=== PATIENT | male | born 1940 | race Caucasian/White ===

== ENCOUNTER 2016-06-23 20:51 | Inpatient (IN) | payer OTHER ==
[~2016-06-23] VITALS: Ht 177.8 cm; Wt 77.3 kg
[~2016-06-23 20:51] MED LIST: ALBUTEROL; AMLODIPINE; BENAZEPRIL; CLONIDINE; HCTZ; LORATIDINE; METOPROLOL; OMEPRAZOLE; QVAR; SIMVASTATIN; SPIRIVA; WARFARIN
[2016-06-23 20:55] VITALS: Ht 177.8 cm; Wt 77.3 kg
[2016-06-23] MEDS ORDERED: SOD CHLORIDE 0.9% 1,000 ML IV STA (20:57)
[2016-06-23] MEDS ORDERED: CEFTRIAXONE 1 GM/50 ML (PMX) 50 ML IVPB ONE (21:00)
[2016-06-23] MEDS ORDERED: ALBUTEROL 0.5% (NEB) 2.5 MG/0.5 ML AMP INH STA (21:03)
[2016-06-23 21:28] LABS: ADD SCAN DIFF NO
[2016-06-23 21:34] LABS: BASOPHILS % 0.2 % (0.0-2.0); EOSINOPHILS % 0.1 % (0.0-7.0); HEMATOCRIT 42.2 % (42.0-52.0); HEMOGLOBIN 13.2 g/dl (14.0-18.0); LYMPHOCYTES # 2.6 10^3/ul (0.8-2.9); LYMPHOCYTES % 29.3 % (15.0-51.0); MEAN CORPUSCULAR HEMOGLOBIN 31.6 pg (29.0-33.0); MEAN CORPUSCULAR HGB CONC 31.3 g/dl (32.0-37.0); MEAN PLATELET VOLUME 11.1 fl (7.4-10.4); MONOCYTE # 0.9 10^3/ul (0.3-0.9); MONOCYTES % 10.1 % (0.0-11.0); NEUTROPHIL # 5.2 10^3/ul (1.6-7.5); NEUTROPHILS % 59.3 % (39.0-77.0); NUCLEATED RED BLOOD CELLS # 0.1 10^3/ul (0.0-0.0); NUCLEATED RED BLOOD CELLS% 0.7 /100WBC (0.0-0.0); PLATELET COUNT 130 10^3/UL (140-415); RED BLOOD COUNT 4.18 10^6/ul (4.70-6.10); RED CELL DISTRIBUTION WIDTH 15.3 % (11.5-14.5); WHITE BLOOD COUNT 8.7 10^3/ul (4.8-10.8)
[2016-06-23 21:40] LABS: ALBUMIN 3.5 g/dl (3.3-4.9); INR 3.15; PROTIME 32.8 Sec (12.2-14.2); PT RATIO 2.6
[2016-06-23 21:41] LABS: POTASSIUM 4.8 mmol/L (3.5-5.1)
[2016-06-23 21:43] LABS: ALBUMIN/GLOBULIN RATIO 1.16; BILIRUBIN,INDIRECT 0.3 mg/dl (0-1.1); BILIRUBIN,TOTAL 0.3 mg/dl (0.2-1.3); CREATININE 2.69 mg/dl (0.61-1.24); TOTAL PROTEIN 6.5 g/dl (6.1-8.1)
[2016-06-23 21:44] LABS: CALCIUM 8.7 mg/dl (8.4-10.2)
[2016-06-23 21:49] LABS: ADD UMIC YES; URINE BILIRUBIN (Dip) 1+ (NEGATIVE); URINE BLOOD (Dip) NEGATIVE (NEGATIVE); URINE COLOR YELLOW (YELLOW); URINE GLUCOSE (Dip) NEGATIVE (NEGATIVE); URINE KETONES (Dip) TRACE (NEGATIVE); URINE LEUKOCYTE ESTERASE (Dip) NEGATIVE (NEGATIVE); URINE NITRITE (Dip) NEGATIVE (NEGATIVE); URINE TOTAL PROTEIN (Dip) 1+ (NEGATIVE); URINE UROBILINOGEN (Dip) 1.0 E.U./dL (0.1-1.0)
[2016-06-23 21:54] LABS: TROPONIN-I 0.127 ng/ml (0.00-0.12)
--- NOTE | 2016-06-23 21:57 | RADRPT ---
PROCEDURE: XR Chest. CLINICAL INDICATION: Cough. Concern for infiltrates TECHNIQUE: Portable AP supine view of the chest was obtained. COMPARISON: None available. FINDINGS: The cardiomediastinal silhouette is enlarged. Distal tip of an endotracheal tube is in good positio n projecting 4.8 cm above the farida. Diffuse pulmonary vascular congestion and moderate to large r ight pleural effusion consistent with congestive heart failure pattern. The osseous structures are intact with no evidence for acute abnormality. Calcification of the thoracic aorta is noted. RPTAT:HJJR IMPRESSION: 1. Endotracheal tube in good position the distal tip projecting 4.8 cm above the farida. 2. Cardiac silhouette enlargement, pulmonary vascular congestion and right pleural effusion consist ent with congestive heart failure. 3. Compressive atelectasis of the right lower lobe. 4. Aortic atherosclerosis is present. Physician Timur Date Time Electronically viewed and signed by Physician Timur on 06/23/2016 21:57 /
--- NOTE | 2016-06-23 21:58 | RADRPT ---
PROCEDURE: XR Pelvis. CLINICAL INDICATION: Trauma TECHNIQUE: Single AP view of the pelvis. COMPARISON: No prior studies are available for comparison. FINDINGS: There are no fractures or dislocations. There are no arthritic, neoplastic or inflammatory changes. The osseous mineralization is decreased. The sacroiliac joints and pubic symphysis are normal. Extensive arteriosclerotic calcification of th e iliac and femoral systems is present. Note is made of a Cochran catheter RPTAT:HJJR IMPRESSION: 1. Demineralization without evidence of acute post traumatic abnormality involving the pelvis. 2. Extensive arteriosclerotic calcification. Physician Timur Date Time Electronically viewed and signed by Physician Timur on 06/23/2016 21:58 JR/
--- NOTE | 2016-06-23 21:59 | RADRPT ---
PROCEDURE: CR Right Elbow CLINICAL INDICATION: Trauma, rule out fracture TECHNIQUE: AP, lateral, and an oblique radiographs were submitted. COMPARISON: None FINDINGS: Osseous Structures: The osseous elements appear well mineralized and intact. Joint Spaces: The joint spaces are well maintained. No joint effusion is evident. Soft Tissues: Soft tissue swelling is seen posterior to the olecranon. IMPRESSION: 1. Soft tissue swelling posterior to the olecranon which could represent a hematoma or olecranon bu rsitis. 2. No fracture or dislocation is evident. Physician Parisa Date Time Electronically viewed and signed by Physician Parisa on 06/23/2016 21:59 /
--- NOTE | 2016-06-23 22:00 | RADRPT ---
PROCEDURE: CR Left Elbow CLINICAL INDICATION: Trauma TECHNIQUE: AP, lateral, and an oblique radiographs were submitted. COMPARISON: None FINDINGS: Osseous Structures: The osseous elements appear well mineralized and intact. Joint Spaces: The joint spaces are well maintained. No joint effusion is evident. Soft Tissues: Appear unremarkable. IMPRESSION: Unremarkable left elbow series. Physician Parisa Date Time Electronically viewed and signed by Will Blankenship Physician on 06/23/2016 22:00 /
[2016-06-23 22:01] LABS: AADO2 Arterial 603.2 mmHg (7.0-24.0); Allen Test ACCEPTAB; Arterial COHb 2.8 % (0.0-3.0); Arterial Fraction of Oxyhgb 83.5 % (93.0-99.0); Arterial HCO3 23.1 mmol/L (22.0-26.0); Arterial MetHb 0.2 % (0.0-1.5); Arterial Total Hemglobin 12.3 g/dl (12.0-18.0); MODE VENT - AC
[2016-06-23 22:07] LABS: BACTERIA,URINE FEW; URINE RBCS NONE SEEN /HPF (0)
--- NOTE | 2016-06-23 22:17 | ERA ---
ER Documentation Chief Complaint Date/Time DATE: 06/23/16 TIME: 22:07 Chief Complaint BIB r39, ROSC HPI 70-year-old man brought in by EMS after intubation at home. Patient called 911 because he rolled off his bed and was too weak to get up. Upon EMS arrival they found the house and a squalid condition, he appeared weak, dehydrated, and short of breath. 1 they placed him on the bed he had momentary altered mental status, stopped breathing, and lost pulses. Initial rhythm was asystole, immediate chest compressions were started and he was given 2 doses of intravenous epinephrine, he was intubated and he had return of spontaneous circulation and then was transported here. Patient did mention hospice to EMS although he had no paperwork and did not explain in detail so he was intubated and resuscitated at the scene. He is a heavy smoker. Further HPI provided by his primary care physician who called later. ROS All systems reviewed and are negative except as per history of present illness. Medications Home Meds Unable to Obtain Active Prescriptions or Reported Meds Allergies Allergies: Coded Allergies: Unknown: Unable to obtain (Unverified , 06/23/16) PMhx/Soc Possible COPD, congestive heart failure and ischemic cardiomyopathy, alcoholism , aortic aneurysm, lower extremity DVTs, chronic kidney disease, peripheral vascular disease, chronic compression fracture of L4 Medical and Surgical Hx: Unable to obtain Hx Alcohol Use: No (unknown) Hx Substance Use: No (unknown) Smoking Status: Current every day smoker FmHx Family History: No diabetes Physical Exam Vitals Vital Signs Date Time Temp Pulse Resp B/P Pulse Ox O2 Delivery O2 Flow Rate FiO2 06/23/16 22:03 69 30 106/73 100 Mechanical Ventilator 06/23/16 21:33 67 19 91/75 96 Mechanical Ventilator 06/23/16 21:21 Bag Valve Mask 06/23/16 20:55 99.3 72 18 135/70 100 Physical Exam GENERAL: Elderly, chronically debilitated man, intubated, unresponsive HEENT: Dry mucous membranes, pink conjunctiva, no cervical spine deformity NEURO: Alert and oriented 0, nonverbal, pupils fixed dilated, no facial asymmetry CARDIAC: Regular rate and rhythm, no murmurs rubs or gallops, palpable pulses LUNGS: Clear bilaterally no wheezing crackles or stridor ABDOMEN: Soft nontender, positive umbilical hernia, no rigidity or rebound SKIN: Cool and dry to touch, multiple superficial abrasions and skin excoriations over the upper extremities and elbows bilaterally, chronic skin thickening and stasis dermatitis of the lower extremities bilaterally EXTREMITIES: No clubbing cyanosis, 1+ pitting edema in the lower extremities bilaterally, calves are bilaterally symmetrical, no Homans sign, no popliteal cord sign. Distal pulses equal and bilateral PSYCH: Unable to assess Result Diagram: 06/23/16209906/23/16 2100 Results 24 hrs Laboratory Tests Test 06/23/16 20:57 06/23/16 21:00 Blood Gas Specimen Source Blood arterial Arterial Blood Date Drawn 06/23/2016 9:49:02 PM Arterial Blood pH (Temp corrected) 7.275 Arterial Blood pCO2 (Temp correct) 50.9mmhg Arterial Blood pO2 (Temp corrected) 58.9mmHG Arterial Blood HCO3 23.1mmol/L Arterial Blood Base Excess -4.0mmol/L Arterial Blood Oxygen Saturation 86.1mmHG Isac Test ACCEPTAB Arterial Blood Gas Puncture Site Left Radial Arterial Blood Carboxyhemoglobin 2.8% Arterial Blood Methemoglobin 0.2% Blood Gas A-a O2 Differential 603.2mmHg Oxyhemoglobin Percent 83.5% Total Hemoglobin 12.3g/dl Blood Gas Temperature 37.0C Blood Gas Respiration Rate 16.0 Blood Gas Actual Respiration Rate 24 Blood Gas Modality VENT - AC FiO2 100.0% Blood Gas Tidal Volume 500.0mL Blood Gas Low PEEP Setting 5.0cmH2O Blood Gas Inspiratory Pressure 28.0 Blood Gas Critical Value Read Back Jacqueline HAN MD Blood Gas Notified Whom UP Blood Gas Notified Time 06/23/2016 10:00:58 PM White Blood Count 8.710^3/ul Red Blood Count 4.1810^6/ul Hemoglobin 13.2g/dl Hematocrit 42.2% Mean Corpuscular Volume 101.0fl Mean Corpuscular Hemoglobin 31.6pg Mean Corpuscular Hemoglobin Concent 31.3g/dl Red Cell Distribution Width 15.3% Platelet Count 95491^3/UL Mean Platelet Volume 11.1fl Neutrophils % 59.3% Lymphocytes % 29.3% Monocytes % 10.1% Eosinophils % 0.1% Basophils % 0.2% Nucleated Red Blood Cells % 0.7/100WBC Neutrophils # 5.210^3/ul Lymphocytes # 2.610^3/ul Monocytes # 0.910^3/ul Eosinophils # 0.010^3/ul Basophils # 0.010^3/ul Nucleated Red Blood Cells # 0.110^3/ul Prothrombin Time 32.8Sec Prothrombin Time Ratio 2.6 INR International Normalized Ratio 3.15 Urine Color YELLOW Urine Clarity CLEAR Urine pH 5.5 Urine Specific [place] 1.025 Urine Ketones TRACE Urine Nitrite NEGATIVE Urine Bilirubin 1+ Urine Ictotest Pending Urine Urobilinogen 1.0 E.U./dL Urine Leukocyte Esterase NEGATIVE Urine Microscopic RBC NONE SEEN/HPF Urine Microscopic WBC NONE SEEN/HPF Urine Epithelial Cells FEW Urine Bacteria FEW Urine Hyaline Casts FEW Urine Hemoglobin NEGATIVE Urine Glucose NEGATIVE% Urine Total Protein 1+ Sodium Level 145mmol/L Potassium Level 4.8mmol/L Chloride Level 100mmol/L Carbon Dioxide Level 30mmol/L Anion Gap 20 Blood Urea Nitrogen 57mg/dl Creatinine 2.69mg/dl Glucose Level 124mg/dl Calcium Level 8.7mg/dl Total Bilirubin 0.3mg/dl Direct Bilirubin 0.00mg/dl Indirect Bilirubin 0.3mg/dl Aspartate Amino Transf (AST/SGOT) 166IU/L Alanine Aminotransferase (ALT/SGPT) 137IU/L Alkaline Phosphatase 165IU/L Troponin I 0.127ng/ml Total Protein 6.5g/dl Albumin 3.5g/dl Globulin 3.00g/dl Albumin/Globulin Ratio 1.16 Lipase 39U/L Current Medications Medications (Trade) Dose Ordered Sig/Lacie Route PRN Reason Start Time Stop Time Status Last Admin Dose Admin Sodium Chloride 1,000 ml @ 2,000 mls/hr Q30M STAT IV 06/23/16 20:57 06/23/16 21:26 DC 06/23/16 21:13 Ceftriaxone Sodium (Rocephin) 50 ml @ 100 mls/hr ONCE ONCE IVPB 06/23/16 21:00 06/23/16 21:29 DC 06/23/16 21:15 Albuterol (Proventil 0.5% (Neb)) 10 mg ONCE STAT INH 06/23/16 21:03 06/23/16 21:05 DC 06/23/16 21:10 Aspirin (Aspirin) 300 mg ONCE ONCE MS 06/23/16 22:30 06/23/16 22:31 06/23/16 22:11 Hydrocortisone (Solu-Cortef) 100 mg ONCE ONCE IV 06/23/16 22:30 06/23/16 22:31 06/23/16 22:10 Procedures/MDM IV line was established patient was placed on monitor tech rhythm strip revealed a bradycardia at about 60 bpm with upright P and T waves. Patient was afebrile. Cochran catheter was placed, blood and urine cultures have been ordered results are pending I will follow-up. EKG performed, read by me revealed normal sinus rhythm at 62 bpm, left axis deviation with a right ventricular conduction delay QRS duration 112 ms and a first-degree atrioventricular block at [address] elevations or depressions noted. One view chest x-ray performed, read by me there is atelectatic changes bilaterally and bilateral pulmonary vascular congestion, no acute infiltrates or pneumothorax, no end of the diaphragm. CT scan of the brain could not be performed as he had episodes of desaturation in the radiology suite. Patient is also at risk for acute pulmonary embolism and will require CT angiogram of the chest although there is definite risk of this as well because his creatinine is so high. I suspect his BUN and creatinine levels will improve with continued IV hydration, and therefore CT angiogram to diagnose acute PE will have to be deferred until he has an improved creatinine level. I ordered another dose of albuterol via nebulizer X-ray Pelvis 1V Interpreted by me: Bones: No fracture Joints: No dislocation Foreign body: None X-ray left elbow 3V Interpreted by me: Fat Pads: Normal Bones: No fracture Joints: No dislocation Foreign body: None X-ray right elbow 3V Interpreted by me: Fat Pads: Normal Bones: No fracture Joints: No dislocation Foreign body: None I administered 2 L normal saline intravenously for dehydration, albuterol 10 mg via nebulizer, hydrocortisone 100 mg IV, ceftriaxone 1 g IV. CBC was unremarkable, electrolytes revealed dehydration and kidney disease with a BUN/creatinine of 57/2.7, liver function tests revealed transaminitis, troponin was positive at 0.1. Coagulation profile revealed an INR of 3.2 and therapeutic. I administered aspirin 300 mg per rectum, given the chest x-ray findings I also administered furosemide 40 mg IV. Urine analysis was unremarkable. Critical Care: Time: 50 minutes, this was time separate from other procedures. Treatments/Evaluations: Close monitoring and treatment of unstable vital signs, cardiorespiratory, and neurologic status, while maintaining tight balance of fluid, respiratory, and cardiac interventions. EKG #2 performed, read by me revealed a sinus bradycardia 69 bpm, left axis deviation, narrow QRS complex with a first-degree atrioventricular block and a MS interval of 206, no concerning ST elevations or depressions noted. Departure Diagnosis: Primary Impression: Cardiac arrest Additional Impressions: CHF (congestive heart failure) Qualified Code: I50.21 - Acute systolic congestive heart failure COPD (chronic obstructive pulmonary disease) Qualified Code: J44.1 - Chronic obstructive pulmonary disease with acute exacerbation Alcoholism Condition: Critical ZAYDA HAN MD Jun 23, 2016 22:17
[2016-06-23] MEDS ORDERED: ALBUTEROL 0.083% (NEB) 2.5 MG/3 ML AMP HHN STA (22:25)
[2016-06-23] MEDS ORDERED: SOD CHLORIDE 0.9% 1,000 ML IV ONE (22:30)
[2016-06-23] MEDS ORDERED: ASPIRIN 300 MG SUPP PR ONE (22:30)
[2016-06-23] MEDS ORDERED: FUROSEMIDE 40 MG INJ IV ONE (22:30)
[2016-06-23] MEDS ORDERED: HYDROCORTISONE 100 MG INJ IV ONE (22:30)
[2016-06-23 23:03] LABS: ICTOTEST NEGATIVE (NEGATIVE)
[2016-06-24] VITALS (60 sets, daily range): BP systolic 72–152; BP diastolic 53–87; PULSE 61–77; RESP 16–30
[2016-06-24] MEDS ORDERED: NICOTINE (21 MG/24 HR) PATCH TRANSDERM ONE
[2016-06-24] MEDS ORDERED: NACL 0.9% 3 ML SYG IV SCH
[2016-06-24] MEDS ORDERED: ONDANSETRON 4 MG INJ IV PRN
[2016-06-24] MEDS: PROPOFOL 100 ML IV SCH ×3 (01:00→18:34)
[2016-06-24] MEDS ORDERED: PROPOFOL 100 ML ONE (01:02)
[2016-06-24 04:00] LABS: AADO2 Arterial 594.4 mmHg (7.0-24.0); Allen Test ACCEPTAB; Arterial Base Excess 0.7 mmol/L (-3.0-3); Arterial COHb 0.7 % (0.0-3.0); Arterial Fraction of Oxyhgb 92.6 % (93.0-99.0); Arterial HCO3 26.1 mmol/L (22.0-26.0); Arterial MetHb 0.2 % (0.0-1.5); Arterial Total Hemglobin 13.2 g/dl (12.0-18.0); MODE VENT - AC
[2016-06-24 05:08] LABS: ADD SCAN DIFF NO
[2016-06-24 05:19] LABS: ABNORMAL IP MESSAGE 1; HEMOGLOBIN 12.2 g/dl (14.0-18.0); LYMPHOCYTES # 0.4 10^3/ul (0.8-2.9); LYMPHOCYTES % 3.5 % (15.0-51.0); MEAN CORPUSCULAR HEMOGLOBIN 30.8 pg (29.0-33.0); MEAN CORPUSCULAR HGB CONC 31.3 g/dl (32.0-37.0); MEAN CORPUSCULAR VOLUME 98.5 fl (82.0-101.0); MEAN PLATELET VOLUME 10.9 fl (7.4-10.4); MONOCYTE # 0.9 10^3/ul (0.3-0.9); MONOCYTES % 8.6 % (0.0-11.0); NEUTROPHIL # 9.3 10^3/ul (1.6-7.5); NEUTROPHILS % 87.3 % (39.0-77.0); PLATELET COUNT 95 10^3/UL (140-415); RED BLOOD COUNT 3.96 10^6/ul (4.70-6.10); RED CELL DISTRIBUTION WIDTH 15.1 % (11.5-14.5); WHITE BLOOD COUNT 10.7 10^3/ul (4.8-10.8)
[2016-06-24 05:24] LABS: INR 2.68; PROTIME 28.9 Sec (12.2-14.2); PT RATIO 2.3
[2016-06-24 05:25] LABS: PARTIAL THROMBOPLASTIN TIME 35.5 Sec (25.0-35.0)
[2016-06-24 05:32] LABS: POTASSIUM 4.1 mmol/L (3.5-5.1)
[2016-06-24 05:35] LABS: CREATININE 2.44 mg/dl (0.61-1.24)
[2016-06-24 05:36] LABS: CALCIUM 8.4 mg/dl (8.4-10.2)
[2016-06-24] MEDS: PANTOPRAZOLE 40 MG INJ IV SCH (05:49)
[2016-06-24] MEDS ORDERED: NORepinephrine 8MG/250 ML (PMX 250 ML ONE (06:02)
[2016-06-24 06:03] LABS: ALBUMIN 3.5 g/dl (3.3-4.9)
[2016-06-24 06:06] LABS: BILIRUBIN,INDIRECT 0.3 mg/dl (0-1.1); BILIRUBIN,TOTAL 0.3 mg/dl (0.2-1.3); TOTAL PROTEIN 6.4 g/dl (6.1-8.1)
[2016-06-24] MEDS ORDERED: NORepinephrine 8MG/250 ML (PMX 250 ML IV SCH (06:30)
[2016-06-24] MEDS ORDERED: VANCOMYCIN IV PER PHARMACY XX SCH (06:30)
[2016-06-24] MEDS: VANCOMYCIN 1.25 GM in SOD CHLORIDE 0.9% 250 ML IVPB SCH (08:16)
--- NOTE | 2016-06-24 09:38 | RADRPT ---
PROCEDURE: XR Chest 1 view. CLINICAL INDICATION: Shortness of breath TECHNIQUE: AP views of the chest was obtained. COMPARISON: Yesterday FINDINGS: The heart is large. Calcified atherosclerosis is noted in the aorta. Endotracheal tube is stable. Central pulmonary vascular congestion and interstitial prominence in both lungs is unchanged. Right mid and lower lung infiltrates combined with moderate pleural effusion are stable. Retrocardiac op acity is stable. The osseous structures are unchanged. IMPRESSION: Cardiomegaly with calcified atherosclerosis in the aorta. Stable central pulmonary vascular congestion and interstitial prominence in both lungs. Stable right mid and lower lung infiltrates, combined with moderate pleural effusion. Stable retrocardiac opacity that may reflect left lower lobe atelectasis or infiltrate combined with small pleural effusion. RPTAT: AA .Javier Goodwin MD, MD Date Time Electronically viewed and signed by .Javier Goodwin MD, MD on 06/24/2016 09:38 .P/
--- NOTE | 2016-06-24 12:07 | RADRPT ---
PROCEDURE: CT Brain without contrast. CLINICAL INDICATION: Altered mental status. TECHNIQUE: A CT of the brain was performed on a multi-slice CT scanner utilizing axial sections fr om the skull base through the vertex without contrast. Coronal and sagittal reconstructed images wer e provided. One or more of the following does reduction techniques were used: Automated exposure c ontrol; adjustment of the mA and/or kV according to patient size; use of the aorta of reconstruction technique. Images were reviewed on a high-resolution PACS workstation. Exam DLP equals 720.23 mGy- cm. The CTDI equals 43.7 mGy COMPARISON: None available FINDINGS: Mild diffuse cerebral and cerebellar atrophy is present. There is no evidence of intracranial hemor rhage, mass effect or midline shift. No abnormal intra-axial or extra-axial fluid collections are s een. There are mild deep white matter patchy hypodensities which are nonspecific, but typically see n in small vessel chronic ischemic disease. The density of the brain is otherwise normal and the g ray/white matter differentiation is well preserved. The osseous structures and visualized paranasal sinuses are unremarkable. Vascular calcifications are identified. IMPRESSION: 1. No CT evidence of acute intracranial pathology. 2. Mild diffuse atrophy and deep white matter microangiopathic ischemic changes. 3. Atherosclerotic calcifications of the intracranial carotid and vertebral arteries. RPTAT: KK .Saran Vicente MD, MD Date Time Electronically viewed and signed by .Saran Vicente MD, MD on 06/24/2016 12:06 .B/
[2016-06-24] MEDS: METHYLPREDNISOLONE 40 MG INJ IV SCH ×2 (12:50→17:24)
--- NOTE | 2016-06-24 13:35 | CONS ---
DATE OF ADMISSION: 06/23/2016 DATE OF CONSULTATION: 06/24/2016 PULMONARY CONSULTATION Thank you, Dr. Hodges, for this consultation. HISTORY OF PRESENT ILLNESS: This is a 76-year-old gentleman with multiple medical problems includin g COPD, congestive cardiac failure, apparently previously on hospice. He came in yesterday having b eekeisha found down at home in what appears to be squalid conditions. Upon arrival of EMS, the patient w as somewhat responsive and then became unresponsive, requiring CPR for asystole with epinephrine int ubation and mechanical ventilation. Transferred to [facility], [facility] he required continued mechanical ventilation, vasopressor support; now on vent, largely somnolent . PAST MEDICAL HISTORY: COPD, congestive cardiac failure, ischemic cardiomyopathy, history of alcohol abuse, aortic aneurysm, lower extremity deep vein thrombosis, peripheral vascular disease and prior to that apparently on hospice. MEDICATIONS: Per chart. ALLERGIES: NONE. SOCIAL HISTORY: Positive for tobacco and alcohol per chart. TWELVE-POINT REVIEW OF SYSTEMS: Unable to perform. PHYSICAL EXAMINATION: GENERAL: Elderly, chronically ill-appearing gentleman, intubated on mechanical ventilation. HEENT: Pupils are equal and reactive to light. Moist mucous membranes. CARDIAC: S1, S2. II/ systolic ejection murmur. CHEST: Diminished air entry bilaterally with rales. ABDOMEN: Mildly distended, soft. EXTREMITIES: No cyanosis, clubbing; 1+ edema. NEUROLOGIC: Generalized weakness. LABORATORIES: White count 10.7, hemoglobin 12.2, platelets of 95. BUN 58, creatinine 2.44. Tropon in elevated at 0.35. AST 163, ALT 165, alk phos 167. Arterial blood gas: pH 7.38, pCO2 of 44, pO2 of 73. INR was 2.68. Urinalysis was unremarkable. Chest x-ray was reviewed; showed congestive cardiac failure with moderate pleural effusions. EKG showed no acute ischemic changes. IMPRESSION AND PLAN: 1. Cardiopulmonary arrest, likely secondary to acute respiratory failure. 2. Possible aspiration component. 3. Congestive cardiac failure. 4. History of advanced chronic obstructive pulmonary disease per chart. 5. History of hospice. PATIENT WILL NEED: 1. Continued mechanical ventilation. 2. Vasopressors as needed. 3. Additional steroids. 4. Broadening antibiotics. 5. Bronchodilators. 6. DVT and GI prophylaxis. 7. Address code status again with family and next of kin as palliative care may be more appropriate . Dictated By: NIC NARVAEZ/ERIN Conf#: [id number] DID#: [id number]
[2016-06-24] MEDS ORDERED: ALBUTEROL/IPRATROPIUM (NEB) 3 ML AMP HHN SCH (14:00)
[2016-06-24] MEDS: PIPER-TAZO 3.375 GM IV (PMX) 100 ML IVPB SCH ×2 (14:09→22:07)
--- NOTE | 2016-06-24 19:13 | HP ---
DATE OF ADMISSION: 06/23/2016 CONSULTANTS ON THIS ADMISSION: Dr. Lamb from pulmonary, Dr. Kahn from Cardiology. CHIEF COMPLAINT ON ADMISSION: Found down at home. HISTORY OF PRESENT ILLNESS: This is a 76-year-old male brought in by EMS after being found in cardi ac arrest at home. The patient himself is intubated, currently unable to give any history. Therefo re, the following history was compiled from EMS reports and emergency department notes, also a few r eports from the hospice service the patient was on before, and other information obtained through [facility] services. Apparently, the patient has signed up for hospice. We do not know exactly when. A POLST form was not done; therefore, he is a FULL CODE patient at that time he signed up. Yesterday, he called and decided to revoke hospice. A few minutes later, he called 911 complaining of shortne ss of breath. EMS did show up at the residence of the patient, found it in very poor condition. Th e patient was weak, look dehydrated, and short of breath. Apparently, they placed him on the bed an d the patient proceeded to have loss of consciousness, stopped breathing, and lost his pulses. CPR was initiated. The initial rhythm was asystole, PEA cardiac arrest. The patient had chest compress ions. He was given 2 doses of IV epinephrine, intubated by EMS. He had return of spontaneous circu lation and the patient was transported to the emergency department. The patient was maintained on v entilator. He is on a small amount of propofol. He is not requiring pressors. He was given a dose of Lasix and then started on IV antibiotics overnight, and he has been stable on the ventilator so far. He had a CT scan of the brain, which did not show any acute injury. The admitting diagnosis i s PEA cardiac arrest, likely secondary to respiratory failure actually, given also possible history of chronic obstructive pulmonary disease. Today, after case management and social work coordinator investig ated regarding the patient's social situation, it was confirmed that he was with [facility]. Whe n they were called, they did confirm that the patient revoked prior to calling 911. He also never f illed out a POLST form; therefore, FULL CODE. Apparently, the patient was noncompliant on hospice. He was still smoking. He is a heavy smoker. We will have social work coordinator try to obtain further in formation during this patient's hospital stay. He is also noted to be in acute kidney injury versus chronic kidney disease. He is coagulopathic, low platelet level, abnormal LFTs that seems to be po inting towards possible cirrhosis. It is unclear if the patient is a heavy drinker, but it is possi ble; therefore, I will place him on a banana bag. Today during his evaluation, his cardiac enzymes seem to be trending up, likely secondary to CPR, but Cardiology will be consulted. Once we get a be tter idea of this patient's past medical history, previous clinical status, and goals of care; hopef ully, we will be able to reach out to family. We will have possible palliative care evaluation if t he patient is still on the ventilator. If he recovers from this event once he is extubated, of cour se, appropriate intervention will be done. ALLERGIES: Unknown, unable to obtain. PAST MEDICAL HISTORY: Unknown. Based on the few records we have, it seems like the patient has tob acco use and likely COPD. PAST SURGICAL HISTORY: Unknown. REVIEW OF SYSTEMS: Unable to obtain. OUTPATIENT MEDICATIONS: Unknown. SOCIAL HISTORY: Really unknown, but the patient was found in a house in poor condition. He seemed disheveled when he arrived. He is a heavy tobacco user and smoker, confirmed. It is unclear if he also drinks alcohol. PHYSICAL EXAMINATION: VITAL SIGNS: Temperature 98.7, heart rate of 66, sinus rhythm, respiratory rate 20. He is on mecha nical ventilation. Blood pressure 113/63 and he is 100% on 60% FIO2. GENERAL: He is sedated with minimal dose of propofol, noncombative at all. He does not seem to be in any acute distress. HEENT: Pupils are equally round and reactive to light. Extraocular muscles are intact. Anicteric sclerae. NECK: No JVD, no thyromegaly. LUNGS: He has good air movement on mechanical ventilation currently. Decreased breath sounds at th e bases. ABDOMEN: Soft, nontender, nondistended. Bowel sounds are present. EXTREMITIES: No edema, but the patient is noted to have almost chronic venous stasis with skin conley ges in the lower extremities. He is also noted to have ecchymoses on his upper extremities. NEUROLOGIC: He is currently on light sedation, but minimally responsive. LABORATORY DATA: White blood cell count is 10.7, hemoglobin 12.2, hematocrit 39.0, platelet count o f 95. Chemistry with a sodium of 143, potassium 4.1, chloride 103, bicarbonate 29, BUN 58, creatini ne 2.44, glucose of 113, calcium 8.4, magnesium 2.0. Total bilirubin 0.3, AST 163, ALT 165, alkalin e phosphatase 167. Troponin is 0.401, for the latest one. Prior to that 0.35, and prior to that 0. 127, total protein 6.4, albumin 3.5. INR is 2.68, which is down from 3.15, PTT 35.5, of 28.9. Urinalysis is fairly negative. ABG this morning with a pH of 7.38, pO2 of 73.9, pCO2 of 44.7. RADIOLOGICAL DATA: Patient had a chest x-ray, the latest one this morning showing cardiomegaly, karolina cified aorta, stable central pulmonary vascular congestion and interstitial prominence in both lungs , stable right mid and lower lobe infiltrate combined with moderate pleural effusion, stable retroca rdiac opacity reflective of lower lobe atelectasis or infiltrate. CT scan of the brain shows no dave dence of intracranial pathology, mild diffuse atrophy and deep white matter microangiopathic ischemi c changes, atherosclerotic calcification, intracranial carotid intervertebral arteries. The patient had elbow x-rays done that did not show any acute dislocation, but some tissue swelling. Pelvic x- ray did not show any acute fractures. ELECTROCARDIOGRAM: Upon presentation in the ER shows sinus rhythm, first-degree AV block. No other acute changes. ASSESSMENT AND PLAN: This is a 76-year-old male with: 1. Pulseless electrical activity cardiac arrest at home with EMS on site, status post resuscitation . The patient is hemodynamically stable currently. He is on sedation with a low dose of propofol. His cardiac enzymes are trending up slightly, likely still secondary to CPR, but a 2-D echocardiogr am will be ordered along with a cardiology evaluation. This cardiac arrest may be very well respira tory failure driven. We will continue to monitor. 2. Acute respiratory failure with a history of heavy tobacco use, likely chronic obstructive pulmon henry disease and chronic obstructive pulmonary disease exacerbation. Also, patient is noted to have right lower lobe, right middle lobe infiltrate consistent with pneumonia, possibly aspiration pneum onia versus community-acquired pneumonia. We will continue vancomycin and Zosyn for now for antibio tic coverage. The patient is on mechanical ventilation for airway. Nebulizer treatments have been started by Dr. Lamb, along with steroid therapy. We will follow up pulmonary recommendations. 3. Aspiration pneumonia likely, given the pattern of infiltrates on chest x-ray. Continue Zosyn an d vancomycin. 4. Possibly cirrhosis versus shock liver. The patient's LFTs did go up along with coagulopathy. Ilana mandujano is also noted to have thrombocytopenia. We will continue to monitor his liver function testing, a long with coagulation factors and platelets. Also monitor for any signs of acute bleeding. I will place him on a banana bag in case and also check a hepatitis panel. 5. Acute kidney injury versus chronic kidney disease. The patient's urine output is slightly zahira nal. He did receive Lasix last night upon presentation. We will monitor his urine output and volum e status. He may need further diuresis versus IV fluids, depending on the chest x-ray in a.m. PROPHYLAXIS: SCDs to lower extremities for DVT prophylaxis and Pepcid for GI prophylaxis. DISPOSITION: The patient is currently FULL CODE until further information is obtained through [employer] services, and also hopefully we will find out if he does have family. Continue ICU level of care with mechanical ventilation, aggressive treatment. Follow up cardiology recommendations. Dictated By: DAVID VIEYRA/NTS Conf#: [id number] DID#: [id number]
[2016-06-24] MEDS: IPRATROPIUM (HFA) 12.9 GM INHALER INH SCH (19:38)
[2016-06-24] MEDS: ALBUTEROL HFA 8 GM INHALER INH SCH (19:39)
[2016-06-24] MEDS: MULTIVITAMINS 10 ML, THIAMINE 100 MG, FOLIC ACID 1 MG in SOD CHLORIDE 0.9% 1,000 ML IVPB SCH (20:02)
[2016-06-24 21:42] LABS: CREATINE KINASE < 20 IU/L (23-200)
[2016-06-24 21:54] LABS: CK-MB 0.88 ng/ml (0.0-2.4)
[2016-06-25] VITALS (43 sets, daily range): BP systolic 103–132; BP diastolic 57–70; PULSE 53–66; RESP 15–21
[2016-06-25] MEDS: METHYLPREDNISOLONE 40 MG INJ IV SCH ×4 (00:03→17:54)
[2016-06-25] MEDS ORDERED: FUROSEMIDE 40 MG INJ IV ONE (01:00)
[2016-06-25] MEDS: ALBUTEROL HFA 8 GM INHALER INH SCH ×4 (01:37→20:52)
[2016-06-25] MEDS: IPRATROPIUM (HFA) 12.9 GM INHALER INH SCH ×4 (01:37→20:52)
[2016-06-25 04:53] LABS: ADD SCAN DIFF NO; HAAIG REFLEX REFLEX FILED
[2016-06-25 04:59] LABS: ABNORMAL IP MESSAGE 1; HEMATOCRIT 36.4 % (42.0-52.0); HEMOGLOBIN 11.6 g/dl (14.0-18.0); LYMPHOCYTES # 0.3 10^3/ul (0.8-2.9); MEAN CORPUSCULAR HEMOGLOBIN 30.9 pg (29.0-33.0); MEAN CORPUSCULAR HGB CONC 31.9 g/dl (32.0-37.0); MEAN CORPUSCULAR VOLUME 96.8 fl (82.0-101.0); MEAN PLATELET VOLUME 11.2 fl (7.4-10.4); MONOCYTE # 0.2 10^3/ul (0.3-0.9); MONOCYTES % 3.1 % (0.0-11.0); NEUTROPHIL # 6.6 10^3/ul (1.6-7.5); NEUTROPHILS % 92.2 % (39.0-77.0); PLATELET COUNT 86 10^3/UL (140-415); RED BLOOD COUNT 3.76 10^6/ul (4.70-6.10); RED CELL DISTRIBUTION WIDTH 15.3 % (11.5-14.5); WHITE BLOOD COUNT 7.2 10^3/ul (4.8-10.8)
[2016-06-25 05:11] LABS: INR 2.49; PROTIME 27.2 Sec (12.2-14.2); PT RATIO 2.1
[2016-06-25 05:12] LABS: PARTIAL THROMBOPLASTIN TIME 47.3 Sec (25.0-35.0)
[2016-06-25 05:13] LABS: POTASSIUM 4.6 mmol/L (3.5-5.1)
[2016-06-25 05:15] LABS: CREATININE 2.85 mg/dl (0.61-1.24)
[2016-06-25 05:16] LABS: CALCIUM 8.7 mg/dl (8.4-10.2); MAGNESIUM 1.9 mg/dl (1.7-2.5); PHOSPHORUS 5.9 mg/dl (2.5-4.9)
[2016-06-25 05:42] LABS: CK-MB 1.02 ng/ml (0.0-2.4); TROPONIN-I 0.245 ng/ml (0.00-0.12)
[2016-06-25] MEDS: PANTOPRAZOLE 40 MG INJ IV SCH (06:00)
[2016-06-25] MEDS: PIPER-TAZO 3.375 GM IV (PMX) 100 ML IVPB SCH ×2 (06:00→13:48)
[2016-06-25 06:30] LABS: HEPATITIS B CORE ANTIBODY NEGATIVE (NEGATIVE)
[2016-06-25] MEDS: PROPOFOL 100 ML IV SCH ×2 (08:34→22:08)
--- NOTE | 2016-06-25 09:03 | RADRPT ---
PROCEDURE: Chest 1 views. CLINICAL INDICATION: Shortness of breath TECHNIQUE: AP views of the chest was obtained. COMPARISON: Yesterday FINDINGS: The heart is large. Endotracheal tube is stable and appears in grossly appropriate location. Diffus e interstitial prominence in both lungs is stable. Retrocardiac opacity is unchanged. Right middle and lower lobe infiltrates combined with small to moderate pleural effusion are stable. Osseous st ructures are unchanged. IMPRESSION: Cardiomegaly . Stable diffuse interstitial prominence in both lungs. Stable retrocardiac opacity that may reflect left lower lobe atelectasis or infiltrate combined with small pleural effusion. Stable right middle and lower lobe infiltrates, combined with small to moderate pleural effusion. RPTAT: AA .Javier Goodwin MD, Date Time Electronically viewed and signed by .Javier Goodwin MD, on 06/25/2016 09:03 .P/
[2016-06-25] MEDS: MULTIVITAMINS 10 ML, THIAMINE 100 MG, FOLIC ACID 1 MG in SOD CHLORIDE 0.9% 1,000 ML IVPB SCH (09:42)
--- NOTE | 2016-06-25 09:59 | PN ---
Date/Time of Note Date/Time of Note DATE: 06/25/16 TIME: 09:39 Assessment/Plan VTE Prophylaxis VTE Prophylaxis Intervention: SCD's Lines/Catheters IV C[facility]ter Type [facility] Peripheral IV Urinary Cath still in place: Yes Reason Cath still needed: other (indicate) (BERNIE and intubated ) Assessment/Plan Assessment/Plan 76-year-old male with: 1. Pulseless electrical activity cardiac arrest at home with EMS on site, status post resuscitation. Cardiac arrest may be very well 2ry to respiratory failure. Hemodynamically stable currently. Minimal sedation with Propofol and minimally responsive Cardiac enzymes are trending back down 2-D echocardiogram pending Cardiology consult with Dr Kahn 2. Acute respiratory failure with a history of heavy tobacco use, likely chronic obstructive pulmonary disease and chronic obstructive pulmonary disease exacerbation and also with right lower lobe, right middle lobe infiltrate consistent with pneumonia, possibly aspiration pneumonia versus community-acquired pneumonia. Continue vancomycin and Zosyn Vent support Nebulizer treatments and steroids per Pulmonary, follow up pulmonary recommendations. 3. Aspiration pneumonia likely, given the pattern of infiltrates on chest x- ray. Continue Zosyn and vancomycin. 4. Possibly cirrhosis versus shock liver. Hepatitis panel negative Monitor LFTs, Coagulopathy and thrombocytopenia. Continue daily banana bag. 5. Acute kidney injury versus chronic kidney disease. Better UOP but renal function slighlty worse Check renal US and start IVF along with banana bag Monitor volume status, check BNP and follow up Echo results . PROPHYLAXIS: SCDs to lower extremities for DVT prophylaxis and Pepcid for GI prophylaxis. DISPOSITION: FULL CODE until further information is obtained through health social work professor, and also hopefully we will find out if he does have family. Continue ICU level of care with mechanical ventilation, aggressive treatment for now. Follow up cardiology recommendations. Subjective 24 Hr Interval Summary Free Text/Dictation Patient intubated and sedated Minimally responsive UOP bordeline Afebrile and no pressors Exam/Review of Systems Vital Signs Vitals Vital Signs Date Time Temp Pulse Resp B/P Pulse Ox O2 Delivery O2 Flow Rate FiO2 06/25/16 08:06 60 20 100 60 06/25/16 08:00 97.6 128/70 Mechanical Ventilator Intake and Output 06/24/16 06/24/16 06/25/16 15:00 23:00 07:00 Intake Total 417.222 ml 462.586 ml 755.632 ml Output Total 150 ml 335 ml Balance 417.222 ml 312.586 ml 420.632 ml Exam Constitutional: other (sedated and intubated ) Respiratory: clear to auscultation, diminished breath sounds (RLL/RML) Cardiovascular: nl pulses, regular rate and rhythm Gastrointestinal: non-tender, soft Musculoskeletal: other (chronic dermatitis changes ) Extremities: normal pulses, other (NO edema ) 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: other (sedated and minimally responsive ) Results Result Diagram: 06/25/16 04306/25/16 0430 Results 24 hrs Laboratory Tests Test 06/24/16 15:25 06/24/16 21:08 06/25/16 04:30 Troponin I 0.401 *H 0.060 0.245 *H Creatine Kinase < 20 L 38 Creatine Kinase Index 2.7 Creatinine Kinase MB (Mass) 0.88 1.02 White Blood Count 7.2 # Red Blood Count 3.76 L Hemoglobin 11.6 L Hematocrit 36.4 L Mean Corpuscular Volume 96.8 Mean Corpuscular Hemoglobin 30.9 Mean Corpuscular Hemoglobin Concent 31.9 L Red Cell Distribution Width 15.3 H Platelet Count 86 L Mean Platelet Volume 11.2 H Neutrophils % 92.2 H Lymphocytes % 4.0 L Monocytes % 3.1 Eosinophils % 0.0 Basophils % 0.0 Nucleated Red Blood Cells % 0.0 Neutrophils # 6.6 Lymphocytes # 0.3 L Monocytes # 0.2 L Eosinophils # 0.0 Basophils # 0.0 Nucleated Red Blood Cells # 0.0 Prothrombin Time 27.2 H Prothrombin Time Ratio 2.1 INR International Normalized Ratio 2.49 Activated Partial Thromboplast Time 47.3 H Sodium Level 143 Potassium Level 4.6 Chloride Level 105 Carbon Dioxide Level 29 Anion Gap 14 Blood Urea Nitrogen 69 H Creatinine 2.85 H Glucose Level 115 Calcium Level 8.7 Phosphorus Level 5.9 H Magnesium Level 1.9 Hepatitis B Surface Antigen NEGATIVE Hepatitis B Core Total Antibody NEGATIVE Hepatitis C Antibody NEGATIVE Medications Medications Current Medications Ondansetron HCl (Zofran Inj) 4 mg Q6H PRN IV NAUSEA AND/OR VOMITING; Start at 00:00 Pantoprazole 40 mg 40 mg DAILY@06 IV Last administered on 06/25/16t 06:00; Admin Dose 40 MG; Start 06/24/16 at 06:00 Propofol 100 ml @ 2.318 mls/ hr Q12H IV Last administered on 06/25/16 08:34; Admin Dose 6.954 MLS/HR; Start 06/24/16 at 01:30 Norepinephrine 250 ml @ 1.875 mls/ hr TITRATE IV ; Start 06/24/16 at 06:30 Norepinephrine 16 mg/Dextrose 500 ml @ 1.87 mls/hr TITRATE IV ; Start 06/24/16 at 06:30 Vancomycin HCl 1.25 gm/Sodium Chloride 250 ml @ 83.333 mls/ hr Q48H IVPB Last administered on 06/24/16 08:16; Admin Dose 83.333 MLS/HR; Start 06/24/16 at 07: 00 Piperacillin Sod/ Tazobactam Sod (Zosyn 3.375gm/ 100 ml (Pmx)) 100 ml @ 200 mls /hr Q8 IVPB Last administered on 06/25/16 06:00; Admin Dose 200 MLS/HR; Start 06/24/16 at 14:00 Methylprednisolone Sodium Succinate 40 mg 40 mg Q6 IV Last administered on 06/25 06:03; Admin Dose 40 MG; Start 06/24/16 at 12:00 Multivitamins/ Thiamine HCl/ Folic Acid/Sodium Chloride (Mvi-12 Adult/ Vitamin B1/Folic Acid/NS) 1,011.2 ml @ 75 mls/hr DAILY@09 IVPB Last administered on 20:02; Admin Dose 75 MLS/HR; Start 06/24/16 at 18:30 DAVID GONZALEZ Jun 25, 2016 09:49
[2016-06-25] MEDS: SOD CHLORIDE 0.9% 1,000 ML IV SCH ×2 (10:00→23:06)
[2016-06-25 10:05] LABS: ALBUMIN 2.9 g/dl (3.3-4.9)
[2016-06-25 10:08] LABS: BILIRUBIN,INDIRECT 0.2 mg/dl (0-1.1); BILIRUBIN,TOTAL 0.2 mg/dl (0.2-1.3); TOTAL PROTEIN 5.4 g/dl (6.1-8.1)
--- NOTE | 2016-06-25 10:13 | CONS ---
Date/Time of Note Date/Time of Note DATE: 06/25/16 TIME: 10:09 Assessment/Plan Assessment/Plan Additional Assessment/Plan Chest x-ray was reviewed from today which is showing a right lower lobe infiltrate. There is a left lower lobe infiltrate present as well. Endotracheal tube is at an adequate level. Ventilator setting; are AC of 20, tidal volume 500, PEEP of 10, 50% FiO2. Assessment recommendations; next 1. Patient admitted for respiratory failure status post CPR and cardiac arrest. 2. Bilateral pneumonia. 3. Chronic renal insufficiency. Continue current treatment for now. Patient sedation vacation 24 hours. Obtain follow-up chest x-ray in 24 hours. Consultation Date/Type/Reason Admit Date/Time Jun 23, 2016 at 22:42 Initial Consult Date Type of Consultation: Pulmonary/critical care 24 HR Interval Summary Free Text/Dictation Patient condition remains critical. Still requiring full ventilator support. Currently on propofol drip for sedation. Patient however has remained hemodynamically stable. General exam; elderly male, orally intubated, sedated. Currently in no distress. Exam/Review of Systems Vital Signs Vitals Vital Signs Date Time Temp Pulse Resp B/P Pulse Ox O2 Delivery O2 Flow Rate FiO2 06/25/16 08:06 60 20 100 60 06/25/16 08:00 97.6 128/70 Mechanical Ventilator Intake and Output 06/24/16 06/24/16 06/25/16 15:00 23:00 07:00 Intake Total 417.222 ml 462.586 ml 755.632 ml Output Total 150 ml 335 ml Balance 417.222 ml 312.586 ml 420.632 ml Exam HEENT exam; supple neck, no JVD. No lymphadenopathy. Midline trachea. Patient is edentulous. Orally intubated. Pupils are midsize and reactive to light bilaterally. No neck masses. No thyromegaly. Chest examination; diminished but clear breath sounds bilaterally. S1-S2 audible, no murmurs. Regular rhythm. Abdomen examination; soft, no organomegaly. Bowel sounds audible. Extremity exam; no peripheral edema. Patient has severe scaling of skin in lower extremities bilaterally. SOLE MOLDER examination; patient is sedated. Results Result Diagram: 06/25/16 0430 06/25/16 0430 Results 24 hrs Laboratory Tests Test 06/24/16 15:25 06/24/16 21:08 06/25/16 04:30 Troponin I 0.401 *H 0.060 0.245 *H Creatine Kinase < 20 L 38 Creatine Kinase Index 2.7 Creatinine Kinase MB (Mass) 0.88 1.02 White Blood Count 7.2 # Red Blood Count 3.76 L Hemoglobin 11.6 L Hematocrit 36.4 L Mean Corpuscular Volume 96.8 Mean Corpuscular Hemoglobin 30.9 Mean Corpuscular Hemoglobin Concent 31.9 L Red Cell Distribution Width 15.3 H Platelet Count 86 L Mean Platelet Volume 11.2 H Neutrophils % 92.2 H Lymphocytes % 4.0 L Monocytes % 3.1 Eosinophils % 0.0 Basophils % 0.0 Nucleated Red Blood Cells % 0.0 Neutrophils # 6.6 Lymphocytes # 0.3 L Monocytes # 0.2 L Eosinophils # 0.0 Basophils # 0.0 Nucleated Red Blood Cells # 0.0 Prothrombin Time 27.2 H Prothrombin Time Ratio 2.1 INR International Normalized Ratio 2.49 Activated Partial Thromboplast Time 47.3 H Sodium Level 143 Potassium Level 4.6 Chloride Level 105 Carbon Dioxide Level 29 Anion Gap 14 Blood Urea Nitrogen 69 H Creatinine 2.85 H Glucose Level 115 Calcium Level 8.7 Phosphorus Level 5.9 H Magnesium Level 1.9 Hepatitis B Surface Antigen NEGATIVE Hepatitis B Core Total Antibody NEGATIVE Hepatitis C Antibody NEGATIVE Medications Medications Current Medications Ondansetron HCl (Zofran Inj) 4 mg Q6H PRN IV NAUSEA AND/OR VOMITING; Start at 00:00 Pantoprazole 40 mg 40 mg DAILY@06 IV Last administered on 06/25/16 06:00; Admin Dose 40 MG; Start 06/24/16 at 06:00 Propofol 100 ml @ 2.318 mls/ hr Q12H IV Last administered on 06/25/16 08:34; Admin Dose 6.954 MLS/HR; Start 06/24/16 at 01:30 Norepinephrine 250 ml @ 1.875 mls/ hr TITRATE IV ; Start 06/24/16 at 06:30 Norepinephrine 16 mg/Dextrose 500 ml @ 1.87 mls/hr TITRATE IV ; Start 06/24/16 at 06:30 Vancomycin HCl 1.25 gm/Sodium Chloride 250 ml @ 83.333 mls/ hr Q48H IVPB Last administered on 06/24/16 08:16; Admin Dose 83.333 MLS/HR; Start 06/24/16 at 07: 00 Piperacillin Sod/ Tazobactam Sod (Zosyn 3.375gm/ 100 ml (Pmx)) 100 ml @ 200 mls /hr Q8 IVPB Last administered on 06/25/16 06:00; Admin Dose 200 MLS/HR; Start 06/24/16 at 14:00 Methylprednisolone Sodium Succinate 40 mg 40 mg Q6 IV Last administered on 06/25 06:03; Admin Dose 40 MG; Start 06/24/16 at 12:00 Multivitamins 10 ml/Thiamine HCl 100 mg/Folic Acid 1 mg/Sodium Chloride 1,011.2 ml @ 75 mls/hr DAILY@09 IVPB Last administered on 06/25/16 09:42; Admin Dose 75 MLS/HR; Start 06/24/16 at 18:30 Sodium Chloride (NS) 1,000 ml @ 100 mls/hr Q10H IV ; Start 06/25/16 at 10:00 JEN JOHNSON Jun 25, 2016 10:13
[2016-06-25 13:01] LABS: CK-MB 0.68 ng/ml (0.0-2.4)
[2016-06-25 13:06] LABS: TROPONIN-I 0.149 ng/ml (0.00-0.12)
--- NOTE | 2016-06-25 13:06 | CONS ---
Date/Time of Note Date/Time of Note DATE: 06/25/16 TIME: 13:02 Assessment/Plan Assessment/Plan Additional Assessment/Plan Cardiopulmonary arrest Respiratory failure Encephalopathy Mildly elevated troponin Active tobacco use -As per history, patient with respiratory arrest likely leading to cardiac arrest. Troponins are minimally elevated and not uncommon in the setting of cardiac arrest as well as CPR. ECG without any significant ischemic abnormalities. Will check echocardiogram, aspirin and statin therapy if no contraindication. Consultation Date/Type/Reason Admit Date/Time Jun 23, 2016 at 22:42 Type of Consultation: cv Reason for Consultation Respiratory and cardiac arrest Hx of Present Illness This is a 76-year-old male who fell out of bed was found to be severely weak and short of breath. History was obtained from medical chart secondary to patient unable to give history. EMS was called and patient with worsening respiratory status which required intubation. During this period, patient lost pulse and went asystole. ACLS protocol was performed. Patient was brought to the ICU for further evaluation and care. Patient remains unresponsive, is on no IV pressors. There is some question of patient being on hospice. Patient also was an active smoker. Unable to be performed at the current time given patient's mental status Past Medical History Peripheral arterial disease Medical History: hypertension Family History Significant Family History: no pertinent family hx Social History Smoking Status: Current every day smoker Other Social History Previously living at home Exam/Review of Systems Vital Signs Vitals Vital Signs Date Time Temp Pulse Resp B/P Pulse Ox O2 Delivery O2 Flow Rate FiO2 06/25/16 12:00 97.7 59 15 119/57 97 Mechanical Ventilator 06/25/16 11:24 40 Intake and Output 06/24/16 06/24/16 06/25/16 15:00 23:00 07:00 Intake Total 417.222 ml 462.586 ml 755.632 ml Output Total 150 ml 335 ml Balance 417.222 ml 312.586 ml 420.632 ml Exam Sedated, no response to verbal or tactile stimuli, no apparent distress Head: normocephalic ENMT: intubated Respiratory: other (Coarse breath sounds bilaterally with no wheezing or rhonchi heard) Cardiovascular: other (S1-S2 heard), regular rate and rhythm Gastrointestinal: bowel sounds (Decreased), non-tender, other (No grimacing with palpation), soft Extremities: other (Trace lower examinee edema with significant dry and scaling skin) Results Result Diagram: 06/25/16 0430 06/25/16 0430 Results 24 hrs Laboratory Tests Test 06/24/16 15:25 06/24/16 21:08 06/25/16 04:30 06/25/16 12:15 Troponin I 0.401 *H 0.060 0.245 *H Pending Creatine Kinase < 20 L 38 33 Creatine Kinase Index 2.7 2.1 Creatinine Kinase MB (Mass) 0.88 1.02 0.68 White Blood Count 7.2 # Red Blood Count 3.76 L Hemoglobin 11.6 L Hematocrit 36.4 L Mean Corpuscular Volume 96.8 Mean Corpuscular Hemoglobin 30.9 Mean Corpuscular Hemoglobin Concent 31.9 L Red Cell Distribution Width 15.3 H Platelet Count 86 L Mean Platelet Volume 11.2 H Neutrophils % 92.2 H Lymphocytes % 4.0 L Monocytes % 3.1 Eosinophils % 0.0 Basophils % 0.0 Nucleated Red Blood Cells % 0.0 Neutrophils # 6.6 Lymphocytes # 0.3 L Monocytes # 0.2 L Eosinophils # 0.0 Basophils # 0.0 Nucleated Red Blood Cells # 0.0 Prothrombin Time 27.2 H Prothrombin Time Ratio 2.1 INR International Normalized Ratio 2.49 Activated Partial Thromboplast Time 47.3 H Sodium Level 143 Potassium Level 4.6 Chloride Level 105 Carbon Dioxide Level 29 Anion Gap 14 Blood Urea Nitrogen 69 H Creatinine 2.85 H Glucose Level 115 Calcium Level 8.7 Phosphorus Level 5.9 H Magnesium Level 1.9 Total Bilirubin 0.2 Direct Bilirubin 0.00 Indirect Bilirubin 0.2 Aspartate Amino Transf (AST/SGOT) 116 H Alanine Aminotransferase (ALT/SGPT) 182 H Alkaline Phosphatase 111 B-Type Natriuretic Peptide 49754 H Total Protein 5.4 #L Albumin 2.9 L Hepatitis B Surface Antigen NEGATIVE Hepatitis B Core Total Antibody NEGATIVE Hepatitis C Antibody NEGATIVE Medications Medications Current Medications Ondansetron HCl (Zofran Inj) 4 mg Q6H PRN IV NAUSEA AND/OR VOMITING; Start at 00:00 Pantoprazole 40 mg 40 mg DAILY@06 IV Last administered on 06/25/16t 06:00; Admin Dose 40 MG; Start 06/24/16 at 06:00 Propofol 100 ml @ 2.318 mls/ hr Q12H IV Last administered on 06/25/16 08:34; Admin Dose 6.954 MLS/HR; Start 06/24/16 at 01:30 Norepinephrine 250 ml @ 1.875 mls/ hr TITRATE IV ; Start 06/24/16 at 06:30 Norepinephrine 16 mg/Dextrose 500 ml @ 1.87 mls/hr TITRATE IV ; Start 06/24/16 at 06:30 Vancomycin HCl 1.25 gm/Sodium Chloride 250 ml @ 83.333 mls/ hr Q48H IVPB Last administered on 06/24/16 08:16; Admin Dose 83.333 MLS/HR; Start 06/24/16 at 07: 00 Piperacillin Sod/ Tazobactam Sod (Zosyn 3.375gm/ 100 ml (Pmx)) 100 ml @ 200 mls /hr Q8 IVPB Last administered on 06/25/16 06:00; Admin Dose 200 MLS/HR; Start 06/24/16 at 14:00 Methylprednisolone Sodium Succinate 40 mg 40 mg Q6 IV Last administered on 06/25 06:03; Admin Dose 40 MG; Start 06/24/16 at 12:00 Multivitamins 10 ml/Thiamine HCl 100 mg/Folic Acid 1 mg/Sodium Chloride 1,011.2 ml @ 75 mls/hr DAILY@09 IVPB Last administered on 06/25/16 09:42; Admin Dose 75 MLS/HR; Start 06/24/16 at 18:30 Sodium Chloride (NS) 1,000 ml @ 75 mls/hr [id number] IV ; Start 06/25/16 at 10:00 Procedures Procedures ECG done on the sinus rhythm at 62 bpm, first-degree AV block, nonspecific T-wave abnormalities Harvey Kahn DO Jun 25, 2016 13:06
--- NOTE | 2016-06-25 14:41 | RADRPT ---
Echocardiogram Report Patient Name: BRANDY BREWER Gender: Male Date: 1940 Study Date: 25-Jun-2016 Scaffold Setter: Sussy Thomas RDCS Location: 119 Ref. Physician: FAUSTO GONZALEZ Quality: Good Procedures: Transthoracic echocardiogram with complete 2D, M-Mode, and doppler examination. Indications: post Cardiac Arrest. 2D/M Mode Doppler Measurement Value Normal Ranges Measurement Value Normal Ranges LVIDd 2D 5.5 3.5 - 5.6 cm AV Mean Paul 1.3 m/sec LVIDs 2D 4.6 2.1 - 4.1 cm AV Mean PG 7.9 mmHg LVPWd 2D 1.1 0.6 - 1.1 cm AV Peak Paul 1.8 m/sec IVSd 2D 1.2 0.6 - 1.1 cm AV Peak PG 13.6 mmHg AoR Diam 2D 3.3 2.0 - 3.7 cm AV VTI 34.8 cm EDV 2D 148.9 cm3 LVOT Mean Paul 0.5 m/sec ESV 2D 100.0 cm3 LVOT Mean PG 1.3 mmHg LA Dimen 2D 4.6 2.3 - 4.0 cm LVOT Peak Paul 0.8 m/sec LVOT Peak PG 2.4 mmHg LVOT VTI 17.0 cm Findings Left Ventricle: Normal left ventricular cavity size. Mild concentric left ventricular hypertrophy. Moderate to severe left ventricular systolic dysfunction. Ejection fraction is visually estimated at 30 %. Tissue Doppler/Mitral Doppler indices are consistent with impaired relaxation (Stage I diastolic dysfunction). Right Ventricle: Normal right ventricular size. Normal right ventricular systolic function. Left Atrium: There is mild enlargement of left atrium. LA Dimension4.60 cm. Right Atrium: The right atrium is normal in size. Mitral Valve: Mitral valve leaflets appear mildly thickened. Mild mitral annular calcification. Trace mitral regurgitation. Aortic Valve: No hemodynamically significant aortic stenosis by doppler. Max PG 13.60 mmHg. Mean PG 7.90 mmHg. Aortic cusps appear mildly calcified. Bicuspid aortic valve. Mild to moderate aortic valve regurgitation. Tricuspid Valve: Normal appearance and function of the tricuspid valve with trace physiologic regurgitation. Pulmonic Valve: Normal pulmonic valve appearance. There is mild pulmonic regurgitation. Pericardium: Trivial pericardial effusion. Left pleural effusion seen. Aorta: Normal aortic root. IVC: Dilated inferior vena cava without respiratory collapse, however, patient on ventilator. Conclusions 1.Normal left ventricular cavity size. Mild concentric left ventricular hypertrophy. Moderate to severe left ventricular systolic dysfunction. Ejection fraction is visually estimated at 30 %. Tissue Doppler/Mitral Doppler indices are consistent with impaired relaxation (Stage I diastolic dysfunction). 2.Normal right ventricular size. Normal right ventricular systolic function. 3.There is mild enlargement of left atrium. 4.The right atrium is normal in size. 5.No hemodynamically significant aortic stenosis by doppler. Mild to moderate aortic valve regurgitation. 6.No significant valvular stenosis or regurgitation seen of remaining visualized valves. 7.Trivial pericardial effusion. Left pleural effusion seen. Electronically Signed By: Harvey Kahn 25-Jun-2016 14:40:05 -0700 Patient Name: BRANDY BREWER Study Date: 25-Jun-[id number]
--- NOTE | 2016-06-25 15:56 | RADRPT ---
PROCEDURE: Renal US. CLINICAL INDICATION: Renal dysfunction. TECHNIQUE: Multiple sonographic images of the kidneys and urinary bladder were obtained. The imag es were reviewed on a PACS workstation. COMPARISON: No prior studies are available for comparison. FINDINGS: The right kidney measures 9.3 cm. The left kidney measures 9.7 cm. There is no solid renal mass. There is a benign cyst in the lower right kidney measuring 2.7 x 2.7 cm. There is no hydronephrosis. There are small nonobstructing calculi in the mid left kidney. There is no other renal calculus. Renal parenchymal thickness is normal bilaterally. Both kidneys are hyperechoic consistent with med ical renal disease. There is a small amount of fluid adjacent to the left kidney. The perirenal regions are otherwise n ormal. There is a Cochran catheter in the bladder. IMPRESSION: 1. Benign cyst in the lower right kidney measuring 2.7 cm. 2. No hydronephrosis. 3. Small nonobstructing calculi in the mid left kidney. 4. Bilateral hyperechoic kidneys consistent with medical renal disease. 5. Small amount of fluid adjacent to the left kidney. 6. Cochran catheter in the bladder. RPTAT: QQ .Roverto Kim MD, Date Time Electronically viewed and signed by .Roverto Kim MD, on 06/25/2016 15:55 .R/
[2016-06-25] MEDS: PIPER-TAZO 2.25 GM (PMX) 50 ML IVPB SCH (21:46)
[2016-06-26] VITALS (34 sets, daily range): BP systolic 108–146; BP diastolic 53–80; PULSE 50–85; RESP 17–27
[2016-06-26] MEDS: METHYLPREDNISOLONE 40 MG INJ IV SCH ×5 (00:09→23:40)
[2016-06-26] MEDS: IPRATROPIUM (HFA) 12.9 GM INHALER INH SCH ×4 (01:13→19:38)
[2016-06-26] MEDS: ALBUTEROL HFA 8 GM INHALER INH SCH ×4 (01:14→19:38)
[2016-06-26] MEDS: PIPER-TAZO 2.25 GM (PMX) 50 ML IVPB SCH ×3 (05:21→22:27)
[2016-06-26] MEDS: PANTOPRAZOLE 40 MG INJ IV SCH (05:21)
[2016-06-26 05:45] LABS: ADD SCAN DIFF NO
[2016-06-26 05:57] LABS: ABNORMAL IP MESSAGE 1; HEMATOCRIT 37.7 % (42.0-52.0); HEMOGLOBIN 12.3 g/dl (14.0-18.0); LYMPHOCYTES # 0.2 10^3/ul (0.8-2.9); LYMPHOCYTES % 3.5 % (15.0-51.0); MEAN CORPUSCULAR HGB CONC 32.6 g/dl (32.0-37.0); MEAN PLATELET VOLUME 11.4 fl (7.4-10.4); MONOCYTE # 0.3 10^3/ul (0.3-0.9); MONOCYTES % 4.5 % (0.0-11.0); NEUTROPHIL # 5.7 10^3/ul (1.6-7.5); NEUTROPHILS % 91.5 % (39.0-77.0); PLATELET COUNT 98 10^3/UL (140-415); RED BLOOD COUNT 3.97 10^6/ul (4.70-6.10); RED CELL DISTRIBUTION WIDTH 15.1 % (11.5-14.5); WHITE BLOOD COUNT 6.2 10^3/ul (4.8-10.8)
[2016-06-26 06:00] LABS: ALBUMIN 2.8 g/dl (3.3-4.9); POTASSIUM 3.7 mmol/L (3.5-5.1)
[2016-06-26 06:02] LABS: CREATININE 2.54 mg/dl (0.61-1.24)
[2016-06-26 06:03] LABS: ALBUMIN/GLOBULIN RATIO 1.03; BILIRUBIN,INDIRECT 0.3 mg/dl (0-1.1); BILIRUBIN,TOTAL 0.3 mg/dl (0.2-1.3); TOTAL PROTEIN 5.5 g/dl (6.1-8.1)
[2016-06-26 06:04] LABS: CALCIUM 8.6 mg/dl (8.4-10.2)
[2016-06-26 06:14] LABS: PHOSPHORUS 5.9 mg/dl (2.5-4.9)
[2016-06-26] MEDS: VANCOMYCIN 1.25 GM in SOD CHLORIDE 0.9% 250 ML IVPB SCH (06:39)
[2016-06-26] MEDS: PROPOFOL 100 ML IV SCH (06:40)
--- NOTE | 2016-06-26 09:10 | RADRPT ---
PROCEDURE: XR Chest 1 view. CLINICAL INDICATION: Shortness of breath TECHNIQUE: AP views of the chest was obtained. COMPARISON: Yesterday FINDINGS: The heart is large. Calcified atherosclerosis is noted in the aorta. Endotracheal tube is stable an d appears in grossly appropriate location. Central pulmonary vascular congestion and interstitial p rominence in both lungs is unchanged. Patchy infiltrates throughout the right lung combined with mo derate pleural effusion are similar to prior exam, given differences in technique. Patchy left lowe r lobe infiltrates and small left pleural effusion are stable The osseous structures are unchanged. IMPRESSION: Cardiomegaly with calcified atherosclerosis in the aorta. Stable central pulmonary vascular congestion and interstitial prominence in both lungs. Stable patchy infiltrates throughout the right lung combined with moderate pleural effusion. Stable patchy left lower lobe infiltrates and small left pleural effusion. RPTAT: AA .Javier Goodwin MD, MD Date Time Electronically viewed and signed by .Javier Goodwin MD, MD on 06/26/2016 09:09 .P/
[2016-06-26] MEDS: MULTIVITAMINS 10 ML, THIAMINE 100 MG, FOLIC ACID 1 MG in SOD CHLORIDE 0.9% 1,000 ML IVPB SCH (09:23)
--- NOTE | 2016-06-26 09:36 | PN ---
Date/Time of Note Date/Time of Note DATE: 06/26/16 TIME: 09:02 Assessment/Plan VTE Prophylaxis VTE Prophylaxis Intervention: SCD's Lines/Catheters IV Catheter Type (from Nrs): Peripheral IV Urinary Cath still in place: Yes Reason Cath still needed: other (indicate) (on Vent and BERNIE ) Assessment/Plan Assessment/Plan 76-year-old male with: 1. Pulseless electrical activity cardiac arrest at home with EMS on site, status post resuscitation. Cardiac arrest may be very well 2ry to respiratory failure. Hemodynamically stable currently. Minimal sedation with Propofol and somewhat responsive but not purposeful Cardiac enzymes are trending back down 2-D echo with findings of severe cardiomyopathy and EF 30 % likely chronic. Appreciate recommendations form Dr Kahn. 2. Acute respiratory failure with a history of heavy tobacco use, likely chronic obstructive pulmonary disease and chronic obstructive pulmonary disease exacerbation and also with right lower lobe, right middle lobe infiltrate consistent with pneumonia, possibly aspiration pneumonia versus community-acquired pneumonia. Continue vancomycin and Zosyn Vent support, CXR fairly Nebulizer treatments and steroids per Pulmonary, follow up pulmonary recommendations. 3. Aspiration pneumonia likely, given the pattern of infiltrates on chest x- ray. Continue Zosyn and vancomycin. 4. Possibly cirrhosis versus shock liver. Hepatitis panel negative Monitor LFTs, Coagulopathy and thrombocytopenia seems to be all improving. Continue daily banana bag. 5. Acute kidney injury on chronic kidney disease with likely ATN Better UOP but renal function slighlty worse, Renal US with signs of chronic medical disease. Continue IVF along with banana bag at current rate Monitor volume status. 6. Severe Cardiomyopathy with systolic dysfunction and EF 30 %, elevated BNP. Monitor UOP and volume status HR seems to be borderline for Bblock, and with CKD, no KANDIS inhibitor or ARB for now PROPHYLAXIS: SCDs to lower extremities for DVT prophylaxis and Pepcid for GI prophylaxis. DISPOSITION: FULL CODE until further information is obtained through social worker health services, and also hopefully we will find out if he does have family. Continue ICU level of care with mechanical ventilation, aggressive treatment for now and CPAP Trial today. Follow up cardiology recommendations. Subjective 24 Hr Interval Summary Free Text/Dictation Patient on minimal sedation, responsive but not purposeful Labs stable except renal function still not improving even with good UOP On FiO2 40% and will attempt CPAP trial today Exam/Review of Systems Vital Signs Vitals Vital Signs Date Time Temp Pulse Resp B/P Pulse Ox O2 Delivery O2 Flow Rate FiO2 06/26/16 08:01 54 20 97 40 06/26/16 06:00 108/53 Mechanical Ventilator 06/26/16 04:00 97.6 Intake and Output 06/25/16 06/25/16 06/26/16 15:00 23:00 07:00 Intake Total 691.595 ml 710.252 ml 657.34 ml Output Total 940 ml 925 ml 600 ml Balance -248.405 ml -214.748 ml 57.34 ml Exam Constitutional: other (sedated and intubated ) Respiratory: diminished breath sounds (RLL/RML) Cardiovascular: nl pulses, regular rate and rhythm Gastrointestinal: non-tender, soft Musculoskeletal: other (chronic LE skin changes ) Extremities: normal pulses 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: BANKRUPTCY JUDGE II-XII intact, nl mental status, nl speech Results Result Diagram: 06/26/16 0530 06/26/16 0530 Results 24 hrs Laboratory Tests Test 06/25/16 12:15 06/26/16 05:30 Creatine Kinase 33 Creatine Kinase Index 2.1 Creatinine Kinase MB (Mass) 0.68 Troponin I 0.149 *H White Blood Count 6.2 Red Blood Count 3.97 L Hemoglobin 12.3 L Hematocrit 37.7 L Mean Corpuscular Volume 95.0 Mean Corpuscular Hemoglobin 31.0 Mean Corpuscular Hemoglobin Concent 32.6 Red Cell Distribution Width 15.1 H Platelet Count 98 L Mean Platelet Volume 11.4 H Neutrophils % 91.5 H Lymphocytes % 3.5 L Monocytes % 4.5 Eosinophils % 0.0 Basophils % 0.0 Nucleated Red Blood Cells % 0.0 Neutrophils # 5.7 Lymphocytes # 0.2 L Monocytes # 0.3 Eosinophils # 0.0 Basophils # 0.0 Nucleated Red Blood Cells # 0.0 Sodium Level 142 Potassium Level 3.7 Chloride Level 104 Carbon Dioxide Level 28 Anion Gap 14 Blood Urea Nitrogen 75 H Creatinine 2.54 H Glucose Level 104 Calcium Level 8.6 Phosphorus Level 5.9 H Magnesium Level 2.0 Total Bilirubin 0.3 Direct Bilirubin 0.00 Indirect Bilirubin 0.3 Aspartate Amino Transf (AST/SGOT) 75 H Alanine Aminotransferase (ALT/SGPT) 159 H Alkaline Phosphatase 91 Total Protein 5.5 L Albumin 2.8 L Globulin 2.70 Albumin/Globulin Ratio 1.03 Medications Medications Current Medications Ondansetron HCl (Zofran Inj) 4 mg Q6H PRN IV NAUSEA AND/OR VOMITING; Start at 00:00 Pantoprazole 40 mg 40 mg DAILY@06 IV Last administered on 06/26/16 05:21; Admin Dose 40 MG; Start 06/24/16 at 06:00 Propofol 100 ml @ 2.318 mls/ hr Q12H IV Last administered on 06/26/16 06:40; Admin Dose 9.272 MLS/HR; Start 06/24/16 at 01:30 Norepinephrine 250 ml @ 1.875 mls/ hr TITRATE IV ; Start 06/24/16 at 06:30 Norepinephrine 16 mg/Dextrose 500 ml @ 1.87 mls/hr TITRATE IV ; Start 06/24/16 at 06:30 Vancomycin HCl/ Sodium Chloride (Vancocin/NS) 250 ml @ 83.333 mls/ hr Q48H IVPB Last administered on 06/26/16 06:39; Admin Dose 83.333 MLS/HR; Start at 07:00 Methylprednisolone Sodium Succinate 40 mg 40 mg Q6 IV Last administered on 06/26 05:21; Admin Dose 40 MG; Start 06/24/16 at 12:00 Multivitamins 10 ml/Thiamine HCl 100 mg/Folic Acid 1 mg/Sodium Chloride 1,011.2 ml @ 75 mls/hr DAILY@09 IVPB Last administered on 06/25/16 09:42; Admin Dose 75 MLS/HR; Start 06/24/16 at 18:30 Sodium Chloride 1,000 ml @ 75 mls/hr [id number] IV Last administered on 23:06; Admin Dose 75 MLS/HR; Start 06/25/16 at 10:00 Piperacillin Sod/ Tazobactam Sod (Zosyn 2.25gm/ 50ml (Pmx)) 50 ml @ 100 mls/hr Q8 IVPB Last administered on 06/26/16 05:21; Admin Dose 100 MLS/HR; Start at 22:00 Procedures Procedures Echocardiogram Report Patient Name: BRANDY BREWER Gender: Male Date: 1940 Study Date: 25-Jun-2016 Telephone Cleaner: Sussy Thomas [facility] Location: 119 Ref. Physician: FAUSTO GONZALEZ Quality: Good Procedures: Transthoracic echocardiogram with complete 2D, M-Mode, and doppler examination. Indications: post Cardiac Arrest. 2D/M Mode Doppler Measurement Value Normal Ranges Measurement Value Normal Ranges LVIDd 2D 5.5 3.5 - 5.6 cm AV Mean Paul 1.3 m/sec LVIDs 2D 4.6 2.1 - 4.1 cm AV Mean PG 7.9 mmHg LVPWd 2D 1.1 0.6 - 1.1 cm AV Peak Paul 1.8 m/sec IVSd 2D 1.2 0.6 - 1.1 cm AV Peak PG 13.6 mmHg AoR Diam 2D 3.3 2.0 - 3.7 cm AV VTI 34.8 cm EDV 2D 148.9 cm3 LVOT Mean Paul 0.5 m/sec ESV 2D 100.0 cm3 LVOT Mean PG 1.3 mmHg LA Dimen 2D 4.6 2.3 - 4.0 cm LVOT Peak Paul 0.8 m/sec LVOT Peak PG 2.4 mmHg LVOT VTI 17.0 cm Findings Left Ventricle: Normal left ventricular cavity size. Mild concentric left ventricular hypertrophy. Moderate to severe left ventricular systolic dysfunction. Ejection fraction is visually estimated at 30 %. Tissue Doppler/Mitral Doppler indices are consistent with impaired relaxation (Stage I diastolic dysfunction). Right Ventricle: Normal right ventricular size. Normal right ventricular systolic function. Left Atrium: There is mild enlargement of left atrium. LA Dimension4.60 cm. Right Atrium: The right atrium is normal in size. Mitral Valve: Mitral valve leaflets appear mildly thickened. Mild mitral annular calcification. Trace mitral regurgitation. Aortic Valve: No hemodynamically significant aortic stenosis by doppler. Max PG 13.60 mmHg. Mean PG 7.90 mmHg. Aortic cusps appear mildly calcified. Bicuspid aortic valve. Mild to moderate aortic valve regurgitation. Tricuspid Valve: Normal appearance and function of the tricuspid valve with trace physiologic regurgitation. Pulmonic Valve: Normal pulmonic valve appearance. There is mild pulmonic regurgitation. Pericardium: Trivial pericardial effusion. Left pleural effusion seen. Aorta: Normal aortic root. IVC: Dilated inferior vena cava without respiratory collapse, however, patient on ventilator. Conclusions 1. Normal left ventricular cavity size. Mild concentric left ventricular hypertrophy. Moderate to severe left ventricular systolic dysfunction. Ejection fraction is visually estimated at 30 %. Tissue Doppler/Mitral Doppler indices are consistent with impaired relaxation (Stage I diastolic dysfunction). 2. Normal right ventricular size. Normal right ventricular systolic function. 3. There is mild enlargement of left atrium. 4. The right atrium is normal in size. 5. No hemodynamically significant aortic stenosis by doppler. Mild to moderate aortic valve regurgitation. 6. No significant valvular stenosis or regurgitation seen of remaining visualized valves. 7. Trivial pericardial effusion. Left pleural effusion seen. Electronically Signed By: Harvey Kahn 25-Jun-2016 14:40:05 -0700 DAVID GONZALEZ Jun 26, 2016 09:15
--- NOTE | 2016-06-26 09:37 | CONS ---
Date/Time of Note Date/Time of Note DATE: 06/26/16 TIME: 09:34 Consult Date/Type/Reason Admit Date/Time Jun 23, 2016 at 22:42 Initial Consult Date Type of Consultation: pulmonary Subjective Patient continues mechanical ventilation currently sedated Off vasopressors Objective Vital Signs Date Time Temp Pulse Resp B/P Pulse Ox O2 Delivery O2 Flow Rate FiO2 06/26/16 08:01 54 20 97 40 06/26/16 06:00 108/53 Mechanical Ventilator 06/26/16 04:00 97.6 Intake and Output 06/25/16 06/25/16 06/26/16 15:00 23:00 07:00 Intake Total 691.595 ml 710.252 ml 657.34 ml Output Total 940 ml 925 ml 600 ml Balance -248.405 ml -214.748 ml 57.34 ml Exam PHYSICAL EXAMINATION GENERAL: Elderly gentleman, intubated on mechanical ventilation, VITAL SIGNS: see below. HEENT: Pupils equal, round, and reactive to light. CARDIAC: S1, S2, 1/6 systolic murmur CHEST: Diminished air entry bilaterally. ABDOMEN: Mildly distended. No bowel sounds. EXTREMITIES: No cyanosis, clubbing edema +1 NEUROLOGIC: Generalized weakness Results/Medications Result Diagram: 06/26/16 0530 06/26/16 0530 Results 24 hrs Laboratory Tests Test 06/25/16 12:15 06/26/16 05:30 Creatine Kinase 33 Creatine Kinase Index 2.1 Creatinine Kinase MB (Mass) 0.68 Troponin I 0.149 *H White Blood Count 6.2 Red Blood Count 3.97 L Hemoglobin 12.3 L Hematocrit 37.7 L Mean Corpuscular Volume 95.0 Mean Corpuscular Hemoglobin 31.0 Mean Corpuscular Hemoglobin Concent 32.6 Red Cell Distribution Width 15.1 H Platelet Count 98 L Mean Platelet Volume 11.4 H Neutrophils % 91.5 H Lymphocytes % 3.5 L Monocytes % 4.5 Eosinophils % 0.0 Basophils % 0.0 Nucleated Red Blood Cells % 0.0 Neutrophils # 5.7 Lymphocytes # 0.2 L Monocytes # 0.3 Eosinophils # 0.0 Basophils # 0.0 Nucleated Red Blood Cells # 0.0 Sodium Level 142 Potassium Level 3.7 Chloride Level 104 Carbon Dioxide Level 28 Anion Gap 14 Blood Urea Nitrogen 75 H Creatinine 2.54 H Glucose Level 104 Calcium Level 8.6 Phosphorus Level 5.9 H Magnesium Level 2.0 Total Bilirubin 0.3 Direct Bilirubin 0.00 Indirect Bilirubin 0.3 Aspartate Amino Transf (AST/SGOT) 75 H Alanine Aminotransferase (ALT/SGPT) 159 H Alkaline Phosphatase 91 Total Protein 5.5 L Albumin 2.8 L Globulin 2.70 Albumin/Globulin Ratio 1.03 Medications Current Medications Ondansetron HCl (Zofran Inj) 4 mg Q6H PRN IV NAUSEA AND/OR VOMITING; Start at 00:00 Pantoprazole 40 mg 40 mg DAILY@06 IV Last administered on 06/26/16 05:21; Admin Dose 40 MG; Start 06/24/16 at 06:00 Propofol 100 ml @ 2.318 mls/ hr Q12H IV Last administered on 06/26/16 06:40; Admin Dose 9.272 MLS/HR; Start 06/24/16 at 01:30 Norepinephrine 250 ml @ 1.875 mls/ hr TITRATE IV ; Start 06/24/16 at 06:30 Norepinephrine 16 mg/Dextrose 500 ml @ 1.87 mls/hr TITRATE IV ; Start 06/24/16 at 06:30 Vancomycin HCl/ Sodium Chloride (Vancocin/NS) 250 ml @ 83.333 mls/ hr Q48H IVPB Last administered on 06/26/16 06:39; Admin Dose 83.333 MLS/HR; Start at 07:00 Methylprednisolone Sodium Succinate 40 mg 40 mg Q6 IV Last administered on 06/26 05:21; Admin Dose 40 MG; Start 06/24/16 at 12:00 Multivitamins 10 ml/Thiamine HCl 100 mg/Folic Acid 1 mg/Sodium Chloride 1,011.2 ml @ 75 mls/hr DAILY@09 IVPB Last administered on 06/26/16 09:23; Admin Dose 75 MLS/HR; Start 06/24/16 at 18:30 Sodium Chloride 1,000 ml @ 75 mls/hr [id number] IV Last administered on 23:06; Admin Dose 75 MLS/HR; Start 06/25/16 at 10:00 Piperacillin Sod/ Tazobactam Sod (Zosyn 2.25gm/ 50ml (Pmx)) 50 ml @ 100 mls/hr Q8 IVPB Last administered on 06/26/16t 05:21; Admin Dose 100 MLS/HR; Start at 22:00 Assessment/Plan Chief Complaint/Hosp Course IMPRESSION AND PLAN: 1. Cardiopulmonary arrest, likely secondary to acute respiratory failure. 2. Possible aspiration component. 3. Congestive cardiac failure. 4. History of advanced chronic obstructive pulmonary disease per chart. 5. History of hospice. 6. Renal insufficiency PATIENT WILL NEED: 1. Continued mechanical ventilation. CPAP trial this morning 2. Vasopressors as needed. 3. Intravenous steroids 4. Consider de-escalation of antibiotics 5. Bronchodilators. 6. DVT and GI prophylaxis. Disposition Continue intensive care monitoring Problems: [facility] PEREZ [facility] Jun 26, 2016 09:37
[2016-06-26] MEDS: SOD CHLORIDE 0.9% 1,000 ML IV SCH ×2 (12:09→22:57)
--- NOTE | 2016-06-26 13:47 | CONS ---
Date/Time of Note Date/Time of Note DATE: 06/26/16 TIME: 13:44 Assessment/Plan Assessment/Plan Additional Assessment/Plan Cardiopulmonary arrest Cardiomyopathy with ejection fraction 30% Respiratory failure Encephalopathy Mildly elevated troponin Active tobacco use -Patient still with encephalopathy. Echo with severe cardiomyopathy. Unable to start KANDIS inhibitor given acute kidney injury and beta-erika given bradycardia. Aspirin therapy if no contraindication, no statin given elevated LFTs. Consultation Date/Type/Reason Admit Date/Time Jun 23, 2016 at 22:42 Initial Consult Date Type of Consultation: cv 24 HR Interval Summary Free Text/Dictation Patient remains off sedation Exam/Review of Systems Vital Signs Vitals Vital Signs Date Time Temp Pulse Resp B/P Pulse Ox O2 Delivery O2 Flow Rate FiO2 06/26/16 12:00 60 06/26/16 11:32 19 97 40 06/26/16 06:00 108/53 Mechanical Ventilator 06/26/16 04:00 97.6 Intake and Output 06/25/16 06/25/16 06/26/16 14:59 22:59 06:59 Intake Total 691.595 ml 807.936 ml 741.61 ml Output Total 940 ml 825 ml 700 ml Balance -248.405 ml -17.064 ml 41.61 ml Exam Awake, no apparent distress, blinks when his name is called Head: normocephalic ENMT: intubated Respiratory: other (Coarse breath sounds bilaterally, no wheezing) Cardiovascular: other (S1-S2 heard), regular rate and rhythm Gastrointestinal: bowel sounds, non-tender, other (No grimacing with palpation) , soft Extremities: edema, other (No cyanosis) Results Result Diagram: 06/26/16 0530 06/26/16 0530 Results 24 hrs Laboratory Tests Test 06/26/16 05:30 White Blood Count 6.2 Red Blood Count 3.97 L Hemoglobin 12.3 L Hematocrit 37.7 L Mean Corpuscular Volume 95.0 Mean Corpuscular Hemoglobin 31.0 Mean Corpuscular Hemoglobin Concent 32.6 Red Cell Distribution Width 15.1 H Platelet Count 98 L Mean Platelet Volume 11.4 H Neutrophils % 91.5 H Lymphocytes % 3.5 L Monocytes % 4.5 Eosinophils % 0.0 Basophils % 0.0 Nucleated Red Blood Cells % 0.0 Neutrophils # 5.7 Lymphocytes # 0.2 L Monocytes # 0.3 Eosinophils # 0.0 Basophils # 0.0 Nucleated Red Blood Cells # 0.0 Sodium Level 142 Potassium Level 3.7 Chloride Level 104 Carbon Dioxide Level 28 Anion Gap 14 Blood Urea Nitrogen 75 H Creatinine 2.54 H Glucose Level 104 Calcium Level 8.6 Phosphorus Level 5.9 H Magnesium Level 2.0 Total Bilirubin 0.3 Direct Bilirubin 0.00 Indirect Bilirubin 0.3 Aspartate Amino Transf (AST/SGOT) 75 H Alanine Aminotransferase (ALT/SGPT) 159 H Alkaline Phosphatase 91 Total Protein 5.5 L Albumin 2.8 L Globulin 2.70 Albumin/Globulin Ratio 1.03 Medications Medications Current Medications Ondansetron HCl (Zofran Inj) 4 mg Q6H PRN IV NAUSEA AND/OR VOMITING; Start at 00:00 Pantoprazole 40 mg 40 mg DAILY@06 IV Last administered on 06/26/16 05:21; Admin Dose 40 MG; Start 06/24/16 at 06:00 Propofol 100 ml @ 2.318 mls/ hr Q12H IV Last administered on 06/26/16 06:40; Admin Dose 9.272 MLS/HR; Start 06/24/16 at 01:30 Norepinephrine 250 ml @ 1.875 mls/ hr TITRATE IV ; Start 06/24/16 at 06:30 Norepinephrine 16 mg/Dextrose 500 ml @ 1.87 mls/hr TITRATE IV ; Start 06/24/16 at 06:30 Vancomycin HCl/ Sodium Chloride (Vancocin/NS) 250 ml @ 83.333 mls/ hr Q48H IVPB Last administered on 06/26/16 06:39; Admin Dose 83.333 MLS/HR; Start at 07:00 Methylprednisolone Sodium Succinate 40 mg 40 mg Q6 IV Last administered on 06/26 13:15; Admin Dose 40 MG; Start 06/24/16 at 12:00 Multivitamins 10 ml/Thiamine HCl 100 mg/Folic Acid 1 mg/Sodium Chloride 1,011.2 ml @ 75 mls/hr DAILY@09 IVPB Last administered on 06/26/16 09:23; Admin Dose 75 MLS/HR; Start 06/24/16 at 18:30 Sodium Chloride 1,000 ml @ 75 mls/hr [id number] IV Last administered on 23:06; Admin Dose 75 MLS/HR; Start 06/25/16 at 10:00 Piperacillin Sod/ Tazobactam Sod (Zosyn 2.25gm/ 50ml (Pmx)) 50 ml @ 100 mls/hr Q8 IVPB Last administered on 06/26/16 13:15; Admin Dose 100 MLS/HR; Start at 22:00 Harvey Kahn DO Jun 26, 2016 13:47
[2016-06-27] VITALS (34 sets, daily range): BP systolic 119–153; BP diastolic 67–87; PULSE 66–93; RESP 16–26
[2016-06-27] MEDS: PROPOFOL 100 ML IV SCH ×2 (01:30→12:54)
[2016-06-27] MEDS: ALBUTEROL HFA 8 GM INHALER INH SCH ×4 (03:19→19:40)
[2016-06-27] MEDS: IPRATROPIUM (HFA) 12.9 GM INHALER INH SCH ×4 (03:20→19:40)
[2016-06-27] MEDS: METHYLPREDNISOLONE 40 MG INJ IV SCH ×4 (05:46→23:29)
[2016-06-27] MEDS: PANTOPRAZOLE 40 MG INJ IV SCH (05:46)
[2016-06-27] MEDS: PIPER-TAZO 2.25 GM (PMX) 50 ML IVPB SCH ×3 (05:46→21:46)
[2016-06-27 05:58] LABS: ADD SCAN DIFF NO
[2016-06-27 06:08] LABS: ABNORMAL IP MESSAGE 1; HEMATOCRIT 42.8 % (42.0-52.0); LYMPHOCYTES # 0.2 10^3/ul (0.8-2.9); LYMPHOCYTES % 1.7 % (15.0-51.0); MEAN CORPUSCULAR HGB CONC 32.7 g/dl (32.0-37.0); MEAN CORPUSCULAR VOLUME 94.9 fl (82.0-101.0); MONOCYTE # 0.3 10^3/ul (0.3-0.9); NEUTROPHIL # 8.1 10^3/ul (1.6-7.5); NEUTROPHILS % 94.6 % (39.0-77.0); PLATELET COUNT 124 10^3/UL (140-415); RED BLOOD COUNT 4.51 10^6/ul (4.70-6.10); RED CELL DISTRIBUTION WIDTH 15.2 % (11.5-14.5); WHITE BLOOD COUNT 8.6 10^3/ul (4.8-10.8)
[2016-06-27 06:17] LABS: INR 1.55; PROTIME 18.7 Sec (12.2-14.2); PT RATIO 1.5
[2016-06-27 06:23] LABS: POTASSIUM 3.6 mmol/L (3.5-5.1)
[2016-06-27 06:26] LABS: CREATININE 2.63 mg/dl (0.61-1.24)
[2016-06-27 06:27] LABS: MAGNESIUM 2.2 mg/dl (1.7-2.5); PHOSPHORUS 5.8 mg/dl (2.5-4.9)
--- NOTE | 2016-06-27 07:50 | RADRPT ---
PROCEDURE: XR Chest. CLINICAL INDICATION: pna chf TECHNIQUE: Single frontal view of the chest was obtained. COMPARISON: Chest x-ray from 06/26/2016 FINDINGS: The tip of an endotracheal tube is unchanged in position. There is stable cardiomegaly and prominence of interstitial markings, likely due to congestive chew es. The aortic arch is calcified. There are stable patchy opacities in the mid to lower lung zones bilaterally. There is a stable loculated right pleural effusion. There is a stable retrocardiac opacity due to atelectasis, infiltrate, and / or effusion. IMPRESSION: No significant interval change. RPTAT: EE Physician Madie Date Time Electronically viewed and signed by Physician Madie on 06/27/2016 07:50 /
[2016-06-27] MEDS: MULTIVITAMINS 10 ML, THIAMINE 100 MG, FOLIC ACID 1 MG in SOD CHLORIDE 0.9% 1,000 ML IVPB SCH (08:44)
[2016-06-27] MEDS ORDERED: ASPIRIN 81 MG TAB NGT SCH (09:00)
--- NOTE | 2016-06-27 09:13 | PN ---
Date/Time of Note Date/Time of Note DATE: 06/27/16 TIME: 08:49 Assessment/Plan VTE Prophylaxis VTE Prophylaxis Intervention: SCD's Lines/Catheters IV Catheter Type (from Nrs): Peripheral IV Urinary Cath still in place: Yes Reason Cath still needed: other (indicate) (intubated ) Assessment/Plan Assessment/Plan 76-year-old male with: 1. Pulseless electrical activity cardiac arrest at home with EMS on site, status post resuscitation. Cardiac arrest may be very well 2ry to respiratory failure. Hemodynamically stable currently. OFF Propofol and awake, alert but unclear if fully following commands 2-D echo with findings of severe cardiomyopathy and EF 30 % likely chronic. Appreciate recommendations form Dr Kahn. 2. Acute respiratory failure with a history of heavy tobacco use, likely chronic obstructive pulmonary disease and chronic obstructive pulmonary disease exacerbation and also with right lower lobe, right middle lobe infiltrate consistent with pneumonia, possibly aspiration pneumonia versus community-acquired pneumonia. Continue Zosyn and Vanco CXR now with ? stable loculated pleural effusion, INR down to 1.55, will order thoracentesis if OK with Pulmonary CPAP trial today Nebulizer treatments and steroids per Pulmonary, follow up pulmonary recommendations. 3. Aspiration pneumonia likely, given the pattern of infiltrates on chest x- ray. Continue Zosyn and vancomycin. 4. Possibly cirrhosis versus shock liver. Hepatitis panel negative Monitor LFTs, Coagulopathy and thrombocytopenia seems to be all improving. Continue daily banana bag. 5. Acute kidney injury on chronic kidney disease with likely ATN Better UOP but renal function slighlty worse, Renal US with signs of chronic medical disease. Continue IVF along with banana bag at current rate Monitor volume status and CXR 6. Severe Cardiomyopathy with systolic dysfunction and EF 30 %, elevated BNP. Monitor UOP and volume status HR seems to be borderline for Bblock, and with CKD, no KANDIS inhibitor or ARB for now PROPHYLAXIS: SCDs to lower extremities for DVT prophylaxis and Pepcid for GI prophylaxis. DISPOSITION: FULL CODE until further information is obtained through clinical social worker, and also hopefully we will find out if he does have family. Continue ICU level of care with mechanical ventilation, aggressive treatment for now and CPAP Trial again today. Follow up cardiology and Pulmonary recommendations. Subjective 24 Hr Interval Summary Free Text/Dictation Patient OFF propofol x 24 hrs at least. Awake and seems to be tracking people walking in but unclear if following commands. Afebrile and VSS CPAP trial today again Exam/Review of Systems Vital Signs Vitals Vital Signs Date Time Temp Pulse Resp B/P Pulse Ox O2 Delivery O2 Flow Rate FiO2 06/27/16 07:19 80 22 94 30 06/27/16 06:00 133/78 Mechanical Ventilator 06/27/16 04:00 98.2 Intake and Output 06/26/16 06/26/16 06/27/16 15:00 23:00 07:00 Intake Total 885.652 ml 649 ml 575 ml Output Total 318 ml 545 ml 355 ml Balance 567.652 ml 104 ml 220 ml Exam Constitutional: alert, other (intubated) Respiratory: diminished breath sounds (RLL/RML), other (on vent ) Cardiovascular: nl pulses, regular rate and rhythm Gastrointestinal: non-tender, soft Musculoskeletal: other (chronic skin changes, venous stasis ) Extremities: normal pulses, other (Upper ext edema but no LE edema, no clubbing or cyanosis ) 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: other (intubated, not following much commands ) Results Result Diagram: 06/27/16 0515 06/27/16 0515 Results 24 hrs Laboratory Tests Test 06/27/16 05:15 White Blood Count 8.6 # Red Blood Count 4.51 L Hemoglobin 14.0 Hematocrit 42.8 Mean Corpuscular Volume 94.9 Mean Corpuscular Hemoglobin 31.0 Mean Corpuscular Hemoglobin Concent 32.7 Red Cell Distribution Width 15.2 H Platelet Count 124 #L Mean Platelet Volume 11.0 H Neutrophils % 94.6 H Lymphocytes % 1.7 L Monocytes % 3.0 Eosinophils % 0.0 Basophils % 0.0 Nucleated Red Blood Cells % 0.0 Neutrophils # 8.1 H Lymphocytes # 0.2 L Monocytes # 0.3 Eosinophils # 0.0 Basophils # 0.0 Nucleated Red Blood Cells # 0.0 Prothrombin Time 18.7 #H Prothrombin Time Ratio 1.5 INR International Normalized Ratio 1.55 Sodium Level 144 Potassium Level 3.6 Chloride Level 106 Carbon Dioxide Level 26 Anion Gap 16 Blood Urea Nitrogen 74 H Creatinine 2.63 H Glucose Level 104 Calcium Level 9.0 Phosphorus Level 5.8 H Magnesium Level 2.2 Medications Medications Current Medications Ondansetron HCl (Zofran Inj) 4 mg Q6H PRN IV NAUSEA AND/OR VOMITING; Start at 00:00 Pantoprazole 40 mg 40 mg DAILY@06 IV Last administered on 06/27/16 05:46; Admin Dose 40 MG; Start 06/24/16 at 06:00 Propofol 100 ml @ 2.318 mls/ hr Q12H IV Last administered on 06/26/16 06:40; Admin Dose 9.272 MLS/HR; Start 06/24/16 at 01:30 Norepinephrine 16 mg/Dextrose 500 ml @ 1.87 mls/hr TITRATE IV ; Start 06/24/16 at 06:30 Vancomycin HCl/ Sodium Chloride (Vancocin/NS) 250 ml @ 83.333 mls/ hr Q48H IVPB Last administered on 06/26/16 06:39; Admin Dose 83.333 MLS/HR; Start at 07:00 Methylprednisolone Sodium Succinate 40 mg 40 mg Q6 IV Last administered on 06/27 05:46; Admin Dose 40 MG; Start 06/24/16 at 12:00 Multivitamins 10 ml/Thiamine HCl 100 mg/Folic Acid 1 mg/Sodium Chloride 1,011.2 ml @ 75 mls/hr DAILY@09 IVPB Last administered on 06/27/16 08:44; Admin Dose 75 MLS/HR; Start 06/24/16 at 18:30 Sodium Chloride 1,000 ml @ 75 mls/hr [id number] IV Last administered on 22:57; Admin Dose 75 MLS/HR; Start 06/25/16 at 10:00 Piperacillin Sod/ Tazobactam Sod (Zosyn 2.25gm/ 50ml (Pmx)) 50 ml @ 100 mls/hr Q8 IVPB Last administered on 06/27/16 05:46; Admin Dose 100 MLS/HR; Start at 22:00 DAVID GONZALEZ Jun 27, 2016 09:13
--- NOTE | 2016-06-27 10:57 | CONS ---
Date/Time of Note Date/Time of Note DATE: 06/27/16 TIME: 10:56 Consult Date/Type/Reason Admit Date/Time Jun 23, 2016 at 22:42 Type of Consultation: pulmonary/ICU Subjective Patient remains intubated on mechanical ventilation but more alert eyes open tracks but not following commands Currently hemodynamically stable Objective Vital Signs Date Time Temp Pulse Resp B/P Pulse Ox O2 Delivery O2 Flow Rate FiO2 06/27/16 09:43 83 23 95 30 06/27/16 09:00 130/76 Mechanical Ventilator 06/27/16 08:00 98.2 Intake and Output 06/26/16 06/26/16 06/27/16 15:00 23:00 07:00 Intake Total 885.652 ml 649 ml 650 ml Output Total 318 ml 545 ml 355 ml Balance 567.652 ml 104 ml 295 ml Exam PHYSICAL EXAMINATION GENERAL: Elderly gentleman, intubated on mechanical ventilation, VITAL SIGNS: see below. HEENT: Pupils equal, round, and reactive to light. CARDIAC: S1, S2, 1/6 systolic murmur CHEST: Diminished air entry bilaterally. ABDOMEN: Mildly distended. No bowel sounds. EXTREMITIES: No cyanosis, clubbing edema +1 NEUROLOGIC: Generalized weakness Results/Medications Result Diagram: 06/27/1615 06/27/16 0515 Results 24 hrs Laboratory Tests Test 06/27/16 05:15 White Blood Count 8.6 # Red Blood Count 4.51 L Hemoglobin 14.0 Hematocrit 42.8 Mean Corpuscular Volume 94.9 Mean Corpuscular Hemoglobin 31.0 Mean Corpuscular Hemoglobin Concent 32.7 Red Cell Distribution Width 15.2 H Platelet Count 124 #L Mean Platelet Volume 11.0 H Neutrophils % 94.6 H Lymphocytes % 1.7 L Monocytes % 3.0 Eosinophils % 0.0 Basophils % 0.0 Nucleated Red Blood Cells % 0.0 Neutrophils # 8.1 H Lymphocytes # 0.2 L Monocytes # 0.3 Eosinophils # 0.0 Basophils # 0.0 Nucleated Red Blood Cells # 0.0 Prothrombin Time 18.7 #H Prothrombin Time Ratio 1.5 INR International Normalized Ratio 1.55 Sodium Level 144 Potassium Level 3.6 Chloride Level 106 Carbon Dioxide Level 26 Anion Gap 16 Blood Urea Nitrogen 74 H Creatinine 2.63 H Glucose Level 104 Calcium Level 9.0 Phosphorus Level 5.8 H Magnesium Level 2.2 Medications Current Medications Ondansetron HCl (Zofran Inj) 4 mg Q6H PRN IV NAUSEA AND/OR VOMITING; Start at 00:00 Pantoprazole 40 mg 40 mg DAILY@06 IV Last administered on 06/27/16 05:46; Admin Dose 40 MG; Start 06/24/16 at 06:00 Propofol 100 ml @ 2.318 mls/ hr Q12H IV Last administered on 06/26/16 06:40; Admin Dose 9.272 MLS/HR; Start 06/24/16 at 01:30 Norepinephrine 16 mg/Dextrose 500 ml @ 1.87 mls/hr TITRATE IV ; Start 06/24/16 at 06:30 Vancomycin HCl/ Sodium Chloride (Vancocin/NS) 250 ml @ 83.333 mls/ hr Q48H IVPB Last administered on 06/26/16 06:39; Admin Dose 83.333 MLS/HR; Start at 07:00 Methylprednisolone Sodium Succinate 40 mg 40 mg Q6 IV Last administered on 06/27 05:46; Admin Dose 40 MG; Start 06/24/16 at 12:00 Multivitamins 10 ml/Thiamine HCl 100 mg/Folic Acid 1 mg/Sodium Chloride 1,011.2 ml @ 75 mls/hr DAILY@09 IVPB Last administered on 06/27/16 08:44; Admin Dose 75 MLS/HR; Start 06/24/16 at 18:30 Sodium Chloride 1,000 ml @ 75 mls/hr [id number] IV Last administered on 22:57; Admin Dose 75 MLS/HR; Start 06/25/16 at 10:00 Piperacillin Sod/ Tazobactam Sod (Zosyn 2.25gm/ 50ml (Pmx)) 50 ml @ 100 mls/hr Q8 IVPB Last administered on 06/27/16 05:46; Admin Dose 100 MLS/HR; Start at 22:00 Assessment/Plan Chief Complaint/Hosp Course IMPRESSION AND PLAN: 1. Cardiopulmonary arrest, likely secondary to acute respiratory failure. 2. Possible aspiration component. 3. Congestive cardiac failure. 4. History of advanced chronic obstructive pulmonary disease per chart. 5. History of hospice. 6. Renal insufficiency PATIENT WILL NEED: 1. Continued mechanical ventilation. CPAP trial this morning 2. Vasopressors as needed. 3. Intravenous steroids 4. Consider de-escalation of antibiotics 5. Bronchodilators. 6. DVT and GI prophylaxis. Disposition Continue intensive care monitoring Problems: NIC PEREZ MD, [facility] Jun 27, 2016 10:57
--- NOTE | 2016-06-27 12:18 | CONS ---
Date/Time of Note Date/Time of Note DATE: 06/27/16 TIME: 12:14 Assessment/Plan Assessment/Plan Additional Assessment/Plan Cardiopulmonary arrest Severe cardiomyopathy with ejection fraction 30% Respiratory failure Encephalopathy Mildly elevated troponin Active tobacco use Coagulopathy Acute kidney injury. -Patient remains off IV pressor, antibiotics as per infectious disease. No aspirin or statin therapy secondary to coagulopathy, thrombocytopenia and abnormal LFTs.No KANDIS inhibitor secondary to acute kidney injury. Start beta- erika as blood pressure and heart rate permits. Consultation Date/Type/Reason Admit Date/Time Jun 23, 2016 at 22:42 Type of Consultation: cv 24 HR Interval Summary Free Text/Dictation Patient seen and examined. As per nursing staff more awake Exam/Review of Systems Vital Signs Vitals Vital Signs Date Time Temp Pulse Resp B/P Pulse Ox O2 Delivery O2 Flow Rate FiO2 06/27/16 09:43 83 23 95 30 06/27/16 09:00 130/76 Mechanical Ventilator 06/27/16 08:00 98.2 Intake and Output 06/26/16 06/26/16 06/27/16 15:00 23:00 07:00 Intake Total 885.652 ml 649 ml 650 ml Output Total 318 ml 545 ml 355 ml Balance 567.652 ml 104 ml 295 ml Exam Awake, looks at me when name is called but not tracking Head: normocephalic ENMT: intubated Respiratory: other (Coarse breath sounds bilaterally, no wheezing) Cardiovascular: other (S1-S2 heard), regular rate and rhythm Gastrointestinal: bowel sounds, non-tender, other (No grimacing with palpation) , soft Extremities: edema, other (Chronic venous stasis changes) Results Result Diagram: 06/27/16 0515 06/27/16 0515 Results 24 hrs Laboratory Tests Test 06/27/16 05:15 White Blood Count 8.6 # Red Blood Count 4.51 L Hemoglobin 14.0 Hematocrit 42.8 Mean Corpuscular Volume 94.9 Mean Corpuscular Hemoglobin 31.0 Mean Corpuscular Hemoglobin Concent 32.7 Red Cell Distribution Width 15.2 H Platelet Count 124 #L Mean Platelet Volume 11.0 H Neutrophils % 94.6 H Lymphocytes % 1.7 L Monocytes % 3.0 Eosinophils % 0.0 Basophils % 0.0 Nucleated Red Blood Cells % 0.0 Neutrophils # 8.1 H Lymphocytes # 0.2 L Monocytes # 0.3 Eosinophils # 0.0 Basophils # 0.0 Nucleated Red Blood Cells # 0.0 Prothrombin Time 18.7 #H Prothrombin Time Ratio 1.5 INR International Normalized Ratio 1.55 Sodium Level 144 Potassium Level 3.6 Chloride Level 106 Carbon Dioxide Level 26 Anion Gap 16 Blood Urea Nitrogen 74 H Creatinine 2.63 H Glucose Level 104 Calcium Level 9.0 Phosphorus Level 5.8 H Magnesium Level 2.2 HIV (1&2) Antibody NEGATIVE Medications Medications Current Medications Ondansetron HCl (Zofran Inj) 4 mg Q6H PRN IV NAUSEA AND/OR VOMITING; Start at 00:00 Pantoprazole 40 mg 40 mg DAILY@06 IV Last administered on 06/27/16 05:46; Admin Dose 40 MG; Start 06/24/16 at 06:00 Propofol 100 ml @ 2.318 mls/ hr Q12H IV Last administered on 06/26/16 06:40; Admin Dose 9.272 MLS/HR; Start 06/24/16 at 01:30 Norepinephrine 16 mg/Dextrose 500 ml @ 1.87 mls/hr TITRATE IV ; Start 06/24/16 at 06:30 Vancomycin HCl/ Sodium Chloride (Vancocin/NS) 250 ml @ 83.333 mls/ hr Q48H IVPB Last administered on 06/26/16 06:39; Admin Dose 83.333 MLS/HR; Start at 07:00 Methylprednisolone Sodium Succinate 40 mg 40 mg Q6 IV Last administered on 06/27 05:46; Admin Dose 40 MG; Start 06/24/16 at 12:00 Multivitamins 10 ml/Thiamine HCl 100 mg/Folic Acid 1 mg/Sodium Chloride 1,011.2 ml @ 75 mls/hr DAILY@09 IVPB Last administered on 06/27/16 08:44; Admin Dose 75 MLS/HR; Start 06/24/16 at 18:30 Sodium Chloride 1,000 ml @ 75 mls/hr [id number] IV Last administered on 22:57; Admin Dose 75 MLS/HR; Start 06/25/16 at 10:00 Piperacillin Sod/ Tazobactam Sod (Zosyn 2.25gm/ 50ml (Pmx)) 50 ml @ 100 mls/hr Q8 IVPB Last administered on 06/27/16t 05:46; Admin Dose 100 MLS/HR; Start at 22:00 Miscellaneous Information (*Rx Drug Level Order Reminder*) 1 ONCE ONCE XX ; Start 06/28/16 at 06:00; Stop 06/28/16 at 06:01 Harvey Kahn DO Jun 27, 2016 12:18
[2016-06-27] MEDS: SOD CHLORIDE 0.9% 1,000 ML IV SCH ×2 (14:03→22:18)
--- NOTE | 2016-06-27 21:29 | RADRPT ---
PROCEDURE: XR Chest. CLINICAL INDICATION: Check orogastric tube position. TECHNIQUE: Single frontal view. COMPARISON: 06/27/2016. 0607 hours. FINDINGS: The orogastric tube tip is in the stomach. The endotracheal tube is in satisfactory position with t he tip 5 cm above the farida. Interstitial and alveolar disease in the mid and lower lung zones con sistent with pulmonary edema is unchanged. The lungs are otherwise clear. The heart is enlarged. There is calcification in the aorta consistent with atherosclerosis. There are moderate bilateral pleural effusions, right worse than left. There is no pneumothorax. IMPRESSION: 1. Orogastric tube tip in the stomach. 2. No other change from the prior study done earlier the same day. RPTAT: QQ .Roverto Kim MD, Date Time Electronically viewed and signed by .Roverto Kim MD, on 06/27/2016 21:29 .R/
[2016-06-28] VITALS (35 sets, daily range): BP systolic 113–157; BP diastolic 63–86; PULSE 57–84; RESP 16–35
[2016-06-28] MEDS: IPRATROPIUM (HFA) 12.9 GM INHALER INH SCH ×4 (01:56→20:06)
[2016-06-28] MEDS: ALBUTEROL HFA 8 GM INHALER INH SCH ×4 (01:56→20:06)
[2016-06-28] MEDS: PROPOFOL 100 ML IV SCH ×2 (03:07→13:30)
[2016-06-28] MEDS: PIPER-TAZO 2.25 GM (PMX) 50 ML IVPB SCH ×3 (05:20→21:31)
[2016-06-28] MEDS: PANTOPRAZOLE 40 MG INJ IV SCH (05:20)
[2016-06-28] MEDS: METHYLPREDNISOLONE 40 MG INJ IV SCH ×3 (05:20→21:31)
[2016-06-28 06:25] LABS: ADD SCAN DIFF NO
[2016-06-28 06:43] LABS: ABNORMAL IP MESSAGE 1; HEMATOCRIT 38.5 % (42.0-52.0); HEMOGLOBIN 12.2 g/dl (14.0-18.0); LYMPHOCYTES # 0.2 10^3/ul (0.8-2.9); LYMPHOCYTES % 2.7 % (15.0-51.0); MEAN CORPUSCULAR HEMOGLOBIN 30.3 pg (29.0-33.0); MEAN CORPUSCULAR HGB CONC 31.7 g/dl (32.0-37.0); MEAN CORPUSCULAR VOLUME 95.5 fl (82.0-101.0); MONOCYTE # 0.3 10^3/ul (0.3-0.9); NEUTROPHILS % 92.5 % (39.0-77.0); PLATELET COUNT 91 10^3/UL (140-415); RED BLOOD COUNT 4.03 10^6/ul (4.70-6.10); RED CELL DISTRIBUTION WIDTH 15.5 % (11.5-14.5); WHITE BLOOD COUNT 7.5 10^3/ul (4.8-10.8)
[2016-06-28 06:49] LABS: INR 1.42; PROTIME 17.4 Sec (12.2-14.2); PT RATIO 1.4
[2016-06-28 06:50] LABS: PARTIAL THROMBOPLASTIN TIME 26.4 Sec (25.0-35.0)
[2016-06-28 07:00] LABS: ALBUMIN 2.9 g/dl (3.3-4.9); POTASSIUM 3.5 mmol/L (3.5-5.1)
--- NOTE | 2016-06-28 07:00 | RADRPT ---
PROCEDURE: XR Chest. CLINICAL INDICATION: Shortness of breath. TECHNIQUE: Single frontal view. COMPARISON: 06/27/2016. FINDINGS: The endotracheal tube and orogastric tube remain in satisfactory position. Pulmonary edema is uncha nged. The heart is enlarged. There is calcification in the aorta consistent with atherosclerosis. Moderate bilateral pleural effusions with right larger than left are unchanged. There is no pneumothorax. IMPRESSION: 1. No change from 06/27/2016. RPTAT: QQ .Roverto Kim MD, MD Date Time Electronically viewed and signed by .Roverto Kim MD, MD on 06/28/2016 06:59 .R/
[2016-06-28 07:01] LABS: MAGNESIUM 2.2 mg/dl (1.7-2.5); PHOSPHORUS 5.8 mg/dl (2.5-4.9)
[2016-06-28 07:02] LABS: ALBUMIN/GLOBULIN RATIO 1.07; BILIRUBIN,INDIRECT 0.5 mg/dl (0-1.1); BILIRUBIN,TOTAL 0.5 mg/dl (0.2-1.3); CREATININE 2.58 mg/dl (0.61-1.24); TOTAL PROTEIN 5.6 g/dl (6.1-8.1)
[2016-06-28 07:03] LABS: CALCIUM 8.8 mg/dl (8.4-10.2)
[2016-06-28 08:35] LABS: AADO2 Arterial 114.5 mmHg (7.0-24.0); Allen Test ACCEPTAB; Arterial Base Excess -2.2 mmol/L (-3.0-3); Arterial COHb 0.6 % (0.0-3.0); Arterial HCO3 21.3 mmol/L (22.0-26.0); Arterial MetHb 0.1 % (0.0-1.5); Arterial Total Hemglobin 13.1 g/dl (12.0-18.0); MODE VENT - AC
[2016-06-28] MEDS: VANCOMYCIN 1.25 GM in SOD CHLORIDE 0.9% 250 ML IVPB SCH (08:35)
[2016-06-28] MEDS: MULTIVITAMINS 10 ML, THIAMINE 100 MG, FOLIC ACID 1 MG in SOD CHLORIDE 0.9% 1,000 ML IVPB SCH (08:36)
--- NOTE | 2016-06-28 08:53 | PN ---
Date/Time of Note Date/Time of Note DATE: 06/28/16 TIME: 08:44 Assessment/Plan VTE Prophylaxis VTE Prophylaxis Intervention: SCD's Lines/Catheters IV Catheter Type (from Nrs): Peripheral IV Urinary Cath still in place: Yes Reason Cath still needed: other (indicate) (BERNIE and intubated ) Assessment/Plan Assessment/Plan 76-year-old male with: 1. Pulseless electrical activity cardiac arrest at home with EMS on site, status post resuscitation. Cardiac arrest may be very well 2ry to respiratory failure. Hemodynamically stable currently. OFF Propofol and awake, alert but unclear if fully following commands. 2-D echo with findings of severe cardiomyopathy and EF 30 % likely chronic. Appreciate recommendations form Dr Kahn. 2. Acute respiratory failure with a history of heavy tobacco use, likely chronic obstructive pulmonary disease and chronic obstructive pulmonary disease exacerbation and also with right lower lobe, right middle lobe infiltrate consistent with pneumonia, possibly aspiration pneumonia versus community-acquired pneumonia. Failed CPAP x2 so far Continue Zosyn and Vanco CXR now with ? stable loculated pleural effusion, INR down to 1.55, will order thoracentesis if OK with Pulmonary Nebulizer treatments and steroids per Pulmonary, follow up pulmonary recommendations. 3. Aspiration pneumonia likely, given the pattern of infiltrates on chest x- ray. Continue Zosyn and vancomycin until extubated at least. Starting Tube feedings 4. Possibly cirrhosis versus shock liver. Hepatitis panel negative Monitor LFTs, Coagulopathy and thrombocytopenia seems to be all improving. Continue daily banana bag. 5. Acute kidney injury on chronic kidney disease with likely ATN. Renal US with signs of chronic medical disease. Better UOP but renal function seems to be improving today, Continue IVF along with banana bag at current rate and adding free water given Na slightly up Monitor volume status and CXR 6. Severe Cardiomyopathy with systolic dysfunction and EF 30 %, elevated BNP. Monitor UOP and volume status HR seems to be borderline for Bblock, and with CKD, no KANDIS inhibitor or ARB for now PROPHYLAXIS: SCDs to lower extremities for DVT prophylaxis and Pepcid for GI prophylaxis. DISPOSITION: FULL CODE until further information is obtained through social services director, and also hopefully we will find out if he does have family. Continue ICU level of care with mechanical ventilation, aggressive treatment for now and ? CPAP Trial again today. Follow up cardiology and Pulmonary recommendations. Subjective 24 Hr Interval Summary Free Text/Dictation Patient has his eyes open and moving his upper extremities at least but not purposefully and not following commands. Off propofol x 2 days Afebrile, VSS and labs a little better Failed CPAP trial x 2 days so far Start tube feedings today with free H20 Exam/Review of Systems Vital Signs Vitals Vital Signs Date Time Temp Pulse Resp B/P Pulse Ox O2 Delivery O2 Flow Rate FiO2 06/28/16 07:00 81 20 129/80 92 Mechanical Ventilator 06/28/16 05:31 30 06/28/16 04:00 98.5 Intake and Output 06/27/16 06/27/16 06/28/16 15:00 23:00 07:00 Intake Total 650.00 ml 638 ml 575 ml Output Total 260 ml 335 ml 355 ml Balance 390.00 ml 303 ml 220 ml Exam Constitutional: alert, frail, other (intubated and does not seems to follow commands ) Respiratory: diminished breath sounds (RLL/RML), other (on vent ) Cardiovascular: nl pulses, regular rate and rhythm Gastrointestinal: non-tender, soft Musculoskeletal: other (chronic skin changes ) Extremities: normal pulses, other (some anasarca UE>LE ) 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: other (awake and moving extremities but does not seem to follow commands ) Results Result Diagram: 06/28/16 0554 06/28/16 0554 Results 24 hrs Laboratory Tests Test 06/28/16 05:54 06/28/16 07:00 White Blood Count 7.5 Red Blood Count 4.03 L Hemoglobin 12.2 L Hematocrit 38.5 L Mean Corpuscular Volume 95.5 Mean Corpuscular Hemoglobin 30.3 Mean Corpuscular Hemoglobin Concent 31.7 L Red Cell Distribution Width 15.5 H Platelet Count 91 #L Mean Platelet Volume 11.0 H Neutrophils % 92.5 H Lymphocytes % 2.7 L Monocytes % 4.0 Eosinophils % 0.0 Basophils % 0.0 Nucleated Red Blood Cells % 0.0 Neutrophils # 7.0 Lymphocytes # 0.2 L Monocytes # 0.3 Eosinophils # 0.0 Basophils # 0.0 Nucleated Red Blood Cells # 0.0 Prothrombin Time 17.4 H Prothrombin Time Ratio 1.4 INR International Normalized Ratio 1.42 Activated Partial Thromboplast Time 26.4 Sodium Level 146 H Potassium Level 3.5 Chloride Level 110 Carbon Dioxide Level 24 Anion Gap 16 Blood Urea Nitrogen 79 H Creatinine 2.58 H Glucose Level 108 Calcium Level 8.8 Phosphorus Level 5.8 H Magnesium Level 2.2 Total Bilirubin 0.5 Direct Bilirubin 0.00 Indirect Bilirubin 0.5 Aspartate Amino Transf (AST/SGOT) 26 Alanine Aminotransferase (ALT/SGPT) 104 H Alkaline Phosphatase 79 Total Protein 5.6 L Albumin 2.9 L Globulin 2.70 Albumin/Globulin Ratio 1.07 Vancomycin Level Trough 9.5 L Blood Gas Specimen Source Blood arterial Arterial Blood Date Drawn 06/28/2016 8:15:51 AM Arterial Blood pH (Temp corrected) 7.432 Arterial Blood pCO2 (Temp correct) 32.7 L Arterial Blood pO2 (Temp corrected) 61.0 L Arterial Blood HCO3 21.3 L Arterial Blood Base Excess -2.2 Arterial Blood Oxygen Saturation 89.6 L Isac Test ACCEPTAB Arterial Blood Gas Puncture Site Right Radial Arterial Blood Carboxyhemoglobin 0.6 Arterial Blood Methemoglobin 0.1 Blood Gas A-a O2 Differential 114.5 H Oxyhemoglobin Percent 89.0 L Total Hemoglobin 13.1 Blood Gas Temperature 37.0 Blood Gas Respiration Rate 20.0 Blood Gas Actual Respiration Rate 24 Blood Gas Modality VENT - AC FiO2 30.0 Blood Gas Tidal Volume 500.0 Blood Gas Low PEEP Setting 5.0 Blood Gas Notified Whom Sherry MCCRAY Blood Gas Notified Time 06/28/2016 8:35:23 AM Medications Medications Current Medications Ondansetron HCl (Zofran Inj) 4 mg Q6H PRN IV NAUSEA AND/OR VOMITING; Start at 00:00 Pantoprazole 40 mg 40 mg DAILY@06 IV Last administered on 06/28/16 05:20; Admin Dose 40 MG; Start 06/24/16 at 06:00 Propofol 100 ml @ 2.318 mls/ hr Q12H IV Last administered on 06/26/16 06:40; Admin Dose 9.272 MLS/HR; Start 06/24/16 at 01:30 Norepinephrine 16 mg/Dextrose 500 ml @ 1.87 mls/hr TITRATE IV ; Start 06/24/16 at 06:30 Vancomycin HCl/ Sodium Chloride (Vancocin/NS) 250 ml @ 83.333 mls/ hr Q48H IVPB Last administered on 06/28/16 08:35; Admin Dose 83.333 MLS/HR; Start 06/24 at 07:00; Stop 06/28/16 at 23:00 Methylprednisolone Sodium Succinate 40 mg 40 mg Q6 IV Last administered on 05:20; Admin Dose 40 MG; Start 06/24/16 at 12:00 Multivitamins 10 ml/Thiamine HCl 100 mg/Folic Acid 1 mg/Sodium Chloride 1,011.2 ml @ 75 mls/hr DAILY@09 IVPB Last administered on 06/28/16 08:36; Admin Dose 75 MLS/HR; Start 06/24/16 at 18:30 Sodium Chloride 1,000 ml @ 75 mls/hr [id number] IV Last administered on 22:18; Admin Dose 75 MLS/HR; Start 06/25/16 at 10:00 Piperacillin Sod/ Tazobactam Sod (Zosyn 2.25gm/ 50ml (Pmx)) 50 ml @ 100 mls/hr Q8 IVPB Last administered on 06/28/16 05:20; Admin Dose 100 MLS/HR; Start 06/25 at 22:00 Carvedilol 3.125 mg 3.125 mg BID NGT Last administered on 06/28/16 08:36; Admin Dose 3.125 MG; Start 06/27/16 at 12:30 Vancomycin HCl/ Sodium Chloride (Vancocin/NS) 250 ml @ 83.333 mls/ hr Q48H IVPB ; Start 07/01/16 at 07:00 DAVID GONZALEZ Jun 28, 2016 08:53
--- NOTE | 2016-06-28 14:24 | RADRPT ---
PROCEDURE: XR Chest. CLINICAL INDICATION: Assess orogastric tube placement. TECHNIQUE: Single frontal view of the chest was obtained COMPARISON: Chest x-ray 06/28/2016 at 06:09 a.m. FINDINGS: The soft tissues are normal. There are degenerative osteophytes in the thoracic spine. The there i s pancardiomegaly. The cardiomediastinal silhouette and hilar structures are normal. The pulmonary vasculature is equilibrated. The film is overpenetrated. There are vascular calcifications of the a ortic arch. An NG tube was placed distal to the GE junction with its distal end of the field of vie w. The relationship to the diaphragm is indeterminate as the diaphragm is obscured. There are perih ilar and basilar infiltrates and compressive atelectasis. There are bilateral pleural effusions obs curing the diaphragm. IMPRESSION: 1. The NG tube follows the expected pathway along the esophagus with its distal end of the field of view. 2. Cardiomegaly with congestive heart failure and interstitial pulmonary edema with large pleural e ffusions obscuring the level of the diaphragm. 3. The endotracheal tube is well-positioned 5.1 cm superior to the farida. RPTAT:AAJJ Physician Og Date Time Electronically viewed and signed by Physician Og on 06/28/2016 14:24 JANUARY/
--- NOTE | 2016-06-28 15:34 | CONS ---
Date/Time of Note Date/Time of Note DATE: 06/28/16 TIME: 15:28 Consult Date/Type/Reason Admit Date/Time Jun 23, 2016 at 22:42 Initial Consult Date Type of Consultation: Pulm Subjective Awake but not following commands on mechanical ventilator. Objective Vital Signs Date Time Temp Pulse Resp B/P Pulse Ox O2 Delivery O2 Flow Rate FiO2 06/28/16 12:00 82 06/28/16 12:00 35 06/28/16 11:00 20 92 06/28/16 10:00 126/74 06/28/16 09:00 Mechanical Ventilator 06/28/16 08:00 97.6 Intake and Output 06/27/16 06/27/16 06/28/16 15:00 23:00 07:00 Intake Total 650.00 ml 638 ml 650 ml Output Total 260 ml 335 ml 355 ml Balance 390.00 ml 303 ml 295 ml Exam HEENT: Increased JVD; ET tube in place CARDIAC: S1, S2, 2/6 systolic murmur CHEST: Diminished air entry bilaterally with occ rhonchi ABDOMEN: Mildly distended. No bowel sounds. EXTREMITIES: No cyanosis, clubbing edema +1 Results/Medications Result Diagram: 06/28/16 0554 06/28/16 0554 Results 24 hrs Laboratory Tests Test 06/28/16 05:54 06/28/16 07:00 White Blood Count 7.5 Red Blood Count 4.03 L Hemoglobin 12.2 L Hematocrit 38.5 L Mean Corpuscular Volume 95.5 Mean Corpuscular Hemoglobin 30.3 Mean Corpuscular Hemoglobin Concent 31.7 L Red Cell Distribution Width 15.5 H Platelet Count 91 #L Mean Platelet Volume 11.0 H Neutrophils % 92.5 H Lymphocytes % 2.7 L Monocytes % 4.0 Eosinophils % 0.0 Basophils % 0.0 Nucleated Red Blood Cells % 0.0 Neutrophils # 7.0 Lymphocytes # 0.2 L Monocytes # 0.3 Eosinophils # 0.0 Basophils # 0.0 Nucleated Red Blood Cells # 0.0 Prothrombin Time 17.4 H Prothrombin Time Ratio 1.4 INR International Normalized Ratio 1.42 Activated Partial Thromboplast Time 26.4 Sodium Level 146 H Potassium Level 3.5 Chloride Level 110 Carbon Dioxide Level 24 Anion Gap 16 Blood Urea Nitrogen 79 H Creatinine 2.58 H Glucose Level 108 Calcium Level 8.8 Phosphorus Level 5.8 H Magnesium Level 2.2 Total Bilirubin 0.5 Direct Bilirubin 0.00 Indirect Bilirubin 0.5 Aspartate Amino Transf (AST/SGOT) 26 Alanine Aminotransferase (ALT/SGPT) 104 H Alkaline Phosphatase 79 Total Protein 5.6 L Albumin 2.9 L Globulin 2.70 Albumin/Globulin Ratio 1.07 Vancomycin Level Trough 9.5 L Blood Gas Specimen Source Blood arterial Arterial Blood Date Drawn 06/28/2016 8:15:51 AM Arterial Blood pH (Temp corrected) 7.432 Arterial Blood pCO2 (Temp correct) 32.7 L Arterial Blood pO2 (Temp corrected) 61.0 L Arterial Blood HCO3 21.3 L Arterial Blood Base Excess -2.2 Arterial Blood Oxygen Saturation 89.6 L Isac Test ACCEPTAB Arterial Blood Gas Puncture Site Right Radial Arterial Blood Carboxyhemoglobin 0.6 Arterial Blood Methemoglobin 0.1 Blood Gas A-a O2 Differential 114.5 H Oxyhemoglobin Percent 89.0 L Total Hemoglobin 13.1 Blood Gas Temperature 37.0 Blood Gas Respiration Rate 20.0 Blood Gas Actual Respiration Rate 24 Blood Gas Modality VENT - AC FiO2 30.0 Blood Gas Tidal Volume 500.0 Blood Gas Low PEEP Setting 5.0 Blood Gas Notified Whom Sherry MCCRAY Blood Gas Notified Time 06/28/2016 8:35:23 AM Medications Current Medications Ondansetron HCl (Zofran Inj) 4 mg Q6H PRN IV NAUSEA AND/OR VOMITING; Start at 00:00 Pantoprazole 40 mg 40 mg DAILY@06 IV Last administered on 06/28/16 05:20; Admin Dose 40 MG; Start 06/24/16 at 06:00 Propofol 100 ml @ 2.318 mls/ hr Q12H IV Last administered on 06/26/16 06:40; Admin Dose 9.272 MLS/HR; Start 06/24/16 at 01:30 Norepinephrine 16 mg/Dextrose 500 ml @ 1.87 mls/hr TITRATE IV ; Start 06/24/16 at 06:30 Vancomycin HCl/ Sodium Chloride (Vancocin/NS) 250 ml @ 83.333 mls/ hr Q48H IVPB Last administered on 06/28/16 08:35; Admin Dose 83.333 MLS/HR; Start 06/24 at 07:00; Stop 06/28/16 at 23:00 Methylprednisolone Sodium Succinate 40 mg 40 mg Q6 IV Last administered on 13:38; Admin Dose 40 MG; Start 06/24/16 at 12:00 Multivitamins 10 ml/Thiamine HCl 100 mg/Folic Acid 1 mg/Sodium Chloride 1,011.2 ml @ 75 mls/hr DAILY@09 IVPB Last administered on 06/28/16 08:36; Admin Dose 75 MLS/HR; Start 06/24/16 at 18:30 Sodium Chloride 1,000 ml @ 75 mls/hr [id number] IV Last administered on 22:18; Admin Dose 75 MLS/HR; Start 06/25/16 at 10:00 Piperacillin Sod/ Tazobactam Sod (Zosyn 2.25gm/ 50ml (Pmx)) 50 ml @ 100 mls/hr Q8 IVPB Last administered on 06/28/16 13:38; Admin Dose 100 MLS/HR; Start 06/25 at 22:00 Carvedilol 3.125 mg 3.125 mg BID NGT Last administered on 06/28/16 08:36; Admin Dose 3.125 MG; Start 06/27/16 at 12:30 Vancomycin HCl/ Sodium Chloride (Vancocin/NS) 250 ml @ 83.333 mls/ hr Q48H IVPB ; Start 07/01/16 at 07:00 Assessment/Plan Additional Assessment/Plan IMPRESSION: 1. Cardiopulmonary arrest, likely secondary to acute respiratory failure. 2. CHF--with severe ischemic cardiomyopathy 3. Advanced COPD. 4. Non-oliguric Renal Failure 5. Encephalopathy RECS: 1. Vent support; resume CPAP trial in am 2. Taper solumedrol 3. D/C vancomycin 4. Lasix 40 mg IV BID 5. Afterload reduction with hydralazine/isordil and metoprolol as tolerated 6. DVT and GI prophylaxis 35 min cc time ANDRY VALDOVINOS MD Jun 28, 2016 15:33
[2016-06-28] MEDS: FUROSEMIDE 40 MG INJ IV SCH (18:33)
[2016-06-29] VITALS (36 sets, daily range): BP systolic 110–157; BP diastolic 60–78; PULSE 53–83; RESP 18–43
[2016-06-29] MEDS: PROPOFOL 100 ML IV SCH ×2 (01:30→13:30)
[2016-06-29] MEDS: IPRATROPIUM (HFA) 12.9 GM INHALER INH SCH ×4 (01:50→19:34)
[2016-06-29] MEDS: ALBUTEROL HFA 8 GM INHALER INH SCH ×4 (01:50→19:34)
[2016-06-29 04:52] LABS: AADO2 Arterial 176.1 mmHg (7.0-24.0); Allen Test ACCEPTAB; Arterial COHb 0.9 % (0.0-3.0); Arterial Fraction of Oxyhgb 90.9 % (93.0-99.0); Arterial HCO3 26.2 mmol/L (22.0-26.0); Arterial MetHb 0.2 % (0.0-1.5); Arterial Total Hemglobin 13.9 g/dl (12.0-18.0); MODE VENT - AC
[2016-06-29 04:59] LABS: ADD SCAN DIFF NO
[2016-06-29 05:16] LABS: ABNORMAL IP MESSAGE 1; BASOPHILS % 0.1 % (0.0-2.0); HEMATOCRIT 38.2 % (42.0-52.0); LYMPHOCYTES # 0.2 10^3/ul (0.8-2.9); MEAN CORPUSCULAR HEMOGLOBIN 30.2 pg (29.0-33.0); MEAN CORPUSCULAR HGB CONC 31.4 g/dl (32.0-37.0); MEAN PLATELET VOLUME 10.9 fl (7.4-10.4); MONOCYTE # 0.4 10^3/ul (0.3-0.9); NEUTROPHIL # 8.9 10^3/ul (1.6-7.5); NEUTROPHILS % 93.5 % (39.0-77.0); PLATELET COUNT 86 10^3/UL (140-415); RED BLOOD COUNT 3.98 10^6/ul (4.70-6.10); RED CELL DISTRIBUTION WIDTH 15.2 % (11.5-14.5); WHITE BLOOD COUNT 9.5 10^3/ul (4.8-10.8)
[2016-06-29] MEDS: PANTOPRAZOLE 40 MG INJ IV SCH (05:19)
[2016-06-29] MEDS: PIPER-TAZO 2.25 GM (PMX) 50 ML IVPB SCH ×3 (05:19→20:46)
[2016-06-29] MEDS: FUROSEMIDE 40 MG INJ IV SCH ×2 (05:20→17:10)
[2016-06-29 05:32] LABS: INR 1.28; PARTIAL THROMBOPLASTIN TIME 24.8 Sec (25.0-35.0); PROTIME 16.1 Sec (12.2-14.2); PT RATIO 1.3
[2016-06-29 05:36] LABS: MAGNESIUM 2.3 mg/dl (1.7-2.5); PHOSPHORUS 5.7 mg/dl (2.5-4.9)
[2016-06-29 05:38] LABS: POTASSIUM 3.4 mmol/L (3.5-5.1)
[2016-06-29 05:40] LABS: CREATININE 2.53 mg/dl (0.61-1.24)
[2016-06-29 05:41] LABS: CALCIUM 8.9 mg/dl (8.4-10.2)
[2016-06-29] MEDS ORDERED: POTASSIUM CHLORIDE 20 MEQ POWDER FOR ORAL SOLN NGT ONE (09:00)
--- NOTE | 2016-06-29 09:13 | PN ---
Date/Time of Note Date/Time of Note DATE: 06/29/16 TIME: 08:54 Assessment/Plan VTE Prophylaxis VTE Prophylaxis Intervention: SCD's Lines/Catheters IV Catheter Type (from Nrs): Saline Lock Urinary Cath still in place: Yes Reason Cath still needed: other (indicate) (CKD, monitor UOP) Assessment/Plan Assessment/Plan 76-year-old male with: 1. Pulseless electrical activity cardiac arrest at home with EMS on site, status post resuscitation. Cardiac arrest may be very well 2ry to respiratory failure. Hemodynamically stable currently. OFF Propofol and awake, alert but unclear if fully following commands. 2-D echo with findings of severe cardiomyopathy and EF 30 % likely chronic. Appreciate recommendations form Dr Kahn. On Bblock and diuresis now 2. Acute respiratory failure with a history of heavy tobacco use, likely chronic obstructive pulmonary disease and chronic obstructive pulmonary disease exacerbation and also with right lower lobe, right middle lobe infiltrate consistent with pneumonia, possibly aspiration pneumonia versus community-acquired pneumonia. Failed CPAP x2 so far Continue Zosyn, agree with d/c Vanco CXR with b/l effusions, diuresing, f/u CXR in AM Nebulizer treatments and steroids per Pulmonary, tapering steroids. 3. Aspiration pneumonia likely, given the pattern of infiltrates on chest x- ray. Continue Zosyn. On Tube feeding. 4. Possibly cirrhosis versus shock liver. Hepatitis panel negative Monitor LFTs, Coagulopathy and thrombocytopenia seems to be all improving. Continue thiamine/folate/mvi 5. Acute kidney injury on chronic kidney disease with likely ATN. Renal US with signs of chronic medical disease. Better UOP but renal function seems stable, on Lasix for diuresis Replete K, Free H20 with tube feeding and follow up Na Monitor volume status and renal function. 6. Severe Cardiomyopathy with systolic dysfunction and EF 30 %, elevated BNP. Monitor UOP and volume status while on diuresis HR seems to be stable on Bblock, With CKD, no KANDIS inhibitor or ARB for now PROPHYLAXIS: SCDs to lower extremities for DVT prophylaxis and Pepcid for GI prophylaxis. DISPOSITION: FULL CODE until further information is obtained through social media job titles, and also hopefully we will find out if he does have family. Continue ICU level of care with mechanical ventilation, aggressive treatment for now and ? CPAP Trial again today. Follow up cardiology and Pulmonary recommendations. Subjective 24 Hr Interval Summary Free Text/Dictation Patient with volume overload on CXR, still with likely BERNIE on CKD but need diuresis and started on bid Lasix per pulmonary yesterday, all IVF d/c'd, CPAP trial today. Still off sedation, starring but unclear if following commands Afebrile and other labs OK Exam/Review of Systems Vital Signs Vitals Vital Signs Date Time Temp Pulse Resp B/P Pulse Ox O2 Delivery O2 Flow Rate FiO2 06/29/16 07:14 59 21 94 40 06/29/16 06:00 128/73 Mechanical Ventilator 06/29/16 04:00 98.4 Intake and Output 06/28/16 06/28/16 06/29/16 15:00 23:00 07:00 Intake Total 884.999 ml 510 ml 520 ml Output Total 465 ml 595 ml 600 ml Balance 419.999 ml -85 ml -80 ml Exam Constitutional: alert, non-verbal, other (intubated, not following commands but moving extremities ) Respiratory: diminished breath sounds (lower lobes but clear upper lobes bilaterally ), other (on Vent ) Cardiovascular: nl pulses, regular rate and rhythm Gastrointestinal: non-tender, soft Musculoskeletal: other (chronic skin changes lower ext, echymosis UE bilaterally ) Extremities: normal pulses, other (less anasarca ) 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: other (awake and tracking sounds and voices but unclear if understands commands, not following ) Results Result Diagram: 06/29/16 0425 06/29/16 0425 Results 24 hrs Laboratory Tests Test 06/29/16 04:25 06/29/16 05:00 White Blood Count 9.5 # Red Blood Count 3.98 L Hemoglobin 12.0 L Hematocrit 38.2 L Mean Corpuscular Volume 96.0 Mean Corpuscular Hemoglobin 30.2 Mean Corpuscular Hemoglobin Concent 31.4 L Red Cell Distribution Width 15.2 H Platelet Count 86 L Mean Platelet Volume 10.9 H Neutrophils % 93.5 H Lymphocytes % 2.0 L Monocytes % 4.0 Eosinophils % 0.0 Basophils % 0.1 Nucleated Red Blood Cells % 0.0 Neutrophils # 8.9 H Lymphocytes # 0.2 L Monocytes # 0.4 Eosinophils # 0.0 Basophils # 0.0 Nucleated Red Blood Cells # 0.0 Prothrombin Time 16.1 H Prothrombin Time Ratio 1.3 INR International Normalized Ratio 1.28 Activated Partial Thromboplast Time 24.8 L Sodium Level 147 H Potassium Level 3.4 L Chloride Level 113 H Carbon Dioxide Level 27 Anion Gap 10 # Blood Urea Nitrogen 86 H Creatinine 2.53 H Glucose Level 135 Lactic Acid Level 0.9 Calcium Level 8.9 Phosphorus Level 5.7 H Magnesium Level 2.3 Blood Gas Specimen Source Blood arterial Arterial Blood Date Drawn 06/29/2016 4:42:08 AM Arterial Blood pH (Temp corrected) 7.438 Arterial Blood pCO2 (Temp correct) 39.7 Arterial Blood pO2 (Temp corrected) 63.4 L Arterial Blood HCO3 26.2 H Arterial Blood Base Excess 2.0 Arterial Blood Oxygen Saturation 91.9 L Isac Test ACCEPTAB Arterial Blood Gas Puncture Site Right Radial Arterial Blood Carboxyhemoglobin 0.9 Arterial Blood Methemoglobin 0.2 Blood Gas A-a O2 Differential 176.1 H Oxyhemoglobin Percent 90.9 L Total Hemoglobin 13.9 Blood Gas Temperature 37.0 Blood Gas Respiration Rate 20.0 Blood Gas Actual Respiration Rate 20 Blood Gas Modality VENT - AC FiO2 40.0 Blood Gas Tidal Volume 500.0 Blood Gas Low PEEP Setting 5.0 Blood Gas Notified Whom LW Blood Gas Notified Time 06/29/2016 4:52:45 AM Medications Medications Current Medications Ondansetron HCl (Zofran Inj) 4 mg Q6H PRN IV NAUSEA AND/OR VOMITING; Start at 00:00 Pantoprazole 40 mg 40 mg DAILY@06 IV Last administered on 06/29/16 05:19; Admin Dose 40 MG; Start 06/24/16 at 06:00 Propofol 100 ml @ 2.318 mls/ hr Q12H IV Last administered on 06/26/16 06:40; Admin Dose 9.272 MLS/HR; Start 06/24/16 at 01:30 Norepinephrine 16 mg/Dextrose 500 ml @ 1.87 mls/hr TITRATE IV ; Start 06/24/16 at 06:30 Piperacillin Sod/ Tazobactam Sod (Zosyn 2.25gm/ 50ml (Pmx)) 50 ml @ 100 mls/hr Q8 IVPB Last administered on 06/29/16 05:19; Admin Dose 100 MLS/HR; Start 06/25 at 22:00 Carvedilol (Coreg) 3.125 mg BID NGT Last administered on 06/28/16 08:36; Admin Dose 3.125 MG; Start 06/27/16 at 12:30 Methylprednisolone Sodium Succinate (Solu-Medrol) 40 mg BID IV Last administered on 06/28/16 21:31; Admin Dose 40 MG; Start 06/28/16 at 21:00 DAVID GONZALEZ Jun 29, 2016 09:05
[2016-06-29] MEDS: MULTIVITAMINS 5 ML CUP NGT SCH (09:29)
[2016-06-29] MEDS: METHYLPREDNISOLONE 40 MG INJ IV SCH ×2 (09:29→20:45)
[2016-06-29] MEDS: THIAMINE 100 MG TAB NGT SCH (09:30)
[2016-06-29] MEDS: FOLIC ACID 1 MG TAB NGT SCH (09:31)
--- NOTE | 2016-06-29 13:44 | CONS ---
Date/Time of Note Date/Time of Note DATE: 06/29/16 TIME: 13:42 Assessment/Plan Assessment/Plan Additional Assessment/Plan Cardiopulmonary arrest Severe cardiomyopathy with ejection fraction 30% Respiratory failure Encephalopathy Mildly elevated troponin Active tobacco use Coagulopathy Acute kidney injury. -Blood pressure increasing, would start hydralazine for afterload reduction, diuretics have been initiated by our pulmonary colleagues, follow renal function. Consultation Date/Type/Reason Admit Date/Time Jun 23, 2016 at 22:42 Type of Consultation: cv 24 HR Interval Summary Free Text/Dictation Patient seen and examined. No new cardiac as per nursing staff Exam/Review of Systems Vital Signs Vitals Vital Signs Date Time Temp Pulse Resp B/P Pulse Ox O2 Delivery O2 Flow Rate FiO2 06/29/16 13:32 63 20 98 40 06/29/16 10:00 157/78 Mechanical Ventilator 06/29/16 08:00 98.1 Intake and Output 06/28/16 06/28/16 06/29/16 15:00 23:00 07:00 Intake Total 884.999 ml 510 ml 540 ml Output Total 465 ml 595 ml 900 ml Balance 419.999 ml -85 ml -360 ml Exam Awake, looks over at me when name is called, currently not following commands Head: normocephalic ENMT: intubated Respiratory: other (Coarse breath sounds and decreased at the bases, no wheezing) Cardiovascular: other (S1-S2 heard), regular rate and rhythm Gastrointestinal: bowel sounds, non-tender, other (No guarding or grimacing), soft Extremities: edema, other (Venous stasis lower extremity changes) Results Result Diagram: 06/29/16 0425 06/29/16 0425 Results 24 hrs Laboratory Tests Test 06/29/16 04:25 06/29/16 05:00 White Blood Count 9.5 # Red Blood Count 3.98 L Hemoglobin 12.0 L Hematocrit 38.2 L Mean Corpuscular Volume 96.0 Mean Corpuscular Hemoglobin 30.2 Mean Corpuscular Hemoglobin Concent 31.4 L Red Cell Distribution Width 15.2 H Platelet Count 86 L Mean Platelet Volume 10.9 H Neutrophils % 93.5 H Lymphocytes % 2.0 L Monocytes % 4.0 Eosinophils % 0.0 Basophils % 0.1 Nucleated Red Blood Cells % 0.0 Neutrophils # 8.9 H Lymphocytes # 0.2 L Monocytes # 0.4 Eosinophils # 0.0 Basophils # 0.0 Nucleated Red Blood Cells # 0.0 Prothrombin Time 16.1 H Prothrombin Time Ratio 1.3 INR International Normalized Ratio 1.28 Activated Partial Thromboplast Time 24.8 L Sodium Level 147 H Potassium Level 3.4 L Chloride Level 113 H Carbon Dioxide Level 27 Anion Gap 10 # Blood Urea Nitrogen 86 H Creatinine 2.53 H Glucose Level 135 Lactic Acid Level 0.9 Calcium Level 8.9 Phosphorus Level 5.7 H Magnesium Level 2.3 Blood Gas Specimen Source Blood arterial Arterial Blood Date Drawn 06/29/2016 4:42:08 AM Arterial Blood pH (Temp corrected) 7.438 Arterial Blood pCO2 (Temp correct) 39.7 Arterial Blood pO2 (Temp corrected) 63.4 L Arterial Blood HCO3 26.2 H Arterial Blood Base Excess 2.0 Arterial Blood Oxygen Saturation 91.9 L Isac Test ACCEPTAB Arterial Blood Gas Puncture Site Right Radial Arterial Blood Carboxyhemoglobin 0.9 Arterial Blood Methemoglobin 0.2 Blood Gas A-a O2 Differential 176.1 H Oxyhemoglobin Percent 90.9 L Total Hemoglobin 13.9 Blood Gas Temperature 37.0 Blood Gas Respiration Rate 20.0 Blood Gas Actual Respiration Rate 20 Blood Gas Modality VENT - AC FiO2 40.0 Blood Gas Tidal Volume 500.0 Blood Gas Low PEEP Setting 5.0 Blood Gas Notified Whom LW Blood Gas Notified Time 06/29/2016 4:52:45 AM Medications Medications Current Medications Ondansetron HCl (Zofran Inj) 4 mg Q6H PRN IV NAUSEA AND/OR VOMITING; Start at 00:00 Pantoprazole 40 mg 40 mg DAILY@06 IV Last administered on 06/29/16 05:19; Admin Dose 40 MG; Start 06/24/16 at 06:00 Propofol 100 ml @ 2.318 mls/ hr Q12H IV Last administered on 06/26/16 06:40; Admin Dose 9.272 MLS/HR; Start 06/24/16 at 01:30 Norepinephrine 16 mg/Dextrose 500 ml @ 1.87 mls/hr TITRATE IV ; Start 06/24/16 at 06:30 Piperacillin Sod/ Tazobactam Sod (Zosyn 2.25gm/ 50ml (Pmx)) 50 ml @ 100 mls/hr Q8 IVPB Last administered on 06/29/16 05:19; Admin Dose 100 MLS/HR; Start 06/25 at 22:00 Carvedilol (Coreg) 3.125 mg BID NGT Last administered on 06/29/16 09:31; Admin Dose 3.125 MG; Start 06/27/16 at 12:30 Methylprednisolone Sodium Succinate (Solu-Medrol) 40 mg BID IV Last administered on 06/29/16 09:29; Admin Dose 40 MG; Start 06/28/16 at 21:00 Thiamine HCl (Vitamin B1) 100 mg DAILY NGT Last administered on 06/29/16 09:30 ; Admin Dose 100 MG; Start 06/29/16 at 09:00 Multivitamins (Thera-Plus) 5 ml DAILY NGT Last administered on 06/29/16 09:29; Admin Dose 5 ML; Start 06/29/16 at 09:00 Folic Acid (Folic Acid) 1 mg DAILY NGT Last administered on 06/29/16 09:31; Admin Dose 1 MG; Start 06/29/16 at 09:00 Harvey Kahn DO Jun 29, 2016 13:44
--- NOTE | 2016-06-29 14:18 | CONS ---
Date/Time of Note Date/Time of Note DATE: 06/29/16 TIME: 14:15 Consult Date/Type/Reason Admit Date/Time Jun 23, 2016 at 22:42 Type of Consultation: Pulm/CCM Subjective Failed weaning trail this am with increased resp distress. Objective Vital Signs Date Time Temp Pulse Resp B/P Pulse Ox O2 Delivery O2 Flow Rate FiO2 06/29/16 13:32 63 20 98 40 06/29/16 10:00 157/78 Mechanical Ventilator 06/29/16 08:00 98.1 Intake and Output 06/28/16 06/28/16 06/29/16 15:00 23:00 07:00 Intake Total 884.999 ml 510 ml 540 ml Output Total 465 ml 595 ml 900 ml Balance 419.999 ml -85 ml -360 ml Exam HEENT: Increased JVD; ET tube in place CARDIAC: S1, S2, 2/6 systolic murmur CHEST: Diminished air entry bilaterally with occ rhonchi and rales ABDOMEN: Mildly distended. No bowel sounds. EXTREMITIES: No cyanosis, clubbing edema +1 Results/Medications Result Diagram: 06/29/16 0425 06/29/16 0425 Results 24 hrs Laboratory Tests Test 06/29/16 04:25 06/29/16 05:00 White Blood Count 9.5 # Red Blood Count 3.98 L Hemoglobin 12.0 L Hematocrit 38.2 L Mean Corpuscular Volume 96.0 Mean Corpuscular Hemoglobin 30.2 Mean Corpuscular Hemoglobin Concent 31.4 L Red Cell Distribution Width 15.2 H Platelet Count 86 L Mean Platelet Volume 10.9 H Neutrophils % 93.5 H Lymphocytes % 2.0 L Monocytes % 4.0 Eosinophils % 0.0 Basophils % 0.1 Nucleated Red Blood Cells % 0.0 Neutrophils # 8.9 H Lymphocytes # 0.2 L Monocytes # 0.4 Eosinophils # 0.0 Basophils # 0.0 Nucleated Red Blood Cells # 0.0 Prothrombin Time 16.1 H Prothrombin Time Ratio 1.3 INR International Normalized Ratio 1.28 Activated Partial Thromboplast Time 24.8 L Sodium Level 147 H Potassium Level 3.4 L Chloride Level 113 H Carbon Dioxide Level 27 Anion Gap 10 # Blood Urea Nitrogen 86 H Creatinine 2.53 H Glucose Level 135 Lactic Acid Level 0.9 Calcium Level 8.9 Phosphorus Level 5.7 H Magnesium Level 2.3 Blood Gas Specimen Source Blood arterial Arterial Blood Date Drawn 06/29/2016 4:42:08 AM Arterial Blood pH (Temp corrected) 7.438 Arterial Blood pCO2 (Temp correct) 39.7 Arterial Blood pO2 (Temp corrected) 63.4 L Arterial Blood HCO3 26.2 H Arterial Blood Base Excess 2.0 Arterial Blood Oxygen Saturation 91.9 L Isac Test ACCEPTAB Arterial Blood Gas Puncture Site Right Radial Arterial Blood Carboxyhemoglobin 0.9 Arterial Blood Methemoglobin 0.2 Blood Gas A-a O2 Differential 176.1 H Oxyhemoglobin Percent 90.9 L Total Hemoglobin 13.9 Blood Gas Temperature 37.0 Blood Gas Respiration Rate 20.0 Blood Gas Actual Respiration Rate 20 Blood Gas Modality VENT - AC FiO2 40.0 Blood Gas Tidal Volume 500.0 Blood Gas Low PEEP Setting 5.0 Blood Gas Notified Whom LW Blood Gas Notified Time 06/29/2016 4:52:45 AM Medications Current Medications Ondansetron HCl (Zofran Inj) 4 mg Q6H PRN IV NAUSEA AND/OR VOMITING; Start at 00:00 Pantoprazole 40 mg 40 mg DAILY@06 IV Last administered on 06/29/16 05:19; Admin Dose 40 MG; Start 06/24/16 at 06:00 Propofol 100 ml @ 2.318 mls/ hr Q12H IV Last administered on 06/26/16 06:40; Admin Dose 9.272 MLS/HR; Start 06/24/16 at 01:30 Norepinephrine 16 mg/Dextrose 500 ml @ 1.87 mls/hr TITRATE IV ; Start 06/24/16 at 06:30 Piperacillin Sod/ Tazobactam Sod (Zosyn 2.25gm/ 50ml (Pmx)) 50 ml @ 100 mls/hr Q8 IVPB Last administered on 06/29/16 05:19; Admin Dose 100 MLS/HR; Start 06/25 at 22:00 Carvedilol (Coreg) 3.125 mg BID NGT Last administered on 06/29/16 09:31; Admin Dose 3.125 MG; Start 06/27/16 at 12:30 Methylprednisolone Sodium Succinate (Solu-Medrol) 40 mg BID IV Last administered on 06/29/16 09:29; Admin Dose 40 MG; Start 06/28/16 at 21:00 Thiamine HCl (Vitamin B1) 100 mg DAILY NGT Last administered on 06/29/16 09:30 ; Admin Dose 100 MG; Start 06/29/16 at 09:00 Multivitamins (Thera-Plus) 5 ml DAILY NGT Last administered on 06/29/16 09:29; Admin Dose 5 ML; Start 06/29/16 at 09:00 Folic Acid (Folic Acid) 1 mg DAILY NGT Last administered on 06/29/16 09:31; Admin Dose 1 MG; Start 06/29/16 at 09:00 Hydralazine HCl (Apresoline) 10 mg Q8 NGT Last administered on 06/29/16 14:10; Admin Dose 10 MG; Start 06/29/16 at 14:00 Assessment/Plan Additional Assessment/Plan IMPRESSION: 1. Cardiopulmonary arrest, likely secondary to acute respiratory failure. 2. CHF--with severe ischemic cardiomyopathy 3. Advanced COPD. 4. Non-oliguric Renal Failure 5. Encephalopathy RECS: 1. Vent support 2. Taper solumedrol 3. BD's/CPT 4. Increase lasix dose to 60 mg BID 5. Afterload reduction with hydralazine/isordil and metoprolol as per Cards 6. DVT and GI prophylaxis 35 min cc time ANDRY VALDOVINOS MD Jun 29, 2016 14:18
--- NOTE | 2016-06-29 14:20 | RADRPT ---
PROCEDURE: XR Chest. CLINICAL INDICATION: Chest pain TECHNIQUE: Single view of the chest COMPARISON: Chest radiograph June 28, 2016 FINDINGS: The tip of the endotracheal tube is 4.5 cm above the farida. Enteric tube courses below the diaphra gm. There are small to moderate bilateral pleural effusions, right greater than left, similar to prior w ith background vascular congestion. Cardiac silhouette is mildly enlarged and there are atherosclerotic calcifications of the aorta. There is no pneumothorax. There is no acute osseous abnormality. IMPRESSION: 1. No significant change from prior again noting background pulmonary vascular congestion with smal l to moderate bilateral pleural effusions, right greater than left, and enlargement of the cardiac s ilhouette. 2. Lines and tubes as above. RPTAT: UU .Owen Vaca MD, Date Time Electronically viewed and signed by .Owen Vaca MD, on 06/29/2016 14:19 .K/
[2016-06-30] VITALS (36 sets, daily range): BP systolic 111–155; BP diastolic 62–93; PULSE 49–76; RESP 12–23
[2016-06-30] MEDS: IPRATROPIUM (HFA) 12.9 GM INHALER INH SCH ×4 (01:05→19:39)
[2016-06-30] MEDS: ALBUTEROL HFA 8 GM INHALER INH SCH ×4 (01:05→19:39)
[2016-06-30] MEDS: PROPOFOL 100 ML IV SCH ×2 (01:30→09:33)
[2016-06-30] MEDS: PANTOPRAZOLE 40 MG INJ IV SCH (06:01)
[2016-06-30] MEDS: PIPER-TAZO 2.25 GM (PMX) 50 ML IVPB SCH ×3 (06:01→21:11)
[2016-06-30] MEDS: FUROSEMIDE 40 MG INJ IV SCH ×2 (06:06→17:33)
[2016-06-30 06:34] LABS: ADD SCAN DIFF NO
[2016-06-30 06:40] LABS: ABNORMAL IP MESSAGE 1; BASOPHILS % 0.1 % (0.0-2.0); HEMATOCRIT 35.5 % (42.0-52.0); HEMOGLOBIN 11.3 g/dl (14.0-18.0); LYMPHOCYTES # 0.3 10^3/ul (0.8-2.9); LYMPHOCYTES % 2.1 % (15.0-51.0); MEAN CORPUSCULAR HEMOGLOBIN 30.9 pg (29.0-33.0); MEAN CORPUSCULAR HGB CONC 31.8 g/dl (32.0-37.0); MEAN PLATELET VOLUME 11.4 fl (7.4-10.4); MONOCYTE # 0.6 10^3/ul (0.3-0.9); MONOCYTES % 5.2 % (0.0-11.0); NEUTROPHIL # 11.1 10^3/ul (1.6-7.5); NEUTROPHILS % 92.3 % (39.0-77.0); PLATELET COUNT 77 10^3/UL (140-415); RED BLOOD COUNT 3.66 10^6/ul (4.70-6.10); RED CELL DISTRIBUTION WIDTH 14.9 % (11.5-14.5); WHITE BLOOD COUNT 12.1 10^3/ul (4.8-10.8)
[2016-06-30 06:51] LABS: ALBUMIN 2.7 g/dl (3.3-4.9)
[2016-06-30 06:52] LABS: POTASSIUM 3.4 mmol/L (3.5-5.1)
[2016-06-30 06:54] LABS: BILIRUBIN,INDIRECT 0.5 mg/dl (0-1.1); BILIRUBIN,TOTAL 0.5 mg/dl (0.2-1.3); CREATININE 2.47 mg/dl (0.61-1.24); TOTAL PROTEIN 5.4 g/dl (6.1-8.1)
[2016-06-30 06:55] LABS: CALCIUM 8.7 mg/dl (8.4-10.2)
[2016-06-30 07:00] LABS: MAGNESIUM 2.2 mg/dl (1.7-2.5)
[2016-06-30] MEDS ORDERED: POTASSIUM CHLORIDE (SR) 20 MEQ TAB PO STA (09:10)
--- NOTE | 2016-06-30 09:20 | PN ---
Date/Time of Note Date/Time of Note DATE: 06/30/16 TIME: 09:09 Assessment/Plan VTE Prophylaxis VTE Prophylaxis Intervention: SCD's Lines/Catheters IV Catheter Type (from Nrs): Peripheral IV Urinary Cath still in place: Yes Reason Cath still needed: other (indicate) (strict i/o) Assessment/Plan Assessment/Plan 76-year-old male with: 1. Pulseless electrical activity cardiac arrest at home with EMS on site, status post resuscitation. Cardiac arrest may be very well 2ry to respiratory failure. Hemodynamically stable currently. OFF Propofol and awake, alert but unclear if fully following commands. Repeat CT head today and MRI brain if needed 2-D echo with findings of severe cardiomyopathy and EF 30 % likely chronic. Appreciate recommendations from Dr Kahn. On Bblock and diuresis now 2. Acute respiratory failure with a history of heavy tobacco use, likely chronic obstructive pulmonary disease and chronic obstructive pulmonary disease exacerbation and also with right lower lobe, right middle lobe infiltrate consistent with pneumonia, possibly aspiration pneumonia versus community-acquired pneumonia. Failed CPAP x3 so far Continue Zosyn. CXR with b/l effusions, diuresing, f/u CXR in AM Nebulizer treatments and steroids per Pulmonary, tapering steroids. 3. Aspiration pneumonia likely, given the pattern of infiltrates on chest x- ray. Continue Zosyn. On Tube feeding. 4. Possibly cirrhosis versus shock liver. Hepatitis panel negative Monitor LFTs, Coagulopathy and thrombocytopenia seems to be all improving. Continue thiamine/folate/mvi per NGT 5. Acute kidney injury on chronic kidney disease with likely ATN. Renal US with signs of chronic medical disease. Better UOP but renal function seems stable, on Lasix for diuresis, - 2.4L Replete K, Free H20 with tube feeding and follow up Na Monitor volume status and renal function. 6. Severe Cardiomyopathy with systolic dysfunction and EF 30 %, elevated BNP. Monitor UOP and volume status while on diuresis HR seems to be stable on Bblock, With CKD, no KANDIS inhibitor or ARB for now PROPHYLAXIS: SCDs to lower extremities for DVT prophylaxis and Pepcid for GI prophylaxis. DISPOSITION: FULL CODE until further information is obtained through social work lecturer, and also hopefully we will find out if he does have family. Continue ICU level of care with mechanical ventilation, aggressive treatment for now. CT head today. ?MRI Follow up cardiology and Pulmonary recommendations. Subjective 24 Hr Interval Summary Free Text/Dictation Patient awake with eyes open and moving non purposefully but not following commands still On diuresis and -2.4L today Afebrile, with slightly elevated WBC today Repeat CT head pending and may need MRI head too Exam/Review of Systems Vital Signs Vitals Vital Signs Date Time Temp Pulse Resp B/P Pulse Ox O2 Delivery O2 Flow Rate FiO2 06/30/16 08:00 97.9 74 20 140/88 Mechanical Ventilator 06/30/16 07:20 99 50 Intake and Output 06/29/16 06/29/16 06/30/16 15:00 23:00 07:00 Intake Total 570 ml 410 ml 410 ml Output Total 900 ml 1525 ml 1065 ml Balance -330 ml -1115 ml -655 ml Exam Constitutional: alert, non-verbal, other (intubated ) Respiratory: diminished breath sounds (RLL/RML mainly ), other (on Vent ) Cardiovascular: nl pulses, regular rate and rhythm Gastrointestinal: non-tender, soft Musculoskeletal: other (chronic venous stasis changes ) Extremities: normal pulses, other (much improved anasarca ) 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: other (not following commands, awake and alert on Vent ) Results Result Diagram: 06/30/16 0520 06/30/16 0520 Results 24 hrs Laboratory Tests Test 06/30/16 05:20 White Blood Count 12.1 #H Red Blood Count 3.66 L Hemoglobin 11.3 L Hematocrit 35.5 L Mean Corpuscular Volume 97.0 Mean Corpuscular Hemoglobin 30.9 Mean Corpuscular Hemoglobin Concent 31.8 L Red Cell Distribution Width 14.9 H Platelet Count 77 L Mean Platelet Volume 11.4 H Neutrophils % 92.3 H Lymphocytes % 2.1 L Monocytes % 5.2 Eosinophils % 0.0 Basophils % 0.1 Nucleated Red Blood Cells % 0.0 Neutrophils # 11.1 H Lymphocytes # 0.3 L Monocytes # 0.6 Eosinophils # 0.0 Basophils # 0.0 Nucleated Red Blood Cells # 0.0 Sodium Level 147 H Potassium Level 3.4 L Chloride Level 111 H Carbon Dioxide Level 29 Anion Gap 10 Blood Urea Nitrogen 92 H Creatinine 2.47 H Glucose Level 143 Calcium Level 8.7 Phosphorus Level 5.0 H Magnesium Level 2.2 Total Bilirubin 0.5 Direct Bilirubin 0.00 Indirect Bilirubin 0.5 Aspartate Amino Transf (AST/SGOT) 23 Alanine Aminotransferase (ALT/SGPT) 64 Alkaline Phosphatase 69 Total Protein 5.4 L Albumin 2.7 L Globulin 2.70 Albumin/Globulin Ratio 1.00 Medications Medications Current Medications Ondansetron HCl (Zofran Inj) 4 mg Q6H PRN IV NAUSEA AND/OR VOMITING; Start at 00:00 Pantoprazole 40 mg 40 mg DAILY@06 IV Last administered on 06/30/16 06:01; Admin Dose 40 MG; Start 06/24/16 at 06:00 Propofol 100 ml @ 2.318 mls/ hr Q12H IV Last administered on 06/26/16 06:40; Admin Dose 9.272 MLS/HR; Start 06/24/16 at 01:30 Norepinephrine 16 mg/Dextrose 500 ml @ 1.87 mls/hr TITRATE IV ; Start 06/24/16 at 06:30 Piperacillin Sod/ Tazobactam Sod (Zosyn 2.25gm/ 50ml (Pmx)) 50 ml @ 100 mls/hr Q8 IVPB Last administered on 06/30/16 06:01; Admin Dose 100 MLS/HR; Start 06/25 at 22:00 Carvedilol (Coreg) 3.125 mg BID NGT Last administered on 06/29/16 09:31; Admin Dose 3.125 MG; Start 06/27/16 at 12:30 Thiamine HCl (Vitamin B1) 100 mg DAILY NGT Last administered on 06/29/16 09:30 ; Admin Dose 100 MG; Start 06/29/16 at 09:00 Multivitamins (Thera-Plus) 5 ml DAILY NGT Last administered on 06/29/16 09:29; Admin Dose 5 ML; Start 06/29/16 at 09:00 Folic Acid (Folic Acid) 1 mg DAILY NGT Last administered on 06/29/16 09:31; Admin Dose 1 MG; Start 06/29/16 at 09:00 Hydralazine HCl (Apresoline) 10 mg Q8 NGT Last administered on 06/30/16 08:02; Admin Dose 10 MG; Start 06/29/16 at 14:00 Methylprednisolone Sodium Succinate (Solu-Medrol) 30 mg BID IV Last administered on 06/29/16 20:45; Admin Dose 30 MG; Start 06/29/16 at 21:00 DAVID GONZALEZ Jun 30, 2016 09:20
[2016-06-30] MEDS: FOLIC ACID 1 MG TAB NGT SCH (09:30)
[2016-06-30] MEDS ORDERED: POTASSIUM CHLORIDE 20 MEQ POWDER FOR ORAL SOLN NGT ONE (09:30)
[2016-06-30] MEDS: MULTIVITAMINS 5 ML CUP NGT SCH (09:30)
[2016-06-30] MEDS: THIAMINE 100 MG TAB NGT SCH (09:30)
[2016-06-30] MEDS: METHYLPREDNISOLONE 40 MG INJ IV SCH ×2 (09:30→21:11)
--- NOTE | 2016-06-30 10:14 | CONS ---
Date/Time of Note Date/Time of Note DATE: 06/30/16 TIME: 10:12 Consult Date/Type/Reason Admit Date/Time Jun 23, 2016 at 22:42 Type of Consultation: Pulm/CCM Subjective Remains intubated sedated on mechanical ventilation failed prior CPAP trial Minimally responsive off sedation Objective Vital Signs Date Time Temp Pulse Resp B/P Pulse Ox O2 Delivery O2 Flow Rate FiO2 06/30/16 10:00 56 23 129/74 97 Mechanical Ventilator 06/30/16 09:39 50 06/30/16 08:00 97.9 Intake and Output 06/29/16 06/29/16 06/30/16 15:00 23:00 07:00 Intake Total 570 ml 410 ml 410 ml Output Total 900 ml 1525 ml 1065 ml Balance -330 ml -1115 ml -655 ml Exam PHYSICAL EXAMINATION GENERAL: Elderly gentleman, intubated on mechanical ventilation, VITAL SIGNS: see below. HEENT: Pupils equal, round, and reactive to light. CARDIAC: S1, S2, 1/6 systolic murmur CHEST: Diminished air entry bilaterally. ABDOMEN: Mildly distended. No bowel sounds. EXTREMITIES: No cyanosis, clubbing edema +1 NEUROLOGIC: Generalized weakness Results/Medications Result Diagram: 06/30/16 0520 06/30/16 0520 Results 24 hrs Laboratory Tests Test 06/30/16 05:20 White Blood Count 12.1 #H Red Blood Count 3.66 L Hemoglobin 11.3 L Hematocrit 35.5 L Mean Corpuscular Volume 97.0 Mean Corpuscular Hemoglobin 30.9 Mean Corpuscular Hemoglobin Concent 31.8 L Red Cell Distribution Width 14.9 H Platelet Count 77 L Mean Platelet Volume 11.4 H Neutrophils % 92.3 H Lymphocytes % 2.1 L Monocytes % 5.2 Eosinophils % 0.0 Basophils % 0.1 Nucleated Red Blood Cells % 0.0 Neutrophils # 11.1 H Lymphocytes # 0.3 L Monocytes # 0.6 Eosinophils # 0.0 Basophils # 0.0 Nucleated Red Blood Cells # 0.0 Sodium Level 147 H Potassium Level 3.4 L Chloride Level 111 H Carbon Dioxide Level 29 Anion Gap 10 Blood Urea Nitrogen 92 H Creatinine 2.47 H Glucose Level 143 Calcium Level 8.7 Phosphorus Level 5.0 H Magnesium Level 2.2 Total Bilirubin 0.5 Direct Bilirubin 0.00 Indirect Bilirubin 0.5 Aspartate Amino Transf (AST/SGOT) 23 Alanine Aminotransferase (ALT/SGPT) 64 Alkaline Phosphatase 69 Total Protein 5.4 L Albumin 2.7 L Globulin 2.70 Albumin/Globulin Ratio 1.00 Medications Current Medications Ondansetron HCl (Zofran Inj) 4 mg Q6H PRN IV NAUSEA AND/OR VOMITING; Start at 00:00 Pantoprazole 40 mg 40 mg DAILY@06 IV Last administered on 06/30/16 06:01; Admin Dose 40 MG; Start 06/24/16 at 06:00 Propofol 100 ml @ 2.318 mls/ hr Q12H IV Last administered on 06/26/16 06:40; Admin Dose 9.272 MLS/HR; Start 06/24/16 at 01:30 Norepinephrine 16 mg/Dextrose 500 ml @ 1.87 mls/hr TITRATE IV ; Start 06/24/16 at 06:30 Piperacillin Sod/ Tazobactam Sod (Zosyn 2.25gm/ 50ml (Pmx)) 50 ml @ 100 mls/hr Q8 IVPB Last administered on 06/30/16 06:01; Admin Dose 100 MLS/HR; Start 06/25 at 22:00 Carvedilol (Coreg) 3.125 mg BID NGT Last administered on 06/30/16 09:30; Admin Dose 3.125 MG; Start 06/27/16 at 12:30 Thiamine HCl (Vitamin B1) 100 mg DAILY NGT Last administered on 06/30/16 09:30 ; Admin Dose 100 MG; Start 06/29/16 at 09:00 Multivitamins (Thera-Plus) 5 ml DAILY NGT Last administered on 06/30/16 09:30; Admin Dose 5 ML; Start 06/29/16 at 09:00 Folic Acid (Folic Acid) 1 mg DAILY NGT Last administered on 06/30/16 09:30; Admin Dose 1 MG; Start 06/29/16 at 09:00 Hydralazine HCl (Apresoline) 10 mg Q8 NGT Last administered on 06/30/16 08:02; Admin Dose 10 MG; Start 06/29/16 at 14:00 Methylprednisolone Sodium Succinate (Solu-Medrol) 30 mg BID IV Last administered on 06/30/16 09:30; Admin Dose 30 MG; Start 06/29/16 at 21:00 Assessment/Plan Chief Complaint/Hosp Course IMPRESSION 1. Cardiopulmonary arrest, likely secondary to acute respiratory failure. 2. Possible aspiration component. 3. Congestive cardiac failure. Systolic dysfunction with decreased ejection fraction 4. History of advanced chronic obstructive pulmonary disease per chart. Chest x -ray shows worsening bibasilar infiltrates and effusions 5. History of hospice. 6. Renal insufficiency Plan 1. Continued mechanical ventilation. Currently not weanable. 2. Vasopressors as needed. 3. Intravenous steroids 4. Consider de-escalation of antibiotics 5. Bronchodilators. 6. DVT and GI prophylaxis. Disposition Continue intensive care monitoring Overall prognosis very poor consider bioethics consult Critical care time 35 minutes Problems: NIC PEREZ MD, [facility] Jun 30, 2016 10:13
--- NOTE | 2016-06-30 14:01 | RADRPT ---
PROCEDURE: CT brain without contrast CLINICAL INDICATION: Mental status change TECHNIQUE: CT of the brain without contrast performed on a multidetector CT scanner, with multiplan ar reformats. One or more of the following dose reduction techniques were used: Automated exposure control, adjustment in mA and / or kV according to patient size, use of iterative reconstructive pina hnique. CTDIvol = 45 mGy; DLP = 810 mGy-cm. COMPARISON: None available FINDINGS: A chronic lacunar infarct is identified at the left caudate nucleus. No acute intracranial hemorrha ge is identified. No extra-axial fluid collection is seen. There is no mass effect. No midline shift is identified. Ventricles and sulci are mildly enlarged compatible with generalized volume loss. There are mild areas of hypodensity in the periventricular - deep white matter which are nonspecific but suggestive of chronic small vessel ischemic changes. Quiroz-white differentiation is preserved. Atherosclerotic calcifications of the proximal intracranial arteries are noted. Osseous structures are unremarkable. There is mild right mastoid air cell opacification. IMPRESSION: 1. No evidence of acute intracranial pathology. 2. Chronic left basal ganglia lacunar infarct. 3. Mild generalized volume loss, with mild chronic small vessel ischemic changes. RPTAT: VV .Christopher Pradhan MD, MD Date Time Electronically viewed and signed by .Christopher Pradhan MD, on 06/30/2016 14:00 .O/
--- NOTE | 2016-06-30 16:36 | CONS ---
Date/Time of Note Date/Time of Note DATE: 06/30/16 TIME: 16:34 Assessment/Plan Assessment/Plan Additional Assessment/Plan Cardiopulmonary arrest Severe cardiomyopathy with ejection fraction 30% Respiratory failure Encephalopathy Mildly elevated troponin Active tobacco use Coagulopathy Acute kidney injury -Patient with bradycardia with Coreg, would DC, continue hydralazine for afterload reduction. No aspirin secondary to thrombocytopenia. Consultation Date/Type/Reason Admit Date/Time Jun 23, 2016 at 22:42 Type of Consultation: cv 24 HR Interval Summary Free Text/Dictation Patient seen and examined, bradycardia noted with beta-erika Exam/Review of Systems Vital Signs Vitals Vital Signs Date Time Temp Pulse Resp B/P Pulse Ox O2 Delivery O2 Flow Rate FiO2 06/30/16 15:04 52 20 99 40 06/30/16 15:00 112/66 Mechanical Ventilator 06/30/16 12:00 97.7 Intake and Output 06/29/16 06/29/16 06/30/16 15:00 23:00 07:00 Intake Total 570 ml 410 ml 410 ml Output Total 900 ml 1525 ml 1065 ml Balance -330 ml -1115 ml -655 ml Exam Awake, no apparent distress Head: normocephalic ENMT: intubated Respiratory: other (Coarse breath sounds bilaterally, no wheezing) Cardiovascular: other (S1-S2 heard), regular rate and rhythm Gastrointestinal: bowel sounds, non-tender, other (No grimacing with palpation) , soft Extremities: edema, other (Venous stasis changes) Results Result Diagram: 06/30/16 0520 06/30/16 0520 Results 24 hrs Laboratory Tests Test 06/30/16 05:20 White Blood Count 12.1 #H Red Blood Count 3.66 L Hemoglobin 11.3 L Hematocrit 35.5 L Mean Corpuscular Volume 97.0 Mean Corpuscular Hemoglobin 30.9 Mean Corpuscular Hemoglobin Concent 31.8 L Red Cell Distribution Width 14.9 H Platelet Count 77 L Mean Platelet Volume 11.4 H Neutrophils % 92.3 H Lymphocytes % 2.1 L Monocytes % 5.2 Eosinophils % 0.0 Basophils % 0.1 Nucleated Red Blood Cells % 0.0 Neutrophils # 11.1 H Lymphocytes # 0.3 L Monocytes # 0.6 Eosinophils # 0.0 Basophils # 0.0 Nucleated Red Blood Cells # 0.0 Sodium Level 147 H Potassium Level 3.4 L Chloride Level 111 H Carbon Dioxide Level 29 Anion Gap 10 Blood Urea Nitrogen 92 H Creatinine 2.47 H Glucose Level 143 Calcium Level 8.7 Phosphorus Level 5.0 H Magnesium Level 2.2 Total Bilirubin 0.5 Direct Bilirubin 0.00 Indirect Bilirubin 0.5 Aspartate Amino Transf (AST/SGOT) 23 Alanine Aminotransferase (ALT/SGPT) 64 Alkaline Phosphatase 69 Total Protein 5.4 L Albumin 2.7 L Globulin 2.70 Albumin/Globulin Ratio 1.00 Medications Medications Current Medications Ondansetron HCl (Zofran Inj) 4 mg Q6H PRN IV NAUSEA AND/OR VOMITING; Start at 00:00 Pantoprazole 40 mg 40 mg DAILY@06 IV Last administered on 06/30/16 06:01; Admin Dose 40 MG; Start 06/24/16 at 06:00 Propofol 100 ml @ 2.318 mls/ hr Q12H IV Last administered on 06/26/16 06:40; Admin Dose 9.272 MLS/HR; Start 06/24/16 at 01:30 Norepinephrine 16 mg/Dextrose 500 ml @ 1.87 mls/hr TITRATE IV ; Start 06/24/16 at 06:30 Piperacillin Sod/ Tazobactam Sod (Zosyn 2.25gm/ 50ml (Pmx)) 50 ml @ 100 mls/hr Q8 IVPB Last administered on 06/30/16 15:02; Admin Dose 100 MLS/HR; Start 06/25 at 22:00 Carvedilol (Coreg) 3.125 mg BID NGT Last administered on 06/30/16 09:30; Admin Dose 3.125 MG; Start 06/27/16 at 12:30 Thiamine HCl (Vitamin B1) 100 mg DAILY NGT Last administered on 06/30/16 09:30 ; Admin Dose 100 MG; Start 06/29/16 at 09:00 Multivitamins (Thera-Plus) 5 ml DAILY NGT Last administered on 06/30/16 09:30; Admin Dose 5 ML; Start 06/29/16 at 09:00 Folic Acid (Folic Acid) 1 mg DAILY NGT Last administered on 06/30/16 09:30; Admin Dose 1 MG; Start 06/29/16 at 09:00 Hydralazine HCl (Apresoline) 10 mg Q8 NGT Last administered on 06/30/16 15:02; Admin Dose 10 MG; Start 06/29/16 at 14:00 Methylprednisolone Sodium Succinate (Solu-Medrol) 30 mg BID IV Last administered on 06/30/16 09:30; Admin Dose 30 MG; Start 06/29/16 at 21:00 Harvey Kahn DO Jun 30, 2016 16:36
[2016-07-01] VITALS (35 sets, daily range): BP systolic 102–144; BP diastolic 58–74; PULSE 52–84; RESP 16–37
[2016-07-01] MEDS: IPRATROPIUM (HFA) 12.9 GM INHALER INH SCH ×4 (01:21→19:50)
[2016-07-01] MEDS: ALBUTEROL HFA 8 GM INHALER INH SCH ×4 (01:22→19:51)
[2016-07-01] MEDS: PROPOFOL 100 ML IV SCH (01:30)
[2016-07-01 06:10] LABS: ADD SCAN DIFF NO
[2016-07-01 06:18] LABS: ABNORMAL IP MESSAGE 1; BASOPHILS % 0.1 % (0.0-2.0); HEMATOCRIT 38.2 % (42.0-52.0); HEMOGLOBIN 12.2 g/dl (14.0-18.0); LYMPHOCYTES # 0.3 10^3/ul (0.8-2.9); LYMPHOCYTES % 2.6 % (15.0-51.0); MEAN CORPUSCULAR HEMOGLOBIN 30.4 pg (29.0-33.0); MEAN CORPUSCULAR HGB CONC 31.9 g/dl (32.0-37.0); MEAN CORPUSCULAR VOLUME 95.3 fl (82.0-101.0); MEAN PLATELET VOLUME 12.1 fl (7.4-10.4); MONOCYTE # 0.5 10^3/ul (0.3-0.9); MONOCYTES % 4.7 % (0.0-11.0); NEUTROPHIL # 9.7 10^3/ul (1.6-7.5); NEUTROPHILS % 91.9 % (39.0-77.0); PLATELET COUNT 76 10^3/UL (140-415); RED BLOOD COUNT 4.01 10^6/ul (4.70-6.10); RED CELL DISTRIBUTION WIDTH 14.7 % (11.5-14.5); WHITE BLOOD COUNT 10.5 10^3/ul (4.8-10.8)
[2016-07-01] MEDS: PANTOPRAZOLE 40 MG INJ IV SCH (06:29)
[2016-07-01] MEDS: PIPER-TAZO 2.25 GM (PMX) 50 ML IVPB SCH ×3 (06:29→21:46)
[2016-07-01] MEDS: FUROSEMIDE 40 MG INJ IV SCH ×2 (06:29→17:55)
[2016-07-01 06:33] LABS: INR 1.44; PROTIME 17.6 Sec (12.2-14.2); PT RATIO 1.4
[2016-07-01 06:34] LABS: PARTIAL THROMBOPLASTIN TIME 26.2 Sec (25.0-35.0)
[2016-07-01 06:49] LABS: ALBUMIN 2.8 g/dl (3.3-4.9); POTASSIUM 3.2 mmol/L (3.5-5.1)
[2016-07-01 06:51] LABS: BILIRUBIN,INDIRECT 0.6 mg/dl (0-1.1); BILIRUBIN,TOTAL 0.6 mg/dl (0.2-1.3); CREATININE 2.53 mg/dl (0.61-1.24)
[2016-07-01 06:52] LABS: CALCIUM 9.1 mg/dl (8.4-10.2); TOTAL PROTEIN 5.6 g/dl (6.1-8.1)
[2016-07-01 06:53] LABS: MAGNESIUM 2.3 mg/dl (1.7-2.5); PHOSPHORUS 4.1 mg/dl (2.5-4.9)
[2016-07-01] MEDS ORDERED: VANCOMYCIN 1.5 GM in SOD CHLORIDE 0.9% 250 ML IVPB SCH (07:00)
[2016-07-01] MEDS: THIAMINE 100 MG TAB NGT SCH (08:57)
[2016-07-01] MEDS: FOLIC ACID 1 MG TAB NGT SCH (08:57)
[2016-07-01] MEDS: MULTIVITAMINS 5 ML CUP NGT SCH (08:57)
[2016-07-01] MEDS: METHYLPREDNISOLONE 40 MG INJ IV SCH ×2 (08:57→21:46)
--- NOTE | 2016-07-01 09:21 | PN ---
Date/Time of Note Date/Time of Note DATE: 07/01/16 TIME: 09:14 Assessment/Plan VTE Prophylaxis VTE Prophylaxis Intervention: SCD's Lines/Catheters IV Catheter Type (from Nrs): Peripheral IV Urinary Cath still in place: Yes Reason Cath still needed: other (indicate) (monitor UOP ) Assessment/Plan Assessment/Plan 76-year-old male with: 1. Pulseless electrical activity cardiac arrest at home with EMS on site, status post resuscitation. Cardiac arrest may be very well 2ry to respiratory failure. Hemodynamically stable currently. OFF Propofol and awake, alert but unclear if fully following commands. Repeat CT head with no acute findings. 2-D echo with findings of severe cardiomyopathy and EF 30 % likely chronic. Appreciate recommendations from Dr Kahn. Off Bblock due to bradycardia and continuing diuresis and afterload reduction. 2. Acute respiratory failure with a history of heavy tobacco use, likely chronic obstructive pulmonary disease and chronic obstructive pulmonary disease exacerbation and also with right lower lobe, right middle lobe infiltrate consistent with pneumonia, possibly aspiration pneumonia versus community-acquired pneumonia. Failed CPAP x3 so far Continue Zosyn. CXR with b/l effusions, diuresing. Nebulizer treatments and steroids per Pulmonary, tapering steroids. 3. Aspiration pneumonia likely, given the pattern of infiltrates on chest x- ray. Continue Zosyn. On Tube feeding. 4. Possibly cirrhosis versus shock liver. Hepatitis panel negative Monitor LFTs, Coagulopathy and thrombocytopenia seems to be all improving. Continue thiamine/folate/mvi per NGT 5. Acute kidney injury on chronic kidney disease with likely ATN. Renal US with signs of chronic medical disease. Better UOP but renal function seems stable, on Lasix for diuresis, Replete K, Free H20 with tube feeding and follow up Na, if still going up bu AM will increase free H2O Monitor volume status and renal function. 6. Severe Cardiomyopathy with systolic dysfunction and EF 30 %. Monitor UOP and volume status while on diuresis Off Bblocker due to bradycardia, improving thrombocytopenia, may add baby ASA With CKD, no KANDIS inhibitor or ARB for now PROPHYLAXIS: SCDs to lower extremities for DVT prophylaxis and Pepcid for GI prophylaxis. DISPOSITION: FULL CODE until further information is obtained through social media developer, and also hopefully we will find out if he does have family. Continue ICU level of care with mechanical ventilation, aggressive treatment for now. Repeat CT head negative. Hopefully to be extubated today. Subjective 24 Hr Interval Summary Free Text/Dictation Patient unchanged On Diuresis, hopefully to be extubated today Exam/Review of Systems Vital Signs Vitals Vital Signs Date Time Temp Pulse Resp B/P Pulse Ox O2 Delivery O2 Flow Rate FiO2 07/01/16 06:00 78 24 111/73 99 Mechanical Ventilator 07/01/16 05:40 40 07/01/16 04:00 97.5 Intake and Output 06/30/16 06/30/16 07/01/16 15:00 23:00 07:00 Intake Total 360 ml 410 ml 410 ml Output Total 2000 ml 1395 ml 1080 ml Balance -1640 ml -985 ml -670 ml Exam Constitutional: alert, other (awake and alert but unclear if following commands ) Respiratory: diminished breath sounds (bases R>L) Cardiovascular: nl pulses, regular rate and rhythm Gastrointestinal: non-tender, soft Extremities: normal pulses, other (no edema, clubbing or cyanosis ) 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: VP PRODUCT MANAGEMENT II-XII intact, other (not following commands ) Results Result Diagram: 07/01/16 0520 07/01/16 0520 Results 24 hrs Laboratory Tests Test 07/01/16 05:20 White Blood Count 10.5 Red Blood Count 4.01 L Hemoglobin 12.2 L Hematocrit 38.2 L Mean Corpuscular Volume 95.3 Mean Corpuscular Hemoglobin 30.4 Mean Corpuscular Hemoglobin Concent 31.9 L Red Cell Distribution Width 14.7 H Platelet Count 76 L Mean Platelet Volume 12.1 H Neutrophils % 91.9 H Lymphocytes % 2.6 L Monocytes % 4.7 Eosinophils % 0.0 Basophils % 0.1 Nucleated Red Blood Cells % 0.0 Neutrophils # 9.7 H Lymphocytes # 0.3 L Monocytes # 0.5 Eosinophils # 0.0 Basophils # 0.0 Nucleated Red Blood Cells # 0.0 Prothrombin Time 17.6 H Prothrombin Time Ratio 1.4 INR International Normalized Ratio 1.44 Activated Partial Thromboplast Time 26.2 Sodium Level 151 H Potassium Level 3.2 L Chloride Level 107 Carbon Dioxide Level 30 Anion Gap 17 #H Blood Urea Nitrogen 94 H Creatinine 2.53 H Glucose Level 145 Calcium Level 9.1 Phosphorus Level 4.1 Magnesium Level 2.3 Total Bilirubin 0.6 Direct Bilirubin 0.00 Indirect Bilirubin 0.6 Aspartate Amino Transf (AST/SGOT) 22 Alanine Aminotransferase (ALT/SGPT) 57 Alkaline Phosphatase 77 Total Protein 5.6 L Albumin 2.8 L Globulin 2.80 Albumin/Globulin Ratio 1.00 Medications Medications Current Medications Ondansetron HCl (Zofran Inj) 4 mg Q6H PRN IV NAUSEA AND/OR VOMITING; Start at 00:00 Pantoprazole 40 mg 40 mg DAILY@06 IV Last administered on 07/01/16 06:29; Admin Dose 40 MG; Start 06/24/16 at 06:00 Propofol 100 ml @ 2.318 mls/ hr Q12H IV Last administered on 06/26/16 06:40; Admin Dose 9.272 MLS/HR; Start 06/24/16 at 01:30 Norepinephrine 16 mg/Dextrose 500 ml @ 1.87 mls/hr TITRATE IV ; Start 06/24/16 at 06:30 Piperacillin Sod/ Tazobactam Sod (Zosyn 2.25gm/ 50ml (Pmx)) 50 ml @ 100 mls/hr Q8 IVPB Last administered on 07/01/16 06:29; Admin Dose 100 MLS/HR; Start 06/25 at 22:00 Thiamine HCl (Vitamin B1) 100 mg DAILY NGT Last administered on 07/01/16 08:57 ; Admin Dose 100 MG; Start 06/29/16 at 09:00 Multivitamins (Thera-Plus) 5 ml DAILY NGT Last administered on 07/01/16 08:57; Admin Dose 5 ML; Start 06/29/16 at 09:00 Folic Acid (Folic Acid) 1 mg DAILY NGT Last administered on 07/01/16 08:57; Admin Dose 1 MG; Start 06/29/16 at 09:00 Hydralazine HCl (Apresoline) 10 mg Q8 NGT Last administered on 06/30/16 21:14; Admin Dose 10 MG; Start 06/29/16 at 14:00 Methylprednisolone Sodium Succinate (Solu-Medrol) 30 mg BID IV Last administered on 07/01/16 08:57; Admin Dose 30 MG; Start 06/29/16 at 21:00 DAVID GONZALEZ Jul 01, 2016 09:21 DAVID GONZALEZ Jul 01, 2016 09:21
[2016-07-01] MEDS ORDERED: POTASSIUM CHLORIDE 20 MEQ POWDER FOR ORAL SOLN NGT ONE (09:30)
--- NOTE | 2016-07-01 09:44 | CONS ---
Date/Time of Note Date/Time of Note DATE: 07/01/16 TIME: 09:39 Assessment/Plan Assessment/Plan Additional Assessment/Plan Ventilator settings; AC of 20, tidal volume 500, PEEP of 5, 40% FiO2. Assessment recommendations; 1. Patient admitted after cardiac arrest requiring mechanical ventilation. 2. Poor mental status. 3. CHF with cardiac myopathy. 4. Possibly bilateral pneumonia. 5. Renal insufficiency. 6. COPD. 7. Bilateral pleural effusions. 8. Hypernatremia. Continue current supportive care. Will obtain follow-up chest x-ray. Change ventilator settings to SIMV with a rate of 12, pressure support of 10, tidal volume 500 and FiO2 of 35%. Weaning from ventilator with depend upon adequate mental status recovery and patient's inability to maintain spontaneous breathing. Patient has been assessed at bedside and currently does not have adequate weaning parameters. Prognosis remains poor. Consultation Date/Type/Reason Admit Date/Time Jun 23, 2016 at 22:42 Type of Consultation: Pulmonary/critical care 24 HR Interval Summary Free Text/Dictation Patient condition remains critical. Is awake but does not follow any commands. Has remained hemodynamically stable. General exam; elderly male, on ventilator via endotracheal tube. Awake but does not follow any commands. Does not appear to be in any distress. Exam/Review of Systems Vital Signs Vitals Vital Signs Date Time Temp Pulse Resp B/P Pulse Ox O2 Delivery O2 Flow Rate FiO2 07/01/16 06:00 78 24 111/73 99 Mechanical Ventilator 07/01/16 05:40 40 07/01/16 04:00 97.5 Intake and Output 06/30/16 06/30/16 07/01/16 15:00 23:00 07:00 Intake Total 360 ml 410 ml 410 ml Output Total 2000 ml 1395 ml 1080 ml Balance -1640 ml -985 ml -670 ml Exam HEENT exam; supple neck, positive JVD. No lymphadenopathy. Midline trachea. Orally intubated. Patient is edentulous. Pupils are midsize and reactive to light bilaterally. No neck masses. No thyromegaly. Chest exam is; diminished breath on lung bases bilaterally. S1-S2 audible, no murmurs. Regular rhythm. Abdomen examination; soft, nondistended. No organomegaly. Bowel sounds audible. Extremity exam; multiple ecchymoses are present in all 4 extremities with chronic appearing lower extremity skin changes. Pulses 1+ bilaterally. There is no clubbing. ORAL SURGEON examination a micro patient is awake but does not follow any commands. Results Result Diagram: 07/01/1620 07/01/16 0520 Results 24 hrs Laboratory Tests Test 07/01/16 05:20 White Blood Count 10.5 Red Blood Count 4.01 L Hemoglobin 12.2 L Hematocrit 38.2 L Mean Corpuscular Volume 95.3 Mean Corpuscular Hemoglobin 30.4 Mean Corpuscular Hemoglobin Concent 31.9 L Red Cell Distribution Width 14.7 H Platelet Count 76 L Mean Platelet Volume 12.1 H Neutrophils % 91.9 H Lymphocytes % 2.6 L Monocytes % 4.7 Eosinophils % 0.0 Basophils % 0.1 Nucleated Red Blood Cells % 0.0 Neutrophils # 9.7 H Lymphocytes # 0.3 L Monocytes # 0.5 Eosinophils # 0.0 Basophils # 0.0 Nucleated Red Blood Cells # 0.0 Prothrombin Time 17.6 H Prothrombin Time Ratio 1.4 INR International Normalized Ratio 1.44 Activated Partial Thromboplast Time 26.2 Sodium Level 151 H Potassium Level 3.2 L Chloride Level 107 Carbon Dioxide Level 30 Anion Gap 17 #H Blood Urea Nitrogen 94 H Creatinine 2.53 H Glucose Level 145 Calcium Level 9.1 Phosphorus Level 4.1 Magnesium Level 2.3 Total Bilirubin 0.6 Direct Bilirubin 0.00 Indirect Bilirubin 0.6 Aspartate Amino Transf (AST/SGOT) 22 Alanine Aminotransferase (ALT/SGPT) 57 Alkaline Phosphatase 77 Total Protein 5.6 L Albumin 2.8 L Globulin 2.80 Albumin/Globulin Ratio 1.00 Medications Medications Current Medications Ondansetron HCl (Zofran Inj) 4 mg Q6H PRN IV NAUSEA AND/OR VOMITING; Start at 00:00 Pantoprazole 40 mg 40 mg DAILY@06 IV Last administered on 07/01/16 06:29; Admin Dose 40 MG; Start 06/24/16 at 06:00 Piperacillin Sod/ Tazobactam Sod (Zosyn 2.25gm/ 50ml (Pmx)) 50 ml @ 100 mls/hr Q8 IVPB Last administered on 07/01/16 06:29; Admin Dose 100 MLS/HR; Start 06/25 at 22:00 Thiamine HCl (Vitamin B1) 100 mg DAILY NGT Last administered on 07/01/16 08:57 ; Admin Dose 100 MG; Start 06/29/16 at 09:00 Multivitamins (Thera-Plus) 5 ml DAILY NGT Last administered on 07/01/16 08:57; Admin Dose 5 ML; Start 06/29/16 at 09:00 Folic Acid (Folic Acid) 1 mg DAILY NGT Last administered on 07/01/16 08:57; Admin Dose 1 MG; Start 06/29/16 at 09:00 Hydralazine HCl (Apresoline) 10 mg Q8 NGT Last administered on 06/30/16 21:14; Admin Dose 10 MG; Start 06/29/16 at 14:00 Methylprednisolone Sodium Succinate (Solu-Medrol) 30 mg BID IV Last administered on 07/01/16 08:57; Admin Dose 30 MG; Start 06/29/16 at 21:00 Aspirin (Halfprin) 81 mg DAILY PO ; Start 07/01/16 at 09:30 JEN JOHNSON Jul 01, 2016 09:44
[2016-07-01] MEDS: ASPIRIN (EC) 81 MG TAB PO SCH (13:45)
--- NOTE | 2016-07-01 13:52 | CONS ---
Date/Time of Note Date/Time of Note DATE: 07/01/16 TIME: 13:50 Assessment/Plan Assessment/Plan Additional Assessment/Plan Cardiopulmonary arrest Severe cardiomyopathy with ejection fraction 30% Respiratory failure Encephalopathy Mildly elevated troponin Active tobacco use Coagulopathy Acute kidney injury -Continue hydralazine for afterload reduction. No aspirin secondary to thrombocytopenia. Cont diuretics as bp and renal fxn permits. Consultation Date/Type/Reason Admit Date/Time Jun 23, 2016 at 22:42 Type of Consultation: cv 24 HR Interval Summary Free Text/Dictation pt seen and examined, no new cardiac issues as per nurse Exam/Review of Systems Vital Signs Vitals Vital Signs Date Time Temp Pulse Resp B/P Pulse Ox O2 Delivery O2 Flow Rate FiO2 07/01/16 12:00 56 07/01/16 10:50 20 100 40 07/01/16 06:00 111/73 Mechanical Ventilator 07/01/16 04:00 97.5 Intake and Output 06/30/16 06/30/16 07/01/16 15:00 23:00 07:00 Intake Total 360 ml 410 ml 410 ml Output Total 2000 ml 1395 ml 1080 ml Balance -1640 ml -985 ml -670 ml Exam awake, follows some commands Head: normocephalic ENMT: intubated Respiratory: other (course bs, no wheeze) Cardiovascular: other (s1s2), regular rate and rhythm Gastrointestinal: bowel sounds, non-tender, soft Extremities: edema Results Result Diagram: 07/01/16 0520 07/01/16 0520 Results 24 hrs Laboratory Tests Test 07/01/16 05:20 White Blood Count 10.5 Red Blood Count 4.01 L Hemoglobin 12.2 L Hematocrit 38.2 L Mean Corpuscular Volume 95.3 Mean Corpuscular Hemoglobin 30.4 Mean Corpuscular Hemoglobin Concent 31.9 L Red Cell Distribution Width 14.7 H Platelet Count 76 L Mean Platelet Volume 12.1 H Neutrophils % 91.9 H Lymphocytes % 2.6 L Monocytes % 4.7 Eosinophils % 0.0 Basophils % 0.1 Nucleated Red Blood Cells % 0.0 Neutrophils # 9.7 H Lymphocytes # 0.3 L Monocytes # 0.5 Eosinophils # 0.0 Basophils # 0.0 Nucleated Red Blood Cells # 0.0 Prothrombin Time 17.6 H Prothrombin Time Ratio 1.4 INR International Normalized Ratio 1.44 Activated Partial Thromboplast Time 26.2 Sodium Level 151 H Potassium Level 3.2 L Chloride Level 107 Carbon Dioxide Level 30 Anion Gap 17 #H Blood Urea Nitrogen 94 H Creatinine 2.53 H Glucose Level 145 Calcium Level 9.1 Phosphorus Level 4.1 Magnesium Level 2.3 Total Bilirubin 0.6 Direct Bilirubin 0.00 Indirect Bilirubin 0.6 Aspartate Amino Transf (AST/SGOT) 22 Alanine Aminotransferase (ALT/SGPT) 57 Alkaline Phosphatase 77 Total Protein 5.6 L Albumin 2.8 L Globulin 2.80 Albumin/Globulin Ratio 1.00 Medications Medications Current Medications Ondansetron HCl (Zofran Inj) 4 mg Q6H PRN IV NAUSEA AND/OR VOMITING; Start at 00:00 Pantoprazole 40 mg 40 mg DAILY@06 IV Last administered on 07/01/16 06:29; Admin Dose 40 MG; Start 06/24/16 at 06:00 Piperacillin Sod/ Tazobactam Sod (Zosyn 2.25gm/ 50ml (Pmx)) 50 ml @ 100 mls/hr Q8 IVPB Last administered on 07/01/16 06:29; Admin Dose 100 MLS/HR; Start 06/25 at 22:00 Thiamine HCl (Vitamin B1) 100 mg DAILY NGT Last administered on 07/01/16 08:57 ; Admin Dose 100 MG; Start 06/29/16 at 09:00 Multivitamins (Thera-Plus) 5 ml DAILY NGT Last administered on 07/01/16 08:57; Admin Dose 5 ML; Start 06/29/16 at 09:00 Folic Acid (Folic Acid) 1 mg DAILY NGT Last administered on 07/01/16 08:57; Admin Dose 1 MG; Start 06/29/16 at 09:00 Hydralazine HCl (Apresoline) 10 mg Q8 NGT Last administered on 06/30/16 21:14; Admin Dose 10 MG; Start 06/29/16 at 14:00 Methylprednisolone Sodium Succinate (Solu-Medrol) 30 mg BID IV Last administered on 07/01/16 08:57; Admin Dose 30 MG; Start 06/29/16 at 21:00 Aspirin (Halfprin) 81 mg DAILY PO Last administered on 07/01/16 13:45; Admin Dose 81 MG; Start 07/01/16 at 09:30 Harvey Kahn DO Jul 01, 2016 13:52
[2016-07-01] MEDS: COLLAGENASE 30 GM TUBE TOP SCH (18:01)
[2016-07-02] VITALS (42 sets, daily range): BP systolic 107–154; BP diastolic 50–77; PULSE 57–77; RESP 16–46
[2016-07-02] MEDS: IPRATROPIUM (HFA) 12.9 GM INHALER INH SCH ×2 (01:21→09:10)
[2016-07-02] MEDS: ALBUTEROL HFA 8 GM INHALER INH SCH ×2 (01:21→09:11)
[2016-07-02] MEDS: PANTOPRAZOLE 40 MG INJ IV SCH (05:34)
[2016-07-02] MEDS: PIPER-TAZO 2.25 GM (PMX) 50 ML IVPB SCH ×3 (05:34→21:43)
[2016-07-02] MEDS: FUROSEMIDE 40 MG INJ IV SCH ×2 (05:37→18:40)
[2016-07-02 06:08] LABS: ADD SCAN DIFF NO
[2016-07-02 06:19] LABS: ABNORMAL IP MESSAGE 1; BASOPHILS % 0.1 % (0.0-2.0); HEMOGLOBIN 12.1 g/dl (14.0-18.0); LYMPHOCYTES # 0.2 10^3/ul (0.8-2.9); LYMPHOCYTES % 1.9 % (15.0-51.0); MEAN CORPUSCULAR HEMOGLOBIN 30.9 pg (29.0-33.0); MEAN CORPUSCULAR HGB CONC 31.8 g/dl (32.0-37.0); MEAN CORPUSCULAR VOLUME 96.9 fl (82.0-101.0); MEAN PLATELET VOLUME 11.3 fl (7.4-10.4); MONOCYTE # 0.4 10^3/ul (0.3-0.9); MONOCYTES % 3.6 % (0.0-11.0); NEUTROPHIL # 9.8 10^3/ul (1.6-7.5); NEUTROPHILS % 93.6 % (39.0-77.0); PLATELET COUNT 76 10^3/UL (140-415); RED BLOOD COUNT 3.92 10^6/ul (4.70-6.10); RED CELL DISTRIBUTION WIDTH 14.9 % (11.5-14.5); WHITE BLOOD COUNT 10.4 10^3/ul (4.8-10.8)
[2016-07-02 06:24] LABS: ALBUMIN 2.9 g/dl (3.3-4.9)
--- NOTE | 2016-07-02 06:24 | RADRPT ---
PROCEDURE: XR Chest. CLINICAL INDICATION: Congestive heart failure TECHNIQUE: Portable single view of the chest COMPARISON: None. FINDINGS: Cardiomegaly is seen. The patient is rotated to the left. The aorta is likely slightly tortuous an d ectatic. There is mild pulmonary vascular congestion with probable interstitial edema. Moderatel y large right effusion is seen. The left inferior costophrenic angle is clipped from view. Probabl e small left effusion. Bibasilar atelectasis or infiltrates. IMPRESSION: Patient rotation. Cardiomegaly and probable at least moderate congestive heart failure with right g reater than left pleural effusions. RPTAT: [facility] Physician Zhanna Date Time Electronically viewed and signed by Pretty Campo Physician on 07/02/2016 06:23 LE/
[2016-07-02 06:25] LABS: POTASSIUM 4.1 mmol/L (3.5-5.1)
[2016-07-02 06:27] LABS: ALBUMIN/GLOBULIN RATIO 1.03; BILIRUBIN,INDIRECT 0.7 mg/dl (0-1.1); BILIRUBIN,TOTAL 0.7 mg/dl (0.2-1.3); CREATININE 2.55 mg/dl (0.61-1.24); INR 1.37; PROTIME 16.9 Sec (12.2-14.2); PT RATIO 1.3; TOTAL PROTEIN 5.7 g/dl (6.1-8.1)
[2016-07-02 06:28] LABS: CALCIUM 9.1 mg/dl (8.4-10.2); PARTIAL THROMBOPLASTIN TIME 25.8 Sec (25.0-35.0)
[2016-07-02 06:30] LABS: MAGNESIUM 2.4 mg/dl (1.7-2.5); PHOSPHORUS 4.4 mg/dl (2.5-4.9)
--- NOTE | 2016-07-02 09:33 | PN ---
Date/Time of Note Date/Time of Note DATE: 07/02/16 TIME: 09:19 Assessment/Plan VTE Prophylaxis VTE Prophylaxis Intervention: SCD's Lines/Catheters IV Catheter Type (from Nrs): Peripheral IV Urinary Cath still in place: Yes Reason Cath still needed: other (indicate) (monitor UOP and likely CKD ) Assessment/Plan Assessment/Plan 76-year-old male with: 1. Pulseless electrical activity cardiac arrest at home with EMS on site, status post resuscitation. Cardiac arrest may be very well 2ry to respiratory failure. Hemodynamically stable currently. OFF Propofol and awake, alert but unclear if fully following commands. Repeat CT head with no acute findings. 2-D echo with findings of severe cardiomyopathy and EF 30 % likely chronic. Appreciate recommendations from Dr Kahn. Off Bblock due to bradycardia and continuing diuresis and afterload reduction. 2. Acute respiratory failure with a history of heavy tobacco use, likely chronic obstructive pulmonary disease and chronic obstructive pulmonary disease exacerbation and also with right lower lobe, right middle lobe infiltrate consistent with pneumonia, possibly aspiration pneumonia versus community-acquired pneumonia. Failed CPAP x3 so far, another one today Continue Zosyn. CXR with still b/l effusions right>left, diuresing. Nebulizer treatments and steroids per Pulmonary, tapering steroids. 3. Aspiration pneumonia likely, given the pattern of infiltrates on chest x- ray. Continue Zosyn. On Tube feeding. 4. Likely cirrhosis with hx of ETOH use per reports. Hepatitis panel negative LFTs, Coagulopathy and thrombocytopenia seems to be all improving. Continue thiamine/folate/mvi per NGT 5. Acute kidney injury on chronic kidney disease with likely ATN. Renal US with signs of chronic medical disease. Better UOP but renal function seems stable, on Lasix for diuresis, Replete K prn, Free H20 with tube feeding and Na trending down today. Monitor volume status and renal function. 6. Severe Cardiomyopathy with systolic dysfunction and EF 30 %. Monitor UOP and volume status while on diuresis Off Bblocker due to bradycardia, improving thrombocytopenia, added ASA With CKD, no KANDIS inhibitor or ARB for now PROPHYLAXIS: SCDs to lower extremities for DVT prophylaxis and Pepcid for GI prophylaxis. DISPOSITION: FULL CODE until further information is obtained through psychiatric social worker supervisor, and also hopefully we will find out if he does have family. Continue ICU level of care with mechanical ventilation, aggressive treatment for now. Repeat CT head negative. Hopefully to be extubated soon, on CPAP trial this AM. Subjective 24 Hr Interval Summary Free Text/Dictation Patient remains awake and alert but no purposeful movement but withdraws to pain Labs OK and diuresing well still and renal function stable Still with Right> left pleural effusion on CXR Exam/Review of Systems Vital Signs Vitals Vital Signs Date Time Temp Pulse Resp B/P Pulse Ox O2 Delivery O2 Flow Rate FiO2 07/02/16 09:11 59 19 98 40 07/02/16 07:00 124/64 Mechanical Ventilator 07/02/16 04:00 97.8 Intake and Output 07/01/16 07/01/16 07/02/16 15:00 23:00 07:00 Intake Total 410 ml 410 ml 640 ml Output Total 925 ml 1150 ml 900 ml Balance -515 ml -740 ml -260 ml Exam Constitutional: alert, non-verbal, other (intubated ) Respiratory: diminished breath sounds (RLL> left base ), other (on CPAP trial ) Cardiovascular: nl pulses, regular rate and rhythm Gastrointestinal: non-tender, soft Musculoskeletal: other (chronic venous stasis dermatitis ) Extremities: normal pulses, other (much improved anasarca ) 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: SEAPORT PLANNING MANAGER II-XII intact, other (awake and seems alert but not following commands ) Results Result Diagram: 07/02/16 0607/02/16 0605 Results 24 hrs Laboratory Tests Test 07/02/16 06:05 White Blood Count 10.4 Red Blood Count 3.92 L Hemoglobin 12.1 L Hematocrit 38.0 L Mean Corpuscular Volume 96.9 Mean Corpuscular Hemoglobin 30.9 Mean Corpuscular Hemoglobin Concent 31.8 L Red Cell Distribution Width 14.9 H Platelet Count 76 L Mean Platelet Volume 11.3 H Neutrophils % 93.6 H Lymphocytes % 1.9 L Monocytes % 3.6 Eosinophils % 0.0 Basophils % 0.1 Nucleated Red Blood Cells % 0.0 Neutrophils # 9.8 H Lymphocytes # 0.2 L Monocytes # 0.4 Eosinophils # 0.0 Basophils # 0.0 Nucleated Red Blood Cells # 0.0 Prothrombin Time 16.9 H Prothrombin Time Ratio 1.3 INR International Normalized Ratio 1.37 Activated Partial Thromboplast Time 25.8 Sodium Level 149 H Potassium Level 4.1 Chloride Level 108 Carbon Dioxide Level 35 H Anion Gap 10 # Blood Urea Nitrogen 97 H Creatinine 2.55 H Glucose Level 159 Calcium Level 9.1 Phosphorus Level 4.4 Magnesium Level 2.4 Total Bilirubin 0.7 Direct Bilirubin 0.00 Indirect Bilirubin 0.7 Aspartate Amino Transf (AST/SGOT) 28 Alanine Aminotransferase (ALT/SGPT) 63 Alkaline Phosphatase 81 Total Protein 5.7 L Albumin 2.9 L Globulin 2.80 Albumin/Globulin Ratio 1.03 Medications Medications Current Medications Ondansetron HCl (Zofran Inj) 4 mg Q6H PRN IV NAUSEA AND/OR VOMITING; Start at 00:00 Pantoprazole 40 mg 40 mg DAILY@06 IV Last administered on 07/02/16 05:34; Admin Dose 40 MG; Start 06/24/16 at 06:00 Piperacillin Sod/ Tazobactam Sod (Zosyn 2.25gm/ 50ml (Pmx)) 50 ml @ 100 mls/hr Q8 IVPB Last administered on 07/02/16 05:34; Admin Dose 100 MLS/HR; Start 06/25 at 22:00 Thiamine HCl (Vitamin B1) 100 mg DAILY NGT Last administered on 07/01/16 08:57 ; Admin Dose 100 MG; Start 06/29/16 at 09:00 Multivitamins (Thera-Plus) 5 ml DAILY NGT Last administered on 07/01/16 08:57; Admin Dose 5 ML; Start 06/29/16 at 09:00 Folic Acid (Folic Acid) 1 mg DAILY NGT Last administered on 07/01/16 08:57; Admin Dose 1 MG; Start 06/29/16 at 09:00 Hydralazine HCl (Apresoline) 10 mg Q8 NGT Last administered on 07/02/16 05:36; Admin Dose 10 MG; Start 06/29/16 at 14:00 Methylprednisolone Sodium Succinate (Solu-Medrol) 30 mg BID IV Last administered on 07/01/16 21:46; Admin Dose 30 MG; Start 06/29/16 at 21:00 Aspirin (Halfprin) 81 mg DAILY PO Last administered on 07/01/16 13:45; Admin Dose 81 MG; Start 07/01/16 at 09:30 Collagenase (Santyl) 1 applic DAILY TOP Last administered on 07/01/16 18:01; Admin Dose 1 APPLIC; Start 07/01/16 at 16:00 DAVID GONZALEZ Jul 02, 2016 09:29
[2016-07-02] MEDS: THIAMINE 100 MG TAB NGT SCH (09:54)
[2016-07-02] MEDS: FOLIC ACID 1 MG TAB NGT SCH (09:55)
[2016-07-02] MEDS: ASPIRIN (EC) 81 MG TAB PO SCH (09:55)
[2016-07-02] MEDS: MULTIVITAMINS 5 ML CUP NGT SCH (09:55)
[2016-07-02] MEDS: METHYLPREDNISOLONE 40 MG INJ IV SCH ×2 (09:55→21:41)
[2016-07-02] MEDS: COLLAGENASE 30 GM TUBE TOP SCH (09:56)
--- NOTE | 2016-07-02 09:59 | CONS ---
Date/Time of Note Date/Time of Note DATE: 07/02/16 TIME: 09:56 Assessment/Plan Assessment/Plan Additional Assessment/Plan Ventilator settings; SIMV of 12, tidal volume of 500, PEEP of 5, pressure support of 10, 40% FiO2. Chest x-ray was reviewed from today which is showing a right pleural effusion. Assessment recommendations; 1. Patient admitted for respiratory failure due to CHF and COPD exacerbation with clinical improvement. 2. Underlying cardiomyopathy. 3. Possibly right lower lobe pneumonia. 4. Hypernatremia with interval improvement. 5. History of renal insufficiency. Switch the patient to CPAP mode and if he does well to extubate him. Meanwhile continue current supportive care. Consultation Date/Type/Reason Admit Date/Time Jun 23, 2016 at 22:42 Type of Consultation: Pulmonary/critical care 24 HR Interval Summary Free Text/Dictation Patient condition remains critical but he has remained hemodynamically stable. Patient remains completely awake and alert but is unable to move any extremities. General exam; elderly male, orally intubated, currently in no distress. Awake and alert. Exam/Review of Systems Vital Signs Vitals Vital Signs Date Time Temp Pulse Resp B/P Pulse Ox O2 Delivery O2 Flow Rate FiO2 07/02/16 09:11 59 19 98 40 07/02/16 07:00 124/64 Mechanical Ventilator 07/02/16 04:00 97.8 Intake and Output 07/01/16 07/01/16 07/02/16 15:00 23:00 07:00 Intake Total 410 ml 410 ml 640 ml Output Total 925 ml 1150 ml 900 ml Balance -515 ml -740 ml -260 ml Exam HEENT exam is; supple neck, no JVD. No lymphadenopathy. Midline trachea. No thyromegaly. Orally intubated. Pupils are midsize reactive to light bilaterally. Extraocular movements are intact. Patient is edentulous. No neck masses no thyromegaly. Chest examination HI: Minimally decreased breath sounds right lower lobe otherwise clear. S1-S2 audible, no murmurs. Regular rhythm. Abdomen examination; soft, no organomegaly. Bowel sounds audible. Nontender. Nondistended. Extremity exam; no peripheral edema. Patient has a multiple ecchymosis involving all 4 extremities with chronic appearing skin changes in lower extremities bilaterally. DENTAL PRACTICE MANAGER exam is; patient is awake alert but has severe generalized weakness. Results Result Diagram: 07/02/1660407/02/16604 Results 24 hrs Laboratory Tests Test 07/02/16 06:05 White Blood Count 10.4 Red Blood Count 3.92 L Hemoglobin 12.1 L Hematocrit 38.0 L Mean Corpuscular Volume 96.9 Mean Corpuscular Hemoglobin 30.9 Mean Corpuscular Hemoglobin Concent 31.8 L Red Cell Distribution Width 14.9 H Platelet Count 76 L Mean Platelet Volume 11.3 H Neutrophils % 93.6 H Lymphocytes % 1.9 L Monocytes % 3.6 Eosinophils % 0.0 Basophils % 0.1 Nucleated Red Blood Cells % 0.0 Neutrophils # 9.8 H Lymphocytes # 0.2 L Monocytes # 0.4 Eosinophils # 0.0 Basophils # 0.0 Nucleated Red Blood Cells # 0.0 Prothrombin Time 16.9 H Prothrombin Time Ratio 1.3 INR International Normalized Ratio 1.37 Activated Partial Thromboplast Time 25.8 Sodium Level 149 H Potassium Level 4.1 Chloride Level 108 Carbon Dioxide Level 35 H Anion Gap 10 # Blood Urea Nitrogen 97 H Creatinine 2.55 H Glucose Level 159 Calcium Level 9.1 Phosphorus Level 4.4 Magnesium Level 2.4 Total Bilirubin 0.7 Direct Bilirubin 0.00 Indirect Bilirubin 0.7 Aspartate Amino Transf (AST/SGOT) 28 Alanine Aminotransferase (ALT/SGPT) 63 Alkaline Phosphatase 81 Total Protein 5.7 L Albumin 2.9 L Globulin 2.80 Albumin/Globulin Ratio 1.03 Medications Medications Current Medications Ondansetron HCl (Zofran Inj) 4 mg Q6H PRN IV NAUSEA AND/OR VOMITING; Start at 00:00 Pantoprazole 40 mg 40 mg DAILY@06 IV Last administered on 07/02/16 05:34; Admin Dose 40 MG; Start 06/24/16 at 06:00 Piperacillin Sod/ Tazobactam Sod (Zosyn 2.25gm/ 50ml (Pmx)) 50 ml @ 100 mls/hr Q8 IVPB Last administered on 07/02/16 05:34; Admin Dose 100 MLS/HR; Start 06/25 at 22:00 Thiamine HCl (Vitamin B1) 100 mg DAILY NGT Last administered on 07/01/16 08:57 ; Admin Dose 100 MG; Start 06/29/16 at 09:00 Multivitamins (Thera-Plus) 5 ml DAILY NGT Last administered on 07/01/16 08:57; Admin Dose 5 ML; Start 06/29/16 at 09:00 Folic Acid (Folic Acid) 1 mg DAILY NGT Last administered on 07/01/16 08:57; Admin Dose 1 MG; Start 06/29/16 at 09:00 Hydralazine HCl (Apresoline) 10 mg Q8 NGT Last administered on 07/02/16 05:36; Admin Dose 10 MG; Start 06/29/16 at 14:00 Methylprednisolone Sodium Succinate (Solu-Medrol) 30 mg BID IV Last administered on 07/01/16 21:46; Admin Dose 30 MG; Start 06/29/16 at 21:00 Aspirin (Halfprin) 81 mg DAILY PO Last administered on 07/01/16 13:45; Admin Dose 81 MG; Start 07/01/16 at 09:30 Collagenase (Santyl) 1 applic DAILY TOP Last administered on 07/01/16 18:01; Admin Dose 1 APPLIC; Start 07/01/16 at 16:00 JEN JOHNSON Jul 02, 2016 09:59
[2016-07-02 11:18] LABS: AADO2 Arterial 161.9 mmHg (7.0-24.0); Allen Test ACCEPTAB; Arterial Base Excess 10.6 mmol/L (-3.0-3); Arterial COHb 0.4 % (0.0-3.0); Arterial Fraction of Oxyhgb 93.7 % (93.0-99.0); Arterial HCO3 34.6 mmol/L (22.0-26.0); Arterial MetHb 0.5 % (0.0-1.5); Arterial Total Hemglobin 12.9 g/dl (12.0-18.0); Blood Gas PS 10; MODE VENT - CPAP
--- NOTE | 2016-07-02 12:25 | CONS ---
Date/Time of Note Date/Time of Note DATE: 07/02/16 TIME: 12:24 Assessment/Plan Assessment/Plan Additional Assessment/Plan Cardiopulmonary arrest Severe cardiomyopathy with ejection fraction 30% Respiratory failure Encephalopathy Mildly elevated troponin Active tobacco use Coagulopathy Acute kidney injury -Patient undergoing weaning trial for possible extubation today, continue diuretics as blood pressure and renal function permits. Continue hydralazine as blood pressure permits. No beta-erika secondary to bradycardia Consultation Date/Type/Reason Admit Date/Time Jun 23, 2016 at 22:42 Type of Consultation: cv 24 HR Interval Summary Free Text/Dictation Patient seen and examined, undergoing weaning trials as per nursing staff Exam/Review of Systems Vital Signs Vitals Vital Signs Date Time Temp Pulse Resp B/P Pulse Ox O2 Delivery O2 Flow Rate FiO2 07/02/16 10:50 62 21 98 40 07/02/16 07:00 124/64 Mechanical Ventilator 07/02/16 04:00 97.8 Intake and Output 07/01/16 07/01/16 07/02/16 15:00 23:00 07:00 Intake Total 410 ml 410 ml 660 ml Output Total 925 ml 1150 ml 1150 ml Balance -515 ml -740 ml -490 ml Exam Follow some commands, no apparent distress Constitutional: alert Head: normocephalic ENMT: intubated Respiratory: other (Coarse breath sounds bilaterally, no wheezing) Cardiovascular: other (S1-S2 heard), regular rate and rhythm Gastrointestinal: bowel sounds, non-tender, other (No guarding), soft Extremities: edema, other (No cyanosis) Results Result Diagram: 07/02/16 0605 07/02/16 0605 Results 24 hrs Laboratory Tests Test 07/02/16 06:05 07/02/16 11:00 White Blood Count 10.4 Red Blood Count 3.92 L Hemoglobin 12.1 L Hematocrit 38.0 L Mean Corpuscular Volume 96.9 Mean Corpuscular Hemoglobin 30.9 Mean Corpuscular Hemoglobin Concent 31.8 L Red Cell Distribution Width 14.9 H Platelet Count 76 L Mean Platelet Volume 11.3 H Neutrophils % 93.6 H Lymphocytes % 1.9 L Monocytes % 3.6 Eosinophils % 0.0 Basophils % 0.1 Nucleated Red Blood Cells % 0.0 Neutrophils # 9.8 H Lymphocytes # 0.2 L Monocytes # 0.4 Eosinophils # 0.0 Basophils # 0.0 Nucleated Red Blood Cells # 0.0 Prothrombin Time 16.9 H Prothrombin Time Ratio 1.3 INR International Normalized Ratio 1.37 Activated Partial Thromboplast Time 25.8 Sodium Level 149 H Potassium Level 4.1 Chloride Level 108 Carbon Dioxide Level 35 H Anion Gap 10 # Blood Urea Nitrogen 97 H Creatinine 2.55 H Glucose Level 159 Calcium Level 9.1 Phosphorus Level 4.4 Magnesium Level 2.4 Total Bilirubin 0.7 Direct Bilirubin 0.00 Indirect Bilirubin 0.7 Aspartate Amino Transf (AST/SGOT) 28 Alanine Aminotransferase (ALT/SGPT) 63 Alkaline Phosphatase 81 Total Protein 5.7 L Albumin 2.9 L Globulin 2.80 Albumin/Globulin Ratio 1.03 Blood Gas Specimen Source Blood arterial Arterial Blood Date Drawn 07/02/2016 11:05:19 AM Arterial Blood pH (Temp corrected) 7.520 H Arterial Blood pCO2 (Temp correct) 43.4 Arterial Blood pO2 (Temp corrected) 73.4 L Arterial Blood HCO3 34.6 H Arterial Blood Base Excess 10.6 H Arterial Blood Oxygen Saturation 94.6 L Isac Test ACCEPTAB Arterial Blood Gas Puncture Site Left Radial Arterial Blood Carboxyhemoglobin 0.4 Arterial Blood Methemoglobin 0.5 Blood Gas A-a O2 Differential 161.9 H Oxyhemoglobin Percent 93.7 Total Hemoglobin 12.9 Blood Gas Temperature 37.0 Blood Gas Modality VENT - CPAP FiO2 40.0 Blood Gas Low PEEP Setting 5.0 Blood Gas Pressure Support 10 Blood Gas Notified Whom JLD Blood Gas Notified Time 07/02/2016 11:18:02 AM Medications Medications Current Medications Ondansetron HCl (Zofran Inj) 4 mg Q6H PRN IV NAUSEA AND/OR VOMITING; Start at 00:00 Pantoprazole 40 mg 40 mg DAILY@06 IV Last administered on 07/02/16 05:34; Admin Dose 40 MG; Start 06/24/16 at 06:00 Piperacillin Sod/ Tazobactam Sod (Zosyn 2.25gm/ 50ml (Pmx)) 50 ml @ 100 mls/hr Q8 IVPB Last administered on 07/02/16 05:34; Admin Dose 100 MLS/HR; Start 06/25 at 22:00 Thiamine HCl (Vitamin B1) 100 mg DAILY NGT Last administered on 07/02/16 09:54 ; Admin Dose 100 MG; Start 06/29/16 at 09:00 Multivitamins (Thera-Plus) 5 ml DAILY NGT Last administered on 07/02/16 09:55; Admin Dose 5 ML; Start 06/29/16 at 09:00 Folic Acid (Folic Acid) 1 mg DAILY NGT Last administered on 07/02/16 09:55; Admin Dose 1 MG; Start 06/29/16 at 09:00 Hydralazine HCl (Apresoline) 10 mg Q8 NGT Last administered on 07/02/16 05:36; Admin Dose 10 MG; Start 06/29/16 at 14:00 Methylprednisolone Sodium Succinate (Solu-Medrol) 30 mg BID IV Last administered on 07/02/16 09:55; Admin Dose 30 MG; Start 06/29/16 at 21:00 Aspirin (Halfprin) 81 mg DAILY PO Last administered on 07/02/16 09:55; Admin Dose 81 MG; Start 07/01/16 at 09:30 Collagenase (Santyl) 1 applic DAILY TOP Last administered on 07/02/16 09:56; Admin Dose 1 APPLIC; Start 07/01/16 at 16:00 Harvey Kahn DO Jul 02, 2016 12:25
[2016-07-02 12:27] LABS: INR 1.3; PARTIAL THROMBOPLASTIN TIME 25.6 Sec (25.0-35.0); PROTIME 16.3 Sec (12.2-14.2); PT RATIO 1.3
[2016-07-02] MEDS ORDERED: ALBUTEROL/IPRATROPIUM (NEB) 3 ML AMP ONE (16:37)
[2016-07-02] MEDS: ALBUTEROL/IPRATROPIUM (NEB) 3 ML AMP HHN SCH ×4 (16:44→23:56)
[2016-07-02] MEDS ORDERED: hydrALAzine 20 MG INJ IV PRN (17:00)
[2016-07-02 23:47] LABS: AADO2 Arterial 231.5 mmHg (7.0-24.0); Allen Test ACCEPTAB; Arterial Base Excess 11.3 mmol/L (-3.0-3); Arterial COHb 0.7 % (0.0-3.0); Arterial Fraction of Oxyhgb 91.1 % (93.0-99.0); Arterial HCO3 36.8 mmol/L (22.0-26.0); Arterial MetHb 0.3 % (0.0-1.5); Arterial Total Hemglobin 12.9 g/dl (12.0-18.0); MODE MASK - VENTI
[2016-07-03] VITALS (33 sets, daily range): BP systolic 118–168; BP diastolic 59–102; PULSE 60–95; RESP 12–41
[2016-07-03 05:00] LABS: ADD SCAN DIFF NO
[2016-07-03 05:28] LABS: ABNORMAL IP MESSAGE 1; BASOPHILS % 0.1 % (0.0-2.0); HEMATOCRIT 38.9 % (42.0-52.0); HEMOGLOBIN 12.1 g/dl (14.0-18.0); LYMPHOCYTES # 0.2 10^3/ul (0.8-2.9); LYMPHOCYTES % 1.1 % (15.0-51.0); MEAN CORPUSCULAR HEMOGLOBIN 30.9 pg (29.0-33.0); MEAN CORPUSCULAR HGB CONC 31.1 g/dl (32.0-37.0); MEAN CORPUSCULAR VOLUME 99.2 fl (82.0-101.0); MEAN PLATELET VOLUME 12.1 fl (7.4-10.4); MONOCYTE # 0.4 10^3/ul (0.3-0.9); NEUTROPHIL # 13.6 10^3/ul (1.6-7.5); NEUTROPHILS % 95.3 % (39.0-77.0); PLATELET COUNT 93 10^3/UL (140-415); RED BLOOD COUNT 3.92 10^6/ul (4.70-6.10); RED CELL DISTRIBUTION WIDTH 14.8 % (11.5-14.5); WHITE BLOOD COUNT 14.2 10^3/ul (4.8-10.8)
[2016-07-03 05:29] LABS: MAGNESIUM 2.6 mg/dl (1.7-2.5); PHOSPHORUS 4.5 mg/dl (2.5-4.9)
[2016-07-03] MEDS: ALBUTEROL/IPRATROPIUM (NEB) 3 ML AMP HHN SCH ×5 (05:45→20:53)
[2016-07-03] MEDS: PANTOPRAZOLE 40 MG INJ IV SCH (06:23)
[2016-07-03] MEDS: FUROSEMIDE 40 MG INJ IV SCH ×2 (06:24→17:50)
[2016-07-03] MEDS: PIPER-TAZO 2.25 GM (PMX) 50 ML IVPB SCH ×3 (06:24→22:50)
[2016-07-03 07:03] LABS: ALBUMIN 3.2 g/dl (3.3-4.9); ALBUMIN/GLOBULIN RATIO 1.1; BILIRUBIN,INDIRECT 0.7 mg/dl (0-1.1); BILIRUBIN,TOTAL 0.7 mg/dl (0.2-1.3); CALCIUM 9.4 mg/dl (8.4-10.2); CREATININE 2.56 mg/dl (0.61-1.24); POTASSIUM 3.2 mmol/L (3.5-5.1); TOTAL PROTEIN 6.1 g/dl (6.1-8.1)
[2016-07-03] MEDS: FOLIC ACID 1 MG TAB NGT SCH (09:00)
[2016-07-03] MEDS: MULTIVITAMINS 5 ML CUP NGT SCH (09:00)
[2016-07-03] MEDS: ASPIRIN (EC) 81 MG TAB PO SCH (09:00)
[2016-07-03] MEDS: THIAMINE 100 MG TAB NGT SCH (09:00)
[2016-07-03] MEDS ORDERED: POTASSIUM CHLORIDE 250 ML IVPB ONE (09:30)
--- NOTE | 2016-07-03 09:36 | PN ---
Date/Time of Note Date/Time of Note DATE: 07/03/16 TIME: 09:22 Assessment/Plan VTE Prophylaxis VTE Prophylaxis Intervention: SCD's Lines/Catheters IV Catheter Type (from Nrs): Peripheral IV Urinary Cath still in place: Yes Reason Cath still needed: other (indicate) (UOP, BERNIE ) Assessment/Plan Assessment/Plan 76-year-old male with: 1. Acute respiratory failure with a history of heavy tobacco use, likely chronic obstructive pulmonary disease and chronic obstructive pulmonary disease exacerbation and also with right lower lobe, right middle lobe infiltrate consistent with pneumonia, possibly aspiration pneumonia versus community-acquired pneumonia. Extubated yesterday and requiring Bipap overnight CXR pending Diuresing, continue Zosyn. CXR pending this AM Nebulizer treatments and steroids per Pulmonary, tapering steroids. 2. Aspiration pneumonia likely, given the pattern of infiltrates on chest x- ray. Continue Zosyn, and to place NGT for Tube feeding and free H20. 3. Pulseless electrical activity cardiac arrest at home with EMS on site, status post resuscitation. Cardiac arrest may be very well 2ry to respiratory failure. Hemodynamically stable currently. OFF Propofol and awake, alert but unclear if fully following commands. Repeat CT head with no acute findings. 2-D echo with findings of severe cardiomyopathy and EF 30 % likely chronic. Appreciate recommendations from Dr Kahn. Off Bblock due to bradycardia and continuing diuresis and afterload reduction. 4. Severe Cardiomyopathy with systolic dysfunction and EF 30 %. Monitor UOP and volume status while on diuresis Off Bblocker due to bradycardia, improving thrombocytopenia, added ASA With CKD, no KANDIS inhibitor or ARB for now 5. Likely cirrhosis with hx of ETOH use per reports. Hepatitis panel negative LFTs, Coagulopathy and thrombocytopenia seems to be all improving. Continue thiamine/folate/mvi per NGT Check Ammonia level 6. Encephalopathy: still with odd behavior and on/off following commands, CT head negative x2 so far, ? Anoxic injury Check Ammonia level Neuro consult as needed, ? telepsych when more verbal 7. Acute kidney injury on chronic kidney disease with likely ATN. Renal US with signs of chronic medical disease. Better UOP but renal function seems stable, on Lasix for diuresis, Replete K prn, Free H20 with tube feeding since Na back up. Monitor volume status and renal function. PROPHYLAXIS: SCDs to lower extremities for DVT prophylaxis and Pepcid for GI prophylaxis. DISPOSITION: FULL CODE until further information is obtained through social worker psychiatric, and also hopefully we will find out if he does have family. Continue ICU level of care with BiPAP today, aggressive treatment for now. NGT and f/u Ammonia level Subjective 24 Hr Interval Summary Free Text/Dictation Patient extubated yesterday afternoon and did require BiPAP overnight with 100% FiO2 now down to 50% this AM Need to place NGT as patient still encephalopathic Afebrile CXR pending VSS otherwise stable except for respiratory insufficiency Exam/Review of Systems Vital Signs Vitals Vital Signs Date Time Temp Pulse Resp B/P Pulse Ox O2 Delivery O2 Flow Rate FiO2 07/03/16 08:13 63 97 50 07/03/16 07:00 17 134/64 BIPAP 07/03/16 04:00 98.0 07/03/16 00:55 15.0 Intake and Output 07/02/16 07/02/16 07/03/16 15:00 23:00 07:00 Intake Total 175 ml 50 ml Output Total 1275 ml 1275 ml 550 ml Balance -1100 ml -1225 ml -550 ml Exam Constitutional: alert, non-verbal, oriented (x1 to 2) Respiratory: diminished breath sounds (RLL>LLL), other (on BiPAP 50 %) Cardiovascular: nl pulses, regular rate and rhythm Gastrointestinal: non-tender, other (NGT placement ), soft Musculoskeletal: other (chronic venous stasis changes) Extremities: normal pulses, other (less anasarca ) 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: confused, lethargic, other (? receptive aphasia or psych dx ) Results Result Diagram: 07/03/16 0400 07/03/16 0400 Results 24 hrs Laboratory Tests Test 07/02/16 11:00 07/02/16 11:40 07/02/16 23:27 07/03/16 04:00 Blood Gas Specimen Source Blood arterial Blood arterial Arterial Blood Date Drawn 07/02/2016 11:05:19 AM 07/02/2016 11:38:08 PM Arterial Blood pH (Temp corrected) 7.520 H 7.471 H Arterial Blood pCO2 (Temp correct) 43.4 51.6 H Arterial Blood pO2 (Temp corrected) 73.4 L 67.0 L Arterial Blood HCO3 34.6 H 36.8 H Arterial Blood Base Excess 10.6 H 11.3 H Arterial Blood Oxygen Saturation 94.6 L 92.0 L Isac Test ACCEPTAB ACCEPTAB Arterial Blood Gas Puncture Site Left Radial Left Radial Arterial Blood Carboxyhemoglobin 0.4 0.7 Arterial Blood Methemoglobin 0.5 0.3 Blood Gas A-a O2 Differential 161.9 H 231.5 H Oxyhemoglobin Percent 93.7 91.1 L Total Hemoglobin 12.9 12.9 Blood Gas Temperature 37.0 37.0 Blood Gas Modality VENT - CPAP MASK - VENTI FiO2 40.0 50.0 Blood Gas Low PEEP Setting 5.0 Blood Gas Pressure Support 10 Blood Gas Notified Whom YANDY SABA Blood Gas Notified Time 07/02/2016 11:18:02 AM 07/02/2016 11:46:59 PM Prothrombin Time 16.3 H Prothrombin Time Ratio 1.3 INR International Normalized Ratio 1.30 Activated Partial Thromboplast Time 25.6 White Blood Count 14.2 #H Red Blood Count 3.92 L Hemoglobin 12.1 L Hematocrit 38.9 L Mean Corpuscular Volume 99.2 Mean Corpuscular Hemoglobin 30.9 Mean Corpuscular Hemoglobin Concent 31.1 L Red Cell Distribution Width 14.8 H Platelet Count 93 #L Mean Platelet Volume 12.1 H Neutrophils % 95.3 H Lymphocytes % 1.1 L Monocytes % 3.0 Eosinophils % 0.0 Basophils % 0.1 Nucleated Red Blood Cells % 0.0 Neutrophils # 13.6 H Lymphocytes # 0.2 L Monocytes # 0.4 Eosinophils # 0.0 Basophils # 0.0 Nucleated Red Blood Cells # 0.0 Sodium Level 152 H Potassium Level 3.2 L Chloride Level 106 Carbon Dioxide Level 35 H Anion Gap 14 Blood Urea Nitrogen 94 H Creatinine 2.56 H Glucose Level 139 Calcium Level 9.4 Phosphorus Level 4.5 Magnesium Level 2.6 H Total Bilirubin 0.7 Direct Bilirubin 0.00 Indirect Bilirubin 0.7 Aspartate Amino Transf (AST/SGOT) 36 Alanine Aminotransferase (ALT/SGPT) 73 H Alkaline Phosphatase 91 Total Protein 6.1 Albumin 3.2 L Globulin 2.90 Albumin/Globulin Ratio 1.10 Medications Medications Current Medications Ondansetron HCl (Zofran Inj) 4 mg Q6H PRN IV NAUSEA AND/OR VOMITING; Start at 00:00 Pantoprazole 40 mg 40 mg DAILY@06 IV Last administered on 07/03/16 06:23; Admin Dose 40 MG; Start 06/24/16 at 06:00 Piperacillin Sod/ Tazobactam Sod (Zosyn 2.25gm/ 50ml (Pmx)) 50 ml @ 100 mls/hr Q8 IVPB Last administered on 07/03/16 06:24; Admin Dose 100 MLS/HR; Start 06/25 at 22:00 Thiamine HCl (Vitamin B1) 100 mg DAILY NGT Last administered on 07/02/16 09:54 ; Admin Dose 100 MG; Start 06/29/16 at 09:00 Multivitamins (Thera-Plus) 5 ml DAILY NGT Last administered on 07/02/16 09:55; Admin Dose 5 ML; Start 06/29/16 at 09:00 Folic Acid (Folic Acid) 1 mg DAILY NGT Last administered on 07/02/16 09:55; Admin Dose 1 MG; Start 06/29/16 at 09:00 Hydralazine HCl (Apresoline) 10 mg Q8 NGT Last administered on 07/02/16 05:36; Admin Dose 10 MG; Start 06/29/16 at 14:00 Methylprednisolone Sodium Succinate (Solu-Medrol) 30 mg BID IV Last administered on 07/02/16 21:41; Admin Dose 30 MG; Start 06/29/16 at 21:00 Aspirin (Halfprin) 81 mg DAILY PO Last administered on 07/02/16 09:55; Admin Dose 81 MG; Start 07/01/16 at 09:30 Collagenase (Santyl) 1 applic DAILY TOP Last administered on 07/02/16 09:56; Admin Dose 1 APPLIC; Start 07/01/16 at 16:00 Hydralazine HCl 10 mg 10 mg Q6H PRN IV ELEVATED BLOOD PRESSURE; Start 07/02/16 at 17:00 Potassium Chloride (KCl 40 MEQ/250 ML NS) 250 ml @ 62.5 mls/hr ONCE ONCE IVPB ; Start 07/03/16 at 09:30; Stop 07/03/16 at 13:29 DAVID GONZALEZ Jul 03, 2016 09:32
--- NOTE | 2016-07-03 09:55 | CONS ---
Date/Time of Note Date/Time of Note DATE: 07/03/16 TIME: 09:50 Assessment/Plan Assessment/Plan Additional Assessment/Plan BiPAP settings; IPAP of 15 and EPAP of 5, 50% FiO2. Assessment recommendations; 1. Patient admitted for respiratory failure no extubated but requiring BiPAP now. 2. Right pleural effusion. 3. Severe muscular weakness. 4. Possibly right lower lobe pneumonia. 5. Renal insufficiency. 6. Hyponatremia. 7. Underlying COPD. 8. CHF. Continue current treatment. Will obtain ultrasound-guided thoracentesis on the right side. The BiPAP for now. Consultation Date/Type/Reason Admit Date/Time Jun 23, 2016 at 22:42 Type of Consultation: Pulmonary/critical care 24 HR Interval Summary Free Text/Dictation Patient condition is tenuous at best. He was extubated yesterday afternoon. However requiring BiPAP now. Remains awake but has severe generalized muscular weakness. General exam; elderly male, awake and alert. On BiPAP currently in no distress. Exam/Review of Systems Vital Signs Vitals Vital Signs Date Time Temp Pulse Resp B/P Pulse Ox O2 Delivery O2 Flow Rate FiO2 07/03/16 08:13 63 97 50 07/03/16 07:00 17 134/64 BIPAP 07/03/16 04:00 98.0 07/03/16 00:55 15.0 Intake and Output 07/02/16 07/02/16 07/03/16 15:00 23:00 07:00 Intake Total 175 ml 50 ml Output Total 1275 ml 1275 ml 550 ml Balance -1100 ml -1225 ml -550 ml Exam H EENT exam is; supple neck, positive JVD. No lymphadenopathy. Midline trachea. No thyromegaly. With a small bilaterally. No neck masses. Chest exam is; diminished breath sounds bilaterally with diminished breath sounds in right lower lobe specifically. S1-S2 audible, no murmurs. Regular rhythm. Abdomen exam is; soft, nondistended. No organomegaly. Bowel sounds audible. Extremity examination; no peripheral edema patient has a multiple ecchymosis in all 4 extremities. PRESSER HAND examination; patient is awake, alert but has severe muscular weakness. Results Result Diagram: 07/03/16 0400 07/03/16 0400 Results 24 hrs Laboratory Tests Test 07/02/16 11:00 07/02/16 11:40 07/02/16 23:27 07/03/16 04:00 Blood Gas Specimen Source Blood arterial Blood arterial Arterial Blood Date Drawn 07/02/2016 11:05:19 AM 07/02/2016 11:38:08 PM Arterial Blood pH (Temp corrected) 7.520 H 7.471 H Arterial Blood pCO2 (Temp correct) 43.4 51.6 H Arterial Blood pO2 (Temp corrected) 73.4 L 67.0 L Arterial Blood HCO3 34.6 H 36.8 H Arterial Blood Base Excess 10.6 H 11.3 H Arterial Blood Oxygen Saturation 94.6 L 92.0 L Isac Test ACCEPTAB ACCEPTAB Arterial Blood Gas Puncture Site Left Radial Left Radial Arterial Blood Carboxyhemoglobin 0.4 0.7 Arterial Blood Methemoglobin 0.5 0.3 Blood Gas A-a O2 Differential 161.9 H 231.5 H Oxyhemoglobin Percent 93.7 91.1 L Total Hemoglobin 12.9 12.9 Blood Gas Temperature 37.0 37.0 Blood Gas Modality VENT - CPAP MASK - VENTI FiO2 40.0 50.0 Blood Gas Low PEEP Setting 5.0 Blood Gas Pressure Support 10 Blood Gas Notified Whom YANDY SABA Blood Gas Notified Time 07/02/2016 11:18:02 AM 07/02/2016 11:46:59 PM Prothrombin Time 16.3 H Prothrombin Time Ratio 1.3 INR International Normalized Ratio 1.30 Activated Partial Thromboplast Time 25.6 White Blood Count 14.2 #H Red Blood Count 3.92 L Hemoglobin 12.1 L Hematocrit 38.9 L Mean Corpuscular Volume 99.2 Mean Corpuscular Hemoglobin 30.9 Mean Corpuscular Hemoglobin Concent 31.1 L Red Cell Distribution Width 14.8 H Platelet Count 93 #L Mean Platelet Volume 12.1 H Neutrophils % 95.3 H Lymphocytes % 1.1 L Monocytes % 3.0 Eosinophils % 0.0 Basophils % 0.1 Nucleated Red Blood Cells % 0.0 Neutrophils # 13.6 H Lymphocytes # 0.2 L Monocytes # 0.4 Eosinophils # 0.0 Basophils # 0.0 Nucleated Red Blood Cells # 0.0 Sodium Level 152 H Potassium Level 3.2 L Chloride Level 106 Carbon Dioxide Level 35 H Anion Gap 14 Blood Urea Nitrogen 94 H Creatinine 2.56 H Glucose Level 139 Calcium Level 9.4 Phosphorus Level 4.5 Magnesium Level 2.6 H Total Bilirubin 0.7 Direct Bilirubin 0.00 Indirect Bilirubin 0.7 Aspartate Amino Transf (AST/SGOT) 36 Alanine Aminotransferase (ALT/SGPT) 73 H Alkaline Phosphatase 91 Total Protein 6.1 Albumin 3.2 L Globulin 2.90 Albumin/Globulin Ratio 1.10 Medications Medications Current Medications Ondansetron HCl (Zofran Inj) 4 mg Q6H PRN IV NAUSEA AND/OR VOMITING; Start at 00:00 Pantoprazole 40 mg 40 mg DAILY@06 IV Last administered on 07/03/16 06:23; Admin Dose 40 MG; Start 06/24/16 at 06:00 Piperacillin Sod/ Tazobactam Sod (Zosyn 2.25gm/ 50ml (Pmx)) 50 ml @ 100 mls/hr Q8 IVPB Last administered on 07/03/16 06:24; Admin Dose 100 MLS/HR; Start 06/25 at 22:00 Thiamine HCl (Vitamin B1) 100 mg DAILY NGT Last administered on 07/02/16 09:54 ; Admin Dose 100 MG; Start 06/29/16 at 09:00 Multivitamins (Thera-Plus) 5 ml DAILY NGT Last administered on 07/02/16 09:55; Admin Dose 5 ML; Start 06/29/16 at 09:00 Folic Acid (Folic Acid) 1 mg DAILY NGT Last administered on 07/02/16 09:55; Admin Dose 1 MG; Start 06/29/16 at 09:00 Hydralazine HCl (Apresoline) 10 mg Q8 NGT Last administered on 07/02/16 05:36; Admin Dose 10 MG; Start 06/29/16 at 14:00 Methylprednisolone Sodium Succinate (Solu-Medrol) 30 mg BID IV Last administered on 07/02/16 21:41; Admin Dose 30 MG; Start 06/29/16 at 21:00 Aspirin (Halfprin) 81 mg DAILY PO Last administered on 07/02/16 09:55; Admin Dose 81 MG; Start 07/01/16 at 09:30 Collagenase (Santyl) 1 applic DAILY TOP Last administered on 07/02/16 09:56; Admin Dose 1 APPLIC; Start 07/01/16 at 16:00 Hydralazine HCl 10 mg 10 mg Q6H PRN IV ELEVATED BLOOD PRESSURE; Start 07/02/16 at 17:00 Potassium Chloride (KCl 40 MEQ/250 ML NS) 250 ml @ 62.5 mls/hr ONCE ONCE IVPB ; Start 07/03/16 at 09:30; Stop 07/03/16 at 13:29 JEN JOHNSON Jul 03, 2016 09:55
[2016-07-03] MEDS ORDERED: LORAZEPAM 2 MG INJ IV ONE (10:30)
[2016-07-03] MEDS: COLLAGENASE 30 GM TUBE TOP SCH (11:31)
[2016-07-03] MEDS: METHYLPREDNISOLONE 40 MG INJ IV SCH ×2 (11:32→22:50)
--- NOTE | 2016-07-03 13:09 | RADRPT ---
PROCEDURE: XR Chest. CLINICAL INDICATION: Respiratory distress and 76 real male. TECHNIQUE: Single frontal view of the chest was obtained COMPARISON: Chest x-ray 07/02/2016. FINDINGS: The soft tissues are normal. Moderate electrode tip. Across the chest. There are degenerative ost eophytes in the thoracic spine. The left ventricle is enlarged. The cardiomediastinal silhouette a nd hilar structures are normal. The pulmonary vasculature is equilibrated. There is ectasia of the l eft-sided aorta. There are bibasilar and perihilar infiltrates more confluent in the areas adjacent to the diaphragm. There are bilateral pleural effusions. IMPRESSION: 1. Cardiomegaly with improving perihilar and basilar interstitial pulmonary edema with large bilater al pleural effusions. 2. Plate-like atelectasis along the left upper heart border. RPTAT:AAJJ Physician Og Date Time Electronically viewed and signed by Murray Alvarado Physician on 07/03/2016 13:08 JANUARY/
--- NOTE | 2016-07-03 17:48 | CONS ---
Date/Time of Note Date/Time of Note DATE: 07/03/16 TIME: 17:47 Assessment/Plan Assessment/Plan Additional Assessment/Plan Cardiopulmonary arrest Severe cardiomyopathy with ejection fraction 30% Respiratory failure status post extubation Acute decompensated systolic congestive heart failure Encephalopathy Mildly elevated troponin Active tobacco use Coagulopathy Acute kidney injury -Patient extubated but put on BiPAP secondary to hypoxia. Continue diuretics as blood pressure and renal function permits. Patient not taking p.o. medications, IV hydralazine as needed ordered. Consultation Date/Type/Reason Admit Date/Time Jun 23, 2016 at 22:42 Type of Consultation: cv 24 HR Interval Summary Free Text/Dictation Patient extubated yesterday but on BiPAP because of worsening respiratory status. Denies chest pain Exam/Review of Systems Vital Signs Vitals Vital Signs Date Time Temp Pulse Resp B/P Pulse Ox O2 Delivery O2 Flow Rate FiO2 07/03/16 17:05 66 95 45 07/03/16 16:00 98.7 16 154/73 BIPAP 07/03/16 00:55 15.0 Intake and Output 07/02/16 07/02/16 07/03/16 15:00 23:00 07:00 Intake Total 175 ml 50 ml Output Total 1275 ml 1275 ml 550 ml Balance -1100 ml -1225 ml -550 ml Exam On BiPAP, intermittently following commands Constitutional: alert Head: normocephalic Respiratory: other (Coarse breath sounds bilaterally, minimal scattered crackles, no wheezing) Cardiovascular: other (S1-S2 heard), regular rate and rhythm Gastrointestinal: bowel sounds, non-tender, other (No guarding), soft Extremities: edema Results Result Diagram: 07/03/16 0400 07/03/16 0400 Results 24 hrs Laboratory Tests Test 07/02/16 23:27 07/03/16 04:00 07/03/16 09:59 Blood Gas Specimen Source Blood arterial Arterial Blood Date Drawn 07/02/2016 11:38:08 PM Arterial Blood pH (Temp corrected) 7.471 H Arterial Blood pCO2 (Temp correct) 51.6 H Arterial Blood pO2 (Temp corrected) 67.0 L Arterial Blood HCO3 36.8 H Arterial Blood Base Excess 11.3 H Arterial Blood Oxygen Saturation 92.0 L Isac Test ACCEPTAB Arterial Blood Gas Puncture Site Left Radial Arterial Blood Carboxyhemoglobin 0.7 Arterial Blood Methemoglobin 0.3 Blood Gas A-a O2 Differential 231.5 H Oxyhemoglobin Percent 91.1 L Total Hemoglobin 12.9 Blood Gas Temperature 37.0 Blood Gas Modality MASK - VENTI FiO2 50.0 Blood Gas Notified Whom KM Blood Gas Notified Time 07/02/2016 11:46:59 PM White Blood Count 14.2 #H Red Blood Count 3.92 L Hemoglobin 12.1 L Hematocrit 38.9 L Mean Corpuscular Volume 99.2 Mean Corpuscular Hemoglobin 30.9 Mean Corpuscular Hemoglobin Concent 31.1 L Red Cell Distribution Width 14.8 H Platelet Count 93 #L Mean Platelet Volume 12.1 H Neutrophils % 95.3 H Lymphocytes % 1.1 L Monocytes % 3.0 Eosinophils % 0.0 Basophils % 0.1 Nucleated Red Blood Cells % 0.0 Neutrophils # 13.6 H Lymphocytes # 0.2 L Monocytes # 0.4 Eosinophils # 0.0 Basophils # 0.0 Nucleated Red Blood Cells # 0.0 Sodium Level 152 H Potassium Level 3.2 L Chloride Level 106 Carbon Dioxide Level 35 H Anion Gap 14 Blood Urea Nitrogen 94 H Creatinine 2.56 H Glucose Level 139 Calcium Level 9.4 Phosphorus Level 4.5 Magnesium Level 2.6 H Total Bilirubin 0.7 Direct Bilirubin 0.00 Indirect Bilirubin 0.7 Aspartate Amino Transf (AST/SGOT) 36 Alanine Aminotransferase (ALT/SGPT) 73 H Alkaline Phosphatase 91 Total Protein 6.1 Albumin 3.2 L Globulin 2.90 Albumin/Globulin Ratio 1.10 Ammonia < 9 L Medications Medications Current Medications Ondansetron HCl (Zofran Inj) 4 mg Q6H PRN IV NAUSEA AND/OR VOMITING; Start at 00:00 Pantoprazole 40 mg 40 mg DAILY@06 IV Last administered on 07/03/16 06:23; Admin Dose 40 MG; Start 06/24/16 at 06:00 Piperacillin Sod/ Tazobactam Sod (Zosyn 2.25gm/ 50ml (Pmx)) 50 ml @ 100 mls/hr Q8 IVPB Last administered on 07/03/16 13:41; Admin Dose 100 MLS/HR; Start 06/25 at 22:00 Thiamine HCl (Vitamin B1) 100 mg DAILY NGT Last administered on 07/02/16 09:54 ; Admin Dose 100 MG; Start 06/29/16 at 09:00 Multivitamins (Thera-Plus) 5 ml DAILY NGT Last administered on 07/02/16 09:55; Admin Dose 5 ML; Start 06/29/16 at 09:00 Folic Acid (Folic Acid) 1 mg DAILY NGT Last administered on 07/02/16 09:55; Admin Dose 1 MG; Start 06/29/16 at 09:00 Hydralazine HCl (Apresoline) 10 mg Q8 NGT Last administered on 07/02/16 05:36; Admin Dose 10 MG; Start 06/29/16 at 14:00 Methylprednisolone Sodium Succinate (Solu-Medrol) 30 mg BID IV Last administered on 07/03/16 11:32; Admin Dose 30 MG; Start 06/29/16 at 21:00 Aspirin (Halfprin) 81 mg DAILY PO Last administered on 07/02/16 09:55; Admin Dose 81 MG; Start 07/01/16 at 09:30 Collagenase (Santyl) 1 applic DAILY TOP Last administered on 07/03/16 11:31; Admin Dose 1 APPLIC; Start 07/01/16 at 16:00 Hydralazine HCl (Apresoline) 10 mg Q6H PRN IV ELEVATED BLOOD PRESSURE; Start at 17:00 Harvey Kahn DO Jul 03, 2016 17:48
[2016-07-03 21:59] LABS: AADO2 Arterial 216.7 mmHg (7.0-24.0); Allen Test ACCEPTAB; Arterial Base Excess 11.2 mmol/L (-3.0-3); Arterial COHb 0.1 % (0.0-3.0); Arterial Fraction of Oxyhgb 95.3 % (93.0-99.0); Arterial HCO3 36.2 mmol/L (22.0-26.0); Arterial MetHb 0.2 % (0.0-1.5); Arterial Total Hemglobin 12.4 g/dl (12.0-18.0); Blood Gas IEPAP 15/5; Blood Gas PS 10; MODE MASK - BIPAP
[2016-07-04] VITALS (35 sets, daily range): BP systolic 118–154; BP diastolic 62–88; PULSE 67–92; RESP 10–21
[2016-07-04] MEDS: ALBUTEROL/IPRATROPIUM (NEB) 3 ML AMP HHN SCH ×6 (00:56→21:11)
[2016-07-04] MEDS: PIPER-TAZO 2.25 GM (PMX) 50 ML IVPB SCH ×3 (05:18→22:27)
[2016-07-04] MEDS: PANTOPRAZOLE 40 MG INJ IV SCH (05:18)
[2016-07-04] MEDS: FUROSEMIDE 40 MG INJ IV SCH (05:25)
[2016-07-04 05:28] LABS: ADD SCAN DIFF NO
[2016-07-04 05:38] LABS: INR 1.28; PROTIME 16.1 Sec (12.2-14.2); PT RATIO 1.3
[2016-07-04 05:39] LABS: PARTIAL THROMBOPLASTIN TIME 27.1 Sec (25.0-35.0)
[2016-07-04 05:42] LABS: ABNORMAL IP MESSAGE 1; BASOPHILS % 0.1 % (0.0-2.0); EOSINOPHILS % 0.1 % (0.0-7.0); HEMATOCRIT 39.2 % (42.0-52.0); HEMOGLOBIN 12.1 g/dl (14.0-18.0); LYMPHOCYTES # 0.3 10^3/ul (0.8-2.9); MEAN CORPUSCULAR HGB CONC 30.9 g/dl (32.0-37.0); MEAN CORPUSCULAR VOLUME 100.5 fl (82.0-101.0); MEAN PLATELET VOLUME 11.6 fl (7.4-10.4); MONOCYTE # 0.3 10^3/ul (0.3-0.9); MONOCYTES % 2.4 % (0.0-11.0); NEUTROPHIL # 13.1 10^3/ul (1.6-7.5); NEUTROPHILS % 94.7 % (39.0-77.0); PLATELET COUNT 87 10^3/UL (140-415); RED CELL DISTRIBUTION WIDTH 14.7 % (11.5-14.5); WHITE BLOOD COUNT 13.8 10^3/ul (4.8-10.8)
[2016-07-04 05:55] LABS: MAGNESIUM 2.7 mg/dl (1.7-2.5); PHOSPHORUS 4.4 mg/dl (2.5-4.9)
[2016-07-04 05:56] LABS: POTASSIUM 3.9 mmol/L (3.5-5.1)
[2016-07-04 05:58] LABS: ALBUMIN/GLOBULIN RATIO 1.11; CREATININE 2.39 mg/dl (0.61-1.24); TOTAL PROTEIN 5.7 g/dl (6.1-8.1)
[2016-07-04 05:59] LABS: CALCIUM 9.3 mg/dl (8.4-10.2)
[2016-07-04] MEDS: ASPIRIN (EC) 81 MG TAB PO SCH (08:33)
[2016-07-04] MEDS: FOLIC ACID 1 MG TAB NGT SCH (08:33)
[2016-07-04] MEDS: MULTIVITAMINS 5 ML CUP NGT SCH (08:33)
[2016-07-04] MEDS: THIAMINE 100 MG TAB NGT SCH (08:33)
[2016-07-04] MEDS: METHYLPREDNISOLONE 40 MG INJ IV SCH ×2 (09:36→20:58)
[2016-07-04] MEDS: COLLAGENASE 30 GM TUBE TOP SCH (09:37)
[2016-07-04] MEDS: DEXTROSE 5% 1,000 ML IV SCH (10:00)
--- NOTE | 2016-07-04 10:09 | PN ---
Date/Time of Note Date/Time of Note DATE: 07/04/16 TIME: 09:37 Assessment/Plan VTE Prophylaxis VTE Prophylaxis Intervention: SCD's Lines/Catheters IV Catheter Type (from Nrs): Peripheral IV Urinary Cath still in place: Yes Reason Cath still needed: other (indicate) (for UOP monitoring) Assessment/Plan Assessment/Plan 76-year-old male with: 1. Acute respiratory failure with a history of heavy tobacco use, likely chronic obstructive pulmonary disease and chronic obstructive pulmonary disease exacerbation and also with right lower lobe, right middle lobe infiltrate consistent with pneumonia, possibly aspiration pneumonia versus community-acquired pneumonia. Extubated x 2 days and requiring Bipap currently. CXR with much improved pulmonary edema but persistent bilateral pleural effusion, right thoracentesis pending today. We will be holding diuresis today, resume Lasix 40 mg IV daily tomorrow if needed, continue Zosyn for now. Nebulizer treatments and steroids per Pulmonary, tapering steroids. 2. Aspiration pneumonia likely, given the pattern of infiltrates on chest x- ray. Continue Zosyn, and to place NGT under fluoroscopy for Tube feeding and free H20. 3. Pulseless electrical activity cardiac arrest at home with EMS on site, status post resuscitation. Cardiac arrest may be very well 2ry to respiratory failure. Hemodynamically stable currently. OFF Propofol and awake, alert but unclear if fully following commands. Repeat CT head with no acute findings. 2-D echo with findings of severe cardiomyopathy and EF 30 % likely chronic. Currently euvolemic to hypovolemic, hold Lasix today, resume Lasix tomorrow at 40 mg IV daily if needed. Thoracentesis pending today Appreciate recommendations from Dr Kahn. Off Bblock due to bradycardia and continuing afterload reduction. Holding off diuresis. 4. Severe Cardiomyopathy with systolic dysfunction and EF 30 %. Monitor UOP and hypovolemic, holding of diuresis today. Off Bblocker due to bradycardia, improving thrombocytopenia, on ASA but held over the past 2 days due to lack of p.o. access With CKD, no KANDIS inhibitor or ARB for now 5. Likely cirrhosis with hx of ETOH use per reports. Hepatitis panel negative LFTs, Coagulopathy and thrombocytopenia seems to be all improving. Continue thiamine/folate/mvi IV until NG tube placed Ammonia level within normal limit. 6. Encephalopathy: still with odd behavior and on/off following commands, CT head negative x2 so far, ? Anoxic injury Ammonia level wnl Neuro consult as needed, ? telepsych when more verbal. 7. Acute kidney injury on chronic kidney disease with likely ATN. Renal US with signs of chronic medical disease. Ok UOP and stable renal function but the patient is now with prerenal azotemia BUN up to 101, hold Lasix, start D5W. D5W at 75 cc an hour until NG tube placed under fluoroscopy then resume free H20 with tube feeding since Na back up to 157 this AM. Monitor volume status and renal function. PROPHYLAXIS: SCDs to lower extremities for DVT prophylaxis and Pepcid for GI prophylaxis. DISPOSITION: FULL CODE until further information is obtained through social science instructor, niranjan Kimble, will be updated his phone number is [phone] seems to be the only living next of kin. Continue ICU level of care with BiPAP today, aggressive treatment for now. US guided thoracentesis and NGT placement under fluoroscopy pending today. Subjective 24 Hr Interval Summary Free Text/Dictation Patient is still encephalopathic, not following commands, BiPAP in place He has diuresed very well and now actually dry. Discontinue Lasix for today, D5W to be started due to hypernatremia. Due to unavailability of family members, ongoing respiratory distress requiring BiPAP and presence of a large right pleural effusion at this point it is medically necessary to have a thoracentesis done and it is pending , the patient also needs NG tube placement under fluoroscopy to be able to feed him safely and also given free water as he has an ongoing worsening hypernatremia it is therefore medically necessary to have safe p.o. access. Patient remains in ICU, so far hemodynamically stable but requiring BiPAP and significantly encephalopathic with high risk of aspiration Exam/Review of Systems Vital Signs Vitals Vital Signs Date Time Temp Pulse Resp B/P Pulse Ox O2 Delivery O2 Flow Rate FiO2 07/04/16 08:00 98.2 90 10 121/71 97 BIPAP 07/04/16 07:30 50 07/03/16 00:55 15.0 Intake and Output 07/03/16 07/03/16 07/04/16 15:00 23:00 07:00 Intake Total 50 ml 50 ml Output Total 1120 ml 1120 ml 925 ml Balance -1070 ml -1120 ml -875 ml Exam Constitutional: frail, non-verbal, other (Lethargic) Respiratory: diminished breath sounds (Bases, right greater than left) Cardiovascular: nl pulses, regular rate and rhythm Gastrointestinal: non-tender, other (Pending NG tube placement), soft Extremities: other (no edema, clubbing or cyanosis ) 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: confused, lethargic, other (non verbal) Skin: ecchymosis Results Result Diagram: 07/04/16 0440 07/04/16 0430 Results 24 hrs Laboratory Tests Test 07/03/16 09:59 07/03/16 21:30 07/04/16 04:30 07/04/16 04:40 Ammonia < 9 L 10 Blood Gas Specimen Source Blood arterial Arterial Blood Date Drawn 07/03/2016 9:45:12 PM Arterial Blood pH (Temp corrected) 7.483 H Arterial Blood pCO2 (Temp correct) 49.4 H Arterial Blood pO2 (Temp corrected) 84.2 Arterial Blood HCO3 36.2 H Arterial Blood Base Excess 11.2 H Arterial Blood Oxygen Saturation 95.6 Isac Test ACCEPTAB Arterial Blood Gas Puncture Site Right Radial Arterial Blood Carboxyhemoglobin 0.1 Arterial Blood Methemoglobin 0.2 Blood Gas A-a O2 Differential 216.7 H Oxyhemoglobin Percent 95.3 Total Hemoglobin 12.4 Blood Gas Temperature 37.0 Blood Gas Respiration Rate 18.0 Blood Gas Actual Respiration Rate 26 Blood Gas Modality MASK - BIPAP FiO2 50.0 Blood Gas Pressure Support 10 Blood Gas IPAP/EPAP Ratio 15/5 Blood Gas Notified Whom MA Blood Gas Notified Time 07/03/2016 9:59:13 PM Prothrombin Time 16.1 H Prothrombin Time Ratio 1.3 INR International Normalized Ratio 1.28 Activated Partial Thromboplast Time 27.1 Sodium Level 157 H Potassium Level 3.9 Chloride Level 108 Carbon Dioxide Level 37 H Anion Gap 16 Blood Urea Nitrogen 101 H Creatinine 2.39 H Glucose Level 115 Calcium Level 9.3 Phosphorus Level 4.4 Magnesium Level 2.7 H Total Bilirubin 1.0 Direct Bilirubin 0.00 Indirect Bilirubin 1.0 Aspartate Amino Transf (AST/SGOT) 64 #H Alanine Aminotransferase (ALT/SGPT) 100 H Alkaline Phosphatase 80 Total Protein 5.7 L Albumin 3.0 L Globulin 2.70 Albumin/Globulin Ratio 1.11 White Blood Count 13.8 H Red Blood Count 3.90 L Hemoglobin 12.1 L Hematocrit 39.2 L Mean Corpuscular Volume 100.5 Mean Corpuscular Hemoglobin 31.0 Mean Corpuscular Hemoglobin Concent 30.9 L Red Cell Distribution Width 14.7 H Platelet Count 87 L Mean Platelet Volume 11.6 H Neutrophils % 94.7 H Lymphocytes % 2.0 L Monocytes % 2.4 Eosinophils % 0.1 Basophils % 0.1 Nucleated Red Blood Cells % 0.0 Neutrophils # 13.1 H Lymphocytes # 0.3 L Monocytes # 0.3 Eosinophils # 0.0 Basophils # 0.0 Nucleated Red Blood Cells # 0.0 Medications Medications Current Medications Ondansetron HCl (Zofran Inj) 4 mg Q6H PRN IV NAUSEA AND/OR VOMITING; Start at 00:00 Pantoprazole 40 mg 40 mg DAILY@06 IV Last administered on 07/04/16 05:18; Admin Dose 40 MG; Start 06/24/16 at 06:00 Piperacillin Sod/ Tazobactam Sod (Zosyn 2.25gm/ 50ml (Pmx)) 50 ml @ 100 mls/hr Q8 IVPB Last administered on 07/04/16 05:18; Admin Dose 100 MLS/HR; Start 06/25 at 22:00 Thiamine HCl (Vitamin B1) 100 mg DAILY NGT Last administered on 07/02/16 09:54 ; Admin Dose 100 MG; Start 06/29/16 at 09:00 Multivitamins (Thera-Plus) 5 ml DAILY NGT Last administered on 07/02/16 09:55; Admin Dose 5 ML; Start 06/29/16 at 09:00 Folic Acid (Folic Acid) 1 mg DAILY NGT Last administered on 07/02/16 09:55; Admin Dose 1 MG; Start 06/29/16 at 09:00 Hydralazine HCl (Apresoline) 10 mg Q8 NGT Last administered on 07/02/16 05:36; Admin Dose 10 MG; Start 06/29/16 at 14:00 Methylprednisolone Sodium Succinate (Solu-Medrol) 30 mg BID IV Last administered on 07/03/16 22:50; Admin Dose 30 MG; Start 06/29/16 at 21:00 Aspirin (Halfprin) 81 mg DAILY PO Last administered on 07/02/16 09:55; Admin Dose 81 MG; Start 07/01/16 at 09:30 Collagenase (Santyl) 1 applic DAILY TOP Last administered on 07/03/16t 11:31; Admin Dose 1 APPLIC; Start 07/01/16 at 16:00 Hydralazine HCl (Apresoline) 10 mg Q6H PRN IV ELEVATED BLOOD PRESSURE; Start at 17:00 Procedures Procedures PROCEDURE: XR Chest. CLINICAL INDICATION: Respiratory distress and 76 real male. TECHNIQUE: Single frontal view of the chest was obtained COMPARISON: Chest x-ray 07/02/2016. FINDINGS: The soft tissues are normal. Moderate electrode tip. Across the chest. There are degenerative osteophytes in the thoracic spine. The left ventricle is enlarged. The cardiomediastinal silhouette and hilar structures are normal. The pulmonary vasculature is equilibrated. There is ectasia of the left-sided aorta. There are bibasilar and perihilar infiltrates more confluent in the areas adjacent to the diaphragm. There are bilateral pleural effusions. IMPRESSION: 1. Cardiomegaly with improving perihilar and basilar interstitial pulmonary edema with large bilateral pleural effusions. 2. Plate-like atelectasis along the left upper heart border. DAVID GONZALEZ Jul 04, 2016 09:50
--- NOTE | 2016-07-04 11:06 | CONS ---
Date/Time of Note Date/Time of Note DATE: 07/04/16 TIME: 10:59 Consult Date/Type/Reason Admit Date/Time Jun 23, 2016 at 22:42 Type of Consultation: pulmonary ICU Subjective Patient continues BiPAP following extubation, currently BiPAP dependent Significant hypoxemia Remains confused and agitated Currently not requiring vasopressors Objective Vital Signs Date Time Temp Pulse Resp B/P Pulse Ox O2 Delivery O2 Flow Rate FiO2 07/04/16 09:56 74 100 50 07/04/16 08:00 98.2 10 121/71 BIPAP 07/03/16 00:55 15.0 Intake and Output 07/03/16 07/03/16 07/04/16 15:00 23:00 07:00 Intake Total 50 ml 50 ml Output Total 1120 ml 1120 ml 925 ml Balance -1070 ml -1120 ml -875 ml Exam GENERAL: Chronically ill-appearing gentleman on BiPAP eyes open but not following commands VITAL SIGNS: per chart NECK: Supple. No JVD or lymphadenopathy. CARDIAC EXAM: S1, S2. No added sounds or murmurs. CHEST: diminished air entry both lung interiano ABDOMEN: Soft, nontender. No guarding or rebound. EXTREMITIES: No cyanosis, clubbing or edema. NEUROLOGIC: Generalized weakness. Results/Medications Result Diagram: 07/04/16 0440 07/04/16 0430 Results 24 hrs Laboratory Tests Test 07/03/16 21:30 07/04/16 04:30 07/04/16 04:40 Blood Gas Specimen Source Blood arterial Arterial Blood Date Drawn 07/03/2016 9:45:12 PM Arterial Blood pH (Temp corrected) 7.483 H Arterial Blood pCO2 (Temp correct) 49.4 H Arterial Blood pO2 (Temp corrected) 84.2 Arterial Blood HCO3 36.2 H Arterial Blood Base Excess 11.2 H Arterial Blood Oxygen Saturation 95.6 Isac Test ACCEPTAB Arterial Blood Gas Puncture Site Right Radial Arterial Blood Carboxyhemoglobin 0.1 Arterial Blood Methemoglobin 0.2 Blood Gas A-a O2 Differential 216.7 H Oxyhemoglobin Percent 95.3 Total Hemoglobin 12.4 Blood Gas Temperature 37.0 Blood Gas Respiration Rate 18.0 Blood Gas Actual Respiration Rate 26 Blood Gas Modality MASK - BIPAP FiO2 50.0 Blood Gas Pressure Support 10 Blood Gas IPAP/EPAP Ratio 15/ Blood Gas Notified Whom MA Blood Gas Notified Time 07/03/2016 9:59:13 PM Prothrombin Time 16.1 H Prothrombin Time Ratio 1.3 INR International Normalized Ratio 1.28 Activated Partial Thromboplast Time 27.1 Sodium Level 157 H Potassium Level 3.9 Chloride Level 108 Carbon Dioxide Level 37 H Anion Gap 16 Blood Urea Nitrogen 101 H Creatinine 2.39 H Glucose Level 115 Calcium Level 9.3 Phosphorus Level 4.4 Magnesium Level 2.7 H Total Bilirubin 1.0 Direct Bilirubin 0.00 Indirect Bilirubin 1.0 Aspartate Amino Transf (AST/SGOT) 64 #H Alanine Aminotransferase (ALT/SGPT) 100 H Alkaline Phosphatase 80 Ammonia 10 Total Protein 5.7 L Albumin 3.0 L Globulin 2.70 Albumin/Globulin Ratio 1.11 White Blood Count 13.8 H Red Blood Count 3.90 L Hemoglobin 12.1 L Hematocrit 39.2 L Mean Corpuscular Volume 100.5 Mean Corpuscular Hemoglobin 31.0 Mean Corpuscular Hemoglobin Concent 30.9 L Red Cell Distribution Width 14.7 H Platelet Count 87 L Mean Platelet Volume 11.6 H Neutrophils % 94.7 H Lymphocytes % 2.0 L Monocytes % 2.4 Eosinophils % 0.1 Basophils % 0.1 Nucleated Red Blood Cells % 0.0 Neutrophils # 13.1 H Lymphocytes # 0.3 L Monocytes # 0.3 Eosinophils # 0.0 Basophils # 0.0 Nucleated Red Blood Cells # 0.0 Medications Current Medications Ondansetron HCl (Zofran Inj) 4 mg Q6H PRN IV NAUSEA AND/OR VOMITING; Start at 00:00 Pantoprazole 40 mg 40 mg DAILY@06 IV Last administered on 07/04/16 05:18; Admin Dose 40 MG; Start 06/24/16 at 06:00 Piperacillin Sod/ Tazobactam Sod (Zosyn 2.25gm/ 50ml (Pmx)) 50 ml @ 100 mls/hr Q8 IVPB Last administered on 07/04/16 05:18; Admin Dose 100 MLS/HR; Start 06/25 at 22:00 Thiamine HCl (Vitamin B1) 100 mg DAILY NGT Last administered on 07/02/16 09:54 ; Admin Dose 100 MG; Start 06/29/16 at 09:00; Status Future Hold Multivitamins (Thera-Plus) 5 ml DAILY NGT Last administered on 07/02/16 09:55; Admin Dose 5 ML; Start 06/29/16 at 09:00; Status Future Hold Folic Acid (Folic Acid) 1 mg DAILY NGT Last administered on 07/02/16 09:55; Admin Dose 1 MG; Start 06/29/16 at 09:00; Status Future Hold Hydralazine HCl (Apresoline) 10 mg Q8 NGT Last administered on 07/02/16 05:36; Admin Dose 10 MG; Start 06/29/16 at 14:00 Methylprednisolone Sodium Succinate (Solu-Medrol) 30 mg BID IV Last administered on 07/04/16 09:36; Admin Dose 30 MG; Start 06/29/16 at 21:00 Aspirin (Halfprin) 81 mg DAILY PO Last administered on 07/02/16 09:55; Admin Dose 81 MG; Start 07/01/16 at 09:30 Collagenase (Santyl) 1 applic DAILY TOP Last administered on 07/04/16 09:37; Admin Dose 1 APPLIC; Start 07/01/16 at 16:00 Hydralazine HCl 10 mg 10 mg Q6H PRN IV ELEVATED BLOOD PRESSURE; Start 07/02/16 at 17:00 Multivitamins 10 ml/Folic Acid 1 mg/Thiamine HCl 100 mg/Dextrose 1,011.2 ml @ 75 mls/hr DAILY@09 IV ; Start 07/04/16 at 11:00 Dextrose (D5W) 1,000 ml @ 75 mls/hr [id number] IV ; Start 07/04/16 at 10:00 Assessment/Plan Chief Complaint/Hosp Course IMPRESSION 1. Cardiopulmonary arrest, likely secondary to acute respiratory failure. 2. Possible aspiration pneumonia with hypoxemic respiratory failure 3. Congestive cardiac failure. Systolic dysfunction with decreased ejection fraction 4. History of advanced chronic obstructive pulmonary disease per chart. Left pleural effusion 5. History of hospice. 6. Renal insufficiency 7. Hypernatremia Plan 1. Continue noninvasive positive pressure ventilation, may require reintubation 2. Vasopressors as needed. 3. IV fluids 4. Continue antibiotics 5. Bronchodilators. 6. DVT and GI prophylaxis. Disposition Continue intensive care monitoring Overall prognosis very poor consider bioethics consult Critical care time 35 minutes Problems: N[facility] PEREZ MD, [facility] Jul 04, 2016 11:06
[2016-07-04] MEDS: THIAMINE IV SCH (11:16)
[2016-07-04] MEDS: DEXTROSE 5% IV SCH (11:16)
[2016-07-04] MEDS: FOLIC ACID IV SCH (11:16)
[2016-07-04] MEDS: MULTIVITAMINS IV SCH (11:16)
--- NOTE | 2016-07-04 13:11 | CONS ---
Date/Time of Note Date/Time of Note DATE: 07/04/16 TIME: 13:09 Assessment/Plan Assessment/Plan Additional Assessment/Plan Cardiopulmonary arrest Severe cardiomyopathy with ejection fraction 30% Respiratory failure status post extubation Acute decompensated systolic congestive heart failure Encephalopathy Mildly elevated troponin Active tobacco use Coagulopathy Acute kidney injury -Continue on BiPAP secondary to hypoxia as per pulmonary recommendations. Continue diuretics as blood pressure and renal function permits. Patient not taking p.o. medications, as needed hydralazine IV ordered. Consultation Date/Type/Reason Admit Date/Time Jun 23, 2016 at 22:42 Type of Consultation: cv 24 HR Interval Summary Free Text/Dictation Patient remains on BiPAP, no new cardiac issues as per nursing staff Exam/Review of Systems Vital Signs Vitals Vital Signs Date Time Temp Pulse Resp B/P Pulse Ox O2 Delivery O2 Flow Rate FiO2 07/04/16 11:00 76 15 140/68 99 BIPAP 07/04/16 09:56 50 07/04/16 08:00 98.2 07/03/16 00:55 15.0 Intake and Output 07/03/16 07/03/16 07/04/16 15:00 23:00 07:00 Intake Total 50 ml 50 ml Output Total 1120 ml 1120 ml 925 ml Balance -1070 ml -1120 ml -875 ml Exam Awake, intermittently following commands, on BiPAP Head: normocephalic Respiratory: other (Coarse breath sounds bilaterally, no wheezing) Cardiovascular: other (S1-S2 heard), regular rate and rhythm Gastrointestinal: bowel sounds, non-tender, soft Extremities: edema, other (Venous stasis changes) Results Result Diagram: 07/04/16 0440 07/04/16 0430 Results 24 hrs Laboratory Tests Test 07/03/16 21:30 07/04/16 04:30 07/04/16 04:40 Blood Gas Specimen Source Blood arterial Arterial Blood Date Drawn 07/03/2016 9:45:12 PM Arterial Blood pH (Temp corrected) 7.483 H Arterial Blood pCO2 (Temp correct) 49.4 H Arterial Blood pO2 (Temp corrected) 84.2 Arterial Blood HCO3 36.2 H Arterial Blood Base Excess 11.2 H Arterial Blood Oxygen Saturation 95.6 Isac Test ACCEPTAB Arterial Blood Gas Puncture Site Right Radial Arterial Blood Carboxyhemoglobin 0.1 Arterial Blood Methemoglobin 0.2 Blood Gas A-a O2 Differential 216.7 H Oxyhemoglobin Percent 95.3 Total Hemoglobin 12.4 Blood Gas Temperature 37.0 Blood Gas Respiration Rate 18.0 Blood Gas Actual Respiration Rate 26 Blood Gas Modality MASK - BIPAP FiO2 50.0 Blood Gas Pressure Support 10 Blood Gas IPAP/EPAP Ratio 15/5 Blood Gas Notified Whom LEONAROD Blood Gas Notified Time 07/03/2016 9:59:13 PM Prothrombin Time 16.1 H Prothrombin Time Ratio 1.3 INR International Normalized Ratio 1.28 Activated Partial Thromboplast Time 27.1 Sodium Level 157 H Potassium Level 3.9 Chloride Level 108 Carbon Dioxide Level 37 H Anion Gap 16 Blood Urea Nitrogen 101 H Creatinine 2.39 H Glucose Level 115 Calcium Level 9.3 Phosphorus Level 4.4 Magnesium Level 2.7 H Total Bilirubin 1.0 Direct Bilirubin 0.00 Indirect Bilirubin 1.0 Aspartate Amino Transf (AST/SGOT) 64 #H Alanine Aminotransferase (ALT/SGPT) 100 H Alkaline Phosphatase 80 Ammonia 10 Total Protein 5.7 L Albumin 3.0 L Globulin 2.70 Albumin/Globulin Ratio 1.11 White Blood Count 13.8 H Red Blood Count 3.90 L Hemoglobin 12.1 L Hematocrit 39.2 L Mean Corpuscular Volume 100.5 Mean Corpuscular Hemoglobin 31.0 Mean Corpuscular Hemoglobin Concent 30.9 L Red Cell Distribution Width 14.7 H Platelet Count 87 L Mean Platelet Volume 11.6 H Neutrophils % 94.7 H Lymphocytes % 2.0 L Monocytes % 2.4 Eosinophils % 0.1 Basophils % 0.1 Nucleated Red Blood Cells % 0.0 Neutrophils # 13.1 H Lymphocytes # 0.3 L Monocytes # 0.3 Eosinophils # 0.0 Basophils # 0.0 Nucleated Red Blood Cells # 0.0 Medications Medications Current Medications Ondansetron HCl (Zofran Inj) 4 mg Q6H PRN IV NAUSEA AND/OR VOMITING; Start at 00:00 Pantoprazole 40 mg 40 mg DAILY@06 IV Last administered on 07/04/16 05:18; Admin Dose 40 MG; Start 06/24/16 at 06:00 Piperacillin Sod/ Tazobactam Sod (Zosyn 2.25gm/ 50ml (Pmx)) 50 ml @ 100 mls/hr Q8 IVPB Last administered on 07/04/16 05:18; Admin Dose 100 MLS/HR; Start 06/25 at 22:00 Thiamine HCl (Vitamin B1) 100 mg DAILY NGT Last administered on 07/02/16 09:54 ; Admin Dose 100 MG; Start 06/29/16 at 09:00; Status Future Hold Multivitamins (Thera-Plus) 5 ml DAILY NGT Last administered on 07/02/16 09:55; Admin Dose 5 ML; Start 06/29/16 at 09:00; Status Future Hold Folic Acid (Folic Acid) 1 mg DAILY NGT Last administered on 07/02/16 09:55; Admin Dose 1 MG; Start 06/29/16 at 09:00; Status Future Hold Hydralazine HCl (Apresoline) 10 mg Q8 NGT Last administered on 07/02/16 05:36; Admin Dose 10 MG; Start 06/29/16 at 14:00 Methylprednisolone Sodium Succinate (Solu-Medrol) 30 mg BID IV Last administered on 07/04/16 09:36; Admin Dose 30 MG; Start 06/29/16 at 21:00 Aspirin (Halfprin) 81 mg DAILY PO Last administered on 07/02/16 09:55; Admin Dose 81 MG; Start 07/01/16 at 09:30 Collagenase (Santyl) 1 applic DAILY TOP Last administered on 07/04/16 09:37; Admin Dose 1 APPLIC; Start 07/01/16 at 16:00 Hydralazine HCl 10 mg 10 mg Q6H PRN IV ELEVATED BLOOD PRESSURE; Start 07/02/16 at 17:00 Multivitamins 10 ml/Folic Acid 1 mg/Thiamine HCl 100 mg/Dextrose 1,011.2 ml @ 75 mls/hr DAILY@09 IV Last administered on 07/04/16 11:16; Admin Dose 75 MLS/HR ; Start 07/04/16 at 11:00 Dextrose (D5W) 1,000 ml @ 75 mls/hr [id number] IV ; Start 07/04/16 at 10:00 Harvey Kahn DO Jul 04, 2016 13:11
--- NOTE | 2016-07-04 17:29 | RADRPT ---
PROCEDURE: US Chest. CLINICAL INDICATION: Shortness of breath. TECHNIQUE: Ultrasound of the right side of the chest was performed in the axial and sagittal plane s. COMPARISON: Chest x-ray dated 07/03/2016. FINDINGS: There is a very small right pleural effusion. There is not enough fluid to safely aspirate. Thorac entesis was not performed. IMPRESSION: 1. Very small right pleural effusion. Thoracentesis not performed. RPTAT: QQ .Roverto Kim MD, MD Date Time Electronically viewed and signed by .Roverto Kim MD, MD on 07/04/2016 17:28 .R/
[2016-07-05] VITALS (34 sets, daily range): BP systolic 108–147; BP diastolic 63–92; PULSE 64–98; RESP 14–25
[2016-07-05] MEDS: DEXTROSE 5% 1,000 ML IV SCH ×2 (00:48→12:33)
[2016-07-05] MEDS: ALBUTEROL/IPRATROPIUM (NEB) 3 ML AMP HHN SCH ×6 (01:46→20:32)
[2016-07-05 04:41] LABS: ADD SCAN DIFF NO
[2016-07-05 05:15] LABS: ABNORMAL IP MESSAGE 1; BASOPHILS % 0.1 % (0.0-2.0); EOSINOPHILS % 0.1 % (0.0-7.0); HEMATOCRIT 39.7 % (42.0-52.0); HEMOGLOBIN 11.9 g/dl (14.0-18.0); LYMPHOCYTES # 0.3 10^3/ul (0.8-2.9); LYMPHOCYTES % 1.7 % (15.0-51.0); MEAN CORPUSCULAR HEMOGLOBIN 30.4 pg (29.0-33.0); MEAN CORPUSCULAR VOLUME 101.5 fl (82.0-101.0); MEAN PLATELET VOLUME 12.3 fl (7.4-10.4); MONOCYTE # 0.4 10^3/ul (0.3-0.9); MONOCYTES % 2.5 % (0.0-11.0); NEUTROPHIL # 14.7 10^3/ul (1.6-7.5); NEUTROPHILS % 94.8 % (39.0-77.0); PLATELET COUNT 89 10^3/UL (140-415); RED BLOOD COUNT 3.91 10^6/ul (4.70-6.10); RED CELL DISTRIBUTION WIDTH 14.9 % (11.5-14.5); WHITE BLOOD COUNT 15.5 10^3/ul (4.8-10.8)
[2016-07-05 05:29] LABS: CREATININE 2.63 mg/dl (0.61-1.24)
[2016-07-05 05:30] LABS: CALCIUM 9.5 mg/dl (8.4-10.2)
[2016-07-05 05:33] LABS: MAGNESIUM 2.6 mg/dl (1.7-2.5); PHOSPHORUS 3.8 mg/dl (2.5-4.9)
[2016-07-05] MEDS: PANTOPRAZOLE 40 MG INJ IV SCH (05:36)
[2016-07-05] MEDS: PIPER-TAZO 2.25 GM (PMX) 50 ML IVPB SCH ×3 (05:36→21:34)
[2016-07-05 05:52] LABS: POTASSIUM 2.9 mmol/L (3.5-5.1)
[2016-07-05] MEDS ORDERED: FUROSEMIDE 40 MG INJ IV SCH ×2 (06:00→09:00)
[2016-07-05] MEDS: POTASSIUM CHLORIDE 50 ML IVPB PRN ×3 (06:43→09:06)
[2016-07-05] MEDS: ASPIRIN (EC) 81 MG TAB PO SCH (08:25)
[2016-07-05] MEDS: METHYLPREDNISOLONE 40 MG INJ IV SCH (09:06)
--- NOTE | 2016-07-05 09:06 | PN ---
Date/Time of Note Date/Time of Note DATE: 07/05/16 TIME: 08:57 Assessment/Plan VTE Prophylaxis VTE Prophylaxis Intervention: SCD's Lines/Catheters IV Catheter Type (from Nrs): Peripheral IV Urinary Cath still in place: Yes Reason Cath still needed: other (indicate) (Confused, critically ill patient) Assessment/Plan Assessment/Plan [facility] 1. Hospital day 12 for this 76-year-old man admitted following PEA cardiac arrest at home with acute respiratory failure. Complicated by smoking-related [id number] obstructive pulmonary disease, and right lower & middle lobe infiltrate consistent with pneumonia. Possible aspiration pneumonia versus community-acquired pneumonia. Extubated three days ago but requiring BiPAP. Portable CXR this morning shows no pulmonary edema, very mild right pleural effusion tracking up chest wall. Indistinct charisse-diphragms bilaterally. * Hold diuresis, with continued strong net-negative fluid balance and good urinary output. * Continue Zosyn q8h (day 11). Anticipate discontinuation at 14-days * Nebulizer treatments * Change Solu-medrol to 40mg IV qAM tomorrow, with continued taper. 2. Nutrition. NG tube placement very difficult. * Attempt Dobhoff. * Consider G-tube placement today * Tube feedings essential to begin in next 24-hours. 3. Pulseless electrical activity cardiac arrest at home with EMS on site, status post resuscitation. Hemodynamically stable currently. Off all sedation. Repeat CT head with no acute findings. 2-D echo with findings of severe cardiomyopathy and EF 30 %. Severe Cardiomyopathy with systolic dysfunction and EF 30 %. * Hold further diuresis. Strong net negative balance the last five days. * Off beta-erika due to bradycardia and continuing afterload reduction. 4. CKD IV. Likely ATN. Renal US with signs of chronic disease. Urine output very good, with stable BUN at 101 but increased creatinine this morning to 2.63. * Continue Free Water at 75 cc an hour until NG tube placed. * Monitor volume status and renal function. * No KANDIS inhibitor or ARB for now 5. Likely cirrhosis with history of ethanol use per reports. Viral hepatitis panel negative. LFTs, coagulopathy and thrombocytopenia all improving. * Continue thiamine/folate/mvi IV until NG tube placed 6. Encephalopathy. Shakes his head to all questions. CT head negative. Probable anoxic injury. * Monitor ammonia levels (currently within normal limit) 7. Hypernatremia (157) is stable. * Requires free water administration 8. Thrombocytopenia -- stable, no bleeding. 9. Hypokalemia this morning (2.9) * Replace per ICU IV protocol. 10. PROPHYLAXIS: Pepcid for GI prophylaxis. * Ordered SCDs to lower extremities for DVT prophylaxis 11. DISPOSITION: FULL CODE until further information is obtained through social welfare research worker, niranjan Kimble, will be updated his phone number is [phone] seems to be the only living next of kin. Continue ICU level of care with BiPAP today, aggressive treatment for now. Mainor Mcnally MD PhD [phone] Subjective 24 Hr Interval Summary Free Text/Dictation No visitors this morning. Lying in bed on BiPAP. Shaking his head to all questions. Moves right arm freely. Exam/Review of Systems Vital Signs Vitals Vital Signs Date Time Temp Pulse Resp B/P Pulse Ox O2 Delivery O2 Flow Rate FiO2 07/05/16 08:49 86 100 45 07/05/16 08:00 97.6 20 125/67 BIPAP 07/03/16 00:55 15.0 Intake and Output 07/04/16 07/04/16 07/05/16 15:00 23:00 07:00 Intake Total 400 ml 650 ml 725 ml Output Total 975 ml 700 ml 285 ml Balance -575 ml -50 ml 440 ml Exam Constitutional: Frail, appears malnourished, non-verbal. Respiratory: diminished breath sounds at the bases bilaterally. Cardiovascular: Symmetric peripheral pulses, regular rhythm, normal rate. Gastrointestinal: Non-tender, soft, bowel sounds positive, mildly tympanic. Extremities: No arthritis, edema, clubbing or cyanosis 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: Confused-appearing, lethargic, nonverbal. Moving all extremities. No spasticity. Good eye tracking and eye contact. Skin: Severe diffuse ecchymosis, healing 4cm skin tear, left anterolateral mid- calf. Results Result Diagram: 07/05/16 0400 07/05/16 0400 Results 24 hrs Laboratory Tests Test 07/05/16 04:00 White Blood Count 15.5 H Red Blood Count 3.91 L Hemoglobin 11.9 L Hematocrit 39.7 L Mean Corpuscular Volume 101.5 H Mean Corpuscular Hemoglobin 30.4 Mean Corpuscular Hemoglobin Concent 30.0 L Red Cell Distribution Width 14.9 H Platelet Count 89 L Mean Platelet Volume 12.3 H Neutrophils % 94.8 H Lymphocytes % 1.7 L Monocytes % 2.5 Eosinophils % 0.1 Basophils % 0.1 Nucleated Red Blood Cells % 0.0 Neutrophils # 14.7 H Lymphocytes # 0.3 L Monocytes # 0.4 Eosinophils # 0.0 Basophils # 0.0 Nucleated Red Blood Cells # 0.0 Sodium Level 157 H Potassium Level 2.9 *L Chloride Level 103 Carbon Dioxide Level 39 H Anion Gap 18 H Blood Urea Nitrogen 101 H Creatinine 2.63 H Glucose Level 173 Calcium Level 9.5 Phosphorus Level 3.8 Magnesium Level 2.6 H Medications Medications Current Medications Ondansetron HCl (Zofran Inj) 4 mg Q6H PRN IV NAUSEA AND/OR VOMITING; Start at 00:00 Pantoprazole 40 mg 40 mg DAILY@06 IV Last administered on 07/05/16 05:36; Admin Dose 40 MG; Start 06/24/16 at 06:00 Piperacillin Sod/ Tazobactam Sod (Zosyn 2.25gm/ 50ml (Pmx)) 50 ml @ 100 mls/hr Q8 IVPB Last administered on 07/05/16 05:36; Admin Dose 100 MLS/HR; Start 06/25 at 22:00 Thiamine HCl (Vitamin B1) 100 mg DAILY NGT Last administered on 07/02/16 09:54 ; Admin Dose 100 MG; Start 06/29/16 at 09:00; Status Future Hold Multivitamins (Thera-Plus) 5 ml DAILY NGT Last administered on 07/02/16 09:55; Admin Dose 5 ML; Start 06/29/16 at 09:00; Status Future Hold Folic Acid (Folic Acid) 1 mg DAILY NGT Last administered on 07/02/16 09:55; Admin Dose 1 MG; Start 06/29/16 at 09:00; Status Future Hold Hydralazine HCl (Apresoline) 10 mg Q8 NGT Last administered on 07/02/16 05:36; Admin Dose 10 MG; Start 06/29/16 at 14:00 Methylprednisolone Sodium Succinate (Solu-Medrol) 30 mg BID IV Last administered on 07/04/16 20:58; Admin Dose 30 MG; Start 06/29/16 at 21:00 Aspirin (Halfprin) 81 mg DAILY PO Last administered on 07/02/16 09:55; Admin Dose 81 MG; Start 07/01/16 at 09:30 Collagenase (Santyl) 1 applic DAILY TOP Last administered on 07/04/16 09:37; Admin Dose 1 APPLIC; Start 07/01/16 at 16:00 Hydralazine HCl 10 mg 10 mg Q6H PRN IV ELEVATED BLOOD PRESSURE; Start 07/02/16 at 17:00 Multivitamins 10 ml/Folic Acid 1 mg/Thiamine HCl 100 mg/Dextrose 1,011.2 ml @ 75 mls/hr DAILY@09 IV Last administered on 07/04/16 11:16; Admin Dose 75 MLS/HR ; Start 07/04/16 at 11:00 Dextrose (D5W) 1,000 ml @ 75 mls/hr [id number] IV Last administered on 07/05/16 00:48; Admin Dose 75 MLS/HR; Start 07/04/16 at 10:00 BRITTANY MCNALLY M.D. Jul 05, 2016 09:06
[2016-07-05] MEDS: FOLIC ACID IV SCH (09:07)
[2016-07-05] MEDS: DEXTROSE 5% IV SCH (09:07)
[2016-07-05] MEDS: MULTIVITAMINS IV SCH (09:07)
[2016-07-05] MEDS: THIAMINE IV SCH (09:07)
[2016-07-05] MEDS: COLLAGENASE 30 GM TUBE TOP SCH (09:07)
[2016-07-05 09:15] LABS: AADO2 Arterial 177.3 mmHg (7.0-24.0); Allen Test ACCEPTAB; Arterial Base Excess 13.7 mmol/L (-3.0-3); Arterial COHb 0.4 % (0.0-3.0); Arterial HCO3 39.1 mmol/L (22.0-26.0); Arterial MetHb 0.4 % (0.0-1.5); Arterial Total Hemglobin 12.3 g/dl (12.0-18.0); Blood Gas IEPAP 15/5; Blood Gas PS 10; MODE MASK - BIPAP
--- NOTE | 2016-07-05 11:06 | RADRPT ---
AMENDMENT: 07/05/2016 11:07:13 AM Roverto Kim Md Correction: IMPRESSION: 1. No change from 07/03/2016. PROCEDURE: XR Chest. CLINICAL INDICATION: Shortness of breath. TECHNIQUE: Single frontal view. COMPARISON: 07/03/2016. FINDINGS: There is bilateral pulmonary air space disease in the mid and lower lung zones consistent with atele ctasis or pneumonia. The heart is enlarged. There is calcification in the aorta consistent with atherosclerosis. There is a moderate right pleural effusion and small left pleural effusion. There is no pneumothorax. IMPRESSION: 1. No change from 07/03/1969. RPTAT: QQ .Roverto Kim MD, MD Date Time Electronically viewed and signed by .Roverto Kim MD, MD on 07/05/2016 11:07 .R/
[2016-07-05] MEDS: ASPIRIN 300 MG SUPP PR SCH (13:44)
--- NOTE | 2016-07-05 17:19 | CONS ---
Date/Time of Note Date/Time of Note DATE: 07/05/16 TIME: 17:17 Consult Date/Type/Reason Admit Date/Time Jun 23, 2016 at 22:42 Type of Consultation: Pulm/CCM Subjective No events; remains on NiPPV via BiPAP. Objective Vital Signs Date Time Temp Pulse Resp B/P Pulse Ox O2 Delivery O2 Flow Rate FiO2 07/05/16 17:00 87 18 109/69 99 BIPAP 07/05/16 16:00 97.8 07/05/16 14:28 45 07/03/16 00:55 15.0 Intake and Output 07/04/16 07/04/16 07/05/16 15:00 23:00 07:00 Intake Total 400 ml 650 ml 725 ml Output Total 975 ml 700 ml 285 ml Balance -575 ml -50 ml 440 ml Exam HEENT: Increased JVD; ET tube in place CARDIAC: S1, S2, 2/6 systolic murmur CHEST: Diminished air entry bilaterally with occ rhonchi and rales ABDOMEN: Mildly distended. No bowel sounds. EXTREMITIES: No cyanosis, clubbing edema +1 Results/Medications Result Diagram: 07/05/16 0400 07/05/16 0400 Results 24 hrs Laboratory Tests Test 07/05/16 04:00 07/05/16 07:00 White Blood Count 15.5 H Red Blood Count 3.91 L Hemoglobin 11.9 L Hematocrit 39.7 L Mean Corpuscular Volume 101.5 H Mean Corpuscular Hemoglobin 30.4 Mean Corpuscular Hemoglobin Concent 30.0 L Red Cell Distribution Width 14.9 H Platelet Count 89 L Mean Platelet Volume 12.3 H Neutrophils % 94.8 H Lymphocytes % 1.7 L Monocytes % 2.5 Eosinophils % 0.1 Basophils % 0.1 Nucleated Red Blood Cells % 0.0 Neutrophils # 14.7 H Lymphocytes # 0.3 L Monocytes # 0.4 Eosinophils # 0.0 Basophils # 0.0 Nucleated Red Blood Cells # 0.0 Sodium Level 157 H Potassium Level 2.9 *L Chloride Level 103 Carbon Dioxide Level 39 H Anion Gap 18 H Blood Urea Nitrogen 101 H Creatinine 2.63 H Glucose Level 173 Calcium Level 9.5 Phosphorus Level 3.8 Magnesium Level 2.6 H Blood Gas Specimen Source Blood arterial Arterial Blood Date Drawn 07/05/2016 8:55:24 AM Arterial Blood pH (Temp corrected) 7.487 H Arterial Blood pCO2 (Temp correct) 52.9 H Arterial Blood pO2 (Temp corrected) 83.4 Arterial Blood HCO3 39.1 H Arterial Blood Base Excess 13.7 H Arterial Blood Oxygen Saturation 95.8 Isac Test ACCEPTAB Arterial Blood Gas Puncture Site Right Radial Arterial Blood Carboxyhemoglobin 0.4 Arterial Blood Methemoglobin 0.4 Blood Gas A-a O2 Differential 177.3 H Oxyhemoglobin Percent 95.0 Total Hemoglobin 12.3 Blood Gas Temperature 37.0 Blood Gas Respiration Rate 18.0 Blood Gas Actual Respiration Rate 18 Blood Gas Modality MASK - BIPAP FiO2 45.0 Blood Gas Pressure Support 10 Blood Gas IPAP/EPAP Ratio 15 Blood Gas Notified Whom DT Blood Gas Notified Time 07/05/2016 9:15:03 AM Medications Current Medications Ondansetron HCl (Zofran Inj) 4 mg Q6H PRN IV NAUSEA AND/OR VOMITING; Start at 00:00 Pantoprazole 40 mg 40 mg DAILY@06 IV Last administered on 07/05/16 05:36; Admin Dose 40 MG; Start 06/24/16 at 06:00 Piperacillin Sod/ Tazobactam Sod (Zosyn 2.25gm/ 50ml (Pmx)) 50 ml @ 100 mls/hr Q8 IVPB Last administered on 07/05/16 13:44; Admin Dose 100 MLS/HR; Start 06/25 at 22:00 Thiamine HCl (Vitamin B1) 100 mg DAILY NGT Last administered on 07/02/16 09:54 ; Admin Dose 100 MG; Start 06/29/16 at 09:00; Status Future Hold Multivitamins (Thera-Plus) 5 ml DAILY NGT Last administered on 07/02/16 09:55; Admin Dose 5 ML; Start 06/29/16 at 09:00; Status Future Hold Folic Acid (Folic Acid) 1 mg DAILY NGT Last administered on 07/02/16 09:55; Admin Dose 1 MG; Start 06/29/16 at 09:00; Status Future Hold Hydralazine HCl (Apresoline) 10 mg Q8 NGT Last administered on 07/02/16 05:36; Admin Dose 10 MG; Start 06/29/16 at 14:00 Aspirin (Halfprin) 81 mg DAILY PO Last administered on 07/02/16 09:55; Admin Dose 81 MG; Start 07/01/16 at 09:30; Status Future Hold Collagenase (Santyl) 1 applic DAILY TOP Last administered on 07/05/16 09:07; Admin Dose 1 APPLIC; Start 07/01/16 at 16:00 Hydralazine HCl 10 mg 10 mg Q6H PRN IV ELEVATED BLOOD PRESSURE; Start 07/02/16 at 17:00 Multivitamins 10 ml/Folic Acid 1 mg/Thiamine HCl 100 mg/Dextrose 1,011.2 ml @ 75 mls/hr DAILY@09 IV Last administered on 07/05/16 09:07; Admin Dose 75 MLS/HR ; Start 07/04/16 at 11:00 Dextrose (D5W) 1,000 ml @ 75 mls/hr [id number] IV Last administered on 07/05/16 00:48; Admin Dose 75 MLS/HR; Start 07/04/16 at 10:00 Methylprednisolone Sodium Succinate (Solu-Medrol) 40 mg QAM IV ; Start 07/06/16 at 09:00 Aspirin (Aspirin) 300 mg DAILY WA Last administered on 07/05/16 13:44; Admin Dose 300 MG; Start 07/05/16 at 12:30 Assessment/Plan Additional Assessment/Plan IMPRESSION: 1. Cardiopulmonary arrest, likely secondary to acute respiratory failure. 2. CHF--with severe ischemic cardiomyopathy 3. Advanced COPD 4. Non-oliguric Renal Failure 5. Encephalopathy RECS: 1. Continue NiPPV via BiPAP 2. Taper CS 3. BD's/CPT 4. Continue diuresis 5. Goals of care discussion with grandson--> next of kin 6. DVT and GI prophylaxis 35 min cc time ANDRY VALDOVINOS MD Jul 05, 2016 17:19
[2016-07-06] VITALS (29 sets, daily range): BP systolic 105–139; BP diastolic 56–79; PULSE 57–90; RESP 14–27
[2016-07-06] MEDS: ALBUTEROL/IPRATROPIUM (NEB) 3 ML AMP HHN SCH ×6 (00:46→20:06)
[2016-07-06] MEDS: DEXTROSE 5% 1,000 ML IV SCH ×2 (01:47→15:20)
[2016-07-06 05:04] LABS: AADO2 Arterial 199.1 mmHg (7.0-24.0); Arterial Base Excess 15.4 mmol/L (-3.0-3); Arterial COHb 0.4 % (0.0-3.0); Arterial Fraction of Oxyhgb 91.5 % (93.0-99.0); Arterial HCO3 40.6 mmol/L (22.0-26.0); Arterial MetHb 0.2 % (0.0-1.5); Arterial Total Hemglobin 11.4 g/dl (12.0-18.0); Blood Gas IEPAP 15/5; MODE MASK - BIPAP
[2016-07-06 05:48] LABS: ADD SCAN DIFF NO
[2016-07-06 05:51] LABS: ABNORMAL IP MESSAGE 1; BASOPHILS % 0.1 % (0.0-2.0); EOSINOPHILS % 0.3 % (0.0-7.0); HEMATOCRIT 34.8 % (42.0-52.0); HEMOGLOBIN 10.6 g/dl (14.0-18.0); LYMPHOCYTES # 0.5 10^3/ul (0.8-2.9); LYMPHOCYTES % 4.1 % (15.0-51.0); MEAN CORPUSCULAR HEMOGLOBIN 30.8 pg (29.0-33.0); MEAN CORPUSCULAR HGB CONC 30.5 g/dl (32.0-37.0); MEAN CORPUSCULAR VOLUME 101.2 fl (82.0-101.0); MEAN PLATELET VOLUME 12.4 fl (7.4-10.4); MONOCYTE # 0.5 10^3/ul (0.3-0.9); NEUTROPHIL # 10.6 10^3/ul (1.6-7.5); NEUTROPHILS % 90.4 % (39.0-77.0); PLATELET COUNT 83 10^3/UL (140-415); RED BLOOD COUNT 3.44 10^6/ul (4.70-6.10); RED CELL DISTRIBUTION WIDTH 14.7 % (11.5-14.5); WHITE BLOOD COUNT 11.7 10^3/ul (4.8-10.8)
[2016-07-06] MEDS: PANTOPRAZOLE 40 MG INJ IV SCH (06:00)
[2016-07-06] MEDS: PIPER-TAZO 2.25 GM (PMX) 50 ML IVPB SCH ×3 (06:00→21:59)
[2016-07-06 06:34] LABS: CREATININE 2.37 mg/dl (0.61-1.24)
[2016-07-06] MEDS: POTASSIUM CHLORIDE 50 ML IVPB PRN ×3 (06:34→09:23)
[2016-07-06 06:35] LABS: CALCIUM 9.4 mg/dl (8.4-10.2)
[2016-07-06] MEDS: DEXTROSE 5% IV SCH ×2 (09:00→19:20)
[2016-07-06] MEDS: MULTIVITAMINS IV SCH ×2 (09:00→19:20)
[2016-07-06] MEDS: FOLIC ACID IV SCH ×2 (09:00→19:20)
[2016-07-06] MEDS: THIAMINE IV SCH ×2 (09:00→19:20)
[2016-07-06] MEDS: METHYLPREDNISOLONE 40 MG INJ IV SCH (09:23)
[2016-07-06] MEDS: COLLAGENASE 30 GM TUBE TOP SCH (09:24)
--- NOTE | 2016-07-06 09:48 | PN ---
Date/Time of Note Date/Time of Note DATE: 07/06/16 TIME: 09:23 Assessment/Plan VTE Prophylaxis VTE Prophylaxis Intervention: SCD's Lines/Catheters IV Catheter Type (from Nrsg): Peripheral IV Urinary Cath still in place: Yes Reason Cath still needed: other (indicate) (Critical illness) Assessment/Plan Assessment/Plan [facility] 1. Hospital day 13 for this 76-year-old man admitted 06/24/16 following PEA cardiac arrest at home with acute respiratory failure. Complicated by smoking- related [id number] obstructive pulmonary disease, and right lower & middle lobe infiltrate consistent with pneumonia. Portable CXR yesterday was unchanged. Extubated four days ago but requiring BiPAP. ABG worse this morning , with low pO2 despite continued BiPAP with FiO2 of 40%: pH 7.507, pO2 62, pCO2 52. Could this have been a venous gas? * Repeat ABG now. * Hold diuresis, with continued strong net-negative fluid balance and good urinary output (50cc/hr). * Continue Zosyn q8h (day ). * Nebulizer treatments * Continue Solu-medrol at 40mg IV qAM, started this morning, given the lack of progress in work of breathing--though no wheezing heard now on exam. 2. Nutrition. Attempt at Dobhoff catheter placement again this morning x 2 was unsuccessful. * Consider G-tube placement today by IR. If Radiology can do it without intubating or endoscopy, I think we won't be stuck with an inability to extubate the patient. * Tube feedings essential to begin in next 24-hours. 3. Pulseless electrical activity cardiac arrest at home with EMS on site, status post resuscitation. Hemodynamically stable currently. Off all sedation. Repeat CT head with no acute findings. 2-D echo with findings of severe cardiomyopathy and EF 30 %. Severe Cardiomyopathy with systolic dysfunction and EF 30 %. * Hold further diuresis. Strong net negative balance the last five days. * Off beta-erika due to bradycardia and continuing afterload reduction. 4. CKD IV. Likely ATN. Renal US with signs of chronic disease. Urine output very good, with stable BUN improving creatinine this morning (from 2.63 down to 2.37). * Continue Free Water at 75 cc an hour until NG tube placed. * Monitor volume status and renal function. * No KANDIS inhibitor or ARB for now 5. Likely cirrhosis with history of ethanol use per reports. Viral hepatitis panel negative. LFTs, coagulopathy and thrombocytopenia all improving. * Continue thiamine/folate/mvi IV until NG tube placed 6. Encephalopathy. Shakes his head to all questions. CT head negative. Probable anoxic injury. * Monitor ammonia levels (currently within normal limit) 7. Hypernatremia improved this morning, from 157 to 152. * Continued free water administration 8. Thrombocytopenia -- stable, no bleeding, apart from his severe ecchymosis. 9. Persistent hypokalemia this morning (3.0), despite no additional diuresis. * Replaced per ICU IV protocol. 10. PROPHYLAXIS: Pepcid for GI prophylaxis. * Ordered SCDs to lower extremities for DVT prophylaxis 11. DISPOSITION: FULL CODE until further information is obtained through social director, niranjan Kimble, will be updated his phone number is [phone]. Continue ICU level of care with BiPAP today, aggressive treatment for now. Mainor Mcnally MD PhD [phone] Subjective 24 Hr Interval Summary Free Text/Dictation No visitors at bedside this morning. Lying in bed on BiPAP. Able to make eye contact. Shaking his head to all questions, and not able to nod when asked. Seems less alert toady, with less movement of his arms. Exam/Review of Systems Vital Signs Vitals Vital Signs Date Time Temp Pulse Resp B/P Pulse Ox O2 Delivery O2 Flow Rate FiO2 07/06/16 08:33 59 99 40 07/06/16 07:00 14 118/67 BIPAP 07/06/16 04:00 97.6 07/03/16 00:55 15.0 Intake and Output 07/05/16 07/05/16 07/06/16 14:59 22:59 06:59 Intake Total 700 ml 350 ml Output Total 280 ml 260 ml 320 ml Balance 420 ml 90 ml -320 ml Exam Constitutional: Frail, cachetic-appearing, non-verbal on BiPAP. Respiratory: Poor breath sounds at the bases bilaterally, but no wheezing or crackles heard. Cardiovascular: Symmetric peripheral pulses, regular rhythm, normal rate. Gastrointestinal: Non-tender, soft, bowel sounds positive, mildly tympanic. Extremities: No arthritis. Severe muscle atrophy. 2+ pitting pedal edema, but no clubbing or cyanosis 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: Lethargic, nonverbal. Moving all extremities. No spasticity. Good eye tracking and eye contact. Skin: Severe diffuse ecchymosis, healing 4cm skin tear on the left anterolateral mid-calf. Results Result Diagram: 07/06/16 0510 07/06/16 0510 Results 24 hrs Laboratory Tests Test 07/06/16 05:00 07/06/16 05:10 Blood Gas Specimen Source Blood arterial Arterial Blood Date Drawn 07/06/2016 4:58:45 AM Arterial Blood pH (Temp corrected) 7.507 H Arterial Blood pCO2 (Temp correct) 52.4 H Arterial Blood pO2 (Temp corrected) 62.1 L Arterial Blood HCO3 40.6 *H Arterial Blood Base Excess 15.4 H Arterial Blood Oxygen Saturation 92.1 L Isac Test N/A Arterial Blood Gas Puncture Site Right Brachial Arterial Blood Carboxyhemoglobin 0.4 Arterial Blood Methemoglobin 0.2 Blood Gas A-a O2 Differential 199.1 H Oxyhemoglobin Percent 91.5 L Total Hemoglobin 11.4 L Blood Gas Temperature 37.0 Blood Gas Respiration Rate 18.0 Blood Gas Actual Respiration Rate 18 Blood Gas Modality MASK - BIPAP FiO2 45.0 Blood Gas Tidal Volume 641.0 Blood Gas IPAP/EPAP Ratio 15/5 Blood Gas Critical Value Read Back ELEAZAR LANDAVERDE Blood Gas Notified Whom BR Blood Gas Notified Time 07/06/2016 5:04:10 AM White Blood Count 11.7 #H Red Blood Count 3.44 L Hemoglobin 10.6 L Hematocrit 34.8 L Mean Corpuscular Volume 101.2 H Mean Corpuscular Hemoglobin 30.8 Mean Corpuscular Hemoglobin Concent 30.5 L Red Cell Distribution Width 14.7 H Platelet Count 83 L Mean Platelet Volume 12.4 H Neutrophils % 90.4 H Lymphocytes % 4.1 L Monocytes % 4.0 Eosinophils % 0.3 Basophils % 0.1 Nucleated Red Blood Cells % 0.0 Neutrophils # 10.6 H Lymphocytes # 0.5 L Monocytes # 0.5 Eosinophils # 0.0 Basophils # 0.0 Nucleated Red Blood Cells # 0.0 Sodium Level 152 H Potassium Level 3.0 L Chloride Level 103 Carbon Dioxide Level 39 H Anion Gap 13 Blood Urea Nitrogen 98 H Creatinine 2.37 H Glucose Level 137 Calcium Level 9.4 Medications Medications Current Medications Ondansetron HCl (Zofran Inj) 4 mg Q6H PRN IV NAUSEA AND/OR VOMITING; Start at 00:00 Pantoprazole 40 mg 40 mg DAILY@06 IV Last administered on 07/06/16 06:00; Admin Dose 40 MG; Start 06/24/16 at 06:00 Piperacillin Sod/ Tazobactam Sod (Zosyn 2.25gm/ 50ml (Pmx)) 50 ml @ 100 mls/hr Q8 IVPB Last administered on 07/06/16 06:00; Admin Dose 100 MLS/HR; Start 06/25 at 22:00 Thiamine HCl (Vitamin B1) 100 mg DAILY NGT Last administered on 07/02/16 09:54 ; Admin Dose 100 MG; Start 06/29/16 at 09:00; Status Future Hold Multivitamins (Thera-Plus) 5 ml DAILY NGT Last administered on 07/02/16 09:55; Admin Dose 5 ML; Start 06/29/16 at 09:00; Status Future Hold Folic Acid (Folic Acid) 1 mg DAILY NGT Last administered on 07/02/16 09:55; Admin Dose 1 MG; Start 06/29/16 at 09:00; Status Future Hold Hydralazine HCl (Apresoline) 10 mg Q8 NGT Last administered on 07/02/16 05:36; Admin Dose 10 MG; Start 06/29/16 at 14:00 Aspirin (Halfprin) 81 mg DAILY PO Last administered on 07/02/16 09:55; Admin Dose 81 MG; Start 07/01/16 at 09:30; Status Future Hold Collagenase (Santyl) 1 applic DAILY TOP Last administered on 07/05/16 09:07; Admin Dose 1 APPLIC; Start 07/01/16 at 16:00 Hydralazine HCl 10 mg 10 mg Q6H PRN IV ELEVATED BLOOD PRESSURE; Start 07/02/16 at 17:00 Multivitamins 10 ml/Folic Acid 1 mg/Thiamine HCl 100 mg/Dextrose 1,011.2 ml @ 75 mls/hr DAILY@09 IV Last administered on 07/05/16 09:07; Admin Dose 75 MLS/HR ; Start 07/04/16 at 11:00 Dextrose (D5W) 1,000 ml @ 75 mls/hr [id number] IV Last administered on 07/06/16 01:47; Admin Dose 75 MLS/HR; Start 07/04/16 at 10:00 Methylprednisolone Sodium Succinate (Solu-Medrol) 40 mg QAM IV ; Start 07/06/16 at 09:00 Aspirin (Aspirin) 300 mg DAILY NM Last administered on 07/05/16 13:44; Admin Dose 300 MG; Start 07/05/16 at 12:30 BRITTANY MCNALLY M.D. Jul 06, 2016 09:41
[2016-07-06] MEDS: ASPIRIN 300 MG SUPP PR SCH (09:53)
[2016-07-06 10:34] LABS: AADO2 Arterial 164.9 mmHg (7.0-24.0); Arterial Base Excess 14.8 mmol/L (-3.0-3); Arterial COHb 0.4 % (0.0-3.0); Arterial Fraction of Oxyhgb 90.1 % (93.0-99.0); Arterial HCO3 40.1 mmol/L (22.0-26.0); Arterial MetHb 0.2 % (0.0-1.5); Arterial Total Hemglobin 11.7 g/dl (12.0-18.0); Blood Gas IEPAP 15/5; MODE BIPAP
--- NOTE | 2016-07-06 14:17 | CONS ---
Date/Time of Note Date/Time of Note DATE: 07/06/16 TIME: 14:11 Consult Date/Type/Reason Admit Date/Time Jun 23, 2016 at 22:42 Type of Consultation: Pulm/CCM Subjective Remains on BiPAP with 505 FiO2. Objective Vital Signs Date Time Temp Pulse Resp B/P Pulse Ox O2 Delivery O2 Flow Rate FiO2 07/06/16 13:14 82 100 50 07/06/16 13:00 18 133/74 BIPAP 07/06/16 12:00 98.0 07/03/16 00:55 15.0 Intake and Output 07/05/16 07/05/16 07/06/16 15:00 23:00 07:00 Intake Total 750 ml 225 ml 75 ml Output Total 315 ml 265 ml 330 ml Balance 435 ml -40 ml -255 ml Exam HEENT: Full FM BiPAP mask in place. CARDIAC: S1, S2, 2/6 systolic murmur CHEST: Diminished air entry bilaterally with occ rhonchi and rales ABDOMEN: Mildly distended. No bowel sounds. EXTREMITIES: No cyanosis, clubbing edema +1 Results/Medications Result Diagram: 07/06/16 0510 07/06/16 0510 Results 24 hrs Laboratory Tests Test 07/06/16 05:00 07/06/16 05:10 07/06/16 09:39 Blood Gas Specimen Source Blood arterial Blood arterial Arterial Blood Date Drawn 07/06/2016 4:58:45 AM 07/06/2016 10:16:00 AM Arterial Blood pH (Temp corrected) 7.507 H 7.499 H Arterial Blood pCO2 (Temp correct) 52.4 H 52.7 H Arterial Blood pO2 (Temp corrected) 62.1 L 59.7 L Arterial Blood HCO3 40.6 *H 40.1 *H Arterial Blood Base Excess 15.4 H 14.8 H Arterial Blood Oxygen Saturation 92.1 L 90.6 L Isac Test N/A N/A Arterial Blood Gas Puncture Site Right Brachial Right Brachial Arterial Blood Carboxyhemoglobin 0.4 0.4 Arterial Blood Methemoglobin 0.2 0.2 Blood Gas A-a O2 Differential 199.1 H 164.9 H Oxyhemoglobin Percent 91.5 L 90.1 L Total Hemoglobin 11.4 L 11.7 L Blood Gas Temperature 37.0 37.0 Blood Gas Respiration Rate 18.0 Blood Gas Actual Respiration Rate 18 18 Blood Gas Modality MASK - BIPAP BIPAP FiO2 45.0 40.0 Blood Gas Tidal Volume 641.0 Blood Gas IPAP/EPAP Ratio 11/08 11/08 Blood Gas Critical Value Read Back ELEAZAR LANDAVERDE RN Blood Gas Notified Whom BR DHOLT Blood Gas Notified Time 07/06/2016 5:04:10 AM 07/06/2016 10:27:45 AM White Blood Count 11.7 #H Red Blood Count 3.44 L Hemoglobin 10.6 L Hematocrit 34.8 L Mean Corpuscular Volume 101.2 H Mean Corpuscular Hemoglobin 30.8 Mean Corpuscular Hemoglobin Concent 30.5 L Red Cell Distribution Width 14.7 H Platelet Count 83 L Mean Platelet Volume 12.4 H Neutrophils % 90.4 H Lymphocytes % 4.1 L Monocytes % 4.0 Eosinophils % 0.3 Basophils % 0.1 Nucleated Red Blood Cells % 0.0 Neutrophils # 10.6 H Lymphocytes # 0.5 L Monocytes # 0.5 Eosinophils # 0.0 Basophils # 0.0 Nucleated Red Blood Cells # 0.0 Sodium Level 152 H Potassium Level 3.0 L Chloride Level 103 Carbon Dioxide Level 39 H Anion Gap 13 Blood Urea Nitrogen 98 H Creatinine 2.37 H Glucose Level 137 Calcium Level 9.4 Medications Current Medications Ondansetron HCl (Zofran Inj) 4 mg Q6H PRN IV NAUSEA AND/OR VOMITING; Start at 00:00 Pantoprazole 40 mg 40 mg DAILY@06 IV Last administered on 07/06/16 06:00; Admin Dose 40 MG; Start 06/24/16 at 06:00 Piperacillin Sod/ Tazobactam Sod (Zosyn 2.25gm/ 50ml (Pmx)) 50 ml @ 100 mls/hr Q8 IVPB Last administered on 07/06/16 06:00; Admin Dose 100 MLS/HR; Start 06/25 at 22:00 Thiamine HCl (Vitamin B1) 100 mg DAILY NGT Last administered on 07/02/16 09:54 ; Admin Dose 100 MG; Start 06/29/16 at 09:00; Status Future Hold Multivitamins (Thera-Plus) 5 ml DAILY NGT Last administered on 07/02/16 09:55; Admin Dose 5 ML; Start 06/29/16 at 09:00; Status Future Hold Folic Acid (Folic Acid) 1 mg DAILY NGT Last administered on 07/02/16 09:55; Admin Dose 1 MG; Start 06/29/16 at 09:00; Status Future Hold Hydralazine HCl (Apresoline) 10 mg Q8 NGT Last administered on 07/02/16 05:36; Admin Dose 10 MG; Start 06/29/16 at 14:00 Aspirin (Halfprin) 81 mg DAILY PO Last administered on 07/02/16 09:55; Admin Dose 81 MG; Start 07/01/16 at 09:30; Status Future Hold Collagenase (Santyl) 1 applic DAILY TOP Last administered on 07/06/16 09:24; Admin Dose 1 APPLIC; Start 07/01/16 at 16:00 Hydralazine HCl 10 mg 10 mg Q6H PRN IV ELEVATED BLOOD PRESSURE; Start 07/02/16 at 17:00 Multivitamins 10 ml/Folic Acid 1 mg/Thiamine HCl 100 mg/Dextrose 1,011.2 ml @ 75 mls/hr DAILY@09 IV Last administered on 07/05/16 09:07; Admin Dose 75 MLS/HR ; Start 07/04/16 at 11:00 Dextrose (D5W) 1,000 ml @ 75 mls/hr [id number] IV Last administered on 07/06/16 01:47; Admin Dose 75 MLS/HR; Start 07/04/16 at 10:00 Methylprednisolone Sodium Succinate (Solu-Medrol) 40 mg QAM IV Last administered on 07/06/16 09:23; Admin Dose 40 MG; Start 07/06/16 at 09:00 Aspirin (Aspirin) 300 mg DAILY CA Last administered on 07/06/16 09:53; Admin Dose 300 MG; Start 07/05/16 at 12:30 Assessment/Plan Additional Assessment/Plan IMPRESSION: 1. Chronic Hypercapnic and Hypoxemic Resp Failure--now on post extubation BiPAP for 4 + days 2. CHF--with severe ischemic cardiomyopathy 3. Advanced COPD 4. Non-oliguric Renal Failure 5. Encephalopathy RECS: 1. Transition to venti-mask--> tolerate SpO2 86-90% 2. Taper CS 3. BD's/CPT 4. Continue diuresis 5. Await family meeting 6. DVT and GI prophylaxis 35 min cc time ANDRY VALDOVINOS MD Jul 06, 2016 14:17
[2016-07-07] VITALS (24 sets, daily range): BP systolic 105–150; BP diastolic 55–93; PULSE 55–87; RESP 17–26
[2016-07-07] MEDS: ALBUTEROL/IPRATROPIUM (NEB) 3 ML AMP HHN SCH ×6 (00:29→19:53)
[2016-07-07 06:29] LABS: ABNORMAL IP MESSAGE 1; ADD SCAN DIFF NO; EOSINOPHILS # 0.1 10^3/ul (0.0-0.5); HEMATOCRIT 37.4 % (42.0-52.0); HEMOGLOBIN 11.2 g/dl (14.0-18.0); LYMPHOCYTES # 0.5 10^3/ul (0.8-2.9); LYMPHOCYTES % 5.1 % (15.0-51.0); MEAN CORPUSCULAR HGB CONC 29.9 g/dl (32.0-37.0); MEAN CORPUSCULAR VOLUME 100.3 fl (82.0-101.0); MEAN PLATELET VOLUME 12.2 fl (7.4-10.4); MONOCYTE # 0.3 10^3/ul (0.3-0.9); MONOCYTES % 3.3 % (0.0-11.0); NEUTROPHIL # 8.1 10^3/ul (1.6-7.5); NEUTROPHILS % 90.2 % (39.0-77.0); PLATELET COUNT 80 10^3/UL (140-415); RED BLOOD COUNT 3.73 10^6/ul (4.70-6.10); RED CELL DISTRIBUTION WIDTH 14.6 % (11.5-14.5)
[2016-07-07] MEDS: PIPER-TAZO 2.25 GM (PMX) 50 ML IVPB SCH ×3 (06:32→21:08)
[2016-07-07] MEDS: PANTOPRAZOLE 40 MG INJ IV SCH (06:32)
[2016-07-07 06:46] LABS: ALBUMIN 2.9 g/dl (3.3-4.9); POTASSIUM 3.1 mmol/L (3.5-5.1)
[2016-07-07 06:48] LABS: BILIRUBIN,INDIRECT 1.3 mg/dl (0-1.1); BILIRUBIN,TOTAL 1.3 mg/dl (0.2-1.3); CREATININE 1.91 mg/dl (0.61-1.24)
[2016-07-07 06:49] LABS: ALBUMIN/GLOBULIN RATIO 0.96; CALCIUM 9.4 mg/dl (8.4-10.2); TOTAL PROTEIN 5.9 g/dl (6.1-8.1)
[2016-07-07 06:50] LABS: MAGNESIUM 2.6 mg/dl (1.7-2.5)
--- NOTE | 2016-07-07 08:17 | PN ---
DATE: 07/06/2016 CARDIOLOGY FOLLOWUP SUBJECTIVE: Discussed with the staff. Rhythm strip was reviewed. The patient remains in respirato ry distress and hypoxemic. He was more lethargic today. Rhythm strip was reviewed and discussed wit h the staff. The patient remains in sinus. MEDICATIONS: Reviewed. PHYSICAL EXAMINATION: VITAL SIGNS: Temperature 98, heart rate of 82, blood pressure 133/74, respiration rate of 18, satur ating 99% on BiPAP. HEENT: Normocephalic, atraumatic, in respiratory distress on BiPAP. CARDIOVASCULAR: Regular rate and rhythm. PULMONARY: With diffuse rhonchi. GASTROINTESTINAL: Soft, nontender. EXTREMITIES: Positive diffuse edema. NEUROLOGIC: Lethargic. LABORATORY: WBC 11.7, hemoglobin 11.6, platelets of 83. Sodium 152, potassium 3, BUN of 98, creati nine 2.37, glucose of 137. ABG shows pH of 7.49, PaCO2 of 52, pO2 of 59, bicarbonate of 40. ASSESSMENT AND PLAN: 1. Severe hypoxemic respiratory failure ____ status post cardiopulmonary arrest ____ secondary to respiratory failure. 2. Congestive heart failure associated with severe cardiomyopathy. 3. History of severe chronic obstructive pulmonary disease. 4. Renal failure. 5. Encephalopathy. 6. Lethargy. RECOMMENDATIONS: Diuresis as per ID. Electrolytes including potassium level. BiPAP will be continu ed and will defer to pulmonary for management. Blood pressure currently remains stable. Aspirin wi ll be given rectally for the time being until he can tolerate p.o. medication. Continue with the [facility] care. More than 36 minutes was spent in management of this patient excluding procedures. Dictated By: MARVIN MARSH MD AV/NTS Conf#: [id number] DID#: [id number] CC: BRITTANY SUBRAMANIAN MD;*EndCC*
[2016-07-07] MEDS: ASPIRIN 300 MG SUPP PR SCH (08:45)
[2016-07-07] MEDS: METHYLPREDNISOLONE 40 MG INJ IV SCH (08:45)
--- NOTE | 2016-07-07 08:53 | PN ---
DATE: 07/05/2016 CARDIOLOGY FOLLOWUP PROGRESS NOTE one behalf of Dr. Kahn. SUBJECTIVE: The patient remains on BiPAP in ICU. Still in respiratory distress; however, the BiPAP. He is still confused and unable to provide history. Discussed with the staff. Old chart reviewed. MEDICATIONS: Reviewed. PHYSICAL EXAMINATION: VITAL SIGNS: Temperature 97.6, heart rate of 87, blood pressure 137/80, respiratory rate of 21, sat urating 100%. HEENT: Normocephalic, atraumatic. On BiPAP in respiratory distress. CARDIOVASCULAR: Regular rate and rhythm. Systolic murmur. PULMONARY: With diffuse rhonchi. GASTROINTESTINAL: Soft, nontender. EXTREMITIES: Positive edema. DERMATOLOGIC: Diffuse ecchymoses. NEUROLOGIC: Awake, however, appears to be confused. LABORATORY DATA: Sodium 157, potassium 2.9, BUN 101, creatinine 2.63, glucose 173. WBC of 15.5, he moglobin 11.9, platelets of 89. Chest x-ray shows no significant change. Bilateral pulmonary airspace disease, mid and lower lung z ones consistent with atelectasis or pneumonia, cardiomegaly. Echocardiogram done has shown ejection fraction of 30%. ASSESSMENT AND PLAN: 1. Hypoxemia respiratory failure, currently on BiPAP. 2. Status post cardiopulmonary arrest. 3. Chronic obstructive pulmonary disease. 4. Possible pneumonia 5. Renal failure. 6. Severe cardiomyopathy. 7. Possible cirrhosis. 8. Thrombocytopenia. RECOMMENDATION: I will start the patient on rectal aspirin now that he cannot tolerate p.o. aspirin . We will replace electrolytes including potassium. Follow up renal function. Diuresis as needed, cu rrently we will hold the Lasix given his hypokalemia and clinically he does not appear to be fluid o verloaded. Continue with the ICU care. Continue with CPAP and oxygen supplement. More than 38 minutes of critical care time was spent managing this patient excluding any procedures. Dictated By: MARVIN MARSH MD AV/ERIN Conf#: [id number] DID#: [id number] CC: DAVID OGNZALEZ MD;*EndCC*
[2016-07-07 08:58] LABS: AADO2 Arterial 173.7 mmHg (7.0-24.0); Arterial Base Excess 11.2 mmol/L (-3.0-3); Arterial COHb 1.4 % (0.0-3.0); Arterial Fraction of Oxyhgb 88.4 % (93.0-99.0); Arterial HCO3 35.9 mmol/L (22.0-26.0); Arterial MetHb 0.2 % (0.0-1.5); Arterial Total Hemglobin 12.2 g/dl (12.0-18.0); MODE MASK - VENTI
[2016-07-07] MEDS: COLLAGENASE 30 GM TUBE TOP SCH (09:02)
--- NOTE | 2016-07-07 09:38 | RADRPT ---
PROCEDURE: Chest 1 views. CLINICAL INDICATION: Shortness of breath TECHNIQUE: AP views of the chest was obtained. COMPARISON: July 03, 2016 FINDINGS: The heart is large. Central pulmonary vascular congestion and interstitial prominence is both in bot h lungs is unchanged. Bilateral perihilar and lower lung infiltrates combined with moderate pleural effusions are stable. Osseous structures are unchanged. IMPRESSION: Cardiomegaly . Stable central pulmonary vascular congestion and interstitial prominence in both lungs. Stable bilateral perihilar and lower lung infiltrates combined with moderate pleural effusions. RPTAT: AA .Javier Goodwin MD, MD Date Time Electronically viewed and signed by .Javier Goodwin MD, on 07/07/2016 09:38 .P/
--- NOTE | 2016-07-07 10:27 | PN ---
Date/Time of Note Date/Time of Note DATE: 07/07/16 TIME: 10:08 Assessment/Plan VTE Prophylaxis VTE Prophylaxis Intervention: SCD's Lines/Catheters IV Catheter Type (from Nrsg): Peripheral IV Urinary Cath still in place: Yes Reason Cath still needed: other (indicate) (for UOP monitoring ) Assessment/Plan Assessment/Plan 76-year-old male with: 1. Acute respiratory failure with a history of heavy tobacco use, likely chronic obstructive pulmonary disease and chronic obstructive pulmonary disease exacerbation and also with right lower lobe, right middle lobe infiltrate consistent with pneumonia, possibly aspiration pneumonia versus community-acquired pneumonia. On face mask/ NC with goal O2 Sats 88% Continue current nebs and tapering steroids per Pulmonary 2 Nutrition. Even attempts at Dobhoff catheter placement over weekend was unsuccessful. CT neck soft tissue pending to r/o obstruction, speech eval if no obstruction and further recommendations for G tube vs NGT by IR pending CT results. Continue IVF for now 3. Aspiration pneumonia likely, given the pattern of infiltrates on chest x- ray. Continue Zosyn, and to place NGT under fluoroscopy for Tube feeding and free H20. 4. Pulseless electrical activity cardiac arrest at home with EMS on site, status post resuscitation. Cardiac arrest may be very well 2ry to respiratory failure. Hemodynamically stable currently. Repeat CT head with no acute findings. 2-D echo with findings of severe cardiomyopathy and EF 30 % likely chronic. Currently euvolemic to hypovolemic, hold Lasix today, resume Lasix if needed. Appreciate recommendations from Dr Kahn. Off Bblock due to bradycardia and continuing afterload reduction. Holding off diuresis. 5. Severe Cardiomyopathy with systolic dysfunction and EF 30 %. Monitor UOP and hypovolemic, holding of diuresis today. Off Bblocker due to bradycardia, improving thrombocytopenia, on ASA but held over the past 2 days due to lack of p.o. access With CKD, no KANDIS inhibitor or ARB for now 6. Likely cirrhosis with hx of ETOH use per reports. Hepatitis panel negative LFTs, Coagulopathy and thrombocytopenia seems to be all improving. Continue thiamine/folate/mvi IV until NG tube placed Ammonia level within normal limit. 7. Encephalopathy: still with odd behavior and on/off following commands, CT head negative x2 so far, ? Anoxic injury Ammonia level wnl Neuro consult as needed, ? telepsych when more verbal. 8. Acute kidney injury on chronic kidney disease with likely ATN. Renal US with signs of chronic medical disease. Ok UOP and improving renal function holding Lasix, on D5W. with improving Na 152 this AM. Replete K Monitor volume status and renal function. PROPHYLAXIS: SCDs to lower extremities for DVT prophylaxis and Pepcid for GI prophylaxis. DISPOSITION: FULL CODE until further information is obtained through social sciences department chair, niranjan Kimble, will be updated his phone number is [phone] seems to be the only living next of kin. Continue ICU level of care for now. Subjective 24 Hr Interval Summary Free Text/Dictation Patient seems to be more awake and responsive and following some commands, mouthing of yes or no, shaking head yes or no Afebrile CT soft tissue neck pending to evaluate for obstruction as still unable to place NGT or Dobpoff tube ... Exam/Review of Systems Vital Signs Vitals Vital Signs Date Time Temp Pulse Resp B/P Pulse Ox O2 Delivery O2 Flow Rate FiO2 07/07/16 09:50 90 Nasal Cannula 5.0 07/07/16 09:22 71 19 40 07/07/16 08:00 97.9 133/59 Intake and Output 07/06/16 07/06/16 07/07/16 15:00 23:00 07:00 Intake Total 700 ml 705 ml 600 ml Output Total 250 ml 215 ml 310 ml Balance 450 ml 490 ml 290 ml Exam Constitutional: alert, frail, non-verbal, other (answering some questions ) Psych: confusion Respiratory: diminished breath sounds (bases bilaterally ), normal air movement , other (no wheezes ) Cardiovascular: nl pulses, regular rate and rhythm Gastrointestinal: non-tender, soft Musculoskeletal: other (+2 pedal edema noted ) Extremities: normal pulses, other (chronic skin changes ) 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: APPLICATION HELPER II-XII intact, confused, other (more responsive ) Results Result Diagram: 07/07/16 0510 07/07/16 0518 Results 24 hrs Laboratory Tests Test 07/07/16 05:00 07/07/16 05:10 07/07/16 05:18 Blood Gas Specimen Source Blood arterial Arterial Blood Date Drawn 07/07/2016 5:00:05 AM Arterial Blood pH (Temp corrected) 7.495 H Arterial Blood pCO2 (Temp correct) 47.6 H Arterial Blood pO2 (Temp corrected) 56.8 L Arterial Blood HCO3 35.9 H Arterial Blood Base Excess 11.2 H Arterial Blood Oxygen Saturation 89.8 L Isac Test N/A Arterial Blood Gas Puncture Site Right Brachial Arterial Blood Carboxyhemoglobin 1.4 Arterial Blood Methemoglobin 0.2 Blood Gas A-a O2 Differential 173.7 H Oxyhemoglobin Percent 88.4 L Total Hemoglobin 12.2 Blood Gas Temperature 37.0 Blood Gas Modality MASK - VENTI FiO2 40.0 Blood Gas Notified Whom BR Blood Gas Notified Time 07/07/2016 5:07:56 AM White Blood Count 9.0 # Red Blood Count 3.73 L Hemoglobin 11.2 L Hematocrit 37.4 L Mean Corpuscular Volume 100.3 Mean Corpuscular Hemoglobin 30.0 Mean Corpuscular Hemoglobin Concent 29.9 L Red Cell Distribution Width 14.6 H Platelet Count 80 L Mean Platelet Volume 12.2 H Neutrophils % 90.2 H Lymphocytes % 5.1 L Monocytes % 3.3 Eosinophils % 1.0 Basophils % 0.0 Nucleated Red Blood Cells % 0.0 Neutrophils # 8.1 H Lymphocytes # 0.5 L Monocytes # 0.3 Eosinophils # 0.1 Basophils # 0.0 Nucleated Red Blood Cells # 0.0 Sodium Level 152 H Potassium Level 3.1 L Chloride Level 102 Carbon Dioxide Level 39 H Anion Gap 14 Blood Urea Nitrogen 81 H Creatinine 1.91 H Glucose Level 126 Lactic Acid Level 1.2 Calcium Level 9.4 Magnesium Level 2.6 H Total Bilirubin 1.3 Direct Bilirubin 0.00 Indirect Bilirubin 1.3 H Aspartate Amino Transf (AST/SGOT) 57 H Alanine Aminotransferase (ALT/SGPT) 152 H Alkaline Phosphatase 88 Total Protein 5.9 L Albumin 2.9 L Globulin 3.00 Albumin/Globulin Ratio 0.96 Medications Medications Current Medications Ondansetron HCl (Zofran Inj) 4 mg Q6H PRN IV NAUSEA AND/OR VOMITING; Start at 00:00 Pantoprazole 40 mg 40 mg DAILY@06 IV Last administered on 07/07/16 06:32; Admin Dose 40 MG; Start 06/24/16 at 06:00 Piperacillin Sod/ Tazobactam Sod (Zosyn 2.25gm/ 50ml (Pmx)) 50 ml @ 100 mls/hr Q8 IVPB Last administered on 07/07/16 06:32; Admin Dose 100 MLS/HR; Start at 22:00 Thiamine HCl (Vitamin B1) 100 mg DAILY NGT Last administered on 07/02/16 09:54 ; Admin Dose 100 MG; Start 06/29/16 at 09:00; Status Future Hold Multivitamins (Thera-Plus) 5 ml DAILY NGT Last administered on 07/02/16 09:55; Admin Dose 5 ML; Start 06/29/16 at 09:00; Status Future Hold Folic Acid (Folic Acid) 1 mg DAILY NGT Last administered on 07/02/16 09:55; Admin Dose 1 MG; Start 06/29/16 at 09:00; Status Future Hold Hydralazine HCl (Apresoline) 10 mg Q8 NGT Last administered on 07/02/16 05:36; Admin Dose 10 MG; Start 06/29/16 at 14:00 Aspirin (Halfprin) 81 mg DAILY PO Last administered on 07/02/16 09:55; Admin Dose 81 MG; Start 07/01/16 at 09:30; Status Future Hold Collagenase (Santyl) 1 applic DAILY TOP Last administered on 07/06/16 09:24; Admin Dose 1 APPLIC; Start 07/01/16 at 16:00 Hydralazine HCl 10 mg 10 mg Q6H PRN IV ELEVATED BLOOD PRESSURE; Start 07/02/16 at 17:00 Multivitamins 10 ml/Folic Acid 1 mg/Thiamine HCl 100 mg/Dextrose 1,011.2 ml @ 75 mls/hr DAILY@09 IV Last administered on 07/06/16 19:20; Admin Dose 75 MLS/HR ; Start 07/04/16 at 11:00 Dextrose (D5W) 1,000 ml @ 75 mls/hr [id number] IV Last administered on 07/06/16 01:47; Admin Dose 75 MLS/HR; Start 07/04/16 at 10:00 Methylprednisolone Sodium Succinate (Solu-Medrol) 40 mg QAM IV Last administered on 07/06/16 09:23; Admin Dose 40 MG; Start 07/06/16 at 09:00 Aspirin (Aspirin) 300 mg DAILY ME Last administered on 07/06/16 09:53; Admin Dose 300 MG; Start 07/05/16 at 12:30 Procedures Procedures PROCEDURE: Chest 1 views. CLINICAL INDICATION: Shortness of breath TECHNIQUE: AP views of the chest was obtained. COMPARISON: July 03, 2016 FINDINGS: The heart is large. Central pulmonary vascular congestion and interstitial prominence is both in both lungs is unchanged. Bilateral perihilar and lower lung infiltrates combined with moderate pleural effusions are stable. Osseous structures are unchanged. IMPRESSION: Cardiomegaly . Stable central pulmonary vascular congestion and interstitial prominence in both lungs. Stable bilateral perihilar and lower lung infiltrates combined with moderate pleural effusions. DAVID GONZALEZ Jul 07, 2016 10:18
[2016-07-07] MEDS ORDERED: POTASSIUM CHLORIDE 250 ML IVPB ONE (10:30)
--- NOTE | 2016-07-07 10:39 | CONS ---
Date/Time of Note Date/Time of Note DATE: 07/07/16 TIME: 10:37 Assessment/Plan Assessment/Plan Additional Assessment/Plan Cardiopulmonary arrest Severe cardiomyopathy with ejection fraction 30% Respiratory failure status post extubation Acute decompensated systolic congestive heart failure Encephalopathy Mildly elevated troponin Active tobacco use Coagulopathy Acute kidney injury -Potassium supplementation as already been ordered. Intermittent IV diuretics as renal function and blood pressure permits. Once able to tolerate p.o. meds, would start beta-erika and restart hydralazine secondary to congestive heart failure. Consultation Date/Type/Reason Admit Date/Time Jun 23, 2016 at 22:42 Type of Consultation: cv 24 HR Interval Summary Free Text/Dictation Patient seen and examined, has been switched to nasal cannula. No new cardiac issues as per nursing staff Exam/Review of Systems Vital Signs Vitals Vital Signs Date Time Temp Pulse Resp B/P Pulse Ox O2 Delivery O2 Flow Rate FiO2 07/07/16 09:50 90 Nasal Cannula 5.0 07/07/16 09:22 71 19 40 07/07/16 08:00 97.9 133/59 Intake and Output 07/06/16 07/06/16 07/07/16 15:00 23:00 07:00 Intake Total 700 ml 705 ml 600 ml Output Total 250 ml 215 ml 310 ml Balance 450 ml 490 ml 290 ml Exam Awake, following intermittent commands, no apparent distress Head: normocephalic Respiratory: other (Coarse breath sounds bilaterally, no wheezing) Cardiovascular: other (S1-S2 heard), regular rate and rhythm Gastrointestinal: bowel sounds, non-tender, soft Extremities: edema Results Result Diagram: 07/07/16 0510 07/07/16 0518 Results 24 hrs Laboratory Tests Test 07/07/16 05:00 07/07/16 05:10 07/07/16 05:18 Blood Gas Specimen Source Blood arterial Arterial Blood Date Drawn 07/07/2016 5:00:05 AM Arterial Blood pH (Temp corrected) 7.495 H Arterial Blood pCO2 (Temp correct) 47.6 H Arterial Blood pO2 (Temp corrected) 56.8 L Arterial Blood HCO3 35.9 H Arterial Blood Base Excess 11.2 H Arterial Blood Oxygen Saturation 89.8 L Isac Test N/A Arterial Blood Gas Puncture Site Right Brachial Arterial Blood Carboxyhemoglobin 1.4 Arterial Blood Methemoglobin 0.2 Blood Gas A-a O2 Differential 173.7 H Oxyhemoglobin Percent 88.4 L Total Hemoglobin 12.2 Blood Gas Temperature 37.0 Blood Gas Modality MASK - VENTI FiO2 40.0 Blood Gas Notified Whom BR Blood Gas Notified Time 07/07/2016 5:07:56 AM White Blood Count 9.0 # Red Blood Count 3.73 L Hemoglobin 11.2 L Hematocrit 37.4 L Mean Corpuscular Volume 100.3 Mean Corpuscular Hemoglobin 30.0 Mean Corpuscular Hemoglobin Concent 29.9 L Red Cell Distribution Width 14.6 H Platelet Count 80 L Mean Platelet Volume 12.2 H Neutrophils % 90.2 H Lymphocytes % 5.1 L Monocytes % 3.3 Eosinophils % 1.0 Basophils % 0.0 Nucleated Red Blood Cells % 0.0 Neutrophils # 8.1 H Lymphocytes # 0.5 L Monocytes # 0.3 Eosinophils # 0.1 Basophils # 0.0 Nucleated Red Blood Cells # 0.0 Sodium Level 152 H Potassium Level 3.1 L Chloride Level 102 Carbon Dioxide Level 39 H Anion Gap 14 Blood Urea Nitrogen 81 H Creatinine 1.91 H Glucose Level 126 Lactic Acid Level 1.2 Calcium Level 9.4 Magnesium Level 2.6 H Total Bilirubin 1.3 Direct Bilirubin 0.00 Indirect Bilirubin 1.3 H Aspartate Amino Transf (AST/SGOT) 57 H Alanine Aminotransferase (ALT/SGPT) 152 H Alkaline Phosphatase 88 Total Protein 5.9 L Albumin 2.9 L Globulin 3.00 Albumin/Globulin Ratio 0.96 Medications Medications Current Medications Ondansetron HCl (Zofran Inj) 4 mg Q6H PRN IV NAUSEA AND/OR VOMITING; Start at 00:00 Pantoprazole 40 mg 40 mg DAILY@06 IV Last administered on 07/07/16 06:32; Admin Dose 40 MG; Start 06/24/16 at 06:00 Piperacillin Sod/ Tazobactam Sod (Zosyn 2.25gm/ 50ml (Pmx)) 50 ml @ 100 mls/hr Q8 IVPB Last administered on 07/07/16 06:32; Admin Dose 100 MLS/HR; Start at 22:00 Thiamine HCl (Vitamin B1) 100 mg DAILY NGT Last administered on 07/02/16 09:54 ; Admin Dose 100 MG; Start 06/29/16 at 09:00; Status Future Hold Multivitamins (Thera-Plus) 5 ml DAILY NGT Last administered on 07/02/16 09:55; Admin Dose 5 ML; Start 06/29/16 at 09:00; Status Future Hold Folic Acid (Folic Acid) 1 mg DAILY NGT Last administered on 07/02/16 09:55; Admin Dose 1 MG; Start 06/29/16 at 09:00; Status Future Hold Hydralazine HCl (Apresoline) 10 mg Q8 NGT Last administered on 07/02/16 05:36; Admin Dose 10 MG; Start 06/29/16 at 14:00 Aspirin (Halfprin) 81 mg DAILY PO Last administered on 07/02/16 09:55; Admin Dose 81 MG; Start 07/01/16 at 09:30; Status Future Hold Collagenase (Santyl) 1 applic DAILY TOP Last administered on 07/06/16 09:24; Admin Dose 1 APPLIC; Start 07/01/16 at 16:00 Hydralazine HCl 10 mg 10 mg Q6H PRN IV ELEVATED BLOOD PRESSURE; Start 07/02/16 at 17:00 Multivitamins 10 ml/Folic Acid 1 mg/Thiamine HCl 100 mg/Dextrose 1,011.2 ml @ 75 mls/hr DAILY@09 IV Last administered on 07/06/16 19:20; Admin Dose 75 MLS/HR ; Start 07/04/16 at 11:00 Dextrose (D5W) 1,000 ml @ 75 mls/hr [id number] IV Last administered on 07/06/16 01:47; Admin Dose 75 MLS/HR; Start 07/04/16 at 10:00 Methylprednisolone Sodium Succinate (Solu-Medrol) 40 mg QAM IV Last administered on 07/06/16 09:23; Admin Dose 40 MG; Start 07/06/16 at 09:00 Aspirin 300 mg 300 mg DAILY VT Last administered on 07/06/16 09:53; Admin Dose 300 MG; Start 07/05/16 at 12:30 Potassium Chloride (KCl 40 MEQ/250 ML NS) 250 ml @ 62.5 mls/hr ONCE ONCE IVPB ; Start 07/07/16 at 10:30; Stop 07/07/16 at 14:29 Harvey Kahn DO Jul 07, 2016 10:39
[2016-07-07] MEDS: DEXTROSE 5% 1,000 ML IV SCH ×2 (11:38→18:00)
--- NOTE | 2016-07-07 12:11 | CONS ---
Date/Time of Note Date/Time of Note DATE: 07/07/16 TIME: 12:08 Assessment/Plan Assessment/Plan Additional Assessment/Plan Chest x-ray was reviewed from today which is again showing bilateral lower lobe changes. Some element of atelectasis. Ultrasound of the chest was done 2 days ago which did not reveal any significant pleural effusions. Assessment recommendations; 1. Patient admitted for hypoxemic and hypercapnic respiratory failure. Status post extubation with stable overall clinical status. 2. Generalized weakness. 3. Dysphagia. 4. Cardia myopathy. With CHF. 5. Renal insufficiency. With improving serum creatinine. 7. Mild thrombocytopenia. Continue current treatment. Patient can be transferred to the medical floor. Overall prognosis remains poor. Consultation Date/Type/Reason Admit Date/Time Jun 23, 2016 at 22:42 Type of Consultation: Pulmonary/critical care 24 HR Interval Summary Free Text/Dictation Patient condition is stable. Remains awake and alert. She has significant generalized weakness. Patient just returned from CT of the neck for evaluation of possible neck mass. General exam; elderly male, awake currently in no distress. Exam/Review of Systems Vital Signs Vitals Vital Signs Date Time Temp Pulse Resp B/P Pulse Ox O2 Delivery O2 Flow Rate FiO2 07/07/16 09:50 90 Nasal Cannula 5.0 07/07/16 09:22 71 19 40 07/07/16 08:00 97.9 133/59 Intake and Output 07/06/16 07/06/16 07/07/16 15:00 23:00 07:00 Intake Total 700 ml 705 ml 600 ml Output Total 250 ml 215 ml 310 ml Balance 450 ml 490 ml 290 ml Exam HEENT exam is; supple neck, positive JVD. No lymphadenopathy. Midline trachea. No thyromegaly. Patient is edentulous. Pupils are small bilaterally. No neck masses. Chest examination; diminished breath on lung bases. Upper lobes are clear. S1- S2 audible, no murmurs. Regular rhythm. Abdomen examination; soft, nondistended. Nontender. Bowel sounds audible. Extremity exam is; patient has extensive ecchymosis involving all 4 extremities. 1+ anasarca. CLAY THROWER examination; patient is awake and follows simple commands. Moves all 4 extremities but he still has severe generalized weakness. Results Result Diagram: 07/07/1650907/07/16517 Results 24 hrs Laboratory Tests Test 07/07/16:00 07/07/16 05:10 07/07/16 05:18 Blood Gas Specimen Source Blood arterial Arterial Blood Date Drawn 07/07/2016 5:00:05 AM Arterial Blood pH (Temp corrected) 7.495 H Arterial Blood pCO2 (Temp correct) 47.6 H Arterial Blood pO2 (Temp corrected) 56.8 L Arterial Blood HCO3 35.9 H Arterial Blood Base Excess 11.2 H Arterial Blood Oxygen Saturation 89.8 L Isac Test N/A Arterial Blood Gas Puncture Site Right Brachial Arterial Blood Carboxyhemoglobin 1.4 Arterial Blood Methemoglobin 0.2 Blood Gas A-a O2 Differential 173.7 H Oxyhemoglobin Percent 88.4 L Total Hemoglobin 12.2 Blood Gas Temperature 37.0 Blood Gas Modality MASK - VENTI FiO2 40.0 Blood Gas Notified Whom BR Blood Gas Notified Time 07/07/2016 5:07:56 AM White Blood Count 9.0 # Red Blood Count 3.73 L Hemoglobin 11.2 L Hematocrit 37.4 L Mean Corpuscular Volume 100.3 Mean Corpuscular Hemoglobin 30.0 Mean Corpuscular Hemoglobin Concent 29.9 L Red Cell Distribution Width 14.6 H Platelet Count 80 L Mean Platelet Volume 12.2 H Neutrophils % 90.2 H Lymphocytes % 5.1 L Monocytes % 3.3 Eosinophils % 1.0 Basophils % 0.0 Nucleated Red Blood Cells % 0.0 Neutrophils # 8.1 H Lymphocytes # 0.5 L Monocytes # 0.3 Eosinophils # 0.1 Basophils # 0.0 Nucleated Red Blood Cells # 0.0 Sodium Level 152 H Potassium Level 3.1 L Chloride Level 102 Carbon Dioxide Level 39 H Anion Gap 14 Blood Urea Nitrogen 81 H Creatinine 1.91 H Glucose Level 126 Lactic Acid Level 1.2 Calcium Level 9.4 Magnesium Level 2.6 H Total Bilirubin 1.3 Direct Bilirubin 0.00 Indirect Bilirubin 1.3 H Aspartate Amino Transf (AST/SGOT) 57 H Alanine Aminotransferase (ALT/SGPT) 152 H Alkaline Phosphatase 88 Total Protein 5.9 L Albumin 2.9 L Globulin 3.00 Albumin/Globulin Ratio 0.96 Medications Medications Current Medications Ondansetron HCl (Zofran Inj) 4 mg Q6H PRN IV NAUSEA AND/OR VOMITING; Start at 00:00 Pantoprazole 40 mg 40 mg DAILY@06 IV Last administered on 07/07/16 06:32; Admin Dose 40 MG; Start 06/24/16 at 06:00 Piperacillin Sod/ Tazobactam Sod (Zosyn 2.25gm/ 50ml (Pmx)) 50 ml @ 100 mls/hr Q8 IVPB Last administered on 07/07/16 06:32; Admin Dose 100 MLS/HR; Start at 22:00 Thiamine HCl (Vitamin B1) 100 mg DAILY NGT Last administered on 07/02/16 09:54 ; Admin Dose 100 MG; Start 06/29/16 at 09:00; Status Future Hold Multivitamins (Thera-Plus) 5 ml DAILY NGT Last administered on 07/02/16 09:55; Admin Dose 5 ML; Start 06/29/16 at 09:00; Status Future Hold Folic Acid (Folic Acid) 1 mg DAILY NGT Last administered on 07/02/16 09:55; Admin Dose 1 MG; Start 06/29/16 at 09:00; Status Future Hold Hydralazine HCl (Apresoline) 10 mg Q8 NGT Last administered on 07/02/16 05:36; Admin Dose 10 MG; Start 06/29/16 at 14:00 Aspirin (Halfprin) 81 mg DAILY PO Last administered on 07/02/16 09:55; Admin Dose 81 MG; Start 07/01/16 at 09:30; Status Future Hold Collagenase (Santyl) 1 applic DAILY TOP Last administered on 07/07/16 09:02; Admin Dose 1 APPLIC; Start 07/01/16 at 16:00 Hydralazine HCl 10 mg 10 mg Q6H PRN IV ELEVATED BLOOD PRESSURE; Start 07/02/16 at 17:00 Multivitamins 10 ml/Folic Acid 1 mg/Thiamine HCl 100 mg/Dextrose 1,011.2 ml @ 75 mls/hr DAILY@09 IV Last administered on 07/06/16 19:20; Admin Dose 75 MLS/HR ; Start 07/04/16 at 11:00 Dextrose (D5W) 1,000 ml @ 75 mls/hr [id number] IV Last administered on 07/07/16 11:38; Admin Dose 75 MLS/HR; Start 07/04/16 at 10:00 Methylprednisolone Sodium Succinate (Solu-Medrol) 40 mg QAM IV Last administered on 07/07/16 08:45; Admin Dose 40 MG; Start 07/06/16 at 09:00 Aspirin 300 mg 300 mg DAILY VT Last administered on 07/07/16 08:45; Admin Dose 300 MG; Start 07/05/16 at 12:30 Potassium Chloride (KCl 40 MEQ/250 ML NS) 250 ml @ 62.5 mls/hr ONCE ONCE IVPB Last administered on 07/07/16 11:28; Admin Dose 62.5 MLS/HR; Start 07/07/16 at 10:30; Stop 07/07/16 at 14:29 JEN JOHNSON Jul 07, 2016 12:11
--- NOTE | 2016-07-07 12:15 | RADRPT ---
AMENDMENT: 07/07/2016 12:16:38 PM Ilia Lees M.d Typographic error: IMPRESSION: The constellation of findings are worrisome for injury to the upper aerodigestive tract. PROCEDURE: CT scan of the neck without contrast. CLINICAL INDICATION: unable to pass a nasogastric tube, dysphagia TECHNIQUE: CT scan of the neck was performed. The patient was examined without the use of intrave nous iodinated contrast. No reported complications occurred. One or more of the following dose re duction techniques were used: Automated exposure control, Adjustment of the mA and/or kV according t o patient size, and/or use of iterative reconstruction technique. DOSE: CTDI = 10 mGy and the DLP = 326 mGy-cm. COMPARISON: None available FINDINGS: Evaluation of the soft tissues and vasculature is limited without contrast. No cervical lymphadenopathy. Carotid vascular calcifications. Subcutaneous emphysema is seen within the deep spaces of the neck including the segmental space, rig ht submandibular space, right parapharyngeal space. There is irregularity of the nasopharyngeal muc billie with an 5mm focal erosion to the left of midline. There is also mucosal irregularity of the zulma pharynx and hypopharynx with central intraluminal linear densities identified. Paranasal sinus mucosal thickening most notably in the left ethmoid and left maxillary sinus. The m astoids appear clear. Degenerative changes of the spine. Severe upper lung emphysematous changes. Partially imaged bilateral pleural effusions. Aortic athe rosclerosis. Tiny sub-centimeter right thyroid lobe nodules. IMPRESSION: Subcutaneous emphysema is seen within the deep spaces of the neck. There is irregularity of the chalino opharyngeal mucosa with a focal erosion seen to the left of midline. There is also mucosal irregula rity of the oropharynx and hypopharynx with central intraluminal linear densities identified. The c onstellation of findings are worrisome for esophageal injury/perforation. Severe upper lung emphysematous changes. Partially imaged bilateral pleural effusions. Aortic and carotid atherosclerosis. Tiny sub-centimeter right thyroid lobe nodules. A call report was made to ELEAZAR CALLEJAS at 07/07/2016 12:11:24 PM. RPTAT: AA .Ilia Lees MD, MD Date Time Electronically viewed and signed by .Ilia Lees MD, MD on 07/07/2016 12:16 .T/
[2016-07-08] VITALS (24 sets, daily range): BP systolic 113–167; BP diastolic 62–85; PULSE 67–92; RESP 16–31
[2016-07-08] MEDS: ALBUTEROL/IPRATROPIUM (NEB) 3 ML AMP HHN SCH ×6 (01:25→21:15)
[2016-07-08 05:49] LABS: ADD SCAN DIFF NO
[2016-07-08 05:54] LABS: ABNORMAL IP MESSAGE 1; HEMATOCRIT 37.4 % (42.0-52.0); HEMOGLOBIN 11.6 g/dl (14.0-18.0); LYMPHOCYTES # 0.4 10^3/ul (0.8-2.9); LYMPHOCYTES % 4.7 % (15.0-51.0); MEAN CORPUSCULAR HEMOGLOBIN 30.8 pg (29.0-33.0); MEAN CORPUSCULAR VOLUME 99.2 fl (82.0-101.0); MONOCYTE # 0.2 10^3/ul (0.3-0.9); MONOCYTES % 2.6 % (0.0-11.0); NEUTROPHIL # 7.1 10^3/ul (1.6-7.5); NEUTROPHILS % 91.8 % (39.0-77.0); PLATELET COUNT 76 10^3/UL (140-415); RED BLOOD COUNT 3.77 10^6/ul (4.70-6.10); RED CELL DISTRIBUTION WIDTH 14.6 % (11.5-14.5); WHITE BLOOD COUNT 7.7 10^3/ul (4.8-10.8)
[2016-07-08 06:11] LABS: MAGNESIUM 2.6 mg/dl (1.7-2.5); PHOSPHORUS 2.8 mg/dl (2.5-4.9)
[2016-07-08 06:14] LABS: CALCIUM 9.5 mg/dl (8.4-10.2); CREATININE 1.77 mg/dl (0.61-1.24)
[2016-07-08] MEDS: PANTOPRAZOLE 40 MG INJ IV SCH (06:33)
[2016-07-08] MEDS: PIPER-TAZO 2.25 GM (PMX) 50 ML IVPB SCH (06:34)
[2016-07-08] MEDS: DEXTROSE 5% 1,000 ML IV SCH ×2 (07:20→21:07)
--- NOTE | 2016-07-08 07:30 | PN ---
Date/Time of Note Date/Time of Note DATE: 07/08/16 TIME: 07:28 Assessment/Plan VTE Prophylaxis VTE Prophylaxis Intervention: SCD's Lines/Catheters IV Catheter Type (from Nrs): Peripheral IV Urinary Cath still in place: Yes Reason Cath still needed: urinary retention Assessment/Plan Assessment/Plan Cardiopulmonary arrest Severe cardiomyopathy with ejection fraction 30% Respiratory failure status post extubation Acute decompensated systolic congestive heart failure Encephalopathy Mildly elevated troponin Active tobacco use Coagulopathy Acute kidney injury - Intermittent IV diuretics as renal function and blood pressure permits. -Once able to tolerate p.o. meds, would start beta-erika and restart hydralazine secondary to congestive heart failure. - +i/o overnighrt -bun/creat improved Subjective 24 Hr Interval Summary Free Text/Dictation The patient with no change overnight Exam/Review of Systems Vital Signs Vitals Vital Signs Date Time Temp Pulse Resp B/P Pulse Ox O2 Delivery O2 Flow Rate FiO2 07/08/16 06:00 81 18 128/73 95 Venturi Mask 07/08/16 05:36 12.0 40 07/08/16 04:00 97.4 Intake and Output 07/07/16 07/07/16 07/08/16 15:00 23:00 07:00 Intake Total 600 ml 700 ml 575 ml Output Total 380 ml 360 ml 290 ml Balance 220 ml 340 ml 285 ml Results Result Diagram: 07/08/16 0520 07/08/16 0520 Results 24 hrs Laboratory Tests Test 07/08/16 05:20 White Blood Count 7.7 Red Blood Count 3.77 L Hemoglobin 11.6 L Hematocrit 37.4 L Mean Corpuscular Volume 99.2 Mean Corpuscular Hemoglobin 30.8 Mean Corpuscular Hemoglobin Concent 31.0 L Red Cell Distribution Width 14.6 H Platelet Count 76 L Mean Platelet Volume 12.0 H Neutrophils % 91.8 H Lymphocytes % 4.7 L Monocytes % 2.6 Eosinophils % 0.0 Basophils % 0.0 Nucleated Red Blood Cells % 0.0 Neutrophils # 7.1 Lymphocytes # 0.4 L Monocytes # 0.2 L Eosinophils # 0.0 Basophils # 0.0 Nucleated Red Blood Cells # 0.0 Sodium Level 148 H Potassium Level 5.0 Chloride Level 107 Carbon Dioxide Level 37 H Anion Gap 9 # Blood Urea Nitrogen 70 H Creatinine 1.77 H Glucose Level 138 Calcium Level 9.5 Phosphorus Level 2.8 Magnesium Level 2.6 H Medications Medications Current Medications Ondansetron HCl (Zofran Inj) 4 mg Q6H PRN IV NAUSEA AND/OR VOMITING; Start at 00:00 Pantoprazole 40 mg 40 mg DAILY@06 IV Last administered on 07/08/16 06:33; Admin Dose 40 MG; Start 06/24/16 at 06:00 Piperacillin Sod/ Tazobactam Sod (Zosyn 2.25gm/ 50ml (Pmx)) 50 ml @ 100 mls/hr Q8 IVPB Last administered on 07/08/16 06:34; Admin Dose 100 MLS/HR; Start at 22:00 Thiamine HCl (Vitamin B1) 100 mg DAILY NGT Last administered on 07/02/16 09:54 ; Admin Dose 100 MG; Start 06/29/16 at 09:00; Status Future Hold Multivitamins (Thera-Plus) 5 ml DAILY NGT Last administered on 07/02/16 09:55; Admin Dose 5 ML; Start 06/29/16 at 09:00; Status Future Hold Folic Acid (Folic Acid) 1 mg DAILY NGT Last administered on 07/02/16 09:55; Admin Dose 1 MG; Start 06/29/16 at 09:00; Status Future Hold Hydralazine HCl (Apresoline) 10 mg Q8 NGT Last administered on 07/02/16 05:36; Admin Dose 10 MG; Start 06/29/16 at 14:00 Aspirin (Halfprin) 81 mg DAILY PO Last administered on 07/02/16 09:55; Admin Dose 81 MG; Start 07/01/16 at 09:30; Status Future Hold Collagenase (Santyl) 1 applic DAILY TOP Last administered on 07/07/16 09:02; Admin Dose 1 APPLIC; Start 07/01/16 at 16:00 Hydralazine HCl 10 mg 10 mg Q6H PRN IV ELEVATED BLOOD PRESSURE; Start 07/02/16 at 17:00 Multivitamins 10 ml/Folic Acid 1 mg/Thiamine HCl 100 mg/Dextrose 1,011.2 ml @ 75 mls/hr DAILY@09 IV Last administered on 07/06/16 19:20; Admin Dose 75 MLS/HR ; Start 07/04/16 at 11:00 Dextrose (D5W) 1,000 ml @ 75 mls/hr [id number] IV Last administered on 07/07/16 11:38; Admin Dose 75 MLS/HR; Start 07/04/16 at 10:00 Methylprednisolone Sodium Succinate (Solu-Medrol) 40 mg QAM IV Last administered on 07/07/16 08:45; Admin Dose 40 MG; Start 07/06/16 at 09:00 Aspirin (Aspirin) 300 mg DAILY ID Last administered on 07/07/16 08:45; Admin Dose 300 MG; Start 07/05/16 at 12:30 DEO ELLIOTT MD Jul 08, 2016 07:30
[2016-07-08] MEDS: THIAMINE IV SCH (08:14)
[2016-07-08] MEDS: MULTIVITAMINS IV SCH (08:14)
[2016-07-08] MEDS: METHYLPREDNISOLONE 40 MG INJ IV SCH (08:14)
[2016-07-08] MEDS: FOLIC ACID IV SCH (08:14)
[2016-07-08] MEDS: DEXTROSE 5% IV SCH (08:14)
[2016-07-08] MEDS: ASPIRIN 300 MG SUPP PR SCH (08:14)
[2016-07-08] MEDS: COLLAGENASE 30 GM TUBE TOP SCH (08:14)
--- NOTE | 2016-07-08 09:41 | PN ---
Date/Time of Note Date/Time of Note DATE: 07/08/16 TIME: 09:25 Assessment/Plan VTE Prophylaxis VTE Prophylaxis Intervention: SCD's Lines/Catheters IV Catheter Type (from Nrsg): Peripheral IV Urinary Cath still in place: Yes Reason Cath still needed: other (indicate) (BERNIE on CKD and monitoring UOP ) Assessment/Plan Assessment/Plan 76-year-old male with: 1. Acute respiratory failure with a history of heavy tobacco use, likely chronic obstructive pulmonary disease and chronic obstructive pulmonary disease exacerbation and also with right lower lobe, right middle lobe infiltrate consistent with pneumonia, possibly aspiration pneumonia versus community-acquired pneumonia. On 3L NC now with goal O2 Sats 88% Continue current nebs and tapering steroids per Pulmonary ok to go down to 20 mg IV daily 2 Nutrition. Even attempts at Dobhoff catheter placement over weekend was unsuccessful. CT neck soft tissue with minimal injury left nasopharyngeal mucosa and minimal subcut emphysema Speech eval today and patient may jus need Gtube place for nutrition until more alert and compliant Will discuss with Grand son but already recommended by Pulmonary. Continue IVF for now 3. Aspiration pneumonia likely, given the pattern of infiltrates on chest x- ray. Much better and d/c Zosyn today per Pulmonary Will likely end up needing G tube placement for Tube feeding and free H20. 4. Pulseless electrical activity cardiac arrest at home with EMS on site, status post resuscitation. Cardiac arrest may be very well 2ry to respiratory failure. Hemodynamically stable currently. Repeat CT head with no acute findings. 2-D echo with findings of severe cardiomyopathy and EF 30 % likely chronic. Currently euvolemic to hypovolemic, hold Lasix for now, resume Lasix if needed. Appreciate recommendations from Dr Kahn. Off Bblock due to bradycardia and continuing afterload reduction. Holding off diuresis. 5. Severe Cardiomyopathy with systolic dysfunction and EF 30 %. Monitor UOP and hypovolemic, holding of diuresis today. Off Bblocker due to bradycardia, improving thrombocytopenia, on ASA but held over the past few days due to lack of p.o. access With CKD, no KANDIS inhibitor or ARB for now 6. Likely cirrhosis with hx of ETOH use per reports. Hepatitis panel negative LFTs, Coagulopathy and thrombocytopenia seems to be all improving. Continue thiamine/folate/mvi IV until G tube placed Ammonia level within normal limit. 7. Encephalopathy: still with odd behavior and on/off following commands, CT head negative x2 so far, ? Anoxic injury Ammonia level wnl Neuro consult as needed, ? telepsych when more verbal. 8. Acute kidney injury on chronic kidney disease with likely ATN. Renal US with signs of chronic medical disease. Ok UOP and improving renal function holding off Lasix, on D5W with improving Na 148 this AM. Monitor volume status and renal function. PROPHYLAXIS: SCDs to lower extremities for DVT prophylaxis and Pepcid for GI prophylaxis. DISPOSITION: FULL CODE until further information is obtained through social services aide, niranjan Kimble, will be updated his phone number is [phone] seems to be the only living next of kin. Will need g tube placement. Continue ICU level of care until G tube placed if needed then transfer to Tele if stable. Subjective 24 Hr Interval Summary Free Text/Dictation Patient doing OK, more awake and on 3L NC CT neck findings reviewed with pulmonary, minimal subcut air and patient clinically stable and keeps improving Afebrile and abx to be d/c'd today WBC Ok Exam/Review of Systems Vital Signs Vitals Vital Signs Date Time Temp Pulse Resp B/P Pulse Ox O2 Delivery O2 Flow Rate FiO2 07/08/16 09:00 79 17 138/80 93 Nasal Cannula 07/08/16 08:00 97.9 07/08/16 08:00 3.0 07/08/16 05:36 40 Intake and Output 07/07/16 07/07/16 07/08/16 15:00 23:00 07:00 Intake Total 600 ml 700 ml 650 ml Output Total 380 ml 360 ml 320 ml Balance 220 ml 340 ml 330 ml Exam Constitutional: alert, oriented (x2) Respiratory: clear to auscultation, normal air movement, other (no wheezes ) Cardiovascular: nl pulses, regular rate and rhythm Gastrointestinal: non-tender, soft Musculoskeletal: other (chronic skin changes LE ) Extremities: normal pulses, other (no edema, clubbing or cyanosis) 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, lethargic, other (unclear MS but following commands more and mouting of words like yes or no ) Results Result Diagram: 07/08/16 0520 07/08/16 0520 Results 24 hrs Laboratory Tests Test 07/08/16 05:20 White Blood Count 7.7 Red Blood Count 3.77 L Hemoglobin 11.6 L Hematocrit 37.4 L Mean Corpuscular Volume 99.2 Mean Corpuscular Hemoglobin 30.8 Mean Corpuscular Hemoglobin Concent 31.0 L Red Cell Distribution Width 14.6 H Platelet Count 76 L Mean Platelet Volume 12.0 H Neutrophils % 91.8 H Lymphocytes % 4.7 L Monocytes % 2.6 Eosinophils % 0.0 Basophils % 0.0 Nucleated Red Blood Cells % 0.0 Neutrophils # 7.1 Lymphocytes # 0.4 L Monocytes # 0.2 L Eosinophils # 0.0 Basophils # 0.0 Nucleated Red Blood Cells # 0.0 Sodium Level 148 H Potassium Level 5.0 Chloride Level 107 Carbon Dioxide Level 37 H Anion Gap 9 # Blood Urea Nitrogen 70 H Creatinine 1.77 H Glucose Level 138 Calcium Level 9.5 Phosphorus Level 2.8 Magnesium Level 2.6 H Medications Medications Current Medications Ondansetron HCl (Zofran Inj) 4 mg Q6H PRN IV NAUSEA AND/OR VOMITING; Start at 00:00 Pantoprazole 40 mg 40 mg DAILY@06 IV Last administered on 07/08/16 06:33; Admin Dose 40 MG; Start 06/24/16 at 06:00 Piperacillin Sod/ Tazobactam Sod (Zosyn 2.25gm/ 50ml (Pmx)) 50 ml @ 100 mls/hr Q8 IVPB Last administered on 07/08/16 06:34; Admin Dose 100 MLS/HR; Start at 22:00 Thiamine HCl (Vitamin B1) 100 mg DAILY NGT Last administered on 07/02/16 09:54 ; Admin Dose 100 MG; Start 06/29/16 at 09:00; Status Future Hold Multivitamins (Thera-Plus) 5 ml DAILY NGT Last administered on 07/02/16 09:55; Admin Dose 5 ML; Start 06/29/16 at 09:00; Status Future Hold Folic Acid (Folic Acid) 1 mg DAILY NGT Last administered on 07/02/16 09:55; Admin Dose 1 MG; Start 06/29/16 at 09:00; Status Future Hold Hydralazine HCl (Apresoline) 10 mg Q8 NGT Last administered on 07/02/16 05:36; Admin Dose 10 MG; Start 06/29/16 at 14:00 Aspirin (Halfprin) 81 mg DAILY PO Last administered on 07/02/16 09:55; Admin Dose 81 MG; Start 07/01/16 at 09:30; Status Future Hold Collagenase (Santyl) 1 applic DAILY TOP Last administered on 07/08/16 08:14; Admin Dose 1 APPLIC; Start 07/01/16 at 16:00 Hydralazine HCl 10 mg 10 mg Q6H PRN IV ELEVATED BLOOD PRESSURE; Start 07/02/16 at 17:00 Multivitamins 10 ml/Folic Acid 1 mg/Thiamine HCl 100 mg/Dextrose 1,011.2 ml @ 75 mls/hr DAILY@09 IV Last administered on 07/08/16 08:14; Admin Dose 75 MLS/ HR; Start 07/04/16 at 11:00 Dextrose (D5W) 1,000 ml @ 75 mls/hr [id number] IV Last administered on 07/07/16 11:38; Admin Dose 75 MLS/HR; Start 07/04/16 at 10:00 Methylprednisolone Sodium Succinate (Solu-Medrol) 40 mg QAM IV Last administered on 07/08/16 08:14; Admin Dose 40 MG; Start 07/06/16 at 09:00 Aspirin (Aspirin) 300 mg DAILY SD Last administered on 07/08/16 08:14; Admin Dose 300 MG; Start 07/05/16 at 12:30 Procedures Procedures AMENDMENT: 07/07/2016 12:16:38 PM Ilia Lees M.d Typographic error: IMPRESSION: The constellation of findings are worrisome for injury to the upper aerodigestive tract. PROCEDURE: CT scan of the neck without contrast. CLINICAL INDICATION: unable to pass a nasogastric tube, dysphagia TECHNIQUE: CT scan of the neck was performed. The patient was examined without the use of intravenous iodinated contrast. No reported complications occurred. One or more of the following dose reduction techniques were used: Automated exposure control, Adjustment of the mA and/or kV according to patient size, and/or use of iterative reconstruction technique. DOSE: CTDI = 10 mGy and the DLP = 326 mGy-cm. COMPARISON: None available FINDINGS: Evaluation of the soft tissues and vasculature is limited without contrast. No cervical lymphadenopathy. Carotid vascular calcifications. Subcutaneous emphysema is seen within the deep spaces of the neck including the segmental space, right submandibular space, right parapharyngeal space. There is irregularity of the nasopharyngeal mucosa with an 5mm focal erosion to the left of midline. There is also mucosal irregularity of the oropharynx and hypopharynx with central intraluminal linear densities identified. Paranasal sinus mucosal thickening most notably in the left ethmoid and left maxillary sinus. The mastoids appear clear. Degenerative changes of the spine. Severe upper lung emphysematous changes. Partially imaged bilateral pleural effusions. Aortic atherosclerosis. Tiny sub-centimeter right thyroid lobe nodules. IMPRESSION: Subcutaneous emphysema is seen within the deep spaces of the neck. There is irregularity of the nasopharyngeal mucosa with a focal erosion seen to the left of midline. There is also mucosal irregularity of the oropharynx and hypopharynx with central intraluminal linear densities identified. The constellation of findings are worrisome for esophageal injury/perforation. Severe upper lung emphysematous changes. Partially imaged bilateral pleural effusions. Aortic and carotid atherosclerosis. Tiny sub-centimeter right thyroid lobe nodules. A call report was made to ELEAZAR CALLEJAS at 07/07/2016 12:11:24 PM. DAVID GONZALEZ Jul 08, 2016 09:35
--- NOTE | 2016-07-08 09:45 | CONS ---
Date/Time of Note Date/Time of Note DATE: 07/08/16 TIME: 09:41 Assessment/Plan Assessment/Plan Additional Assessment/Plan Assessment recommendations; 1. Patient admitted for respiratory failure ; successfully extubated several days ago. 2. Small area of subcutaneous emphysema involving the anterior neck without any clinical significance. 3. CHF. 4. Cardiomyopathy. 5. Generalized weakness. Continue current treatment. Patient will need to have G-tube or PEG tube placed f by the machine brush maker for feeding purposes. Patient also can be transferred to the medical floor. Discontinue Zosyn. Consultation Date/Type/Reason Admit Date/Time Jun 23, 2016 at 22:42 Type of Consultation: Pulmonary/critical care 24 HR Interval Summary Free Text/Dictation Patient condition remains stable. Remains completely awake alert. Able to talk somewhat. Still having significant dysphagia. Has remained hemodynamically stable. General exam; elderly male, awake currently in no distress. Awake and alert. Exam/Review of Systems Vital Signs Vitals Vital Signs Date Time Temp Pulse Resp B/P Pulse Ox O2 Delivery O2 Flow Rate FiO2 07/08/16 09:19 80 18 94 Nasal Cannula 3.0 07/08/16 09:00 138/80 07/08/16 08:00 97.9 07/08/16 05:36 40 Intake and Output 07/07/16 07/07/16 07/08/16 15:00 23:00 07:00 Intake Total 600 ml 700 ml 650 ml Output Total 380 ml 360 ml 320 ml Balance 220 ml 340 ml 330 ml Exam HEENT exam is; supple neck, no JVD. No lymphadenopathy. Midline trachea. No thyromegaly. She is edentulous. Pupils are small bilaterally. No sub cutaneous emphysema felt in the neck area. Chest examined; diminished breath on lung bases otherwise clear. S1-S2 audible , no murmurs. Regular rhythm. Abdomen examination; soft, nontender, nondistended. No organomegaly. Extremity exam ; peripheral trace peripheral edema. Patient has a multiple ecchymosis involving all 4 extremities. MASTER STEAM YACHT examination; patient is awake alert has severe generalized muscular weakness. Results Result Diagram: 07/08/16 0507/08/16 05 Results 24 hrs Laboratory Tests Test 07/08/16 05:20 White Blood Count 7.7 Red Blood Count 3.77 L Hemoglobin 11.6 L Hematocrit 37.4 L Mean Corpuscular Volume 99.2 Mean Corpuscular Hemoglobin 30.8 Mean Corpuscular Hemoglobin Concent 31.0 L Red Cell Distribution Width 14.6 H Platelet Count 76 L Mean Platelet Volume 12.0 H Neutrophils % 91.8 H Lymphocytes % 4.7 L Monocytes % 2.6 Eosinophils % 0.0 Basophils % 0.0 Nucleated Red Blood Cells % 0.0 Neutrophils # 7.1 Lymphocytes # 0.4 L Monocytes # 0.2 L Eosinophils # 0.0 Basophils # 0.0 Nucleated Red Blood Cells # 0.0 Sodium Level 148 H Potassium Level 5.0 Chloride Level 107 Carbon Dioxide Level 37 H Anion Gap 9 # Blood Urea Nitrogen 70 H Creatinine 1.77 H Glucose Level 138 Calcium Level 9.5 Phosphorus Level 2.8 Magnesium Level 2.6 H Medications Medications Current Medications Ondansetron HCl (Zofran Inj) 4 mg Q6H PRN IV NAUSEA AND/OR VOMITING; Start at 00:00 Pantoprazole 40 mg 40 mg DAILY@06 IV Last administered on 07/08/16 06:33; Admin Dose 40 MG; Start 06/24/16 at 06:00 Piperacillin Sod/ Tazobactam Sod (Zosyn 2.25gm/ 50ml (Pmx)) 50 ml @ 100 mls/hr Q8 IVPB Last administered on 07/08/16 06:34; Admin Dose 100 MLS/HR; Start at 22:00 Thiamine HCl (Vitamin B1) 100 mg DAILY NGT Last administered on 07/02/16 09:54 ; Admin Dose 100 MG; Start 06/29/16 at 09:00; Status Future Hold Multivitamins (Thera-Plus) 5 ml DAILY NGT Last administered on 07/02/16 09:55; Admin Dose 5 ML; Start 06/29/16 at 09:00; Status Future Hold Folic Acid (Folic Acid) 1 mg DAILY NGT Last administered on 07/02/16 09:55; Admin Dose 1 MG; Start 06/29/16 at 09:00; Status Future Hold Hydralazine HCl (Apresoline) 10 mg Q8 NGT Last administered on 07/02/16 05:36; Admin Dose 10 MG; Start 06/29/16 at 14:00 Aspirin (Halfprin) 81 mg DAILY PO Last administered on 07/02/16 09:55; Admin Dose 81 MG; Start 07/01/16 at 09:30; Status Future Hold Collagenase (Santyl) 1 applic DAILY TOP Last administered on 07/08/16 08:14; Admin Dose 1 APPLIC; Start 07/01/16 at 16:00 Hydralazine HCl 10 mg 10 mg Q6H PRN IV ELEVATED BLOOD PRESSURE; Start 07/02/16 at 17:00 Multivitamins 10 ml/Folic Acid 1 mg/Thiamine HCl 100 mg/Dextrose 1,011.2 ml @ 75 mls/hr DAILY@09 IV Last administered on 07/08/16 08:14; Admin Dose 75 MLS/ HR; Start 07/04/16 at 11:00 Dextrose (D5W) 1,000 ml @ 75 mls/hr [id number] IV Last administered on 07/07/16 11:38; Admin Dose 75 MLS/HR; Start 07/04/16 at 10:00 Methylprednisolone Sodium Succinate (Solu-Medrol) 40 mg QAM IV Last administered on 07/08/16 08:14; Admin Dose 40 MG; Start 07/06/16 at 09:00 Aspirin (Aspirin) 300 mg DAILY MT Last administered on 07/08/16 08:14; Admin Dose 300 MG; Start 07/05/16 at 12:30 JEN JOHNSON Jul 08, 2016 09:45
[2016-07-09] VITALS (24 sets, daily range): BP systolic 107–157; BP diastolic 61–88; PULSE 76–86; RESP 12–26
[2016-07-09] MEDS: ALBUTEROL/IPRATROPIUM (NEB) 3 ML AMP HHN SCH ×6 (00:30→20:19)
[2016-07-09] MEDS: PANTOPRAZOLE 40 MG INJ IV SCH (05:51)
[2016-07-09 05:57] LABS: ADD SCAN DIFF NO
[2016-07-09 06:18] LABS: POTASSIUM 3.6 mmol/L (3.5-5.1)
[2016-07-09 06:21] LABS: CREATININE 1.63 mg/dl (0.61-1.24)
[2016-07-09 06:22] LABS: CALCIUM 9.4 mg/dl (8.4-10.2)
[2016-07-09 06:27] LABS: MAGNESIUM 2.4 mg/dl (1.7-2.5); PHOSPHORUS 2.4 mg/dl (2.5-4.9)
[2016-07-09 07:36] LABS: ABNORMAL IP MESSAGE 1; EOSINOPHILS % 0.1 % (0.0-7.0); HEMATOCRIT 34.9 % (42.0-52.0); LYMPHOCYTES # 0.5 10^3/ul (0.8-2.9); LYMPHOCYTES % 5.2 % (15.0-51.0); MEAN CORPUSCULAR HGB CONC 31.5 g/dl (32.0-37.0); MEAN CORPUSCULAR VOLUME 98.3 fl (82.0-101.0); MONOCYTE # 0.3 10^3/ul (0.3-0.9); MONOCYTES % 2.8 % (0.0-11.0); NEUTROPHIL # 8.7 10^3/ul (1.6-7.5); NEUTROPHILS % 91.4 % (39.0-77.0); PLATELET COUNT 80 10^3/UL (140-415); RED BLOOD COUNT 3.55 10^6/ul (4.70-6.10); RED CELL DISTRIBUTION WIDTH 14.6 % (11.5-14.5); WHITE BLOOD COUNT 9.5 10^3/ul (4.8-10.8)
[2016-07-09] MEDS: COLLAGENASE 30 GM TUBE TOP SCH (09:00)
[2016-07-09] MEDS: DEXTROSE 5% 1,000 ML IV SCH ×2 (09:04→23:31)
[2016-07-09] MEDS: DEXTROSE 5% IV SCH (09:09)
[2016-07-09] MEDS: MULTIVITAMINS IV SCH (09:09)
[2016-07-09] MEDS: FOLIC ACID IV SCH (09:09)
[2016-07-09] MEDS: METHYLPREDNISOLONE 40 MG INJ IV SCH (09:09)
[2016-07-09] MEDS: THIAMINE IV SCH (09:09)
[2016-07-09] MEDS: ASPIRIN 300 MG SUPP PR SCH (09:09)
--- NOTE | 2016-07-09 09:32 | PN ---
Date/Time of Note Date/Time of Note DATE: 07/09/16 TIME: 09:20 Assessment/Plan VTE Prophylaxis VTE Prophylaxis Intervention: SCD's Lines/Catheters IV Catheter Type (from Nrs): Peripheral IV Urinary Cath still in place: Yes Reason Cath still needed: other (indicate) (to monitor UOP ) Assessment/Plan Assessment/Plan 76-year-old male with: 1. Acute respiratory failure with a history of heavy tobacco use, likely chronic obstructive pulmonary disease and chronic obstructive pulmonary disease exacerbation and also with right lower lobe, right middle lobe infiltrate consistent with pneumonia, possibly aspiration pneumonia versus community-acquired pneumonia. On 3 to 4L NC now with goal O2 Sats 88% Continue current nebs and tapering steroids per Pulmonary ok to go down to 20 mg IV daily 2 Nutrition. Even attempts at Dobhoff catheter placement over weekend was unsuccessful. CT neck soft tissue with minimal injury left nasopharyngeal mucosa and minimal subcut emphysema Failed Swallow eval x 1 and will try again today, if fails will need G tube, left a message to Grand Son for consent and will consult Dr Zambrano. Continue IVF for now 3. Aspiration pneumonia likely, given the pattern of infiltrates on chest x- ray. Much better and d/c Zosyn today per Pulmonary Will likely end up needing G tube placement for Tube feeding and free H20. 4. Pulseless electrical activity cardiac arrest at home with EMS on site, status post resuscitation. Cardiac arrest may be very well 2ry to respiratory failure. Hemodynamically stable currently. 2-D echo with findings of severe cardiomyopathy and EF 30 % likely chronic. Currently euvolemic to hypovolemic, hold Lasix for now, resume Lasix if needed. Appreciate recommendations from Dr Kahn. Off Bblock due to bradycardia and continuing afterload reduction. Holding off diuresis. 5. Severe Cardiomyopathy with systolic dysfunction and EF 30%. Monitor UOP and volume status, holding of diuresis so far and on IVF. Off Bblocker due to bradycardia, improving thrombocytopenia, on ASA but held over the past few days due to lack of p.o. access With CKD, no KANDIS inhibitor or ARB for now 6. Likely cirrhosis with hx of ETOH use per reports. Hepatitis panel negative LFTs, Coagulopathy and thrombocytopenia seems to be all improving. Continue thiamine/folate/mvi IV until G tube placed Ammonia level within normal limit. 7. Encephalopathy: still with odd behavior and on/off following commands, CT head negative x2 so far, ? Anoxic injury Ammonia level wnl Neuro consult as needed, ? telepsych when more verbal. 8. Acute kidney injury on chronic kidney disease with likely ATN. Renal US with signs of chronic medical disease. Ok UOP and improving renal function holding off Lasix, on D5W with improving Na 145 this AM. Monitor volume status and renal function. PROPHYLAXIS: SCDs to lower extremities for DVT prophylaxis and Pepcid for GI prophylaxis. DISPOSITION: FULL CODE until further information is obtained through social work manager, niranjan Kimble, will be updated his phone number is [phone] seems to be the only living next of kin. Will need g tube placement if fails swallow eval again today. Continue ICU level of care until G tube placed then transfer to Tele if stable. Subjective 24 Hr Interval Summary Free Text/Dictation Patient more alert and respiratory status stable on NC Still failing swallow eval and will need G tube I have called a left a message for Grand Son Another swallow eval pending and will consult Dr Zambrano for G tube if fails again which is likely Exam/Review of Systems Vital Signs Vitals Vital Signs Date Time Temp Pulse Resp B/P Pulse Ox O2 Delivery O2 Flow Rate FiO2 07/09/16 09:00 80 14 131/76 95 Nasal Cannula 4.0 07/09/16 08:00 98.0 07/08/16 05:36 40 Intake and Output 07/08/16 07/08/16 07/09/16 15:00 23:00 07:00 Intake Total 525 ml 600 ml 525 ml Output Total 265 ml 245 ml 210 ml Balance 260 ml 355 ml 315 ml Exam Constitutional: alert, frail, oriented (x2), other (soft voice but answering some questions ) Respiratory: diminished breath sounds (bases much better ), normal air movement Cardiovascular: nl pulses, regular rate and rhythm Gastrointestinal: non-tender, soft Extremities: normal pulses, other (chronic skin changes ) 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: CLINICAL OPERATIONS LEADER II-XII intact, confused, other (generalized weakness ) Skin: ecchymosis Results Result Diagram: 07/09/1652407/09/16524 Results 24 hrs Laboratory Tests Test 07/09/16 05:25 White Blood Count 9.5 # Red Blood Count 3.55 L Hemoglobin 11.0 L Hematocrit 34.9 L Mean Corpuscular Volume 98.3 Mean Corpuscular Hemoglobin 31.0 Mean Corpuscular Hemoglobin Concent 31.5 L Red Cell Distribution Width 14.6 H Platelet Count 80 L Mean Platelet Volume 13.0 H Neutrophils % 91.4 H Lymphocytes % 5.2 L Monocytes % 2.8 Eosinophils % 0.1 Basophils % 0.0 Nucleated Red Blood Cells % 0.0 Neutrophils # 8.7 H Lymphocytes # 0.5 L Monocytes # 0.3 Eosinophils # 0.0 Basophils # 0.0 Nucleated Red Blood Cells # 0.0 Sodium Level 145 H Potassium Level 3.6 Chloride Level 103 Carbon Dioxide Level 33 H Anion Gap 13 Blood Urea Nitrogen 67 H Creatinine 1.63 H Glucose Level 110 Calcium Level 9.4 Phosphorus Level 2.4 L Magnesium Level 2.4 Medications Medications Current Medications Ondansetron HCl (Zofran Inj) 4 mg Q6H PRN IV NAUSEA AND/OR VOMITING; Start at 00:00 Pantoprazole (Protonix Iv) 40 mg DAILY@06 IV Last administered on 07/09/16 05: 51; Admin Dose 40 MG; Start 06/24/16 at 06:00 Thiamine HCl (Vitamin B1) 100 mg DAILY NGT Last administered on 07/02/16 09:54 ; Admin Dose 100 MG; Start 06/29/16 at 09:00; Status Future Hold Multivitamins (Thera-Plus) 5 ml DAILY NGT Last administered on 07/02/16 09:55; Admin Dose 5 ML; Start 06/29/16 at 09:00; Status Future Hold Folic Acid (Folic Acid) 1 mg DAILY NGT Last administered on 07/02/16 09:55; Admin Dose 1 MG; Start 06/29/16 at 09:00; Status Future Hold Hydralazine HCl (Apresoline) 10 mg Q8 NGT Last administered on 07/02/16 05:36; Admin Dose 10 MG; Start 06/29/16 at 14:00 Aspirin (Halfprin) 81 mg DAILY PO Last administered on 07/02/16 09:55; Admin Dose 81 MG; Start 07/01/16 at 09:30; Status Future Hold Collagenase (Santyl) 1 applic DAILY TOP Last administered on 07/08/16 08:14; Admin Dose 1 APPLIC; Start 07/01/16 at 16:00 Hydralazine HCl 10 mg 10 mg Q6H PRN IV ELEVATED BLOOD PRESSURE; Start 07/02/16 at 17:00 Multivitamins 10 ml/Folic Acid 1 mg/Thiamine HCl 100 mg/Dextrose 1,011.2 ml @ 75 mls/hr DAILY@09 IV Last administered on 07/09/16 09:09; Admin Dose 75 MLS/ HR; Start 07/04/16 at 11:00 Dextrose (D5W) 1,000 ml @ 75 mls/hr [id number] IV Last administered on 07/08/16 21:07; Admin Dose 75 MLS/HR; Start 07/04/16 at 10:00 Methylprednisolone Sodium Succinate (Solu-Medrol) 40 mg QAM IV Last administered on 07/09/16 09:09; Admin Dose 40 MG; Start 07/06/16 at 09:00 Aspirin (Aspirin) 300 mg DAILY [place] Last administered on 07/09/16 09:09; Admin Dose 300 MG; Start 07/05/16 at 12:30 DAVID GONZALEZ Jul 09, 2016 09:31
[2016-07-09 10:24] LABS: INR 0.98; PARTIAL THROMBOPLASTIN TIME 25.6 Sec (25.0-35.0)
--- NOTE | 2016-07-09 11:06 | CONS ---
Date/Time of Note Date/Time of Note DATE: 07/09/16 TIME: 11:05 Assessment/Plan Assessment/Plan Additional Assessment/Plan ASSESSMENT * Dysphagia * Pulseless electrical activity,s,p resuscitation * Acute respiratory failure Resolved * Cardiomyopathy EF 30 % * Encephalopathy * PLAN * PEG today .Dr Gonzalez spoke to niranjan agreed with the planned procedure,called Lamin ureña,left message in the phone * continue present management Consultation Date/Type/Reason Admit Date/Time Jun 23, 2016 at 22:42 Type of Consultation: Gastroenterology Reason for Consultation PEG placement Referring Provider: DAVID GONZALEZ Hx of Present Illness 76 y/o male who was referred for G tube insertion.Patient was admitted 2 weeks ago because of pulseless electrical activity secondary to respiratory failure.He was resuscitated and admitted at ICU .He was extubated but attempts to insert nasogastric tube ,or Dobbhoff catheter failed .He failed swallow evaluation 3x,hence PEG for nutritional support Psychological: confusion Past Medical History Medical History: hypertension Social History Smoking Status: Current every day smoker Exam/Review of Systems Vital Signs Vitals Vital Signs Date Time Temp Pulse Resp B/P Pulse Ox O2 Delivery O2 Flow Rate FiO2 07/09/16 10:00 80 24 137/88 93 Nasal Cannula 4.0 07/09/16 08:00 98.0 07/08/16 05:36 40 Intake and Output 07/08/16 07/08/16 07/09/16 15:00 23:00 07:00 Intake Total 525 ml 600 ml 525 ml Output Total 265 ml 245 ml 210 ml Balance 260 ml 355 ml 315 ml Exam Constitutional: frail, other (oriented x 2) Head: normocephalic Eyes: PERRL, nl sclera Neck: supple Respiratory: clear to auscultation, normal air movement Cardiovascular: nl pulses, regular rate and rhythm Gastrointestinal: bowel sounds, nl liver, spleen, non-tender, other (umbilical hernia), soft Musculoskeletal: nl extremities to inspection Extremities: normal pulses 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: confused Results Result Diagram: 07/09/16 0525 07/09/1625 Results 24 hrs Laboratory Tests Test 07/09/16 05:25 07/09/16 09:58 White Blood Count 9.5 # Red Blood Count 3.55 L Hemoglobin 11.0 L Hematocrit 34.9 L Mean Corpuscular Volume 98.3 Mean Corpuscular Hemoglobin 31.0 Mean Corpuscular Hemoglobin Concent 31.5 L Red Cell Distribution Width 14.6 H Platelet Count 80 L Mean Platelet Volume 13.0 H Neutrophils % 91.4 H Lymphocytes % 5.2 L Monocytes % 2.8 Eosinophils % 0.1 Basophils % 0.0 Nucleated Red Blood Cells % 0.0 Neutrophils # 8.7 H Lymphocytes # 0.5 L Monocytes # 0.3 Eosinophils # 0.0 Basophils # 0.0 Nucleated Red Blood Cells # 0.0 Sodium Level 145 H Potassium Level 3.6 Chloride Level 103 Carbon Dioxide Level 33 H Anion Gap 13 Blood Urea Nitrogen 67 H Creatinine 1.63 H Glucose Level 110 Calcium Level 9.4 Phosphorus Level 2.4 L Magnesium Level 2.4 Prothrombin Time 13.0 Prothrombin Time Ratio 1.0 INR International Normalized Ratio 0.98 Activated Partial Thromboplast Time 25.6 Medications Medications Current Medications Ondansetron HCl (Zofran Inj) 4 mg Q6H PRN IV NAUSEA AND/OR VOMITING; Start at 00:00 Pantoprazole (Protonix Iv) 40 mg DAILY@06 IV Last administered on 07/09/16 05: 51; Admin Dose 40 MG; Start 06/24/16 at 06:00 Thiamine HCl (Vitamin B1) 100 mg DAILY NGT Last administered on 07/02/16 09:54 ; Admin Dose 100 MG; Start 06/29/16 at 09:00; Status Future Hold Multivitamins (Thera-Plus) 5 ml DAILY NGT Last administered on 07/02/16 09:55; Admin Dose 5 ML; Start 06/29/16 at 09:00; Status Future Hold Folic Acid (Folic Acid) 1 mg DAILY NGT Last administered on 07/02/16 09:55; Admin Dose 1 MG; Start 06/29/16 at 09:00; Status Future Hold Hydralazine HCl (Apresoline) 10 mg Q8 NGT Last administered on 07/02/16 05:36; Admin Dose 10 MG; Start 06/29/16 at 14:00 Aspirin (Halfprin) 81 mg DAILY PO Last administered on 07/02/16 09:55; Admin Dose 81 MG; Start 07/01/16 at 09:30; Status Future Hold Collagenase (Santyl) 1 applic DAILY TOP Last administered on 07/08/16 08:14; Admin Dose 1 APPLIC; Start 07/01/16 at 16:00 Hydralazine HCl 10 mg 10 mg Q6H PRN IV ELEVATED BLOOD PRESSURE; Start 07/02/16 at 17:00 Multivitamins 10 ml/Folic Acid 1 mg/Thiamine HCl 100 mg/Dextrose 1,011.2 ml @ 75 mls/hr DAILY@09 IV Last administered on 07/09/16 09:09; Admin Dose 75 MLS/ HR; Start 07/04/16 at 11:00 Dextrose (D5W) 1,000 ml @ 75 mls/hr [id number] IV Last administered on 07/08/16 21:07; Admin Dose 75 MLS/HR; Start 07/04/16 at 10:00 Aspirin (Aspirin) 300 mg DAILY [place] Last administered on 07/09/16 09:09; Admin Dose 300 MG; Start 07/05/16 at 12:30 Methylprednisolone Sodium Succinate (Solu-Medrol) 20 mg QAM IV ; Start 07/10/16 at 09:00 BRIA MARTINEZ MD Jul 09, 2016 11:06
--- NOTE | 2016-07-09 11:50 | CONS ---
Date/Time of Note Date/Time of Note DATE: 07/09/16 TIME: 11:48 Assessment/Plan Assessment/Plan Additional Assessment/Plan Assessment recommendations; next 1. Patient admitted for respiratory failure due to COPD exacerbation with significant clinical improvement. 2. Underlying cardiomyopathy. 3. Generalized deconditioning. 4. Thrombocytopenia. 5. Renal insufficiency. Not requiring hemodialysis. Continue current supportive care. Patient can be transferred to the medical floor. Consultation Date/Type/Reason Admit Date/Time Jun 23, 2016 at 22:42 Type of Consultation: Pulmonary/critical care Referring Provider: DAVID GONZALEZ 24 HR Interval Summary Free Text/Dictation Patient condition is stable, patient remains awake and alert. Is able to talk. Able to move all 4 extremities. General exam; elderly male, currently in no distress. Exam/Review of Systems Vital Signs Vitals Vital Signs Date Time Temp Pulse Resp B/P Pulse Ox O2 Delivery O2 Flow Rate FiO2 07/09/16 11:00 79 13 141/72 95 Nasal Cannula 4.0 07/09/16 08:00 98.0 07/08/16 05:36 40 Intake and Output 07/08/16 07/08/16 07/09/16 15:00 23:00 07:00 Intake Total 525 ml 600 ml 525 ml Output Total 265 ml 245 ml 210 ml Balance 260 ml 355 ml 315 ml Exam HEENT exam is; supple neck, positive JVD. No lymphadenopathy. Midline trachea. No thyromegaly. Pharynx is clear. Patient is edentulous. Pupils are small bilaterally. No neck masses. Chest exam is; diminished breath on lung bases bilaterally. S1-S2 audible, no murmurs. Regular rhythm. Abdomen examination; soft, nondistended. Nontender. No organomegaly. Bowel sounds audible. Extremity exam is; trace lower extremity edema. Patient does have severe ecchymosis involving all 4 extremities. LAYER OUT PLATE GLASS examination a micro patient is awake alert able to talk moves all 4 extremities. Results Result Diagram: 07/09/1652407/09/16524 Results 24 hrs Laboratory Tests Test 07/09/16 05:25 07/09/16 09:58 White Blood Count 9.5 # Red Blood Count 3.55 L Hemoglobin 11.0 L Hematocrit 34.9 L Mean Corpuscular Volume 98.3 Mean Corpuscular Hemoglobin 31.0 Mean Corpuscular Hemoglobin Concent 31.5 L Red Cell Distribution Width 14.6 H Platelet Count 80 L Mean Platelet Volume 13.0 H Neutrophils % 91.4 H Lymphocytes % 5.2 L Monocytes % 2.8 Eosinophils % 0.1 Basophils % 0.0 Nucleated Red Blood Cells % 0.0 Neutrophils # 8.7 H Lymphocytes # 0.5 L Monocytes # 0.3 Eosinophils # 0.0 Basophils # 0.0 Nucleated Red Blood Cells # 0.0 Sodium Level 145 H Potassium Level 3.6 Chloride Level 103 Carbon Dioxide Level 33 H Anion Gap 13 Blood Urea Nitrogen 67 H Creatinine 1.63 H Glucose Level 110 Calcium Level 9.4 Phosphorus Level 2.4 L Magnesium Level 2.4 Prothrombin Time 13.0 Prothrombin Time Ratio 1.0 INR International Normalized Ratio 0.98 Activated Partial Thromboplast Time 25.6 Medications Medications Current Medications Ondansetron HCl (Zofran Inj) 4 mg Q6H PRN IV NAUSEA AND/OR VOMITING; Start at 00:00 Pantoprazole (Protonix Iv) 40 mg DAILY@06 IV Last administered on 07/09/16 05: 51; Admin Dose 40 MG; Start 06/24/16 at 06:00 Thiamine HCl (Vitamin B1) 100 mg DAILY NGT Last administered on 07/02/16 09:54 ; Admin Dose 100 MG; Start 06/29/16 at 09:00; Status Future Hold Multivitamins (Thera-Plus) 5 ml DAILY NGT Last administered on 07/02/16 09:55; Admin Dose 5 ML; Start 06/29/16 at 09:00; Status Future Hold Folic Acid (Folic Acid) 1 mg DAILY NGT Last administered on 07/02/16 09:55; Admin Dose 1 MG; Start 06/29/16 at 09:00; Status Future Hold Hydralazine HCl (Apresoline) 10 mg Q8 NGT Last administered on 07/02/16 05:36; Admin Dose 10 MG; Start 06/29/16 at 14:00 Aspirin (Halfprin) 81 mg DAILY PO Last administered on 07/02/16 09:55; Admin Dose 81 MG; Start 07/01/16 at 09:30; Status Future Hold Collagenase (Santyl) 1 applic DAILY TOP Last administered on 07/08/16 08:14; Admin Dose 1 APPLIC; Start 07/01/16 at 16:00 Hydralazine HCl 10 mg 10 mg Q6H PRN IV ELEVATED BLOOD PRESSURE; Start 07/02/16 at 17:00 Multivitamins 10 ml/Folic Acid 1 mg/Thiamine HCl 100 mg/Dextrose 1,011.2 ml @ 75 mls/hr DAILY@09 IV Last administered on 07/09/16 09:09; Admin Dose 75 MLS/ HR; Start 07/04/16 at 11:00 Dextrose (D5W) 1,000 ml @ 75 mls/hr [id number] IV Last administered on 07/08/16 21:07; Admin Dose 75 MLS/HR; Start 07/04/16 at 10:00 Aspirin (Aspirin) 300 mg DAILY [place] Last administered on 07/09/16 09:09; Admin Dose 300 MG; Start 07/05/16 at 12:30 Methylprednisolone Sodium Succinate (Solu-Medrol) 20 mg QAM IV ; Start 07/10/16 at 09:00 JEN JOHNSON Jul 09, 2016 11:50
--- NOTE | 2016-07-09 14:33 | PN ---
Date/Time of Note Date/Time of Note DATE: 07/09/16 TIME: 14:32 Assessment/Plan VTE Prophylaxis VTE Prophylaxis Intervention: SCD's Lines/Catheters IV Catheter Type (from Nrs): Peripheral IV Urinary Cath still in place: Yes Reason Cath still needed: urinary retention Assessment/Plan Assessment/Plan Cardiopulmonary arrest Severe cardiomyopathy with ejection fraction 30% Respiratory failure status post extubation Acute decompensated systolic congestive heart failure Encephalopathy Mildly elevated troponin Active tobacco use Coagulopathy Acute kidney injury - Intermittent IV diuretics as renal function and blood pressure permits. -Once able to tolerate p.o. meds, would start beta-erika and restart hydralazine secondary to congestive heart failure. - +i/o overnighrt -bun/creat improved Subjective 24 Hr Interval Summary Free Text/Dictation The patient with no change Exam/Review of Systems Vital Signs Vitals Vital Signs Date Time Temp Pulse Resp B/P Pulse Ox O2 Delivery O2 Flow Rate FiO2 07/09/16 14:27 80 24 92 Nasal Cannula 4.0 07/09/16 14:00 145/70 07/09/16 12:00 97.6 07/08/16 05:36 40 Intake and Output 07/08/16 07/08/16 07/09/16 15:00 23:00 07:00 Intake Total 525 ml 600 ml 525 ml Output Total 265 ml 245 ml 210 ml Balance 260 ml 355 ml 315 ml Results Result Diagram: 07/09/16 0525 07/09/16 0525 Results 24 hrs Laboratory Tests Test 07/09/16 05:25 07/09/16 09:58 White Blood Count 9.5 # Red Blood Count 3.55 L Hemoglobin 11.0 L Hematocrit 34.9 L Mean Corpuscular Volume 98.3 Mean Corpuscular Hemoglobin 31.0 Mean Corpuscular Hemoglobin Concent 31.5 L Red Cell Distribution Width 14.6 H Platelet Count 80 L Mean Platelet Volume 13.0 H Neutrophils % 91.4 H Lymphocytes % 5.2 L Monocytes % 2.8 Eosinophils % 0.1 Basophils % 0.0 Nucleated Red Blood Cells % 0.0 Neutrophils # 8.7 H Lymphocytes # 0.5 L Monocytes # 0.3 Eosinophils # 0.0 Basophils # 0.0 Nucleated Red Blood Cells # 0.0 Sodium Level 145 H Potassium Level 3.6 Chloride Level 103 Carbon Dioxide Level 33 H Anion Gap 13 Blood Urea Nitrogen 67 H Creatinine 1.63 H Glucose Level 110 Calcium Level 9.4 Phosphorus Level 2.4 L Magnesium Level 2.4 Prothrombin Time 13.0 Prothrombin Time Ratio 1.0 INR International Normalized Ratio 0.98 Activated Partial Thromboplast Time 25.6 Medications Medications Current Medications Ondansetron HCl (Zofran Inj) 4 mg Q6H PRN IV NAUSEA AND/OR VOMITING; Start at 00:00 Pantoprazole (Protonix Iv) 40 mg DAILY@06 IV Last administered on 07/09/16 05: 51; Admin Dose 40 MG; Start 06/24/16 at 06:00 Thiamine HCl (Vitamin B1) 100 mg DAILY NGT Last administered on 07/02/16 09:54 ; Admin Dose 100 MG; Start 06/29/16 at 09:00; Status Future Hold Multivitamins (Thera-Plus) 5 ml DAILY NGT Last administered on 07/02/16 09:55; Admin Dose 5 ML; Start 06/29/16 at 09:00; Status Future Hold Folic Acid (Folic Acid) 1 mg DAILY NGT Last administered on 07/02/16 09:55; Admin Dose 1 MG; Start 06/29/16 at 09:00; Status Future Hold Hydralazine HCl (Apresoline) 10 mg Q8 NGT Last administered on 07/02/16 05:36; Admin Dose 10 MG; Start 06/29/16 at 14:00 Aspirin (Halfprin) 81 mg DAILY PO Last administered on 07/02/16 09:55; Admin Dose 81 MG; Start 07/01/16 at 09:30; Status Future Hold Collagenase (Santyl) 1 applic DAILY TOP Last administered on 07/08/16 08:14; Admin Dose 1 APPLIC; Start 07/01/16 at 16:00 Hydralazine HCl 10 mg 10 mg Q6H PRN IV ELEVATED BLOOD PRESSURE; Start 07/02/16 at 17:00 Multivitamins 10 ml/Folic Acid 1 mg/Thiamine HCl 100 mg/Dextrose 1,011.2 ml @ 75 mls/hr DAILY@09 IV Last administered on 07/09/16 09:09; Admin Dose 75 MLS/ HR; Start 07/04/16 at 11:00 Dextrose (D5W) 1,000 ml @ 75 mls/hr [id number] IV Last administered on 07/08/16 21:07; Admin Dose 75 MLS/HR; Start 07/04/16 at 10:00 Aspirin (Aspirin) 300 mg DAILY [place] Last administered on 07/09/16 09:09; Admin Dose 300 MG; Start 07/05/16 at 12:30 Methylprednisolone Sodium Succinate (Solu-Medrol) 20 mg QAM IV ; Start 07/10/16 at 09:00 DEO ELLIOTT MD Jul 09, 2016 14:33
[2016-07-09] MEDS ORDERED: PROPOFOL 20 ML ONE (18:18)
[2016-07-09] MEDS ORDERED: CEFAZOLIN 1 GM/50 ML (PMX) 50 ML IVPB SCH (19:00)
[2016-07-09] MEDS ORDERED: FENTAnyl 50 MCG/ML VIAL IV PRN (19:30)
--- NOTE | 2016-07-09 22:40 | GILP ---
DATE OF PROCEDURE: NAME OF PROCEDURE: Esophagogastroduodenoscopy with percutaneous endoscopic gastrostomy tube placeme nt. SURGEON: Bria Zambrano MD HISTORY AND INDICATIONS: The patient requiring enteral feeding support. PREMEDICATION: Monitored anesthesia care by anesthesiologist. INSTRUMENT USED: Olympus panendoscope. TECHNIQUE: After informed consent with the patient and/or family members understanding the procedur e, its indications, potential risks and complications including but not limited to allergic reaction , bleeding, perforation, infection or leakage, and after all pertinent questions were answered to th e patient and/or family members satisfaction, the patient and/or family member signed witnessed info rmed consent. Following this, premedication was administered slowly IV push under careful cardiovascular and respi ratory monitoring with pulse oximetry, blood pressure and threat monitoring analyst. Once the sedative effect was achieved, the patient was placed in the supine position, the panendoscope was introduced and advance d under visual guidance. Careful examination of the upper gastrointestinal tract on insertion as well as withdrawal of the in strument disclosed the following findings: ESOPHAGUS: The mucosa of the entire esophagus appears within normal limits. There is no evidence of esophagitis, varices, neoplasm or stricture. STOMACH: Upon entrance to the stomach, air was insufflated. The gastric victoria distended normally. The mucosa of the fundus, body and antrum of the stomach was carefully examined both head-on and on retroflexion and shows no abnormalities. There is no evidence of gastritis, ulcers or neoplasm. PYLORUS: The pylorus appears patent and within normal limits with no evidence of gastric outlet obs truction. DUODENUM: The duodenal mucosa was carefully examined in the duodenal bulb as well as the second por tion of the duodenum and appears unremarkable with no evidence of duodenitis, ulcer or neoplasm. The instrument was then brought back to the stomach, and the anterior wall mid-body was identified b y transillumination and "finger indentation." This area was then marked in the anterior wall of the abdomen. It was cleansed with Betadine and infiltrated with Xylocaine 1%. Following this, a trocar needle was introduced into the gastric lumen under visual control with the endoscope. Once in the gastric lumen, a guidewire was advanced and secured with a polypectomy snare. At this point the end oscope was withdrawn, bringing the guidewire out through the patient's mouth. Following this, a rufus rostomy tube was introduced over the guidewire with the Sacks-Vinne technique without difficulty. A small incision was performed in the skin to allow easy passage of the G-tube. Once the position of the gastrostomy tube was confirmed, the external stopper and connectors were installed and a clean dressing applied. Gastrostomy tube used was 20-[place] gastrostomy tube. The patient tolerated the procedure well and was transferred out of the endoscopy suite awake and in good condition to continue recovery under observation. Feedings will start in the next 12-24h, and gastrostomy care will be instituted. IMPRESSION: Uneventful percutaneous endoscopic gastrostomy tube placement with placement of 20-Fren ch gastrostomy tube. PLAN: Feedings will be started tomorrow morning. Dictated By: BRIA REVELES Conf#: [id number] DID#: [id number]
[2016-07-10] VITALS (34 sets, daily range): BP systolic 105–153; BP diastolic 52–77; PULSE 60–87; RESP 16–29
[2016-07-10] MEDS: ALBUTEROL/IPRATROPIUM (NEB) 3 ML AMP HHN SCH ×6 (00:51→21:28)
[2016-07-10 05:58] LABS: ADD SCAN DIFF NO
[2016-07-10 06:00] LABS: ABNORMAL IP MESSAGE 1; BASOPHILS % 0.1 % (0.0-2.0); HEMOGLOBIN 10.1 g/dl (14.0-18.0); LYMPHOCYTES # 0.4 10^3/ul (0.8-2.9); LYMPHOCYTES % 3.9 % (15.0-51.0); MEAN CORPUSCULAR HEMOGLOBIN 30.5 pg (29.0-33.0); MEAN CORPUSCULAR HGB CONC 31.6 g/dl (32.0-37.0); MEAN CORPUSCULAR VOLUME 96.7 fl (82.0-101.0); MEAN PLATELET VOLUME 12.5 fl (7.4-10.4); MONOCYTE # 0.3 10^3/ul (0.3-0.9); MONOCYTES % 2.8 % (0.0-11.0); NEUTROPHIL # 10.4 10^3/ul (1.6-7.5); NEUTROPHILS % 92.8 % (39.0-77.0); PLATELET COUNT 74 10^3/UL (140-415); RED BLOOD COUNT 3.31 10^6/ul (4.70-6.10); RED CELL DISTRIBUTION WIDTH 14.7 % (11.5-14.5); WHITE BLOOD COUNT 11.2 10^3/ul (4.8-10.8)
[2016-07-10 06:12] LABS: MAGNESIUM 2.3 mg/dl (1.7-2.5); PHOSPHORUS 2.7 mg/dl (2.5-4.9)
[2016-07-10 06:14] LABS: CREATININE 1.57 mg/dl (0.61-1.24); POTASSIUM 3.3 mmol/L (3.5-5.1)
[2016-07-10] MEDS: PANTOPRAZOLE 40 MG INJ IV SCH (06:22)
--- NOTE | 2016-07-10 08:13 | PN ---
Date/Time of Note Date/Time of Note DATE: 07/10/16 TIME: 08:12 Assessment/Plan VTE Prophylaxis VTE Prophylaxis Intervention: SCD's Lines/Catheters IV Catheter Type (from Nrs): Saline Lock Urinary Cath still in place: Yes Reason Cath still needed: urinary retention Assessment/Plan Assessment/Plan Cardiopulmonary arrest Severe cardiomyopathy with ejection fraction 30% Respiratory failure status post extubation Acute decompensated systolic congestive heart failure Encephalopathy Mildly elevated troponin Active tobacco use Coagulopathy Acute kidney injury - Intermittent IV diuretics as renal function and blood pressure permits. -Once able to tolerate p.o. meds, would start beta-erika and restart hydralazine secondary to congestive heart failure. - +i/o overnighrt -bun/creat improved Subjective 24 Hr Interval Summary Free Text/Dictation the patient stable Exam/Review of Systems Vital Signs Vitals Vital Signs Date Time Temp Pulse Resp B/P Pulse Ox O2 Delivery O2 Flow Rate FiO2 07/10/16 06:00 77 24 112/55 87 Venturi Mask 07/10/16 05:07 6.0 07/10/16 04:00 96.8 07/08/16 05:36 40 Intake and Output 07/09/16 07/09/16 07/10/16 15:00 23:00 07:00 Intake Total 600 ml 525 ml 610 ml Output Total 365 ml 245 ml 236 ml Balance 235 ml 280 ml 374 ml Results Result Diagram: 07/10/16 0520 07/10/16 0520 Results 24 hrs Laboratory Tests Test 07/09/16 09:58 07/10/16 05:20 Prothrombin Time 13.0 Prothrombin Time Ratio 1.0 INR International Normalized Ratio 0.98 Activated Partial Thromboplast Time 25.6 White Blood Count 11.2 H Red Blood Count 3.31 L Hemoglobin 10.1 L Hematocrit 32.0 L Mean Corpuscular Volume 96.7 Mean Corpuscular Hemoglobin 30.5 Mean Corpuscular Hemoglobin Concent 31.6 L Red Cell Distribution Width 14.7 H Platelet Count 74 L Mean Platelet Volume 12.5 H Neutrophils % 92.8 H Lymphocytes % 3.9 L Monocytes % 2.8 Eosinophils % 0.0 Basophils % 0.1 Nucleated Red Blood Cells % 0.0 Neutrophils # 10.4 H Lymphocytes # 0.4 L Monocytes # 0.3 Eosinophils # 0.0 Basophils # 0.0 Nucleated Red Blood Cells # 0.0 Sodium Level 140 Potassium Level 3.3 L Chloride Level 103 Carbon Dioxide Level 31 Anion Gap 9 Blood Urea Nitrogen 59 H Creatinine 1.57 H Glucose Level 97 Calcium Level 9.0 Phosphorus Level 2.7 Magnesium Level 2.3 Medications Medications Current Medications Ondansetron HCl (Zofran Inj) 4 mg Q6H PRN IV NAUSEA AND/OR VOMITING; Start at 00:00 Pantoprazole (Protonix Iv) 40 mg DAILY@06 IV Last administered on 07/10/16 06: 22; Admin Dose 40 MG; Start 06/24/16 at 06:00 Thiamine HCl (Vitamin B1) 100 mg DAILY NGT Last administered on 07/02/16 09:54 ; Admin Dose 100 MG; Start 06/29/16 at 09:00; Status Future Hold Multivitamins (Thera-Plus) 5 ml DAILY NGT Last administered on 07/02/16 09:55; Admin Dose 5 ML; Start 06/29/16 at 09:00; Status Future Hold Folic Acid (Folic Acid) 1 mg DAILY NGT Last administered on 07/02/16 09:55; Admin Dose 1 MG; Start 06/29/16 at 09:00; Status Future Hold Hydralazine HCl (Apresoline) 10 mg Q8 NGT Last administered on 07/10/16 06:29 ; Admin Dose 10 MG; Start 06/29/16 at 14:00 Aspirin (Halfprin) 81 mg DAILY PO Last administered on 07/02/16 09:55; Admin Dose 81 MG; Start 07/01/16 at 09:30; Status Future Hold Collagenase (Santyl) 1 applic DAILY TOP Last administered on 07/08/16 08:14; Admin Dose 1 APPLIC; Start 07/01/16 at 16:00 Hydralazine HCl 10 mg 10 mg Q6H PRN IV ELEVATED BLOOD PRESSURE; Start 07/02/16 at 17:00 Multivitamins 10 ml/Folic Acid 1 mg/Thiamine HCl 100 mg/Dextrose 1,011.2 ml @ 75 mls/hr DAILY@09 IV Last administered on 07/09/16 09:09; Admin Dose 75 MLS/ HR; Start 07/04/16 at 11:00 Dextrose (D5W) 1,000 ml @ 75 mls/hr [id number] IV Last administered on 07/09/16 23:31; Admin Dose 75 MLS/HR; Start 07/04/16 at 10:00 Aspirin (Aspirin) 300 mg DAILY [place] Last administered on 07/09/16 09:09; Admin Dose 300 MG; Start 07/05/16 at 12:30 Methylprednisolone Sodium Succinate (Solu-Medrol) 20 mg QAM IV ; Start 07/10/16 at 09:00 DEO ELLIOTT MD Jul 10, 2016 08:13
[2016-07-10] MEDS: POTASSIUM CHLORIDE 50 ML IVPB PRN ×3 (08:22→10:30)
--- NOTE | 2016-07-10 09:39 | CONS ---
Date/Time of Note Date/Time of Note DATE: 07/10/16 TIME: 09:37 Assessment/Plan Assessment/Plan Additional Assessment/Plan Assessment recommendations; 1. Patient admitted for acute respiratory failure no extubated several days ago. 2. COPD. 3. Cardiomyopathy. 4. Generalized deconditioning. Continue BiPAP on a as needed basis. Continue current medications. Patient prognosis remains poor. Consultation Date/Type/Reason Admit Date/Time Jun 23, 2016 at 22:42 Type of Consultation: Pulmonary/critical care Referring Provider: DAVID GONZALEZ 24 HR Interval Summary Free Text/Dictation Patient condition is tenuous at best. Not requiring BiPAP. However has remained awake and alert. Has remained hemodynamically stable. General exam; elderly male, currently in no distress. Exam/Review of Systems Vital Signs Vitals Vital Signs Date Time Temp Pulse Resp B/P Pulse Ox O2 Delivery O2 Flow Rate FiO2 07/10/16 08:00 71 07/10/16 08:00 Venti Mask 07/10/16 08:00 97.6 24 109/52 85 07/10/16 05:07 6.0 07/08/16 05:36 40 Intake and Output 07/09/16 07/09/16 07/10/16 15:00 23:00 07:00 Intake Total 600 ml 525 ml 610 ml Output Total 365 ml 245 ml 236 ml Balance 235 ml 280 ml 374 ml Exam HEENT exam is; supple neck, no JVD. No lymphadenopathy. Midline trachea. Patient is edentulous. Chest examined; diminished breath sound bilaterally. S1-S2 audible, no murmurs. Regular rhythm. Abdomen exam is; scaphoid. Nontender. No organomegaly. Bowel sounds audible. Extremity exam; patient has multiple ecchymosis involving all 4 extremities. GAMING PIT BOSS examination; patient is awake alert has significant generalized muscular weakness. Results Result Diagram: 07/10/16 0520 07/10/16 0520 Results 24 hrs Laboratory Tests Test 07/09/16 09:58 07/10/16 05:20 Prothrombin Time 13.0 Prothrombin Time Ratio 1.0 INR International Normalized Ratio 0.98 Activated Partial Thromboplast Time 25.6 White Blood Count 11.2 H Red Blood Count 3.31 L Hemoglobin 10.1 L Hematocrit 32.0 L Mean Corpuscular Volume 96.7 Mean Corpuscular Hemoglobin 30.5 Mean Corpuscular Hemoglobin Concent 31.6 L Red Cell Distribution Width 14.7 H Platelet Count 74 L Mean Platelet Volume 12.5 H Neutrophils % 92.8 H Lymphocytes % 3.9 L Monocytes % 2.8 Eosinophils % 0.0 Basophils % 0.1 Nucleated Red Blood Cells % 0.0 Neutrophils # 10.4 H Lymphocytes # 0.4 L Monocytes # 0.3 Eosinophils # 0.0 Basophils # 0.0 Nucleated Red Blood Cells # 0.0 Sodium Level 140 Potassium Level 3.3 L Chloride Level 103 Carbon Dioxide Level 31 Anion Gap 9 Blood Urea Nitrogen 59 H Creatinine 1.57 H Glucose Level 97 Calcium Level 9.0 Phosphorus Level 2.7 Magnesium Level 2.3 Medications Medications Current Medications Ondansetron HCl (Zofran Inj) 4 mg Q6H PRN IV NAUSEA AND/OR VOMITING; Start at 00:00 Pantoprazole (Protonix Iv) 40 mg DAILY@06 IV Last administered on 07/10/16 06: 22; Admin Dose 40 MG; Start 06/24/16 at 06:00 Thiamine HCl (Vitamin B1) 100 mg DAILY NGT Last administered on 07/02/16 09:54 ; Admin Dose 100 MG; Start 06/29/16 at 09:00; Status Future Hold Multivitamins (Thera-Plus) 5 ml DAILY NGT Last administered on 07/02/16 09:55; Admin Dose 5 ML; Start 06/29/16 at 09:00; Status Future Hold Folic Acid (Folic Acid) 1 mg DAILY NGT Last administered on 07/02/16 09:55; Admin Dose 1 MG; Start 06/29/16 at 09:00; Status Future Hold Hydralazine HCl (Apresoline) 10 mg Q8 NGT Last administered on 07/10/16 06:29 ; Admin Dose 10 MG; Start 06/29/16 at 14:00 Aspirin (Halfprin) 81 mg DAILY PO Last administered on 07/02/16 09:55; Admin Dose 81 MG; Start 07/01/16 at 09:30; Status Future Hold Collagenase (Santyl) 1 applic DAILY TOP Last administered on 07/08/16 08:14; Admin Dose 1 APPLIC; Start 07/01/16 at 16:00 Hydralazine HCl 10 mg 10 mg Q6H PRN IV ELEVATED BLOOD PRESSURE; Start 07/02/16 at 17:00 Multivitamins 10 ml/Folic Acid 1 mg/Thiamine HCl 100 mg/Dextrose 1,011.2 ml @ 75 mls/hr DAILY@09 IV Last administered on 07/09/16 09:09; Admin Dose 75 MLS/ HR; Start 07/04/16 at 11:00 Dextrose (D5W) 1,000 ml @ 75 mls/hr [id number] IV Last administered on 07/09/16 23:31; Admin Dose 75 MLS/HR; Start 07/04/16 at 10:00 Aspirin (Aspirin) 300 mg DAILY [place] Last administered on 07/09/16 09:09; Admin Dose 300 MG; Start 07/05/16 at 12:30 Methylprednisolone Sodium Succinate (Solu-Medrol) 20 mg QAM IV ; Start 07/10/16 at 09:00 JEN JOHNSON Jul 10, 2016 09:39
[2016-07-10] MEDS: METHYLPREDNISOLONE 40 MG INJ IV SCH (09:41)
[2016-07-10] MEDS: COLLAGENASE 30 GM TUBE TOP SCH (09:42)
[2016-07-10] MEDS ORDERED: POTASSIUM CHLORIDE 250 ML IVPB ONE (10:00)
--- NOTE | 2016-07-10 10:20 | PN ---
Date/Time of Note Date/Time of Note DATE: 07/10/16 TIME: 10:08 Assessment/Plan VTE Prophylaxis VTE Prophylaxis Intervention: SCD's Lines/Catheters [facility]from [facility] Saline Lock Urinary Cath still in place: Yes Reason Cath still needed: other (indicate) (monitor UOP, BERNIE ) Assessment/Plan Assessment/Plan 76-year-old male with: 1. Acute respiratory failure with a history of heavy tobacco use, likely chronic obstructive pulmonary disease and chronic obstructive pulmonary disease exacerbation and also with right lower lobe, right middle lobe infiltrate consistent with pneumonia, possibly aspiration pneumonia versus community-acquired pneumonia. Back on BiPAP goal O2 Sats 88% Continue current nebs and tapering steroids per Pulmonary ok to go down to 20 mg IV daily. 2 Nutrition. S/p G tube last night and started TF this AM, not tolerated yet CT neck soft tissue with minimal injury left nasopharyngeal mucosa and minimal subcut emphysema Continue IVF for now until TF tolerated 3. Aspiration pneumonia likely, given the pattern of infiltrates on chest x- ray. Much better and d/c Zosyn today per Pulmonary. 4. Pulseless electrical activity cardiac arrest at home with EMS on site, status post resuscitation. Cardiac arrest may be very well 2ry to respiratory failure. Hemodynamically stable currently. 2-D echo with findings of severe cardiomyopathy and EF 30 % likely chronic. Currently euvolemic to hypovolemic, hold Lasix for now, resume Lasix if needed. Appreciate recommendations from Dr Kahn. Off Bblock due to bradycardia and continuing afterload reduction. Holding off diuresis. 5. Severe Cardiomyopathy with systolic dysfunction and EF 30%. Monitor UOP and volume status, holding of diuresis so far and on IVF. Off Bblocker due to bradycardia, improving thrombocytopenia, On ASA CA for now With CKD, no KANDIS inhibitor or ARB for now 6. Likely cirrhosis with hx of ETOH use per reports. Hepatitis panel negative LFTs, Coagulopathy and thrombocytopenia seems to be all improving. Continue thiamine/folate/mvi IV until G tube placed Ammonia level within normal limit. 7. Encephalopathy: still with odd behavior and on/off following commands, CT head negative x2 so far, ? Anoxic injury Ammonia level wnl Neuro consult as needed, ? telepsych when more verbal. 8. Acute kidney injury on chronic kidney disease with likely ATN. Renal US with signs of chronic medical disease. Ok UOP and improving renal function holding off Lasix, on D5W with Kcl with improving Na 140 this AM. Monitor volume status and renal function. PROPHYLAXIS: SCDs to lower extremities for DVT prophylaxis and Pepcid for GI prophylaxis. DISPOSITION: FULL CODE until further information is obtained through social organization professor, niranjan Kimble, will be updated his phone number is [phone] seems to be the only living next of kin. Continue ICU level of care until respiratory status more stable, may need ultimately placement in Subacute/respiratory facility. Subjective 24 Hr Interval Summary Free Text/Dictation Patient had Gtube placement yesterday and Tube feeding started this AM with residuals +/_ high currently Back on BiPAP as patient hypoxic and lethargic this AM likely due to CO2 retention Continue monitoring in ICU for now Exam/Review of Systems Vital Signs Vitals Vital Signs Date Time Temp Pulse Resp B/P Pulse Ox O2 Delivery O2 Flow Rate FiO2 07/10/16 08:00 71 07/10/16 08:00 Venti Mask 07/10/16 08:00 97.6 24 109/52 85 07/10/16 05:07 6.0 07/08/16 05:36 40 Intake and Output 07/09/16 07/09/16 07/10/16 15:00 23:00 07:00 Intake Total 600 ml 525 ml 610 ml Output Total 365 ml 245 ml 236 ml Balance 235 ml 280 ml 374 ml Exam Constitutional: alert, other (not very oriented yet ) Respiratory: clear to auscultation (mostly ), other (on BiPAP ) Cardiovascular: nl pulses, regular rate and rhythm Gastrointestinal: non-tender, soft Musculoskeletal: nl extremities to inspection Extremities: other (no edema, clubbing or cyanosis ) 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: STITCH BURNISHER II-XII intact, confused, lethargic Results Result Diagram: 07/10/1651907/10/16519 Results 24 hrs Laboratory Tests Test 07/10/16 05:20 White Blood Count 11.2 H Red Blood Count 3.31 L Hemoglobin 10.1 L Hematocrit 32.0 L Mean Corpuscular Volume 96.7 Mean Corpuscular Hemoglobin 30.5 Mean Corpuscular Hemoglobin Concent 31.6 L Red Cell Distribution Width 14.7 H Platelet Count 74 L Mean Platelet Volume 12.5 H Neutrophils % 92.8 H Lymphocytes % 3.9 L Monocytes % 2.8 Eosinophils % 0.0 Basophils % 0.1 Nucleated Red Blood Cells % 0.0 Neutrophils # 10.4 H Lymphocytes # 0.4 L Monocytes # 0.3 Eosinophils # 0.0 Basophils # 0.0 Nucleated Red Blood Cells # 0.0 Sodium Level 140 Potassium Level 3.3 L Chloride Level 103 Carbon Dioxide Level 31 Anion Gap 9 Blood Urea Nitrogen 59 H Creatinine 1.57 H Glucose Level 97 Calcium Level 9.0 Phosphorus Level 2.7 Magnesium Level 2.3 Medications Medications Current Medications Ondansetron HCl (Zofran Inj) 4 mg Q6H PRN IV NAUSEA AND/OR VOMITING; Start at 00:00 Pantoprazole (Protonix Iv) 40 mg DAILY@06 IV Last administered on 07/10/16 06: 22; Admin Dose 40 MG; Start 06/24/16 at 06:00 Thiamine HCl (Vitamin B1) 100 mg DAILY NGT Last administered on 07/02/16 09:54 ; Admin Dose 100 MG; Start 06/29/16 at 09:00; Status Future Hold Multivitamins (Thera-Plus) 5 ml DAILY NGT Last administered on 07/02/16 09:55; Admin Dose 5 ML; Start 06/29/16 at 09:00; Status Future Hold Folic Acid (Folic Acid) 1 mg DAILY NGT Last administered on 07/02/16 09:55; Admin Dose 1 MG; Start 06/29/16 at 09:00; Status Future Hold Hydralazine HCl (Apresoline) 10 mg Q8 NGT Last administered on 07/10/16 06:29 ; Admin Dose 10 MG; Start 06/29/16 at 14:00 Aspirin (Halfprin) 81 mg DAILY PO Last administered on 07/02/16 09:55; Admin Dose 81 MG; Start 07/01/16 at 09:30; Status Future Hold Collagenase (Santyl) 1 applic DAILY TOP Last administered on 07/10/16 09:42; Admin Dose 1 APPLIC; Start 07/01/16 at 16:00 Hydralazine HCl 10 mg 10 mg Q6H PRN IV ELEVATED BLOOD PRESSURE; Start 07/02/16 at 17:00 Multivitamins 10 ml/Folic Acid 1 mg/Thiamine HCl 100 mg/Dextrose 1,011.2 ml @ 75 mls/hr DAILY@09 IV Last administered on 07/09/16 09:09; Admin Dose 75 MLS/ HR; Start 07/04/16 at 11:00 Dextrose (D5W) 1,000 ml @ 75 mls/hr [id number] IV Last administered on 07/09/16 23:31; Admin Dose 75 MLS/HR; Start 07/04/16 at 10:00 Aspirin (Aspirin) 300 mg DAILY [place] Last administered on 07/09/16 09:09; Admin Dose 300 MG; Start 07/05/16 at 12:30 Methylprednisolone Sodium Succinate (Solu-Medrol) 20 mg QAM IV Last administered on 07/10/16 09:41; Admin Dose 20 MG; Start 07/10/16 at 09:00 DAVID GONZALEZ Jul 10, 2016 10:19
[2016-07-10] MEDS: MULTIVITAMINS IV SCH (10:30)
[2016-07-10] MEDS: DEXTROSE 5% IV SCH (10:30)
[2016-07-10] MEDS: THIAMINE IV SCH (10:30)
[2016-07-10] MEDS: FOLIC ACID IV SCH (10:30)
[2016-07-10] MEDS: ASPIRIN 300 MG SUPP PR SCH (12:39)
[2016-07-10] MEDS: DEXTROSE 5% 1,000 ML IV SCH (12:39)
[2016-07-10 13:09] LABS: AADO2 Arterial 331.1 mmHg (7.0-24.0); Allen Test ACCEPTAB; Arterial Base Excess 7.1 mmol/L (-3.0-3); Arterial COHb 0.4 % (0.0-3.0); Arterial Fraction of Oxyhgb 87.6 % (93.0-99.0); Arterial HCO3 30.6 mmol/L (22.0-26.0); Arterial MetHb 0.2 % (0.0-1.5); Arterial Total Hemglobin 10.6 g/dl (12.0-18.0); Blood Gas IEPAP 15/5; MODE MASK - BIPAP
--- NOTE | 2016-07-10 16:23 | PN ---
Date/Time of Note Date/Time of Note DATE: 07/10/16 TIME: 16:18 Assessment/Plan VTE Prophylaxis VTE Prophylaxis Intervention: SCD's Lines/Catheters [facility] Saline Lock Urinary Cath still in place: Yes Reason Cath still needed: urinary retention Assessment/Plan Assessment/Plan ASSESSMENT * Dysphagia * PEG insertion 07/09/2016 * Pulseless electrical activity,s,p resuscitation * Acute respiratory failure Resolved * Cardiomyopathy EF 30 % * Encephalopathy * PLAN * reglan 10 mg q8 * monitor residuals * continue present management Subjective 24 Hr Interval Summary Free Text/Dictation * course reviewed with RN * patient seen and examined * PEG insertion 07/10/2016 * tolerating tube feeding * residual 100 early today * PEG dressing intact,no bleeding Exam/Review of Systems Vital Signs Vitals Vital Signs Date Time Temp Pulse Resp B/P Pulse Ox O2 Delivery O2 Flow Rate FiO2 07/10/16 15:35 66 100 70 07/10/16 13:32 24 07/10/16 08:00 Venti Mask 07/10/16 08:00 97.6 109/52 07/10/16 05:07 6.0 Intake and Output 07/09/16 07/09/16 07/10/16 15:00 23:00 07:00 Intake Total 600 ml 525 ml 610 ml Output Total 365 ml 245 ml 236 ml Balance 235 ml 280 ml 374 ml Exam Constitutional: frail, non-verbal Respiratory: diminished breath sounds, other (bipap) Cardiovascular: nl pulses, regular rate and rhythm Gastrointestinal: non-tender, other (tube feeding in placed), soft Results Result Diagram: 07/10/16 0520 07/10/16 0520 Results 24 hrs Laboratory Tests Test 07/10/16 05:20 07/10/16 13:00 White Blood Count 11.2 H Red Blood Count 3.31 L Hemoglobin 10.1 L Hematocrit 32.0 L Mean Corpuscular Volume 96.7 Mean Corpuscular Hemoglobin 30.5 Mean Corpuscular Hemoglobin Concent 31.6 L Red Cell Distribution Width 14.7 H Platelet Count 74 L Mean Platelet Volume 12.5 H Neutrophils % 92.8 H Lymphocytes % 3.9 L Monocytes % 2.8 Eosinophils % 0.0 Basophils % 0.1 Nucleated Red Blood Cells % 0.0 Neutrophils # 10.4 H Lymphocytes # 0.4 L Monocytes # 0.3 Eosinophils # 0.0 Basophils # 0.0 Nucleated Red Blood Cells # 0.0 Sodium Level 140 Potassium Level 3.3 L Chloride Level 103 Carbon Dioxide Level 31 Anion Gap 9 Blood Urea Nitrogen 59 H Creatinine 1.57 H Glucose Level 97 Calcium Level 9.0 Phosphorus Level 2.7 Magnesium Level 2.3 Blood Gas Specimen Source Blood arterial Arterial Blood Date Drawn 07/10/2016 1:00:00 PM Arterial Blood pH (Temp corrected) 7.511 H Arterial Blood pCO2 (Temp correct) 39.2 Arterial Blood pO2 (Temp corrected) 53.6 *L Arterial Blood HCO3 30.6 H Arterial Blood Base Excess 7.1 H Arterial Blood Oxygen Saturation 88.1 L Isac Test ACCEPTAB Arterial Blood Gas Puncture Site Right Radial Arterial Blood Carboxyhemoglobin 0.4 Arterial Blood Methemoglobin 0.2 Blood Gas A-a O2 Differential 331.1 H Oxyhemoglobin Percent 87.6 L Total Hemoglobin 10.6 L Blood Gas Temperature 37.0 Blood Gas Respiration Rate 16.0 Blood Gas Actual Respiration Rate 28 Blood Gas Modality MASK - BIPAP FiO2 60.0 Blood Gas IPAP/EPAP Ratio 15/5 Blood Gas Critical Value Read Back E CABUNGCAL RN Blood Gas Notified Whom JLD Blood Gas Notified Time 07/10/2016 1:09:00 PM Medications Medications Current Medications Ondansetron HCl (Zofran Inj) 4 mg Q6H PRN IV NAUSEA AND/OR VOMITING; Start at 00:00 Pantoprazole (Protonix Iv) 40 mg DAILY@06 IV Last administered on 07/10/16 06: 22; Admin Dose 40 MG; Start 06/24/16 at 06:00 Thiamine HCl (Vitamin B1) 100 mg DAILY NGT Last administered on 07/02/16 09:54 ; Admin Dose 100 MG; Start 06/29/16 at 09:00; Status Future Hold Multivitamins (Thera-Plus) 5 ml DAILY NGT Last administered on 07/02/16 09:55; Admin Dose 5 ML; Start 06/29/16 at 09:00; Status Future Hold Folic Acid (Folic Acid) 1 mg DAILY NGT Last administered on 07/02/16 09:55; Admin Dose 1 MG; Start 06/29/16 at 09:00; Status Future Hold Hydralazine HCl (Apresoline) 10 mg Q8 NGT Last administered on 07/10/16 06:29 ; Admin Dose 10 MG; Start 06/29/16 at 14:00 Aspirin (Halfprin) 81 mg DAILY PO Last administered on 07/02/16 09:55; Admin Dose 81 MG; Start 07/01/16 at 09:30; Status Future Hold Collagenase (Santyl) 1 applic DAILY TOP Last administered on 07/10/16 09:42; Admin Dose 1 APPLIC; Start 07/01/16 at 16:00 Hydralazine HCl 10 mg 10 mg Q6H PRN IV ELEVATED BLOOD PRESSURE; Start 07/02/16 at 17:00 Multivitamins 10 ml/Folic Acid 1 mg/Thiamine HCl 100 mg/Dextrose 1,011.2 ml @ 75 mls/hr DAILY@09 IV Last administered on 07/10/16 10:30; Admin Dose 75 MLS/ HR; Start 07/04/16 at 11:00 Dextrose (D5W) 1,000 ml @ 75 mls/hr [id number] IV Last administered on 07/09/16 23:31; Admin Dose 75 MLS/HR; Start 07/04/16 at 10:00 Aspirin (Aspirin) 300 mg DAILY [place] Last administered on 07/10/16 12:39; Admin Dose 300 MG; Start 07/05/16 at 12:30 Methylprednisolone Sodium Succinate (Solu-Medrol) 20 mg QAM IV Last administered on 07/10/16 09:41; Admin Dose 20 MG; Start 07/10/16 at 09:00 BRIA MARTINEZ MD Jul 10, 2016 16:23
[2016-07-10] MEDS: METOCLOPRAMIDE 10 MG INJ IV SCH ×2 (18:40→23:39)
[2016-07-11] VITALS (35 sets, daily range): BP systolic 99–145; BP diastolic 52–80; PULSE 66–92; RESP 12–23
[2016-07-11] MEDS: ALBUTEROL/IPRATROPIUM (NEB) 3 ML AMP HHN SCH ×6 (01:49→21:04)
[2016-07-11] MEDS: DEXTROSE 5% 1,000 ML IV SCH (03:01)
[2016-07-11 04:44] LABS: ADD SCAN DIFF NO
[2016-07-11 04:52] LABS: ABNORMAL IP MESSAGE 1; BASOPHILS % 0.1 % (0.0-2.0); HEMATOCRIT 30.7 % (42.0-52.0); HEMOGLOBIN 9.6 g/dl (14.0-18.0); LYMPHOCYTES # 0.3 10^3/ul (0.8-2.9); LYMPHOCYTES % 3.4 % (15.0-51.0); MEAN CORPUSCULAR HGB CONC 31.3 g/dl (32.0-37.0); MEAN CORPUSCULAR VOLUME 95.9 fl (82.0-101.0); MEAN PLATELET VOLUME 12.5 fl (7.4-10.4); MONOCYTE # 0.2 10^3/ul (0.3-0.9); MONOCYTES % 2.4 % (0.0-11.0); NEUTROPHIL # 9.2 10^3/ul (1.6-7.5); RED CELL DISTRIBUTION WIDTH 14.8 % (11.5-14.5); WHITE BLOOD COUNT 9.8 10^3/ul (4.8-10.8)
[2016-07-11 05:18] LABS: CREATININE 1.49 mg/dl (0.61-1.24); POTASSIUM 3.8 mmol/L (3.5-5.1)
[2016-07-11 05:20] LABS: MAGNESIUM 2.2 mg/dl (1.7-2.5)
[2016-07-11 05:39] LABS: NEUTROPHILS % 93.5 % (39.0-77.0); PLATELET COUNT 64 10^3/UL (140-415)
[2016-07-11] MEDS: PANTOPRAZOLE 40 MG INJ IV SCH (06:01)
[2016-07-11] MEDS: METOCLOPRAMIDE 10 MG INJ IV SCH ×3 (06:01→18:50)
[2016-07-11 08:15] LABS: AADO2 Arterial 631.4 mmHg (7.0-24.0); Allen Test ACCEPTAB; Arterial Base Excess 5.8 mmol/L (-3.0-3); Arterial COHb 0.3 % (0.0-3.0); Arterial Fraction of Oxyhgb 84.8 % (93.0-99.0); Arterial HCO3 28.8 mmol/L (22.0-26.0); Arterial MetHb 0.3 % (0.0-1.5); MODE MASK - NRB
--- NOTE | 2016-07-11 08:18 | PN ---
Date/Time of Note Date/Time of Note DATE: 07/11/16 TIME: 08:08 Assessment/Plan VTE Prophylaxis VTE Prophylaxis Intervention: SCD's Lines/Catheters IV Catheter Type (from Nrsg): Peripheral IV Urinary Cath still in place: Yes Reason Cath still needed: other (indicate) (BERNIE) Assessment/Plan Assessment/Plan 76-year-old male with: 1. Acute respiratory failure with a history of heavy tobacco use, likely chronic obstructive pulmonary disease and chronic obstructive pulmonary disease exacerbation and also with right lower lobe, right middle lobe infiltrate consistent with pneumonia, possibly aspiration pneumonia versus community-acquired pneumonia. Back on BiPAP this AM goal O2 Sats 88% Continue current nebs and tapering steroids per Pulmonary, on 20 mg IV daily. 2 Nutrition. S/p G tube and started TF, appreciate recs from GI to start Reglan since patient with high residual yesterday. CT neck soft tissue with minimal injury left nasopharyngeal mucosa and minimal subcut emphysema Continue IVF for now, will adjust to electrolytes for now until TF tolerated 3. Aspiration pneumonia likely, given the pattern of infiltrates on chest x- ray. Much better and d/c Zosyn today per Pulmonary. 4. Pulseless electrical activity cardiac arrest at home with EMS on site, status post resuscitation. Cardiac arrest may be very well 2ry to respiratory failure. Hemodynamically stable currently. 2-D echo with findings of severe cardiomyopathy and EF 30 % likely chronic. Currently euvolemic to hypovolemic, hold Lasix for now, resume Lasix if needed. Appreciate recommendations from Dr Kahn. Off Bblock due to bradycardia and continuing afterload reduction. Holding off diuresis. 5. Severe Cardiomyopathy with systolic dysfunction and EF 30%. Monitor UOP and volume status, holding of diuresis so far and on IVF and adding Free H2O 200 cc q6 Off Bblocker due to bradycardia, improving thrombocytopenia, On ASA MI for now With CKD, no KANDIS inhibitor or ARB for now 6. Likely cirrhosis with hx of ETOH use per reports. Hepatitis panel negative LFTs, Coagulopathy and thrombocytopenia seems to be all improving. Continue thiamine/folate/mvi IV until G tube placed Ammonia level within normal limit. 7. Encephalopathy: still with odd behavior and on/off following commands, CT head negative x2 so far, ? Anoxic injury Ammonia level wnl Neuro consult as needed, ? telepsych when more verbal. 8. Acute kidney injury on chronic kidney disease with likely ATN. Renal US with signs of chronic medical disease. Marginal UOP and improving renal function holding off Lasix, on D5W with Kcl with improving Na back to normal, change IVF and starting Free H2O through Gtube if tolerating feedings better. Monitor volume status and renal function. PROPHYLAXIS: SCDs to lower extremities for DVT prophylaxis and Pepcid for GI prophylaxis. DISPOSITION: FULL CODE until further information is obtained through high school social science teacher, niranjan Kimble, will be updated his phone number is [phone] seems to be the only living next of kin. Continue ICU level of care until respiratory status more stable, may need ultimately placement in Subacute/respiratory facility. Subjective 24 Hr Interval Summary Free Text/Dictation Patient still with poor Mental status Not really following commands Back on BiPAP this AM given ABG findings F/u CXR results and Pulmonary recs Exam/Review of Systems Vital Signs Vitals Vital Signs Date Time Temp Pulse Resp B/P Pulse Ox O2 Delivery O2 Flow Rate FiO2 07/11/16 07:00 81 23 113/66 98 Non Rebreather 07/11/16 05:50 15.0 07/11/16 04:00 98.4 07/11/16 03:42 70 Intake and Output 07/10/16 07/10/16 07/11/16 15:00 23:00 07:00 Intake Total 535 ml 905 ml 710 ml Output Total 225 ml 235 ml 240 ml Balance 310 ml 670 ml 470 ml Exam Constitutional: alert, non-verbal, other (not oriented ) Respiratory: diminished breath sounds (bases ), other (back on BiPAP) Cardiovascular: nl pulses, regular rate and rhythm Gastrointestinal: non-tender, soft Musculoskeletal: nl extremities to inspection Extremities: normal pulses, other (some pedal edema ) 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: [employer]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-XII intact, confused, other (non verbal ) Results Result Diagram: 07/11/1642107/11/16 042 Results 24 hrs Laboratory Tests Test 07/10/16 13:00 07/11/16 04:22 Blood Gas Specimen Source Blood arterial Arterial Blood Date Drawn 07/10/2016 1:00:00 PM Arterial Blood pH (Temp corrected) 7.511 H Arterial Blood pCO2 (Temp correct) 39.2 Arterial Blood pO2 (Temp corrected) 53.6 *L Arterial Blood HCO3 30.6 H Arterial Blood Base Excess 7.1 H Arterial Blood Oxygen Saturation 88.1 L Isac Test ACCEPTAB Arterial Blood Gas Puncture Site Right Radial Arterial Blood Carboxyhemoglobin 0.4 Arterial Blood Methemoglobin 0.2 Blood Gas A-a O2 Differential 331.1 H Oxyhemoglobin Percent 87.6 L Total Hemoglobin 10.6 L Blood Gas Temperature 37.0 Blood Gas Respiration Rate 16.0 Blood Gas Actual Respiration Rate 28 Blood Gas Modality MASK - BIPAP FiO2 60.0 Blood Gas IPAP/EPAP Ratio 15/5 Blood Gas Critical Value Read Back E SUN RN Blood Gas Notified Whom JLD Blood Gas Notified Time 07/10/2016 1:09:00 PM White Blood Count 9.8 Red Blood Count 3.20 L Hemoglobin 9.6 L Hematocrit 30.7 L Mean Corpuscular Volume 95.9 Mean Corpuscular Hemoglobin 30.0 Mean Corpuscular Hemoglobin Concent 31.3 L Red Cell Distribution Width 14.8 H Platelet Count 64 L Mean Platelet Volume 12.5 H Neutrophils % 93.5 H Lymphocytes % 3.4 L Monocytes % 2.4 Eosinophils % 0.0 Basophils % 0.1 Nucleated Red Blood Cells % 0.0 Neutrophils # 9.2 H Lymphocytes # 0.3 L Monocytes # 0.2 L Eosinophils # 0.0 Basophils # 0.0 Nucleated Red Blood Cells # 0.0 Sodium Level 137 Potassium Level 3.8 Chloride Level 102 Carbon Dioxide Level 32 H Anion Gap 7 L Blood Urea Nitrogen 58 H Creatinine 1.49 H Glucose Level 106 Calcium Level 9.0 Phosphorus Level 3.0 Magnesium Level 2.2 Medications Medications Current Medications Ondansetron HCl (Zofran Inj) 4 mg Q6H PRN IV NAUSEA AND/OR VOMITING; Start at 00:00 Pantoprazole (Protonix Iv) 40 mg DAILY@06 IV Last administered on 07/11/16 06: 01; Admin Dose 40 MG; Start 06/24/16 at 06:00 Thiamine HCl (Vitamin B1) 100 mg DAILY NGT Last administered on 07/02/16 09:54 ; Admin Dose 100 MG; Start 06/29/16 at 09:00; Status Future Hold Multivitamins (Thera-Plus) 5 ml DAILY NGT Last administered on 07/02/16 09:55; Admin Dose 5 ML; Start 06/29/16 at 09:00; Status Future Hold Folic Acid (Folic Acid) 1 mg DAILY NGT Last administered on 07/02/16 09:55; Admin Dose 1 MG; Start 06/29/16 at 09:00; Status Future Hold Hydralazine HCl (Apresoline) 10 mg Q8 NGT Last administered on 07/11/16 06:02 ; Admin Dose 10 MG; Start 06/29/16 at 14:00 Aspirin (Halfprin) 81 mg DAILY PO Last administered on 07/02/16 09:55; Admin Dose 81 MG; Start 07/01/16 at 09:30; Status Future Hold Collagenase (Santyl) 1 applic DAILY TOP Last administered on 07/10/16 09:42; Admin Dose 1 APPLIC; Start 07/01/16 at 16:00 Hydralazine HCl 10 mg 10 mg Q6H PRN IV ELEVATED BLOOD PRESSURE; Start 07/02/16 at 17:00 Multivitamins 10 ml/Folic Acid 1 mg/Thiamine HCl 100 mg/Dextrose 1,011.2 ml @ 75 mls/hr DAILY@09 IV Last administered on 07/10/16 10:30; Admin Dose 75 MLS/ HR; Start 07/04/16 at 11:00 Dextrose (D5W) 1,000 ml @ 75 mls/hr [id number] IV Last administered on 07/11/16 03:01; Admin Dose 75 MLS/HR; Start 07/04/16 at 10:00 Aspirin (Aspirin) 300 mg DAILY [place] Last administered on 07/10/16 12:39; Admin Dose 300 MG; Start 07/05/16 at 12:30 Methylprednisolone Sodium Succinate (Solu-Medrol) 20 mg QAM IV Last administered on 07/10/16 09:41; Admin Dose 20 MG; Start 07/10/16 at 09:00 Metoclopramide HCl (Reglan) 5 mg Q6 IV Last administered on 07/11/16 06:01; Admin Dose 5 MG; Start 07/10/16 at 18:00 DAVID GONZALEZ Jul 11, 2016 08:18
--- NOTE | 2016-07-11 08:43 | CONS ---
Date/Time of Note Date/Time of Note DATE: 07/11/16 TIME: 08:20 Assessment/Plan Assessment/Plan Additional Assessment/Plan ASSESSMENT * Dysphagia * PEG insertion 07/09/2016 * Pulseless electrical activity,s,p resuscitation * Acute respiratory failure Resolved * Cardiomyopathy EF 30 % * Encephalopathy * PLAN * reglan 10 mg q8 * monitor residuals * continue present management * Further recommendations depend on clinical course * Patient seen in collaboration with Dr. Zambrano Consultation Date/Type/Reason Admit Date/Time Jun 23, 2016 at 22:42 Initial Consult Date Type of Consultation: Gastroenterology Referring Provider: DAVID GONZALEZ 24 HR Interval Summary Free Text/Dictation Tube feed at 20 with minimal residual Exam/Review of Systems Vital Signs Vitals Vital Signs Date Time Temp Pulse Resp B/P Pulse Ox O2 Delivery O2 Flow Rate FiO2 07/11/16 08:11 79 36 85 Non Rebreather Mask 15.0 70 07/11/16 08:00 98.5 114/66 Intake and Output 07/10/16 07/10/16 07/11/16 14:59 22:59 06:59 Intake Total 600 ml 830 ml 710 ml Output Total 225 ml 230 ml 245 ml Balance 375 ml 600 ml 465 ml Exam Constitutional: frail, non-verbal Respiratory: diminished breath sounds, other (bipap) Cardiovascular: nl pulses, regular rate and rhythm Gastrointestinal: non-tender, other (tube feeding in placed), soft Results Result Diagram: 07/11/16 0422 07/11/16 0422 Results 24 hrs Laboratory Tests Test 07/10/16 13:00 07/11/16 04:22 07/11/16 07:31 Blood Gas Specimen Source Blood arterial Blood arterial Arterial Blood Date Drawn 07/10/2016 1:00:00 PM 07/11/2016 7:50:29 AM Arterial Blood pH (Temp corrected) 7.511 H 7.527 H Arterial Blood pCO2 (Temp correct) 39.2 35.5 Arterial Blood pO2 (Temp corrected) 53.6 *L 46.1 *L Arterial Blood HCO3 30.6 H 28.8 H Arterial Blood Base Excess 7.1 H 5.8 H Arterial Blood Oxygen Saturation 88.1 L 85.3 L Isac Test ACCEPTAB ACCEPTAB Arterial Blood Gas Puncture Site Right Radial Right Radial Arterial Blood Carboxyhemoglobin 0.4 0.3 Arterial Blood Methemoglobin 0.2 0.3 Blood Gas A-a O2 Differential 331.1 H 631.4 H Oxyhemoglobin Percent 87.6 L 84.8 L Total Hemoglobin 10.6 L 10.0 L Blood Gas Temperature 37.0 37.0 Blood Gas Respiration Rate 16.0 Blood Gas Actual Respiration Rate 28 Blood Gas Modality MASK - BIPAP MASK - NRB FiO2 60.0 100.0 Blood Gas IPAP/EPAP Ratio 15/5 Blood Gas Critical Value Read Back E SUN CHIU RN Blood Gas Notified Whom YANDY KEBEDE Blood Gas Notified Time 07/10/2016 1:09:00 PM 07/11/2016 8:15:30 AM White Blood Count 9.8 Red Blood Count 3.20 L Hemoglobin 9.6 L Hematocrit 30.7 L Mean Corpuscular Volume 95.9 Mean Corpuscular Hemoglobin 30.0 Mean Corpuscular Hemoglobin Concent 31.3 L Red Cell Distribution Width 14.8 H Platelet Count 64 L Mean Platelet Volume 12.5 H Neutrophils % 93.5 H Lymphocytes % 3.4 L Monocytes % 2.4 Eosinophils % 0.0 Basophils % 0.1 Nucleated Red Blood Cells % 0.0 Neutrophils # 9.2 H Lymphocytes # 0.3 L Monocytes # 0.2 L Eosinophils # 0.0 Basophils # 0.0 Nucleated Red Blood Cells # 0.0 Sodium Level 137 Potassium Level 3.8 Chloride Level 102 Carbon Dioxide Level 32 H Anion Gap 7 L Blood Urea Nitrogen 58 H Creatinine 1.49 H Glucose Level 106 Calcium Level 9.0 Phosphorus Level 3.0 Magnesium Level 2.2 Medications Medications Current Medications Ondansetron HCl (Zofran Inj) 4 mg Q6H PRN IV NAUSEA AND/OR VOMITING; Start at 00:00 Pantoprazole (Protonix Iv) 40 mg DAILY@06 IV Last administered on 07/11/16 06: 01; Admin Dose 40 MG; Start 06/24/16 at 06:00 Thiamine HCl (Vitamin B1) 100 mg DAILY NGT Last administered on 07/02/16 09:54 ; Admin Dose 100 MG; Start 06/29/16 at 09:00; Status Future Hold Multivitamins (Thera-Plus) 5 ml DAILY NGT Last administered on 07/02/16 09:55; Admin Dose 5 ML; Start 06/29/16 at 09:00; Status Future Hold Folic Acid (Folic Acid) 1 mg DAILY NGT Last administered on 07/02/16 09:55; Admin Dose 1 MG; Start 06/29/16 at 09:00; Status Future Hold Hydralazine HCl (Apresoline) 10 mg Q8 NGT Last administered on 07/11/16 06:02 ; Admin Dose 10 MG; Start 06/29/16 at 14:00 Aspirin (Halfprin) 81 mg DAILY PO Last administered on 07/02/16 09:55; Admin Dose 81 MG; Start 07/01/16 at 09:30; Status Future Hold Collagenase (Santyl) 1 applic DAILY TOP Last administered on 07/10/16 09:42; Admin Dose 1 APPLIC; Start 07/01/16 at 16:00 Hydralazine HCl 10 mg 10 mg Q6H PRN IV ELEVATED BLOOD PRESSURE; Start 07/02/16 at 17:00 Multivitamins 10 ml/Folic Acid 1 mg/Thiamine HCl 100 mg/Dextrose 1,011.2 ml @ 75 mls/hr DAILY@09 IV Last administered on 07/10/16 10:30; Admin Dose 75 MLS/ HR; Start 07/04/16 at 11:00 Dextrose (D5W) 1,000 ml @ 75 mls/hr [id number] IV Last administered on 07/11/16 03:01; Admin Dose 75 MLS/HR; Start 07/04/16 at 10:00 Aspirin (Aspirin) 300 mg DAILY ID Last administered on 07/10/16 12:39; Admin Dose 300 MG; Start 07/05/16 at 12:30 Methylprednisolone Sodium Succinate (Solu-Medrol) 20 mg QAM IV Last administered on 07/10/16 09:41; Admin Dose 20 MG; Start 07/10/16 at 09:00 Metoclopramide HCl (Reglan) 5 mg Q6 IV Last administered on 07/11/16 06:01; Admin Dose 5 MG; Start 07/10/16 at 18:00 IBRAHIMA LANZA Jul 11, 2016 08:30
[2016-07-11] MEDS: D5-NS + KCL 20 MEQ 1,000 ML IV SCH ×2 (09:00→22:56)
--- NOTE | 2016-07-11 09:01 | RADRPT ---
PROCEDURE: XR Chest. CLINICAL INDICATION: Shortness of breath. TECHNIQUE: Single frontal view. COMPARISON: 07/07/2016. FINDINGS: There is atelectasis in both mid and lower lung zones, improved. Mild pulmonary edema is also impro stephanie. The lungs are otherwise clear. The heart is enlarged. There are small bilateral pleural effusions. There is no pneumothorax. IMPRESSION: 1. Improved appearance of the lungs. RPTAT: QQ .Roverto Kim MD, MD Date Time Electronically viewed and signed by .Roverto Kim MD, MD on 07/11/2016 09:01 .R/
[2016-07-11] MEDS: METHYLPREDNISOLONE 40 MG INJ IV SCH (09:48)
[2016-07-11] MEDS: THIAMINE IV SCH (09:49)
[2016-07-11] MEDS: DEXTROSE 5% IV SCH (09:49)
[2016-07-11] MEDS: FOLIC ACID IV SCH (09:49)
[2016-07-11] MEDS: MULTIVITAMINS IV SCH (09:49)
--- NOTE | 2016-07-11 10:39 | CONS ---
Date/Time of Note Date/Time of Note DATE: 07/11/16 TIME: 10:37 Assessment/Plan Assessment/Plan Additional Assessment/Plan Chest x-ray was reviewed from today which is showing minimal bibasilar infiltrative changes with interval improvement. Assessment recommendations; 1. Patient initially admitted for respiratory failure now extubated several days ago with waxing and waning clinical status. 2. Underlying COPD. 3. Cardiomyopathy. Continue current treatment. Patient's CODE STATUS needs to be addressed with the patient's family who apparently are coming this afternoon. Prognosis remains poor Consultation Date/Type/Reason Admit Date/Time Jun 23, 2016 at 22:42 Type of Consultation: Pulmonary/critical care Referring Provider: DAVID GONZALEZ 24 HR Interval Summary Free Text/Dictation Patient condition is tenuous at best. Not requiring BiPAP. He does have waxing and waning mental status as well. Abdomen exam; elderly male, on BiPAP appearing agitated off and on. Exam/Review of Systems Vital Signs Vitals Vital Signs Date Time Temp Pulse Resp B/P Pulse Ox O2 Delivery O2 Flow Rate FiO2 07/11/16 10:26 86 90 60 07/11/16 08:11 36 Non Rebreather Mask 15.0 07/11/16 08:00 98.5 114/66 Intake and Output 07/10/16 07/10/16 07/11/16 15:00 23:00 07:00 Intake Total 535 ml 905 ml 710 ml Output Total 225 ml 235 ml 240 ml Balance 310 ml 670 ml 470 ml Exam HEENT exam is; supple neck, no JVD. No lymphadenopathy. Chest exam; diminished breath sound bilaterally. No added sound. S1-S2 audible , no murmurs. Regular rhythm. Abdomen examination; soft, nondistended. No organomegaly. Bowel sounds audible. Extremity exam; patient is a multiple ecchymosis involving all 4 extremities. 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 Results Result Diagram: 07/11/16 0422 07/11/16 0422 Results 24 hrs Laboratory Tests Test 07/10/16 13:00 07/11/16 04:22 07/11/16 07:31 Blood Gas Specimen Source Blood arterial Blood arterial Arterial Blood Date Drawn 07/10/2016 1:00:00 PM 07/11/2016 7:50:29 AM Arterial Blood pH (Temp corrected) 7.511 H 7.527 H Arterial Blood pCO2 (Temp correct) 39.2 35.5 Arterial Blood pO2 (Temp corrected) 53.6 *L 46.1 *L Arterial Blood HCO3 30.6 H 28.8 H Arterial Blood Base Excess 7.1 H 5.8 H Arterial Blood Oxygen Saturation 88.1 L 85.3 L Isac Test ACCEPTAB ACCEPTAB Arterial Blood Gas Puncture Site Right Radial Right Radial Arterial Blood Carboxyhemoglobin 0.4 0.3 Arterial Blood Methemoglobin 0.2 0.3 Blood Gas A-a O2 Differential 331.1 H 631.4 H Oxyhemoglobin Percent 87.6 L 84.8 L Total Hemoglobin 10.6 L 10.0 L Blood Gas Temperature 37.0 37.0 Blood Gas Respiration Rate 16.0 Blood Gas Actual Respiration Rate 28 Blood Gas Modality MASK - BIPAP MASK - NRB FiO2 60.0 100.0 Blood Gas IPAP/EPAP Ratio 15/5 Blood Gas Critical Value Read Back E SUN CHIU RN Blood Gas Notified Whom YANDY KEBEDE Blood Gas Notified Time 07/10/2016 1:09:00 PM 07/11/2016 8:15:30 AM White Blood Count 9.8 Red Blood Count 3.20 L Hemoglobin 9.6 L Hematocrit 30.7 L Mean Corpuscular Volume 95.9 Mean Corpuscular Hemoglobin 30.0 Mean Corpuscular Hemoglobin Concent 31.3 L Red Cell Distribution Width 14.8 H Platelet Count 64 L Mean Platelet Volume 12.5 H Neutrophils % 93.5 H Lymphocytes % 3.4 L Monocytes % 2.4 Eosinophils % 0.0 Basophils % 0.1 Nucleated Red Blood Cells % 0.0 Neutrophils # 9.2 H Lymphocytes # 0.3 L Monocytes # 0.2 L Eosinophils # 0.0 Basophils # 0.0 Nucleated Red Blood Cells # 0.0 Sodium Level 137 Potassium Level 3.8 Chloride Level 102 Carbon Dioxide Level 32 H Anion Gap 7 L Blood Urea Nitrogen 58 H Creatinine 1.49 H Glucose Level 106 Calcium Level 9.0 Phosphorus Level 3.0 Magnesium Level 2.2 Medications Medications Current Medications Ondansetron HCl (Zofran Inj) 4 mg Q6H PRN IV NAUSEA AND/OR VOMITING; Start at 00:00 Pantoprazole (Protonix Iv) 40 mg DAILY@06 IV Last administered on 07/11/16 06: 01; Admin Dose 40 MG; Start 06/24/16 at 06:00 Thiamine HCl (Vitamin B1) 100 mg DAILY NGT Last administered on 07/02/16 09:54 ; Admin Dose 100 MG; Start 06/29/16 at 09:00; Status Future Hold Multivitamins (Thera-Plus) 5 ml DAILY NGT Last administered on 07/02/16 09:55; Admin Dose 5 ML; Start 06/29/16 at 09:00; Status Future Hold Folic Acid (Folic Acid) 1 mg DAILY NGT Last administered on 07/02/16 09:55; Admin Dose 1 MG; Start 06/29/16 at 09:00; Status Future Hold Hydralazine HCl (Apresoline) 10 mg Q8 NGT Last administered on 07/11/16 06:02 ; Admin Dose 10 MG; Start 06/29/16 at 14:00 Aspirin (Halfprin) 81 mg DAILY PO Last administered on 07/02/16 09:55; Admin Dose 81 MG; Start 07/01/16 at 09:30; Status Future Hold Collagenase (Santyl) 1 applic DAILY TOP Last administered on 07/10/16 09:42; Admin Dose 1 APPLIC; Start 07/01/16 at 16:00 Hydralazine HCl 10 mg 10 mg Q6H PRN IV ELEVATED BLOOD PRESSURE; Start 07/02/16 at 17:00 Multivitamins/ Folic Acid/ Thiamine HCl/ Dextrose (Mvi Adult/Folic Acid/Vitamin B1/ D5W) 1,011.2 ml @ 75 mls/hr DAILY@09 IV Last administered on 07/11/16 09: 49; Admin Dose 75 MLS/HR; Start 07/04/16 at 11:00 Aspirin (Aspirin) 300 mg DAILY [place] Last administered on 07/10/16 12:39; Admin Dose 300 MG; Start 07/05/16 at 12:30 Methylprednisolone Sodium Succinate (Solu-Medrol) 20 mg QAM IV Last administered on 07/11/16 09:48; Admin Dose 20 MG; Start 07/10/16 at 09:00 Metoclopramide HCl 5 mg 5 mg Q6 IV Last administered on 07/11/16 06:01; Admin Dose 5 MG; Start 07/10/16 at 18:00 Potassium Chloride/Dextrose/ Sod Cl (D5-NS + KCl 20 Meq) 1,000 ml @ 75 mls/hr [id number] IV ; Start 07/11/16 at 09:00 JEN JOHNSON Jul 11, 2016 10:39
[2016-07-11] MEDS: COLLAGENASE 30 GM TUBE TOP SCH (11:22)
[2016-07-11 11:24] LABS: AADO2 Arterial 331.2 mmHg (7.0-24.0); Allen Test ACCEPTAB; Arterial Base Excess 6.7 mmol/L (-3.0-3); Arterial COHb 0.3 % (0.0-3.0); Arterial HCO3 30.2 mmol/L (22.0-26.0); Arterial MetHb 0.2 % (0.0-1.5); Arterial Total Hemglobin 10.2 g/dl (12.0-18.0); Blood Gas IEPAP 15/5; MODE MASK - BIPAP
[2016-07-11] MEDS: ASPIRIN 300 MG SUPP PR SCH (14:37)
[2016-07-11] MEDS: POTASSIUM CHLORIDE 50 ML IVPB PRN (15:24)
--- NOTE | 2016-07-11 15:32 | PN ---
Date/Time of Note Date/Time of Note DATE: 07/11/16 TIME: 15:31 Assessment/Plan VTE Prophylaxis VTE Prophylaxis Intervention: SCD's Lines/Catheters IV Catheter Type (from Nrs): Peripheral IV Urinary Cath still in place: Yes Reason Cath still needed: urinary retention Assessment/Plan Assessment/Plan Cardiopulmonary arrest Severe cardiomyopathy with ejection fraction 30% Respiratory failure status post extubation Acute decompensated systolic congestive heart failure Encephalopathy Mildly elevated troponin Active tobacco use Coagulopathy Acute kidney injury - Intermittent IV diuretics as renal function and blood pressure permits. -Once able to tolerate p.o. meds, would start beta-erika and restart hydralazine secondary to congestive heart failure. - +i/o overnighrt -bun/creat improved Subjective 24 Hr Interval Summary Free Text/Dictation the aptient stable Exam/Review of Systems Vital Signs Vitals Vital Signs Date Time Temp Pulse Resp B/P Pulse Ox O2 Delivery O2 Flow Rate FiO2 07/11/16 15:30 77 100 80 07/11/16 13:55 18 07/11/16 12:00 99.3 116/64 BIPAP 07/11/16 08:11 15.0 Intake and Output 07/10/16 07/10/16 07/11/16 15:00 23:00 07:00 Intake Total 535 ml 905 ml 710 ml Output Total 225 ml 235 ml 240 ml Balance 310 ml 670 ml 470 ml Results Result Diagram: 07/11/16 0422 07/11/16 0422 Results 24 hrs Laboratory Tests Test 07/11/16 04:22 07/11/16 07:31 07/11/16 10:58 White Blood Count 9.8 Red Blood Count 3.20 L Hemoglobin 9.6 L Hematocrit 30.7 L Mean Corpuscular Volume 95.9 Mean Corpuscular Hemoglobin 30.0 Mean Corpuscular Hemoglobin Concent 31.3 L Red Cell Distribution Width 14.8 H Platelet Count 64 L Mean Platelet Volume 12.5 H Neutrophils % 93.5 H Lymphocytes % 3.4 L Monocytes % 2.4 Eosinophils % 0.0 Basophils % 0.1 Nucleated Red Blood Cells % 0.0 Neutrophils # 9.2 H Lymphocytes # 0.3 L Monocytes # 0.2 L Eosinophils # 0.0 Basophils # 0.0 Nucleated Red Blood Cells # 0.0 Sodium Level 137 Potassium Level 3.8 Chloride Level 102 Carbon Dioxide Level 32 H Anion Gap 7 L Blood Urea Nitrogen 58 H Creatinine 1.49 H Glucose Level 106 Calcium Level 9.0 Phosphorus Level 3.0 Magnesium Level 2.2 Blood Gas Specimen Source Blood arterial Blood arterial Arterial Blood Date Drawn 07/11/2016 7:50:29 AM 07/11/2016 11:10:52 AM Arterial Blood pH (Temp corrected) 7.527 H 7.508 H Arterial Blood pCO2 (Temp correct) 35.5 38.9 Arterial Blood pO2 (Temp corrected) 46.1 *L 53.8 *L Arterial Blood HCO3 28.8 H 30.2 H Arterial Blood Base Excess 5.8 H 6.7 H Arterial Blood Oxygen Saturation 85.3 L 88.4 L Isac Test ACCEPTAB ACCEPTAB Arterial Blood Gas Puncture Site Right Radial Right Radial Arterial Blood Carboxyhemoglobin 0.3 0.3 Arterial Blood Methemoglobin 0.3 0.2 Blood Gas A-a O2 Differential 631.4 H 331.2 H Oxyhemoglobin Percent 84.8 L 88.0 L Total Hemoglobin 10.0 L 10.2 L Blood Gas Temperature 37.0 37.0 Blood Gas Modality MASK - NRB MASK - BIPAP FiO2 100.0 60.0 Blood Gas Critical Value Read Back R ARAM RN R ARAM RN Blood Gas Notified Whom JLD JLD Blood Gas Notified Time 07/11/2016 8:15:30 AM 07/11/2016 11:24:29 AM Blood Gas Respiration Rate 16.0 Blood Gas Actual Respiration Rate 20 Blood Gas IPAP/EPAP Ratio 15/5 Medications Medications Current Medications Ondansetron HCl (Zofran Inj) 4 mg Q6H PRN IV NAUSEA AND/OR VOMITING; Start at 00:00 Pantoprazole (Protonix Iv) 40 mg DAILY@06 IV Last administered on 07/11/16 06: 01; Admin Dose 40 MG; Start 06/24/16 at 06:00 Thiamine HCl (Vitamin B1) 100 mg DAILY NGT Last administered on 07/02/16 09:54 ; Admin Dose 100 MG; Start 06/29/16 at 09:00; Status Future Hold Multivitamins (Thera-Plus) 5 ml DAILY NGT Last administered on 07/02/16 09:55; Admin Dose 5 ML; Start 06/29/16 at 09:00; Status Future Hold Folic Acid (Folic Acid) 1 mg DAILY NGT Last administered on 07/02/16 09:55; Admin Dose 1 MG; Start 06/29/16 at 09:00; Status Future Hold Hydralazine HCl (Apresoline) 10 mg Q8 NGT Last administered on 07/11/16 14:36 ; Admin Dose 10 MG; Start 06/29/16 at 14:00 Aspirin (Halfprin) 81 mg DAILY PO Last administered on 07/02/16 09:55; Admin Dose 81 MG; Start 07/01/16 at 09:30; Status Future Hold Collagenase (Santyl) 1 applic DAILY TOP Last administered on 07/11/16 11:22; Admin Dose 1 APPLIC; Start 07/01/16 at 16:00 Hydralazine HCl 10 mg 10 mg Q6H PRN IV ELEVATED BLOOD PRESSURE; Start 07/02/16 at 17:00 Multivitamins/ Folic Acid/ Thiamine HCl/ Dextrose (Mvi Adult/Folic Acid/Vitamin B1/ D5W) 1,011.2 ml @ 75 mls/hr DAILY@09 IV Last administered on 07/11/16 09: 49; Admin Dose 75 MLS/HR; Start 07/04/16 at 11:00 Aspirin (Aspirin) 300 mg DAILY [place] Last administered on 07/11/16 14:37; Admin Dose 300 MG; Start 07/05/16 at 12:30 Methylprednisolone Sodium Succinate (Solu-Medrol) 20 mg QAM IV Last administered on 07/11/16 09:48; Admin Dose 20 MG; Start 07/10/16 at 09:00 Metoclopramide HCl 5 mg 5 mg Q6 IV Last administered on 07/11/16 14:36; Admin Dose 5 MG; Start 07/10/16 at 18:00 Potassium Chloride/Dextrose/ Sod Cl (D5-NS + KCl 20 Meq) 1,000 ml @ 75 mls/hr [id number] IV ; Start 07/11/16 at 09:00 DEO ELLIOTT MD Jul 11, 2016 15:32
[2016-07-12] VITALS (36 sets, daily range): BP systolic 100–136; BP diastolic 48–73; PULSE 61–84; RESP 17–25
[2016-07-12] MEDS: METOCLOPRAMIDE 10 MG INJ IV SCH ×5 (00:42→23:04)
[2016-07-12] MEDS: ALBUTEROL/IPRATROPIUM (NEB) 3 ML AMP HHN SCH ×6 (02:26→21:29)
[2016-07-12 04:37] LABS: ADD SCAN DIFF NO
[2016-07-12 04:48] LABS: ABNORMAL IP MESSAGE 1; EOSINOPHILS % 0.1 % (0.0-7.0); HEMATOCRIT 25.1 % (42.0-52.0); HEMOGLOBIN 8.2 g/dl (14.0-18.0); LYMPHOCYTES # 0.3 10^3/ul (0.8-2.9); LYMPHOCYTES % 4.7 % (15.0-51.0); MEAN CORPUSCULAR HEMOGLOBIN 30.9 pg (29.0-33.0); MEAN CORPUSCULAR HGB CONC 32.7 g/dl (32.0-37.0); MEAN CORPUSCULAR VOLUME 94.7 fl (82.0-101.0); MEAN PLATELET VOLUME 12.4 fl (7.4-10.4); MONOCYTE # 0.2 10^3/ul (0.3-0.9); MONOCYTES % 2.8 % (0.0-11.0); NEUTROPHIL # 6.6 10^3/ul (1.6-7.5); PLATELET COUNT 55 10^3/UL (140-415); RED BLOOD COUNT 2.65 10^6/ul (4.70-6.10); RED CELL DISTRIBUTION WIDTH 14.7 % (11.5-14.5); WHITE BLOOD COUNT 7.2 10^3/ul (4.8-10.8)
[2016-07-12 04:55] LABS: MAGNESIUM 2.1 mg/dl (1.7-2.5); NEUTROPHILS % 91.6 % (39.0-77.0)
[2016-07-12 04:57] LABS: CALCIUM 8.6 mg/dl (8.4-10.2); CREATININE 1.68 mg/dl (0.61-1.24); POTASSIUM 3.9 mmol/L (3.5-5.1)
[2016-07-12] MEDS: PANTOPRAZOLE 40 MG INJ IV SCH (06:18)
--- NOTE | 2016-07-12 08:41 | PN ---
Date/Time of Note Date/Time of Note DATE: 07/12/16 TIME: 08:36 Assessment/Plan VTE Prophylaxis VTE Prophylaxis Intervention: SCD's Lines/Catheters IV Catheter Type (from [facility]): Peripheral IV Urinary Cath still in place: Yes Reason Cath still needed: other (indicate) (critically ill) Assessment/Plan Assessment/Plan [facility] 1. 76-year-old man well-known to me from last weekend, who is hospital day 19 following admission for acute respiratory failure. H/o smoking-related chronic obstructive pulmonary disease and right lower lobe & right middle lobe infiltrates, possibly aspiration pneumonia versus community-acquired pneumonia. * Continue BiPAP and nebulizer therapy. * Tapering steroids, currently Solu-Medrol 20 mg IV daily, with severe diffuse ecchymosis. 2 Nutrition. S/p G tube and started on tube feedings. Currently with dried blood from PEG site. * GI to evaluate * Reglan IV as needed for high residuals 3. CT neck five days ago showed deep subcutaneous emphysema and evidence for possible esophageal erosion. No fever or leukocytosis to suggest continued perforation. * Monitor cultures 4. Aspiration pneumonia, no fever off Zosyn now. 5. S/p cardiac arrest on presentation, with pulseless electrical activity. Stable rhythm on telemetry, and hemodynamically stable currently. 2-D echo showed severe cardiomyopathy with EF 30 %. Severe peripheral 2+ edema, worse creatinine today. * Continue to hold Lasix * Monitor urine output and volume status * Conitnue free water at 200 cc q6 * Aspirin per rectum * Continued off KANDIS inhibitor or ARB for now, with compromised renal function. 6. Cirrhosis with h/o ethanol use. Viral hepatitis panel negative. Platelets slightly lower today, at 55k/ul, with diffuse moderate ecchymoses. Ammonia levels have been within normal limit. * Continue thiamine/folate/mvi IV 7. Encephalopathy, with question of anoxic injury but with CT brain x2 largely normal. 8. Acute hematocrit drop overnight, from 30.7% to 25.1%. Possible active bleeding at PEG site, with coagulopathy. * Type and screen for two additional units PRBC * Monitor H&H * GI to evaluate * Consider CT scan abdomen; non-contrast in light of worsening renal function. 9. PROPHYLAXIS: SCDs to lower extremities for DVT prophylaxis and Pepcid for GI prophylaxis. 10. DISPOSITION: His grandson Lamin plans a visit today ([phone]), with another uncle. * Discussion anticipated of Code status (patient is Full-Code). * Continue ICU level care until his respiratory status is more stable; consider placement in Subacute/respiratory facility. Mainor Mcnally MD PhD [phone] Subjective 24 Hr Interval Summary Free Text/Dictation No visitors this morning. Patient not able to respond yes or no to questions. On BiPAP 11/08. Exam/Review of Systems Vital Signs Vitals Vital Signs Date Time Temp Pulse Resp B/P Pulse Ox O2 Delivery O2 Flow Rate FiO2 07/12/16 07:00 71 22 126/60 100 BIPAP 07/12/16 05:17 80 07/12/16 04:00 97.5 07/12/16 03:34 15.0 Intake and Output 07/11/16 07/11/16 07/12/16 15:00 23:00 07:00 Intake Total 985 ml 890 ml 750 ml Output Total 230 ml 220 ml 400 ml Balance 755 ml 670 ml 350 ml Exam Constitutional: Alert, opens his eyes to his name, unable to follow requests, winces with movement Respiratory: Moderate rhonchi, left more than right posteriorly, with diminished basal breath sounds, on BiPAP Cardiovascular: Symmetric pulses, regular rhythm, normal rate, NSR on telemetry , 2+ pitting edema both feet and hands. Gastrointestinal: non-tender, soft, blood-saturated dressing and gown over PEG site. No rebound. Musculoskeletal: Normal hips, knees and ankles. No cyanosis. 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 Results Result Diagram: 07/12/16 0425 07/12/16 0425 Results 24 hrs Laboratory Tests Test 07/11/16 10:58 07/12/16 04:25 Blood Gas Specimen Source Blood arterial Arterial Blood Date Drawn 07/11/2016 11:10:52 AM Arterial Blood pH (Temp corrected) 7.508 H Arterial Blood pCO2 (Temp correct) 38.9 Arterial Blood pO2 (Temp corrected) 53.8 *L Arterial Blood HCO3 30.2 H Arterial Blood Base Excess 6.7 H Arterial Blood Oxygen Saturation 88.4 L Isac Test ACCEPTAB Arterial Blood Gas Puncture Site Right Radial Arterial Blood Carboxyhemoglobin 0.3 Arterial Blood Methemoglobin 0.2 Blood Gas A-a O2 Differential 331.2 H Oxyhemoglobin Percent 88.0 L Total Hemoglobin 10.2 L Blood Gas Temperature 37.0 Blood Gas Respiration Rate 16.0 Blood Gas Actual Respiration Rate 20 Blood Gas Modality MASK - BIPAP FiO2 60.0 Blood Gas IPAP/EPAP Ratio 11/08 Blood Gas Critical Value Read Back R ARAM BUSH Blood Gas Notified Whom JLD Blood Gas Notified Time 07/11/2016 11:24:29 AM White Blood Count 7.2 # Red Blood Count 2.65 L Hemoglobin 8.2 L Hematocrit 25.1 L Mean Corpuscular Volume 94.7 Mean Corpuscular Hemoglobin 30.9 Mean Corpuscular Hemoglobin Concent 32.7 Red Cell Distribution Width 14.7 H Platelet Count 55 L Mean Platelet Volume 12.4 H Neutrophils % 91.6 H Lymphocytes % 4.7 L Monocytes % 2.8 Eosinophils % 0.1 Basophils % 0.0 Nucleated Red Blood Cells % 0.0 Neutrophils # 6.6 Lymphocytes # 0.3 L Monocytes # 0.2 L Eosinophils # 0.0 Basophils # 0.0 Nucleated Red Blood Cells # 0.0 Sodium Level 135 Potassium Level 3.9 Chloride Level 102 Carbon Dioxide Level 30 Anion Gap 7 L Blood Urea Nitrogen 61 H Creatinine 1.68 H Glucose Level 107 Calcium Level 8.6 Phosphorus Level 3.0 Magnesium Level 2.1 Medications Medications Current Medications Ondansetron HCl (Zofran Inj) 4 mg Q6H PRN IV NAUSEA AND/OR VOMITING; Start at 00:00 Pantoprazole (Protonix Iv) 40 mg DAILY@06 IV Last administered on 07/12/16 06: 18; Admin Dose 40 MG; Start 06/24/16 at 06:00 Thiamine HCl (Vitamin B1) 100 mg DAILY NGT Last administered on 07/02/16 09:54 ; Admin Dose 100 MG; Start 06/29/16 at 09:00; Status Future Hold Multivitamins (Thera-Plus) 5 ml DAILY NGT Last administered on 07/02/16 09:55; Admin Dose 5 ML; Start 06/29/16 at 09:00; Status Future Hold Folic Acid (Folic Acid) 1 mg DAILY NGT Last administered on 07/02/16 09:55; Admin Dose 1 MG; Start 06/29/16 at 09:00; Status Future Hold Hydralazine HCl (Apresoline) 10 mg Q8 NGT Last administered on 07/12/16 06:19 ; Admin Dose 10 MG; Start 06/29/16 at 14:00 Aspirin (Halfprin) 81 mg DAILY PO Last administered on 07/02/16 09:55; Admin Dose 81 MG; Start 07/01/16 at 09:30; Status Future Hold Collagenase (Santyl) 1 applic DAILY TOP Last administered on 07/11/16 11:22; Admin Dose 1 APPLIC; Start 07/01/16 at 16:00 Hydralazine HCl 10 mg 10 mg Q6H PRN IV ELEVATED BLOOD PRESSURE; Start 07/02/16 at 17:00 Multivitamins/ Folic Acid/ Thiamine HCl/ Dextrose (Mvi Adult/Folic Acid/Vitamin B1/ D5W) 1,011.2 ml @ 75 mls/hr DAILY@09 IV Last administered on 07/11/16 09: 49; Admin Dose 75 MLS/HR; Start 07/04/16 at 11:00 Aspirin (Aspirin) 300 mg DAILY [place] Last administered on 07/11/16 14:37; Admin Dose 300 MG; Start 07/05/16 at 12:30 Methylprednisolone Sodium Succinate (Solu-Medrol) 20 mg QAM IV Last administered on 07/11/16 09:48; Admin Dose 20 MG; Start 07/10/16 at 09:00 Metoclopramide HCl 5 mg 5 mg Q6 IV Last administered on 07/12/16 06:19; Admin Dose 5 MG; Start 07/10/16 at 18:00 Potassium Chloride/Dextrose/ Sod Cl (D5-NS + KCl 20 Meq) 1,000 ml @ 75 mls/hr [id number] IV Last administered on 07/11/16 22:56; Admin Dose 75 MLS/HR; Start at 09:00 BRITTANY MCNALLY M.D. Jul 12, 2016 08:40 [id number] IV Last administered on 07/11/16 22:56; Admin Dose 75 MLS/HR; Start at 09:00 BRITTANY MCNALLY M.D. Jul 12, 2016 08:40
--- NOTE | 2016-07-12 08:49 | PN ---
Date/Time of Note Date/Time of Note DATE: 07/12/16 TIME: 08:48 Assessment/Plan VTE Prophylaxis VTE Prophylaxis Intervention: SCD's Lines/Catheters IV Catheter Type (from Nrs): Peripheral IV Urinary Cath still in place: Yes Reason Cath still needed: urinary retention Assessment/Plan Assessment/Plan Cardiopulmonary arrest Severe cardiomyopathy with ejection fraction 30% Respiratory failure status post extubation Acute decompensated systolic congestive heart failure Encephalopathy Mildly elevated troponin Active tobacco use Coagulopathy Acute kidney injury Anemia - Intermittent IV diuretics as renal function and blood pressure permits. -Once able to tolerate p.o. meds, would start beta-erika and restart hydralazine secondary to congestive heart failure. -progressive anemia -renal insuff stable Subjective 24 Hr Interval Summary Free Text/Dictation The aptient wtih no cahgne Exam/Review of Systems Vital Signs Vitals Vital Signs Date Time Temp Pulse Resp B/P Pulse Ox O2 Delivery O2 Flow Rate FiO2 07/12/16 07:00 71 22 126/60 100 BIPAP 07/12/16 05:17 80 07/12/16 04:00 97.5 07/12/16 03:34 15.0 Intake and Output 07/11/16 07/11/16 07/12/16 15:00 23:00 07:00 Intake Total 985 ml 890 ml 750 ml Output Total 230 ml 220 ml 400 ml Balance 755 ml 670 ml 350 ml Results Result Diagram: 07/12/16 0425 07/12/16 0425 Results 24 hrs Laboratory Tests Test 07/11/16 10:58 07/12/16 04:25 Blood Gas Specimen Source Blood arterial Arterial Blood Date Drawn 07/11/2016 11:10:52 AM Arterial Blood pH (Temp corrected) 7.508 H Arterial Blood pCO2 (Temp correct) 38.9 Arterial Blood pO2 (Temp corrected) 53.8 *L Arterial Blood HCO3 30.2 H Arterial Blood Base Excess 6.7 H Arterial Blood Oxygen Saturation 88.4 L Isac Test ACCEPTAB Arterial Blood Gas Puncture Site Right Radial Arterial Blood Carboxyhemoglobin 0.3 Arterial Blood Methemoglobin 0.2 Blood Gas A-a O2 Differential 331.2 H Oxyhemoglobin Percent 88.0 L Total Hemoglobin 10.2 L Blood Gas Temperature 37.0 Blood Gas Respiration Rate 16.0 Blood Gas Actual Respiration Rate 20 Blood Gas Modality MASK - BIPAP FiO2 60.0 Blood Gas IPAP/EPAP Ratio 11/08 Blood Gas Critical Value Read Back R ARAM BUSH Blood Gas Notified Whom JLD Blood Gas Notified Time 07/11/2016 11:24:29 AM White Blood Count 7.2 # Red Blood Count 2.65 L Hemoglobin 8.2 L Hematocrit 25.1 L Mean Corpuscular Volume 94.7 Mean Corpuscular Hemoglobin 30.9 Mean Corpuscular Hemoglobin Concent 32.7 Red Cell Distribution Width 14.7 H Platelet Count 55 L Mean Platelet Volume 12.4 H Neutrophils % 91.6 H Lymphocytes % 4.7 L Monocytes % 2.8 Eosinophils % 0.1 Basophils % 0.0 Nucleated Red Blood Cells % 0.0 Neutrophils # 6.6 Lymphocytes # 0.3 L Monocytes # 0.2 L Eosinophils # 0.0 Basophils # 0.0 Nucleated Red Blood Cells # 0.0 Sodium Level 135 Potassium Level 3.9 Chloride Level 102 Carbon Dioxide Level 30 Anion Gap 7 L Blood Urea Nitrogen 61 H Creatinine 1.68 H Glucose Level 107 Calcium Level 8.6 Phosphorus Level 3.0 Magnesium Level 2.1 Medications Medications Current Medications Ondansetron HCl (Zofran Inj) 4 mg Q6H PRN IV NAUSEA AND/OR VOMITING; Start at 00:00 Pantoprazole (Protonix Iv) 40 mg DAILY@06 IV Last administered on 07/12/16 06: 18; Admin Dose 40 MG; Start 06/24/16 at 06:00 Thiamine HCl (Vitamin B1) 100 mg DAILY NGT Last administered on 07/02/16 09:54 ; Admin Dose 100 MG; Start 06/29/16 at 09:00; Status Future Hold Multivitamins (Thera-Plus) 5 ml DAILY NGT Last administered on 07/02/16 09:55; Admin Dose 5 ML; Start 06/29/16 at 09:00; Status Future Hold Folic Acid (Folic Acid) 1 mg DAILY NGT Last administered on 07/02/16 09:55; Admin Dose 1 MG; Start 06/29/16 at 09:00; Status Future Hold Hydralazine HCl (Apresoline) 10 mg Q8 NGT Last administered on 07/12/16 06:19 ; Admin Dose 10 MG; Start 06/29/16 at 14:00 Aspirin (Halfprin) 81 mg DAILY PO Last administered on 07/02/16 09:55; Admin Dose 81 MG; Start 07/01/16 at 09:30; Status Future Hold Collagenase (Santyl) 1 applic DAILY TOP Last administered on 07/11/16 11:22; Admin Dose 1 APPLIC; Start 07/01/16 at 16:00 Hydralazine HCl 10 mg 10 mg Q6H PRN IV ELEVATED BLOOD PRESSURE; Start 07/02/16 at 17:00 Multivitamins/ Folic Acid/ Thiamine HCl/ Dextrose (Mvi Adult/Folic Acid/Vitamin B1/ D5W) 1,011.2 ml @ 75 mls/hr DAILY@09 IV Last administered on 07/11/16 09: 49; Admin Dose 75 MLS/HR; Start 07/04/16 at 11:00 Aspirin (Aspirin) 300 mg DAILY [place] Last administered on 07/11/16 14:37; Admin Dose 300 MG; Start 07/05/16 at 12:30 Methylprednisolone Sodium Succinate (Solu-Medrol) 20 mg QAM IV Last administered on 07/11/16 09:48; Admin Dose 20 MG; Start 07/10/16 at 09:00 Metoclopramide HCl 5 mg 5 mg Q6 IV Last administered on 07/12/16 06:19; Admin Dose 5 MG; Start 07/10/16 at 18:00 Potassium Chloride/Dextrose/ Sod Cl (D5-NS + KCl 20 Meq) 1,000 ml @ 75 mls/hr [id number] IV Last administered on 07/11/16 22:56; Admin Dose 75 MLS/HR; Start at 09:00 DEO ELLIOTT MD Jul 12, 2016 08:49
[2016-07-12] MEDS: ASPIRIN 300 MG SUPP PR SCH (09:15)
[2016-07-12] MEDS: COLLAGENASE 30 GM TUBE TOP SCH (09:15)
--- NOTE | 2016-07-12 09:16 | CONS ---
Date/Time of Note Date/Time of Note DATE: 07/12/16 TIME: 09:14 Assessment/Plan Assessment/Plan Additional Assessment/Plan Assessment recommendations; 1. Patient admitted for respiratory failure no extubated several days ago. 2. Underlying COPD. 3. Cardiopathy. Continue current treatment for now. Will obtain follow-up chest x-ray. Overall prognosis remains poor. Consultation Date/Type/Reason Admit Date/Time Jun 23, 2016 at 22:42 Type of Consultation: Pulmonary/critical care Referring Provider: DAVID GONZALEZ 24 HR Interval Summary Free Text/Dictation Patient condition remains tenuous at best. Still requiring BiPAP. He remains awake and alert. And has remained hemodynamically stable. Exam; elderly male, on BiPAP currently in no distress. Exam/Review of Systems Vital Signs Vitals Vital Signs Date Time Temp Pulse Resp B/P Pulse Ox O2 Delivery O2 Flow Rate FiO2 07/12/16 09:00 69 99 75 07/12/16 07:00 22 126/60 BIPAP 07/12/16 04:00 97.5 07/12/16 03:34 15.0 Intake and Output 07/11/16 07/11/16 07/12/16 15:00 23:00 07:00 Intake Total 985 ml 890 ml 750 ml Output Total 230 ml 220 ml 400 ml Balance 755 ml 670 ml 350 ml Exam HEENT exam is; supple neck, no neck masses, positive JVD. No lymphadenopathy. Midline trachea. Chest examined; diminished breath sounds throughout. S1-S2 audible, no murmurs. Regular rhythm. Abdomen exam is; soft, nondistended. No organomegaly. Bowel sounds audible. Extremity exam; patient has a multiple ecchymosis involving all 4 extremities. 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 Results Result Diagram: 07/12/16 0425 07/12/16 0425 Results 24 hrs Laboratory Tests Test 07/11/16 10:58 07/12/16 04:25 Blood Gas Specimen Source Blood arterial Arterial Blood Date Drawn 07/11/2016 11:10:52 AM Arterial Blood pH (Temp corrected) 7.508 H Arterial Blood pCO2 (Temp correct) 38.9 Arterial Blood pO2 (Temp corrected) 53.8 *L Arterial Blood HCO3 30.2 H Arterial Blood Base Excess 6.7 H Arterial Blood Oxygen Saturation 88.4 L Isac Test ACCEPTAB Arterial Blood Gas Puncture Site Right Radial Arterial Blood Carboxyhemoglobin 0.3 Arterial Blood Methemoglobin 0.2 Blood Gas A-a O2 Differential 331.2 H Oxyhemoglobin Percent 88.0 L Total Hemoglobin 10.2 L Blood Gas Temperature 37.0 Blood Gas Respiration Rate 16.0 Blood Gas Actual Respiration Rate 20 Blood Gas Modality MASK - BIPAP FiO2 60.0 Blood Gas IPAP/EPAP Ratio 15/5 Blood Gas Critical Value Read Back R ARAM BUSH Blood Gas Notified Whom CHARLAD Blood Gas Notified Time 07/11/2016 11:24:29 AM White Blood Count 7.2 # Red Blood Count 2.65 L Hemoglobin 8.2 L Hematocrit 25.1 L Mean Corpuscular Volume 94.7 Mean Corpuscular Hemoglobin 30.9 Mean Corpuscular Hemoglobin Concent 32.7 Red Cell Distribution Width 14.7 H Platelet Count 55 L Mean Platelet Volume 12.4 H Neutrophils % 91.6 H Lymphocytes % 4.7 L Monocytes % 2.8 Eosinophils % 0.1 Basophils % 0.0 Nucleated Red Blood Cells % 0.0 Neutrophils # 6.6 Lymphocytes # 0.3 L Monocytes # 0.2 L Eosinophils # 0.0 Basophils # 0.0 Nucleated Red Blood Cells # 0.0 Sodium Level 135 Potassium Level 3.9 Chloride Level 102 Carbon Dioxide Level 30 Anion Gap 7 L Blood Urea Nitrogen 61 H Creatinine 1.68 H Glucose Level 107 Calcium Level 8.6 Phosphorus Level 3.0 Magnesium Level 2.1 Medications Medications Current Medications Ondansetron HCl (Zofran Inj) 4 mg Q6H PRN IV NAUSEA AND/OR VOMITING; Start at 00:00 Pantoprazole (Protonix Iv) 40 mg DAILY@06 IV Last administered on 07/12/16 06: 18; Admin Dose 40 MG; Start 06/24/16 at 06:00 Thiamine HCl (Vitamin B1) 100 mg DAILY NGT Last administered on 07/02/16 09:54 ; Admin Dose 100 MG; Start 06/29/16 at 09:00; Status Future Hold Multivitamins (Thera-Plus) 5 ml DAILY NGT Last administered on 07/02/16 09:55; Admin Dose 5 ML; Start 06/29/16 at 09:00; Status Future Hold Folic Acid (Folic Acid) 1 mg DAILY NGT Last administered on 07/02/16 09:55; Admin Dose 1 MG; Start 06/29/16 at 09:00; Status Future Hold Hydralazine HCl (Apresoline) 10 mg Q8 NGT Last administered on 07/12/16 06:19 ; Admin Dose 10 MG; Start 06/29/16 at 14:00 Aspirin (Halfprin) 81 mg DAILY PO Last administered on 07/02/16 09:55; Admin Dose 81 MG; Start 07/01/16 at 09:30; Status Future Hold Collagenase (Santyl) 1 applic DAILY TOP Last administered on 07/11/16 11:22; Admin Dose 1 APPLIC; Start 07/01/16 at 16:00 Hydralazine HCl 10 mg 10 mg Q6H PRN IV ELEVATED BLOOD PRESSURE; Start 07/02/16 at 17:00 Multivitamins/ Folic Acid/ Thiamine HCl/ Dextrose (Mvi Adult/Folic Acid/Vitamin B1/ D5W) 1,011.2 ml @ 75 mls/hr DAILY@09 IV Last administered on 07/11/16 09: 49; Admin Dose 75 MLS/HR; Start 07/04/16 at 11:00 Aspirin (Aspirin) 300 mg DAILY [place] Last administered on 07/11/16 14:37; Admin Dose 300 MG; Start 07/05/16 at 12:30 Methylprednisolone Sodium Succinate (Solu-Medrol) 20 mg QAM IV Last administered on 07/11/16 09:48; Admin Dose 20 MG; Start 07/10/16 at 09:00 Metoclopramide HCl 5 mg 5 mg Q6 IV Last administered on 07/12/16 06:19; Admin Dose 5 MG; Start 07/10/16 at 18:00 Potassium Chloride/Dextrose/ Sod Cl (D5-NS + KCl 20 Meq) 1,000 ml @ 75 mls/hr [id number] IV Last administered on 07/11/16 22:56; Admin Dose 75 MLS/HR; Start at 09:00 JEN JOHNSON Jul 12, 2016 09:16
--- NOTE | 2016-07-12 09:33 | EN ---
Date/Time of Note Date/Time of Note DATE: 07/12/16 TIME: 09:32 Event Note Medicine Medicine Event Note This is a procedure note for right femoral central venous line placement. Patient with respiratory failure has very poor peripheral IV access. Patient on pressor support. Central line required for medicine administration. Right femoral area was prepped in usual sterile fashion. All sterile barrier precautions were taken. Right femoral [id number] theater was placed in with the Seldinger technique without difficulty. JEN JOHNSON Jul 12, 2016 09:33
[2016-07-12] MEDS: METHYLPREDNISOLONE 40 MG INJ IV SCH (09:46)
[2016-07-12] MEDS: MULTIVITAMINS IV SCH (09:47)
[2016-07-12] MEDS: FOLIC ACID IV SCH (09:47)
[2016-07-12] MEDS: DEXTROSE 5% IV SCH (09:47)
[2016-07-12] MEDS: THIAMINE IV SCH (09:47)
--- NOTE | 2016-07-12 11:31 | CONS ---
Date/Time of Note Date/Time of Note DATE: 07/12/16 TIME: 11:30 Assessment/Plan Assessment/Plan Additional Assessment/Plan ASSESSMENT * Dysphagia * PEG insertion 07/09/2016 * Pulseless electrical activity,s,p resuscitation * Acute respiratory failure Resolved * Cardiomyopathy EF 30 % * Encephalopathy * PLAN * reglan 10 mg q8 * monitor residuals * continue present management * Further recommendations depend on clinical course * Patient seen in collaboration with Dr. Zambrano Consultation Date/Type/Reason Admit Date/Time Jun 23, 2016 at 22:42 Type of Consultation: GI Referring Provider: DAVID GONZALEZ 24 HR Interval Summary Free Text/Dictation Tube feed at 30 with minimal residual Dressing change in abdominal binder applied No reports of bleeding per G-tube site Exam/Review of Systems Vital Signs Vitals Vital Signs Date Time Temp Pulse Resp B/P Pulse Ox O2 Delivery O2 Flow Rate FiO2 07/12/16 11:01 65 100 70 07/12/16 07:00 22 126/60 BIPAP 07/12/16 04:00 97.5 07/12/16 03:34 15.0 Intake and Output 07/11/16 07/11/16 07/12/16 15:00 23:00 07:00 Intake Total 985 ml 890 ml 750 ml Output Total 230 ml 220 ml 400 ml Balance 755 ml 670 ml 350 ml Exam Constitutional: frail, non-verbal Respiratory: diminished breath sounds, other (bipap) Cardiovascular: nl pulses, regular rate and rhythm Gastrointestinal: non-tender, other (tube feeding in placed), soft Results Result Diagram: 07/12/16 0425 07/12/16 0425 Results 24 hrs Laboratory Tests Test 07/12/16 04:25 White Blood Count 7.2 # Red Blood Count 2.65 L Hemoglobin 8.2 L Hematocrit 25.1 L Mean Corpuscular Volume 94.7 Mean Corpuscular Hemoglobin 30.9 Mean Corpuscular Hemoglobin Concent 32.7 Red Cell Distribution Width 14.7 H Platelet Count 55 L Mean Platelet Volume 12.4 H Neutrophils % 91.6 H Lymphocytes % 4.7 L Monocytes % 2.8 Eosinophils % 0.1 Basophils % 0.0 Nucleated Red Blood Cells % 0.0 Neutrophils # 6.6 Lymphocytes # 0.3 L Monocytes # 0.2 L Eosinophils # 0.0 Basophils # 0.0 Nucleated Red Blood Cells # 0.0 Sodium Level 135 Potassium Level 3.9 Chloride Level 102 Carbon Dioxide Level 30 Anion Gap 7 L Blood Urea Nitrogen 61 H Creatinine 1.68 H Glucose Level 107 Calcium Level 8.6 Phosphorus Level 3.0 Magnesium Level 2.1 Medications Medications Current Medications Ondansetron HCl (Zofran Inj) 4 mg Q6H PRN IV NAUSEA AND/OR VOMITING; Start at 00:00 Pantoprazole (Protonix Iv) 40 mg DAILY@06 IV Last administered on 07/12/16 06: 18; Admin Dose 40 MG; Start 06/24/16 at 06:00 Thiamine HCl (Vitamin B1) 100 mg DAILY NGT Last administered on 07/02/16 09:54 ; Admin Dose 100 MG; Start 06/29/16 at 09:00; Status Future Hold Multivitamins (Thera-Plus) 5 ml DAILY NGT Last administered on 07/02/16 09:55; Admin Dose 5 ML; Start 06/29/16 at 09:00; Status Future Hold Folic Acid (Folic Acid) 1 mg DAILY NGT Last administered on 07/02/16 09:55; Admin Dose 1 MG; Start 06/29/16 at 09:00; Status Future Hold Hydralazine HCl (Apresoline) 10 mg Q8 NGT Last administered on 07/12/16 06:19 ; Admin Dose 10 MG; Start 06/29/16 at 14:00 Aspirin (Halfprin) 81 mg DAILY PO Last administered on 07/02/16 09:55; Admin Dose 81 MG; Start 07/01/16 at 09:30; Status Future Hold Collagenase (Santyl) 1 applic DAILY TOP Last administered on 07/11/16 11:22; Admin Dose 1 APPLIC; Start 07/01/16 at 16:00 Hydralazine HCl 10 mg 10 mg Q6H PRN IV ELEVATED BLOOD PRESSURE; Start 07/02/16 at 17:00 Multivitamins/ Folic Acid/ Thiamine HCl/ Dextrose (Mvi Adult/Folic Acid/Vitamin B1/ D5W) 1,011.2 ml @ 75 mls/hr DAILY@09 IV Last administered on 07/12/16 09: 47; Admin Dose 75 MLS/HR; Start 07/04/16 at 11:00 Aspirin (Aspirin) 300 mg DAILY [place] Last administered on 07/11/16 14:37; Admin Dose 300 MG; Start 07/05/16 at 12:30 Methylprednisolone Sodium Succinate (Solu-Medrol) 20 mg QAM IV Last administered on 07/12/16 09:46; Admin Dose 20 MG; Start 07/10/16 at 09:00 Metoclopramide HCl 5 mg 5 mg Q6 IV Last administered on 07/12/16 06:19; Admin Dose 5 MG; Start 07/10/16 at 18:00 Potassium Chloride/Dextrose/ Sod Cl (D5-NS + KCl 20 Meq) 1,000 ml @ 75 mls/hr [id number] IV Last administered on 07/11/16 22:56; Admin Dose 75 MLS/HR; Start at 09:00 IBRAHIMA LANZA Jul 12, 2016 11:31
[2016-07-12] MEDS: D5-NS + KCL 20 MEQ 1,000 ML IV SCH (11:40)
[2016-07-12 22:03] LABS: AADO2 Arterial 554.2 mmHg (7.0-24.0); Allen Test ACCEPTAB; Arterial Base Excess 3.2 mmol/L (-3.0-3); Arterial COHb 0.3 % (0.0-3.0); Arterial Fraction of Oxyhgb 96.7 % (93.0-99.0); Arterial HCO3 28.3 mmol/L (22.0-26.0); Arterial MetHb 0.3 % (0.0-1.5); Arterial Total Hemglobin 9.1 g/dl (12.0-18.0); Blood Gas IEPAP 15/5; Blood Gas PS 10; MODE MASK - BIPAP
[2016-07-13] VITALS (36 sets, daily range): BP systolic 125–166; BP diastolic 61–106; PULSE 56–77; RESP 13–26
[2016-07-13] MEDS: D5-NS + KCL 20 MEQ 1,000 ML IV SCH ×2 (00:52→13:13)
[2016-07-13] MEDS: POTASSIUM CHLORIDE 50 ML IVPB PRN (00:53)
[2016-07-13] MEDS: ALBUTEROL/IPRATROPIUM (NEB) 3 ML AMP HHN SCH ×6 (00:58→21:56)
[2016-07-13] MEDS: PANTOPRAZOLE 40 MG INJ IV SCH (05:49)
[2016-07-13] MEDS: METOCLOPRAMIDE 10 MG INJ IV SCH ×3 (05:49→18:07)
[2016-07-13 08:51] LABS: ADD SCAN DIFF NO
--- NOTE | 2016-07-13 08:56 | PN ---
Date/Time of Note Date/Time of Note DATE: 07/13/16 TIME: 08:47 Assessment/Plan VTE Prophylaxis VTE Prophylaxis Intervention: SCD's Lines/Catheters IV Catheter Type (from Nrs): Peripheral IV Urinary Cath still in place: Yes Reason Cath still needed: terminal illness/intractable pain Assessment/Plan Assessment/Plan [facility] 1. 76-year-old man who is hospital day 20 following admission for acute respiratory failure, possibly related to CHF and COPD. Right lower lobe & right middle lobe infiltrates initially, but with better oxygenation now on ABG overnight and clearer lungs on exam today. Ecchymoses and peripheral edema both better today. Probable aspiration pneumonia, no fever off Zosyn now. * pCXR this morning (not performed yesterday) * Continue BiPAP and nebulizer therapy. * Tapering steroids, currently Solu-Medrol 20 mg IV daily. * Started this morning on metoprolol 25mg per PEG, as recommended by Dr. Gann. 2 Nutrition. S/p G tube and started on tube feedings. No bleeding evident at PEG site. Hct drop yesterday morning, in conjunction with apparent bleeding. * Repeat CBC now * Reglan IV as needed for high residuals 3. CT neck five days ago showed deep subcutaneous emphysema and evidence for possible esophageal erosion. No fever or leukocytosis to suggest continued perforation. * Blood culture negative 4. S/p cardiac arrest on presentation, with pulseless electrical activity. Stable rhythm on telemetry, and hemodynamically stable currently. 2-D echo showed severe cardiomyopathy with EF 30 %. Less severe peripheral edema today. Concern yesterday about climbing creatinine. * Continue to hold Lasix * Recheck renal function this morning. * Monitor urine output and volume status * Continue free water at 200 cc q6 * Aspirin switched to PEG * Continued off KANDIS inhibitor or ARB for now, pending recovery of his renal function. 5. Cirrhosis with h/o ethanol use. Viral hepatitis panel negative. Platelets slightly lower today, at 55k/ul, with diffuse moderate ecchymoses. Ammonia levels have been within normal limit. * Continue thiamine/folate/mvi IV 6. Encephalopathy, with question of anoxic injury but with CT brain x2 largely normal. Much better mental status today, with ability to make good eye contact and respond to questions. 7. PROPHYLAXIS: SCDs to lower extremities for DVT prophylaxis and Pepcid for GI prophylaxis. 8. DISPOSITION: Will be in touch with his grandson Lamin today while he is in town ([phone]). * Discussion anticipated of Code status (patient is Full-Code). * Continue ICU level care until his respiratory status is more stable; consider placement in Subacute/respiratory facility. Mainor Mcnally MD PhD [phone] Subjective 24 Hr Interval Summary Free Text/Dictation No visitors this morning. I looked for the grandson yesterday, but was not able to speak with him. Responding now to yes or no questions, and indicates he is not in pain or nauseated. On BiPAP. Exam/Review of Systems Vital Signs Vitals Vital Signs Date Time Temp Pulse Resp B/P Pulse Ox O2 Delivery O2 Flow Rate FiO2 07/13/16 07:21 76 99 100 07/13/16 06:00 20 136/68 07/13/16 05:00 98.8 BIPAP 07/12/16 03:34 15.0 Intake and Output 07/12/16 07/12/16 07/13/16 14:59 22:59 06:59 Intake Total 1260 ml 1120 ml 1245 ml Output Total 355 ml 328 ml 347 ml Balance 905 ml 792 ml 898 ml Exam Constitutional: Alert, opens his eyes to his name, responding appropriately to questions with both yes/no. Respiratory: No rhonchi this morning, diminished basal breath sounds, on BiPAP 11/08 Cardiovascular: Symmetric pulses, regular rhythm, normal rate, NSR on telemetry , 1+ pitting edema both feet and hands. Gastrointestinal: non-tender, soft, PEG site clean and dry, no rebound or guarding. Musculoskeletal: Normal hips, knees and ankles. No cyanosis. 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 Results Result Diagram: 07/12/16 0425 07/12/16 042 Results 24 hrs Laboratory Tests Test 07/12/16 21:34 Blood Gas Specimen Source Blood arterial Arterial Blood Date Drawn 07/12/2016 9:50:36 PM Arterial Blood pH (Temp corrected) 7.411 Arterial Blood pCO2 (Temp correct) 45.5 H Arterial Blood pO2 (Temp corrected) 113.3 H Arterial Blood HCO3 28.3 H Arterial Blood Base Excess 3.2 H Arterial Blood Oxygen Saturation 97.3 Isac Test ACCEPTAB Arterial Blood Gas Puncture Site Right Radial Arterial Blood Carboxyhemoglobin 0.3 Arterial Blood Methemoglobin 0.3 Blood Gas A-a O2 Differential 554.2 H Oxyhemoglobin Percent 96.7 Total Hemoglobin 9.1 L Blood Gas Temperature 37.0 Blood Gas Respiration Rate 16.0 Blood Gas Actual Respiration Rate 22 Blood Gas Modality MASK - BIPAP FiO2 100.0 Blood Gas Pressure Support 10 Blood Gas IPAP/EPAP Ratio 11/08 Blood Gas Notified Whom KM Blood Gas Notified Time 07/12/2016 10:02:34 PM Medications Medications Current Medications Ondansetron HCl (Zofran Inj) 4 mg Q6H PRN IV NAUSEA AND/OR VOMITING Last administered on 07/12/16 12:01; Admin Dose 4 MG; Start 06/24/16 at 00:00 Pantoprazole (Protonix Iv) 40 mg DAILY@06 IV Last administered on 07/13/16 05: 49; Admin Dose 40 MG; Start 06/24/16 at 06:00 Thiamine HCl (Vitamin B1) 100 mg DAILY NGT Last administered on 07/02/16 09:54 ; Admin Dose 100 MG; Start 06/29/16 at 09:00; Status Future Hold Multivitamins (Thera-Plus) 5 ml DAILY NGT Last administered on 07/02/16 09:55; Admin Dose 5 ML; Start 06/29/16 at 09:00; Status Future Hold Folic Acid (Folic Acid) 1 mg DAILY NGT Last administered on 07/02/16 09:55; Admin Dose 1 MG; Start 06/29/16 at 09:00; Status Future Hold Hydralazine HCl (Apresoline) 10 mg Q8 NGT Last administered on 07/13/16 05:50 ; Admin Dose 10 MG; Start 06/29/16 at 14:00 Aspirin (Halfprin) 81 mg DAILY PO Last administered on 07/02/16 09:55; Admin Dose 81 MG; Start 07/01/16 at 09:30; Status Future Hold Collagenase (Santyl) 1 applic DAILY TOP Last administered on 07/12/16 09:15; Admin Dose 1 APPLIC; Start 07/01/16 at 16:00 Hydralazine HCl 10 mg 10 mg Q6H PRN IV ELEVATED BLOOD PRESSURE; Start 07/02/16 at 17:00 Multivitamins/ Folic Acid/ Thiamine HCl/ Dextrose (Mvi Adult/Folic Acid/Vitamin B1/ D5W) 1,011.2 ml @ 75 mls/hr DAILY@09 IV Last administered on 07/12/16 09: 47; Admin Dose 75 MLS/HR; Start 07/04/16 at 11:00 Aspirin (Aspirin) 300 mg DAILY AR Last administered on 07/12/16 09:15; Admin Dose 300 MG; Start 07/05/16 at 12:30 Methylprednisolone Sodium Succinate (Solu-Medrol) 20 mg QAM IV Last administered on 07/12/16 09:46; Admin Dose 20 MG; Start 07/10/16 at 09:00 Metoclopramide HCl 5 mg 5 mg Q6 IV Last administered on 07/13/16 05:49; Admin Dose 5 MG; Start 07/10/16 at 18:00 Potassium Chloride/Dextrose/ Sod Cl (D5-NS + KCl 20 Meq) 1,000 ml @ 75 mls/hr [id number] IV Last administered on 07/13/16 00:52; Admin Dose 75 MLS/HR; Start at 09:00 BRITTANY MCNALLY M.D. Jul 13, 2016 08:55
[2016-07-13 09:03] LABS: ABNORMAL IP MESSAGE 1; HEMATOCRIT 25.7 % (42.0-52.0); HEMOGLOBIN 8.2 g/dl (14.0-18.0); MEAN CORPUSCULAR HEMOGLOBIN 31.1 pg (29.0-33.0); MEAN CORPUSCULAR HGB CONC 31.9 g/dl (32.0-37.0); MEAN CORPUSCULAR VOLUME 97.3 fl (82.0-101.0); MEAN PLATELET VOLUME 12.4 fl (7.4-10.4); RED BLOOD COUNT 2.64 10^6/ul (4.70-6.10)
--- NOTE | 2016-07-13 09:06 | RADRPT ---
PROCEDURE: XR Chest. CLINICAL INDICATION: Shortness of breath. Pneumonia TECHNIQUE: A single portable view of the chest was obtained. COMPARISON: 07/03/2016 FINDINGS: The aorta is tortuous and atherosclerotic. The cardiomediastinal silhouette is otherwise enlarged a nd is unchanged. A moderate size right pleural effusion is once again seen with a left pleural effus ion which have not changed significantly. Bibasilar air space disease is once again seen which is st able. Pulmonary vascular congestion is again noted with possible underlying pulmonary edema. The s oft tissues and osseous structures demonstrate benign age related senescent changes. IMPRESSION: Radiographic findings which may represent congestive heart failure which has not changed significant ly. RPTAT: HPNM Physician Carlos Date Time Electronically viewed and signed by Subhash King Physician on 07/13/2016 09:05 /
[2016-07-13 09:09] LABS: CALCIUM 8.4 mg/dl (8.4-10.2); CREATININE 1.34 mg/dl (0.61-1.24); MAGNESIUM 2.1 mg/dl (1.7-2.5); POTASSIUM 4.7 mmol/L (3.5-5.1)
[2016-07-13 09:24] LABS: PLATELET COUNT 48 10^3/UL (140-415)
[2016-07-13 10:37] LABS: LYMPHOCYTES # 0.3 10^3/ul (0.8-2.9); MONOCYTE # 0.1 10^3/ul (0.3-0.9); NEUTROPHIL # 3.2 10^3/ul (1.6-7.5)
[2016-07-13 10:38] LABS: PLATELET ESTIMATE PLT APPEAR DECREASED
[2016-07-13] MEDS: ASPIRIN 325 MG TAB GTB SCH (10:57)
[2016-07-13] MEDS: THIAMINE IV SCH (10:57)
[2016-07-13] MEDS: FOLIC ACID IV SCH (10:57)
[2016-07-13] MEDS: DEXTROSE 5% IV SCH (10:57)
[2016-07-13] MEDS: MULTIVITAMINS IV SCH (10:57)
[2016-07-13] MEDS: COLLAGENASE 30 GM TUBE TOP SCH (10:58)
[2016-07-13] MEDS: METHYLPREDNISOLONE 40 MG INJ IV SCH (10:58)
[2016-07-13] MEDS: METOPROLOL 25 MG TAB GTB SCH ×2 (10:58→21:42)
--- NOTE | 2016-07-13 11:21 | RADRPT ---
PROCEDURE: XR Chest. CLINICAL INDICATION: Shortness of breath. TECHNIQUE: Single frontal view. COMPARISON: 07/12/2016. FINDINGS: There is bilateral air space and interstitial disease in the mid and lower lung zones consistent wit h pulmonary edema, similar to the prior study. The heart is enlarged. There is calcification in the aorta consistent with atherosclerosis. There is a moderate right pleural effusion and small left pleural effusion. There is no pneumothorax. IMPRESSION: 1. Pulmonary edema, unchanged. 2. Cardiomegaly and atherosclerosis. 3. Moderate right pleural effusion and small left pleural effusion. RPTAT: QQ .Roverto Kim MD, MD Date Time Electronically viewed and signed by .Roverto Kim MD, MD on 07/13/2016 11:21 .R/
--- NOTE | 2016-07-13 11:44 | PN ---
Date/Time of Note Date/Time of Note DATE: 07/13/16 TIME: 11:40 Assessment/Plan VTE Prophylaxis VTE Prophylaxis Intervention: SCD's Lines/Catheters IV Catheter Type (from Nrs): Peripheral IV Urinary Cath still in place: Yes Reason Cath still needed: urinary retention Assessment/Plan Assessment/Plan ASSESSMENT * Dysphagia * PEG insertion 07/09/2016 * Pulseless electrical activity,s,p resuscitation * Acute respiratory failure Resolved * Cardiomyopathy EF 30 % * Encephalopathy * PLAN * monitor residuals * continue present management Subjective 24 Hr Interval Summary Free Text/Dictation * Course reviewed with RN * patient seen and examined * Tolerating tube feeding Exam/Review of Systems Vital Signs Vitals Vital Signs Date Time Temp Pulse Resp B/P Pulse Ox O2 Delivery O2 Flow Rate FiO2 07/13/16 11:27 76 97 100 07/13/16 10:00 21 144/77 BIPAP 07/13/16 08:00 99.2 07/12/16 03:34 15.0 Intake and Output 07/12/16 07/12/16 07/13/16 15:00 23:00 07:00 Intake Total 1270 ml 1120 ml 1130 ml Output Total 355 ml 320 ml 305 ml Balance 915 ml 800 ml 825 ml Exam Constitutional: frail Neck: supple Respiratory: diminished breath sounds, other (bipap) Cardiovascular: nl pulses, regular rate and rhythm Gastrointestinal: non-tender, other (g tube in placed,dressing dry,no bleeding) , soft Results Result Diagram: 07/13/16 0835 07/13/16 0835 Results 24 hrs Laboratory Tests Test 07/12/16 21:34 07/13/16 08:35 Blood Gas Specimen Source Blood arterial Arterial Blood Date Drawn 07/12/2016 9:50:36 PM Arterial Blood pH (Temp corrected) 7.411 Arterial Blood pCO2 (Temp correct) 45.5 H Arterial Blood pO2 (Temp corrected) 113.3 H Arterial Blood HCO3 28.3 H Arterial Blood Base Excess 3.2 H Arterial Blood Oxygen Saturation 97.3 Isac Test ACCEPTAB Arterial Blood Gas Puncture Site Right Radial Arterial Blood Carboxyhemoglobin 0.3 Arterial Blood Methemoglobin 0.3 Blood Gas A-a O2 Differential 554.2 H Oxyhemoglobin Percent 96.7 Total Hemoglobin 9.1 L Blood Gas Temperature 37.0 Blood Gas Respiration Rate 16.0 Blood Gas Actual Respiration Rate 22 Blood Gas Modality MASK - BIPAP FiO2 100.0 Blood Gas Pressure Support 10 Blood Gas IPAP/EPAP Ratio 11/08 Blood Gas Notified Whom KM Blood Gas Notified Time 07/12/2016 10:02:34 PM White Blood Count 4.0 #L Red Blood Count 2.64 L Hemoglobin 8.2 L Hematocrit 25.7 L Mean Corpuscular Volume 97.3 Mean Corpuscular Hemoglobin 31.1 Mean Corpuscular Hemoglobin Concent 31.9 L Red Cell Distribution Width 15.0 H Platelet Count 48 L Mean Platelet Volume 12.4 H Neutrophils % 79.0 H Band Neutrophils % 12.0 H Lymphocytes % 7.0 L Monocytes % 2.0 Eosinophils % Neutrophils # 3.2 Lymphocytes # 0.3 L Monocytes # 0.1 L Eosinophils # Platelet Estimate PLT APPEAR DECREASED Sodium Level 136 Potassium Level 4.7 Chloride Level 105 Carbon Dioxide Level 29 Anion Gap 7 L Blood Urea Nitrogen 59 H Creatinine 1.34 H Glucose Level 128 Calcium Level 8.4 Magnesium Level 2.1 Medications Medications Current Medications Ondansetron HCl (Zofran Inj) 4 mg Q6H PRN IV NAUSEA AND/OR VOMITING Last administered on 07/12/16 12:01; Admin Dose 4 MG; Start 06/24/16 at 00:00 Pantoprazole (Protonix Iv) 40 mg DAILY@06 IV Last administered on 07/13/16 05: 49; Admin Dose 40 MG; Start 06/24/16 at 06:00 Thiamine HCl (Vitamin B1) 100 mg DAILY NGT Last administered on 07/02/16 09:54 ; Admin Dose 100 MG; Start 06/29/16 at 09:00; Status Future Hold Multivitamins (Thera-Plus) 5 ml DAILY NGT Last administered on 07/02/16 09:55; Admin Dose 5 ML; Start 06/29/16 at 09:00; Status Future Hold Folic Acid (Folic Acid) 1 mg DAILY NGT Last administered on 07/02/16 09:55; Admin Dose 1 MG; Start 06/29/16 at 09:00; Status Future Hold Hydralazine HCl (Apresoline) 10 mg Q8 NGT Last administered on 07/13/16 05:50 ; Admin Dose 10 MG; Start 06/29/16 at 14:00 Collagenase (Santyl) 1 applic DAILY TOP Last administered on 07/13/16 10:58; Admin Dose 1 APPLIC; Start 07/01/16 at 16:00 Hydralazine HCl 10 mg 10 mg Q6H PRN IV ELEVATED BLOOD PRESSURE; Start 07/02/16 at 17:00 Multivitamins/ Folic Acid/ Thiamine HCl/ Dextrose (Mvi Adult/Folic Acid/Vitamin B1/ D5W) 1,011.2 ml @ 75 mls/hr DAILY@09 IV Last administered on 07/13/16 10: 57; Admin Dose 75 MLS/HR; Start 07/04/16 at 11:00 Methylprednisolone Sodium Succinate (Solu-Medrol) 20 mg QAM IV Last administered on 07/13/16 10:58; Admin Dose 20 MG; Start 07/10/16 at 09:00 Metoclopramide HCl 5 mg 5 mg Q6 IV Last administered on 07/13/16 05:49; Admin Dose 5 MG; Start 07/10/16 at 18:00 Potassium Chloride/Dextrose/ Sod Cl (D5-NS + KCl 20 Meq) 1,000 ml @ 75 mls/hr [id number] IV Last administered on 07/13/16 00:52; Admin Dose 75 MLS/HR; Start at 09:00 Metoprolol Tartrate (Lopressor) 25 mg BID GTB Last administered on 07/13/16 10 :58; Admin Dose 25 MG; Start 07/13/16 at 09:00 Aspirin (Aspirin) 325 mg DAILY GTB Last administered on 07/13/16 10:57; Admin Dose 325 MG; Start 07/13/16 at 09:00 BRIA MARTINEZ MD Jul 13, 2016 11:44
--- NOTE | 2016-07-13 11:54 | PN ---
Date/Time of Note Date/Time of Note DATE: 07/13/16 TIME: 11:53 Assessment/Plan VTE Prophylaxis VTE Prophylaxis Intervention: SCD's Lines/Catheters IV Catheter Type (from Nrs): Peripheral IV Central line still needed: No Urinary Cath still in place: Yes Reason Cath still needed: urinary retention Assessment/Plan Assessment/Plan Cardiopulmonary arrest Severe cardiomyopathy with ejection fraction 30% Respiratory failure status post extubation Acute decompensated systolic congestive heart failure Encephalopathy Mildly elevated troponin Active tobacco use Coagulopathy Acute kidney injury Anemia - Intermittent IV diuretics as renal function and blood pressure permits. -Once able to tolerate p.o. meds, would start beta-erika and restart hydralazine secondary to congestive heart failure. -progressive anemia -renal insuff stable Subjective 24 Hr Interval Summary Free Text/Dictation The patient with no cahnge Exam/Review of Systems Vital Signs Vitals Vital Signs Date Time Temp Pulse Resp B/P Pulse Ox O2 Delivery O2 Flow Rate FiO2 07/13/16 11:27 76 97 100 07/13/16 10:00 21 144/77 BIPAP 07/13/16 08:00 99.2 07/12/16 03:34 15.0 Intake and Output 07/12/16 07/12/16 07/13/16 15:00 23:00 07:00 Intake Total 1270 ml 1120 ml 1130 ml Output Total 355 ml 320 ml 305 ml Balance 915 ml 800 ml 825 ml Results Result Diagram: 07/13/16 0835 07/13/16 0835 Results 24 hrs Laboratory Tests Test 07/12/16 21:34 07/13/16 08:35 Blood Gas Specimen Source Blood arterial Arterial Blood Date Drawn 07/12/2016 9:50:36 PM Arterial Blood pH (Temp corrected) 7.411 Arterial Blood pCO2 (Temp correct) 45.5 H Arterial Blood pO2 (Temp corrected) 113.3 H Arterial Blood HCO3 28.3 H Arterial Blood Base Excess 3.2 H Arterial Blood Oxygen Saturation 97.3 Isac Test ACCEPTAB Arterial Blood Gas Puncture Site Right Radial Arterial Blood Carboxyhemoglobin 0.3 Arterial Blood Methemoglobin 0.3 Blood Gas A-a O2 Differential 554.2 H Oxyhemoglobin Percent 96.7 Total Hemoglobin 9.1 L Blood Gas Temperature 37.0 Blood Gas Respiration Rate 16.0 Blood Gas Actual Respiration Rate 22 Blood Gas Modality MASK - BIPAP FiO2 100.0 Blood Gas Pressure Support 10 Blood Gas IPAP/EPAP Ratio 11/08 Blood Gas Notified Whom KM Blood Gas Notified Time 07/12/2016 10:02:34 PM White Blood Count 4.0 #L Red Blood Count 2.64 L Hemoglobin 8.2 L Hematocrit 25.7 L Mean Corpuscular Volume 97.3 Mean Corpuscular Hemoglobin 31.1 Mean Corpuscular Hemoglobin Concent 31.9 L Red Cell Distribution Width 15.0 H Platelet Count 48 L Mean Platelet Volume 12.4 H Neutrophils % 79.0 H Band Neutrophils % 12.0 H Lymphocytes % 7.0 L Monocytes % 2.0 Eosinophils % Neutrophils # 3.2 Lymphocytes # 0.3 L Monocytes # 0.1 L Eosinophils # Platelet Estimate PLT APPEAR DECREASED Sodium Level 136 Potassium Level 4.7 Chloride Level 105 Carbon Dioxide Level 29 Anion Gap 7 L Blood Urea Nitrogen 59 H Creatinine 1.34 H Glucose Level 128 Calcium Level 8.4 Magnesium Level 2.1 Medications Medications Current Medications Ondansetron HCl (Zofran Inj) 4 mg Q6H PRN IV NAUSEA AND/OR VOMITING Last administered on 07/12/16 12:01; Admin Dose 4 MG; Start 06/24/16 at 00:00 Pantoprazole (Protonix Iv) 40 mg DAILY@06 IV Last administered on 07/13/16 05: 49; Admin Dose 40 MG; Start 06/24/16 at 06:00 Thiamine HCl (Vitamin B1) 100 mg DAILY NGT Last administered on 07/02/16 09:54 ; Admin Dose 100 MG; Start 06/29/16 at 09:00; Status Future Hold Multivitamins (Thera-Plus) 5 ml DAILY NGT Last administered on 07/02/16 09:55; Admin Dose 5 ML; Start 06/29/16 at 09:00; Status Future Hold Folic Acid (Folic Acid) 1 mg DAILY NGT Last administered on 07/02/16 09:55; Admin Dose 1 MG; Start 06/29/16 at 09:00; Status Future Hold Hydralazine HCl (Apresoline) 10 mg Q8 NGT Last administered on 07/13/16 05:50 ; Admin Dose 10 MG; Start 06/29/16 at 14:00 Collagenase (Santyl) 1 applic DAILY TOP Last administered on 4/16/17at 10:58; Admin Dose 1 APPLIC; Start 07/01/16 at 16:00 Hydralazine HCl 10 mg 10 mg Q6H PRN IV ELEVATED BLOOD PRESSURE; Start 07/02/16 at 17:00 Multivitamins/ Folic Acid/ Thiamine HCl/ Dextrose (Mvi Adult/Folic Acid/Vitamin B1/ D5W) 1,011.2 ml @ 75 mls/hr DAILY@09 IV Last administered on 07/13/16 10: 57; Admin Dose 75 MLS/HR; Start 07/04/16 at 11:00 Methylprednisolone Sodium Succinate (Solu-Medrol) 20 mg QAM IV Last administered on 07/13/16 10:58; Admin Dose 20 MG; Start 07/10/16 at 09:00 Metoclopramide HCl 5 mg 5 mg Q6 IV Last administered on 07/13/16 05:49; Admin Dose 5 MG; Start 07/10/16 at 18:00 Potassium Chloride/Dextrose/ Sod Cl (D5-NS + KCl 20 Meq) 1,000 ml @ 75 mls/hr [id number] IV Last administered on 07/13/16 00:52; Admin Dose 75 MLS/HR; Start at 09:00 Metoprolol Tartrate (Lopressor) 25 mg BID GTB Last administered on 07/13/16 10 :58; Admin Dose 25 MG; Start 07/13/16 at 09:00 Aspirin (Aspirin) 325 mg DAILY GTB Last administered on 07/13/16 10:57; Admin Dose 325 MG; Start 07/13/16 at 09:00 DEO ELLIOTT MD Jul 13, 2016 11:54
--- NOTE | 2016-07-13 12:50 | CONS ---
Date/Time of Note Date/Time of Note DATE: 07/13/16 TIME: 12:47 Assessment/Plan Assessment/Plan Additional Assessment/Plan Chest x-ray was reviewed from today which is again showing chronic appearing right lower lobe changes with pleural thickening. Pulmonary edema is is again visualized. BiPAP; IPAP of 15, EPAP of 5, 100% FiO2. Assessment recommendations; 1. Patient admitted for respiratory failure, status post extubation. 2. Underlying severe COPD. 3. Pulmonary edema due to cardiomyopathy. 4. Severe generalized deconditioning. Continue current treatment. Obtain ABG. Add Lasix 40 mg IV daily. Patient may need to be reintubated. Gnosis is guarded Consultation Date/Type/Reason Admit Date/Time Jun 23, 2016 at 22:42 Type of Consultation: Pulmonary/critical care Referring Provider: DAVID GONZALEZ 24 HR Interval Summary Free Text/Dictation Patient condition remains tenuous at best. Not requiring BiPAP at high FiO2. Patient however remains awake and alert. General exam; elderly male, on BiPAP. Currently in no distress. Exam/Review of Systems Vital Signs Vitals Vital Signs Date Time Temp Pulse Resp B/P Pulse Ox O2 Delivery O2 Flow Rate FiO2 07/13/16 11:27 76 97 100 07/13/16 10:00 21 144/77 BIPAP 07/13/16 08:00 99.2 07/12/16 03:34 15.0 Intake and Output 07/12/16 07/12/16 07/13/16 15:00 23:00 07:00 Intake Total 1270 ml 1120 ml 1130 ml Output Total 355 ml 320 ml 305 ml Balance 915 ml 800 ml 825 ml Exam HEENT exam is; supple neck, no JVD. No lymphadenopathy. Midline trachea. Patient is edentulous. Chest exam; diminished breath sounds throughout. S1-S2 audible, no murmurs. Regular rhythm. Abdomen exam is; soft, no organomegaly. Bowel sounds audible. G-tube in place. Nondistended. Extremity exam; no peripheral edema. Patient has a multiple ecchymosis involving all 4 extremities. [employer] exam is; patient is awake follows simple commands but has severe generalized weakness. Results Result Diagram: 07/13/16 0835 07/13/16 0835 Results 24 hrs Laboratory Tests Test 07/12/16 21:34 07/13/16 08:35 Blood Gas Specimen Source Blood arterial Arterial Blood Date Drawn 07/12/2016 9:50:36 PM Arterial Blood pH (Temp corrected) 7.411 Arterial Blood pCO2 (Temp correct) 45.5 H Arterial Blood pO2 (Temp corrected) 113.3 H Arterial Blood HCO3 28.3 H Arterial Blood Base Excess 3.2 H Arterial Blood Oxygen Saturation 97.3 Isac Test ACCEPTAB Arterial Blood Gas Puncture Site Right Radial Arterial Blood Carboxyhemoglobin 0.3 Arterial Blood Methemoglobin 0.3 Blood Gas A-a O2 Differential 554.2 H Oxyhemoglobin Percent 96.7 Total Hemoglobin 9.1 L Blood Gas Temperature 37.0 Blood Gas Respiration Rate 16.0 Blood Gas Actual Respiration Rate 22 Blood Gas Modality MASK - BIPAP FiO2 100.0 Blood Gas Pressure Support 10 Blood Gas IPAP/EPAP Ratio 11/08 Blood Gas Notified Whom KM Blood Gas Notified Time 07/12/2016 10:02:34 PM White Blood Count 4.0 #L Red Blood Count 2.64 L Hemoglobin 8.2 L Hematocrit 25.7 L Mean Corpuscular Volume 97.3 Mean Corpuscular Hemoglobin 31.1 Mean Corpuscular Hemoglobin Concent 31.9 L Red Cell Distribution Width 15.0 H Platelet Count 48 L Mean Platelet Volume 12.4 H Neutrophils % 79.0 H Band Neutrophils % 12.0 H Lymphocytes % 7.0 L Monocytes % 2.0 Eosinophils % Neutrophils # 3.2 Lymphocytes # 0.3 L Monocytes # 0.1 L Eosinophils # Platelet Estimate PLT APPEAR DECREASED Sodium Level 136 Potassium Level 4.7 Chloride Level 105 Carbon Dioxide Level 29 Anion Gap 7 L Blood Urea Nitrogen 59 H Creatinine 1.34 H Glucose Level 128 Calcium Level 8.4 Magnesium Level 2.1 Medications Medications Current Medications Ondansetron HCl (Zofran Inj) 4 mg Q6H PRN IV NAUSEA AND/OR VOMITING Last administered on 07/12/16 12:01; Admin Dose 4 MG; Start 06/24/16 at 00:00 Pantoprazole (Protonix Iv) 40 mg DAILY@06 IV Last administered on 07/13/16 05: 49; Admin Dose 40 MG; Start 06/24/16 at 06:00 Thiamine HCl (Vitamin B1) 100 mg DAILY NGT Last administered on 07/02/16 09:54 ; Admin Dose 100 MG; Start 06/29/16 at 09:00; Status Future Hold Multivitamins (Thera-Plus) 5 ml DAILY NGT Last administered on 07/02/16 09:55; Admin Dose 5 ML; Start 06/29/16 at 09:00; Status Future Hold Folic Acid (Folic Acid) 1 mg DAILY NGT Last administered on 07/02/16 09:55; Admin Dose 1 MG; Start 06/29/16 at 09:00; Status Future Hold Hydralazine HCl (Apresoline) 10 mg Q8 NGT Last administered on 07/13/16 05:50 ; Admin Dose 10 MG; Start 06/29/16 at 14:00 Collagenase (Santyl) 1 applic DAILY TOP Last administered on 07/13/16 10:58; Admin Dose 1 APPLIC; Start 07/01/16 at 16:00 Hydralazine HCl 10 mg 10 mg Q6H PRN IV ELEVATED BLOOD PRESSURE; Start 07/02/16 at 17:00 Multivitamins/ Folic Acid/ Thiamine HCl/ Dextrose (Mvi Adult/Folic Acid/Vitamin B1/ D5W) 1,011.2 ml @ 75 mls/hr DAILY@09 IV Last administered on 07/13/16 10: 57; Admin Dose 75 MLS/HR; Start 07/04/16 at 11:00 Methylprednisolone Sodium Succinate (Solu-Medrol) 20 mg QAM IV Last administered on 07/13/16 10:58; Admin Dose 20 MG; Start 07/10/16 at 09:00 Metoclopramide HCl 5 mg 5 mg Q6 IV Last administered on 07/13/16 05:49; Admin Dose 5 MG; Start 07/10/16 at 18:00 Potassium Chloride/Dextrose/ Sod Cl (D5-NS + KCl 20 Meq) 1,000 ml @ 75 mls/hr [id number] IV Last administered on 07/13/16 00:52; Admin Dose 75 MLS/HR; Start at 09:00 Metoprolol Tartrate (Lopressor) 25 mg BID GTB Last administered on 07/13/16 10 :58; Admin Dose 25 MG; Start 07/13/16 at 09:00 Aspirin (Aspirin) 325 mg DAILY GTB Last administered on 07/13/16 10:57; Admin Dose 325 MG; Start 07/13/16 at 09:00 QARNI,JEN Jul 13, 2016 12:50
[2016-07-13] MEDS: FUROSEMIDE 40 MG INJ IV SCH (13:19)
[2016-07-13 14:58] LABS: AADO2 Arterial 590.8 mmHg (7.0-24.0); Allen Test ACCEPTAB; Arterial Base Excess 3.4 mmol/L (-3.0-3); Arterial COHb 0.3 % (0.0-3.0); Arterial Fraction of Oxyhgb 93.3 % (93.0-99.0); Arterial HCO3 29.1 mmol/L (22.0-26.0); Arterial MetHb 0.2 % (0.0-1.5); Arterial Total Hemglobin 9.1 g/dl (12.0-18.0); Blood Gas IEPAP 15/5; MODE MASK - BIPAP
[2016-07-13] MEDS ORDERED: PROPOFOL 0 ML ONE (15:25)
[2016-07-13] MEDS ORDERED: ROCURONIUM 50 MG INJ IV ONE (15:30)
[2016-07-13] MEDS ORDERED: PROPOFOL 100 ML IV SCH (15:30)
[2016-07-13] MEDS ORDERED: ETOMIDATE 20 MG INJ IV ONE (15:30)
--- NOTE | 2016-07-13 15:46 | EN ---
Date/Time of Note Date/Time of Note DATE: 07/13/16 TIME: 15:45 Event Note Medicine Medicine Event Note Patient's condition is progressively getting worse requiring 100% FiO2 for O2 saturation maintenance. Requiring continuous BiPAP. I did call his grandson Lamin who is the DPOA and discussed the patient's condition with him, the family is in agreement that the patient should be made a DNR and only comfort measures be provided with continuation of BiPAP for now, also discussed with him that in case if the patient goes into distress will provide morphine for comfort care measures prognosis extremely poor. JEN JOHNSON Jul 13, 2016 15:46
[2016-07-13] MEDS ORDERED: LORAZEPAM 2 MG INJ ONE (17:28)
[2016-07-13] MEDS ORDERED: LORAZEPAM 2 MG INJ IV ONE (17:30)
[2016-07-14] VITALS (31 sets, daily range): BP systolic 125–170; BP diastolic 51–111; PULSE 39–78; RESP 16–32
[2016-07-14] MEDS: METOCLOPRAMIDE 10 MG INJ IV SCH ×3 (00:37→12:02)
[2016-07-14] MEDS: ALBUTEROL/IPRATROPIUM (NEB) 3 ML AMP HHN SCH ×5 (01:18→16:21)
[2016-07-14] MEDS: D5-NS + KCL 20 MEQ 1,000 ML IV SCH (03:23)
[2016-07-14] MEDS: PANTOPRAZOLE 40 MG INJ IV SCH (05:31)
[2016-07-14 06:28] LABS: ADD SCAN DIFF NO
[2016-07-14 06:40] LABS: ABNORMAL IP MESSAGE 1; HEMATOCRIT 26.4 % (42.0-52.0); HEMOGLOBIN 8.3 g/dl (14.0-18.0); MEAN CORPUSCULAR HEMOGLOBIN 30.1 pg (29.0-33.0); MEAN CORPUSCULAR HGB CONC 31.4 g/dl (32.0-37.0); MEAN CORPUSCULAR VOLUME 95.7 fl (82.0-101.0); MEAN PLATELET VOLUME 12.3 fl (7.4-10.4); PLATELET COUNT 55 10^3/UL (140-415); RED BLOOD COUNT 2.76 10^6/ul (4.70-6.10); RED CELL DISTRIBUTION WIDTH 15.1 % (11.5-14.5); WHITE BLOOD COUNT 3.4 10^3/ul (4.8-10.8)
[2016-07-14 06:48] LABS: ALBUMIN 2.3 g/dl (3.3-4.9)
[2016-07-14 06:49] LABS: POTASSIUM 4.1 mmol/L (3.5-5.1)
[2016-07-14 06:51] LABS: ALBUMIN/GLOBULIN RATIO 0.82; BILIRUBIN,INDIRECT 0.6 mg/dl (0-1.1); BILIRUBIN,TOTAL 0.6 mg/dl (0.2-1.3); CREATININE 1.4 mg/dl (0.61-1.24); TOTAL PROTEIN 5.1 g/dl (6.1-8.1)
[2016-07-14 06:52] LABS: CALCIUM 9.1 mg/dl (8.4-10.2)
[2016-07-14] MEDS: ASPIRIN 325 MG TAB GTB SCH ×2 (09:00→10:58)
[2016-07-14] MEDS: METOPROLOL 25 MG TAB GTB SCH (09:00)
[2016-07-14] MEDS: FUROSEMIDE 40 MG INJ IV SCH (09:00)
[2016-07-14] MEDS: COLLAGENASE 30 GM TUBE TOP SCH (09:31)
[2016-07-14 09:39] LABS: LYMPHOCYTES # 0.5 10^3/ul (0.8-2.9); MONOCYTE # 0.1 10^3/ul (0.3-0.9); PLATELET ESTIMATE PLT APPEAR DECREASED
--- NOTE | 2016-07-14 10:52 | PN ---
Date/Time of Note Date/Time of Note DATE: 07/14/16 TIME: 10:29 Assessment/Plan VTE Prophylaxis VTE Prophylaxis Intervention: SCD's Lines/Catheters IV Catheter Type (from Nrs): Peripheral IV Urinary Cath still in place: Yes Reason Cath still needed: terminal illness/intractable pain Assessment/Plan Assessment/Plan 76-year-old male with: 1. Acute respiratory failure with a history of heavy tobacco use, chronic obstructive pulmonary disease and chronic obstructive pulmonary disease exacerbation and also with right lower lobe, right middle lobe infiltrate consistent with pneumonia, possibly aspiration pneumonia versus community- acquired pneumonia. Back on BiPAP on 100% FiO2 Very poor prognosis and nor DNR/DNI Unlikely to recover Will discuss Hospice with Grand Son Appreciate Dr Longoria's assistance 2 Nutrition. S/p G tube and on TF and tolerated now but overall severe decline on clinical status with respiratory failure Appreciate recs from GI Will move towards comfort measures 3. Aspiration pneumonia likely, given the pattern of infiltrates on chest x- ray. Comfort measures. 4. Pulseless electrical activity cardiac arrest at home with EMS on site, status post resuscitation. Cardiac arrest may be very well 2ry to respiratory failure. Hemodynamically stable currently. 2-D echo with findings of severe cardiomyopathy and EF 30 % likely chronic. Appreciate recommendations from Dr Kahn. Off Bblock due to bradycardia and continuing afterload reduction. Holding off diuresis. 5. Severe Cardiomyopathy with systolic dysfunction and EF 30%. Monitor UOP and volume status, holding of diuresis so far and on IVF and adding Free H2O 200 cc q6 No Bblocker due to bradycardia again this AM, improving thrombocytopenia, D/c ASA for now, and comfort measures With CKD, no KANDIS inhibitor or ARB for now 6. Likely cirrhosis with hx of ETOH use per reports. Hepatitis panel negative LFTs, Coagulopathy and thrombocytopenia seems to be all improving. Continue thiamine/folate/mvi IV until G tube placed Ammonia level within normal limit. 7. Encephalopathy: still with odd behavior and on/off following commands, CT head negative x2 so far, ? Anoxic injury Ammonia level wnl Comfort measures. 8. Acute kidney injury on chronic kidney disease with likely ATN. Renal US with signs of chronic medical disease. OK renal function, but D/c IVF and Lasix Continue Free H2O through Gtube and TF until discussion about hospice and full comfort measures. PROPHYLAXIS: SCDs to lower extremities for DVT prophylaxis and Pepcid for GI prophylaxis. DISPOSITION: FULL CODE until further information is obtained through social psychologist, niranjan Kimble, will be updated his phone number is [phone] seems to be the only living next of kin. DNR/DNI, with plan for comfort measures and hospice hopefully today. Exam/Review of Systems Vital Signs Vitals Vital Signs Date Time Temp Pulse Resp B/P Pulse Ox O2 Delivery O2 Flow Rate FiO2 07/14/16 09:24 58 100 100 07/14/16 08:00 99.6 24 158/94 BIPAP 07/12/16 03:34 15.0 Intake and Output 07/13/16 07/13/16 07/14/16 15:00 23:00 07:00 Intake Total 1240 ml 1120 ml 1095 ml Output Total 605 ml 975 ml 581 ml Balance 635 ml 145 ml 514 ml Exam Constitutional: alert, distress (even on BiPAP), frail Respiratory: diminished breath sounds, labored breathing, other (BiPAP) Cardiovascular: nl pulses, regular rate and rhythm Gastrointestinal: other (S/p G tube ), soft Extremities: normal pulses 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: confused, lethargic Skin: ecchymosis (diffuse ) Results Result Diagram: 07/14/16 0545 07/14/16 0550 Results 24 hrs Laboratory Tests Test 07/13/16 12:50 07/14/16 05:45 07/14/16 05:50 Blood Gas Specimen Source Blood arterial Arterial Blood Date Drawn 07/13/2016 2:53:17 PM Arterial Blood pH (Temp corrected) 7.379 Arterial Blood pCO2 (Temp correct) 50.4 H Arterial Blood pO2 (Temp corrected) 71.8 L Arterial Blood HCO3 29.1 H Arterial Blood Base Excess 3.4 H Arterial Blood Oxygen Saturation 93.8 L Isac Test ACCEPTAB Arterial Blood Gas Puncture Site Right Radial Arterial Blood Carboxyhemoglobin 0.3 Arterial Blood Methemoglobin 0.2 Blood Gas A-a O2 Differential 590.8 H Oxyhemoglobin Percent 93.3 Total Hemoglobin 9.1 L Blood Gas Temperature 37.0 Blood Gas Modality MASK - BIPAP FiO2 100.0 Blood Gas IPAP/EPAP Ratio 15/5 Blood Gas Critical Value Read Back ab Blood Gas Notified Whom ab Blood Gas Notified Time 07/13/2016 2:58:01 PM White Blood Count 3.4 L Red Blood Count 2.76 L Hemoglobin 8.3 L Hematocrit 26.4 L Mean Corpuscular Volume 95.7 Mean Corpuscular Hemoglobin 30.1 Mean Corpuscular Hemoglobin Concent 31.4 L Red Cell Distribution Width 15.1 H Platelet Count 55 L Mean Platelet Volume 12.3 H Neutrophils % 60.0 Band Neutrophils % 22.0 H Lymphocytes % 15.0 Monocytes % 3.0 Eosinophils % Neutrophils # 2.0 Lymphocytes # 0.5 L Monocytes # 0.1 L Eosinophils # Platelet Estimate PLT APPEAR DECREASED Sodium Level 139 Potassium Level 4.1 Chloride Level 102 Carbon Dioxide Level 29 Anion Gap 12 Blood Urea Nitrogen 63 H Creatinine 1.40 H Glucose Level 117 Calcium Level 9.1 Total Bilirubin 0.6 Direct Bilirubin 0.00 Indirect Bilirubin 0.6 Aspartate Amino Transf (AST/SGOT) 107 H Alanine Aminotransferase (ALT/SGPT) 187 H Alkaline Phosphatase 126 H Total Protein 5.1 L Albumin 2.3 L Globulin 2.80 Albumin/Globulin Ratio 0.82 Medications Medications Current Medications Ondansetron HCl (Zofran Inj) 4 mg Q6H PRN IV NAUSEA AND/OR VOMITING Last administered on 07/12/16 12:01; Admin Dose 4 MG; Start 06/24/16 at 00:00 Pantoprazole (Protonix Iv) 40 mg DAILY@06 IV Last administered on 07/14/16 05: 31; Admin Dose 40 MG; Start 06/24/16 at 06:00 Thiamine HCl (Vitamin B1) 100 mg DAILY NGT Last administered on 07/02/16 09:54 ; Admin Dose 100 MG; Start 06/29/16 at 09:00; Status Future Hold Multivitamins (Thera-Plus) 5 ml DAILY NGT Last administered on 07/02/16 09:55; Admin Dose 5 ML; Start 06/29/16 at 09:00; Status Future Hold Folic Acid (Folic Acid) 1 mg DAILY NGT Last administered on 07/02/16 09:55; Admin Dose 1 MG; Start 06/29/16 at 09:00; Status Future Hold Hydralazine HCl (Apresoline) 10 mg Q8 NGT Last administered on 07/14/16 05:32 ; Admin Dose 10 MG; Start 06/29/16 at 14:00 Collagenase (Santyl) 1 applic DAILY TOP Last administered on 07/14/16 09:31; Admin Dose 1 APPLIC; Start 07/01/16 at 16:00 Hydralazine HCl 10 mg 10 mg Q6H PRN IV ELEVATED BLOOD PRESSURE; Start 07/02/16 at 17:00 Multivitamins/ Folic Acid/ Thiamine HCl/ Dextrose (Mvi Adult/Folic Acid/Vitamin B1/ D5W) 1,011.2 ml @ 75 mls/hr DAILY@09 IV Last administered on 07/13/16 10: 57; Admin Dose 75 MLS/HR; Start 07/04/16 at 11:00 Methylprednisolone Sodium Succinate (Solu-Medrol) 20 mg QAM IV Last administered on 07/13/16 10:58; Admin Dose 20 MG; Start 07/10/16 at 09:00 Metoclopramide HCl 5 mg 5 mg Q6 IV Last administered on 07/14/16 05:23; Admin Dose 5 MG; Start 07/10/16 at 18:00 Potassium Chloride/Dextrose/ Sod Cl (D5-NS + KCl 20 Meq) 1,000 ml @ 75 mls/hr I02Q24H IV Last administered on 07/14/16 03:23; Admin Dose 75 MLS/HR; Start at 09:00 Metoprolol Tartrate (Lopressor) 25 mg BID GTB Last administered on 07/13/16 21 :42; Admin Dose 25 MG; Start 07/13/16 at 09:00 Aspirin (Aspirin) 325 mg DAILY GTB Last administered on 07/13/16 10:57; Admin Dose 325 MG; Start 07/13/16 at 09:00 Furosemide (Lasix) 40 mg DAILY IV Last administered on 07/13/16 13:19; Admin Dose 40 MG; Start 07/13/16 at 13:00 DAVID GONZALEZ Jul 14, 2016 10:42
--- NOTE | 2016-07-14 10:55 | CONS ---
Date/Time of Note Date/Time of Note DATE: 07/14/16 TIME: 10:54 Consult Date/Type/Reason Admit Date/Time Jun 23, 2016 at 22:42 Type of Consultation: Pulmonary/critical care Ordering Provider: DAVID GONZALEZ Subjective Patient continues BiPAP remains mostly somnolent Currently hemodynamically stable Objective Vital Signs Date Time Temp Pulse Resp B/P Pulse Ox O2 Delivery O2 Flow Rate FiO2 07/14/16 09:24 58 100 100 07/14/16 08:00 99.6 24 158/94 BIPAP 07/12/16 03:34 15.0 Intake and Output 07/13/16 07/13/16 07/14/16 14:59 22:59 06:59 Intake Total 1240 ml 1120 ml 970 ml Output Total 605 ml 892 ml 664 ml Balance 635 ml 228 ml 306 ml Exam PHYSICAL EXAMINATION GENERAL: Elderly gentleman, remains on BiPAP mostly somnolent VITAL SIGNS: see below. HEENT: Pupils equal, round, and reactive to light. CARDIAC: S1, S2, tachycardia. CHEST: Diminished air entry bilaterally. ABDOMEN: Mildly distended. Diminished bowel sounds no guarding or rebound EXTREMITIES: No cyanosis, clubbing or edema. NEUROLOGIC: Generalized weakness and unable to assess Results/Medications Result Diagram: 07/14/16 0545 07/14/16 0550 Results 24 hrs Chest x-ray Bilateral effusions and infiltrates Laboratory Tests Test 07/13/16 12:50 07/14/16 05:45 07/14/16 05:50 Blood Gas Specimen Source Blood arterial Arterial Blood Date Drawn 07/13/2016 2:53:17 PM Arterial Blood pH (Temp corrected) 7.379 Arterial Blood pCO2 (Temp correct) 50.4 H Arterial Blood pO2 (Temp corrected) 71.8 L Arterial Blood HCO3 29.1 H Arterial Blood Base Excess 3.4 H Arterial Blood Oxygen Saturation 93.8 L Isac Test ACCEPTAB Arterial Blood Gas Puncture Site Right Radial Arterial Blood Carboxyhemoglobin 0.3 Arterial Blood Methemoglobin 0.2 Blood Gas A-a O2 Differential 590.8 H Oxyhemoglobin Percent 93.3 Total Hemoglobin 9.1 L Blood Gas Temperature 37.0 Blood Gas Modality MASK - BIPAP FiO2 100.0 Blood Gas IPAP/EPAP Ratio 15/5 Blood Gas Critical Value Read Back ab Blood Gas Notified Whom ab Blood Gas Notified Time 07/13/2016 2:58:01 PM White Blood Count 3.4 L Red Blood Count 2.76 L Hemoglobin 8.3 L Hematocrit 26.4 L Mean Corpuscular Volume 95.7 Mean Corpuscular Hemoglobin 30.1 Mean Corpuscular Hemoglobin Concent 31.4 L Red Cell Distribution Width 15.1 H Platelet Count 55 L Mean Platelet Volume 12.3 H Neutrophils % 60.0 Band Neutrophils % 22.0 H Lymphocytes % 15.0 Monocytes % 3.0 Eosinophils % Neutrophils # 2.0 Lymphocytes # 0.5 L Monocytes # 0.1 L Eosinophils # Platelet Estimate PLT APPEAR DECREASED Sodium Level 139 Potassium Level 4.1 Chloride Level 102 Carbon Dioxide Level 29 Anion Gap 12 Blood Urea Nitrogen 63 H Creatinine 1.40 H Glucose Level 117 Calcium Level 9.1 Total Bilirubin 0.6 Direct Bilirubin 0.00 Indirect Bilirubin 0.6 Aspartate Amino Transf (AST/SGOT) 107 H Alanine Aminotransferase (ALT/SGPT) 187 H Alkaline Phosphatase 126 H Total Protein 5.1 L Albumin 2.3 L Globulin 2.80 Albumin/Globulin Ratio 0.82 Medications Current Medications Ondansetron HCl (Zofran Inj) 4 mg Q6H PRN IV NAUSEA AND/OR VOMITING Last administered on 07/12/16 12:01; Admin Dose 4 MG; Start 06/24/16 at 00:00 Pantoprazole (Protonix Iv) 40 mg DAILY@06 IV Last administered on 07/14/16 05: 31; Admin Dose 40 MG; Start 06/24/16 at 06:00 Multivitamins (Thera-Plus) 5 ml DAILY NGT Last administered on 07/02/16 09:55; Admin Dose 5 ML; Start 06/29/16 at 09:00; Status Future Hold Hydralazine HCl (Apresoline) 10 mg Q8 NGT Last administered on 07/14/16 05:32 ; Admin Dose 10 MG; Start 06/29/16 at 14:00 Collagenase (Santyl) 1 applic DAILY TOP Last administered on 07/14/16 09:31; Admin Dose 1 APPLIC; Start 07/01/16 at 16:00 Hydralazine HCl 10 mg 10 mg Q6H PRN IV ELEVATED BLOOD PRESSURE; Start 07/02/16 at 17:00 Multivitamins/ Folic Acid/ Thiamine HCl/ Dextrose (Mvi Adult/Folic Acid/Vitamin B1/ D5W) 1,011.2 ml @ 75 mls/hr DAILY@09 IV Last administered on 07/13/16 10: 57; Admin Dose 75 MLS/HR; Start 07/04/16 at 11:00 Methylprednisolone Sodium Succinate (Solu-Medrol) 20 mg QAM IV Last administered on 07/13/16 10:58; Admin Dose 20 MG; Start 07/10/16 at 09:00 Metoclopramide HCl (Reglan) 5 mg Q6 IV Last administered on 07/14/16 05:23; Admin Dose 5 MG; Start 07/10/16 at 18:00 Assessment/Plan Chief Complaint/Hosp Course IMPRESSION 1. Cardiopulmonary arrest, likely secondary to acute respiratory failure. 2. Possible aspiration pneumonia with hypoxemic respiratory failure, currently remains BiPAP dependent 3. Congestive cardiac failure. Systolic dysfunction with decreased ejection fraction 4. History of advanced chronic obstructive pulmonary disease per chart. 5. History of hospice. 6. Renal insufficiency Plan 1. Continue noninvasive positive pressure ventilation, patient is DNR/DNI 2. Vasopressors as needed. 3. IV fluids 4. Continue antibiotics 5. Bronchodilators. 6. DVT and GI prophylaxis. Disposition Agree with palliative care approach Problems: NIC PEREZ MD, [facility] Jul 14, 2016 10:55
[2016-07-14] MEDS: MULTIVITAMINS IV SCH (12:02)
[2016-07-14] MEDS: METHYLPREDNISOLONE 40 MG INJ IV SCH (12:02)
[2016-07-14] MEDS: DEXTROSE 5% IV SCH (12:02)
[2016-07-14] MEDS: FOLIC ACID IV SCH (12:02)
[2016-07-14] MEDS: THIAMINE IV SCH (12:02)
--- NOTE | 2016-07-14 16:29 | PN ---
Date/Time of Note Date/Time of Note DATE: 07/14/16 TIME: 16:26 Assessment/Plan VTE Prophylaxis VTE Prophylaxis Intervention: SCD's Lines/Catheters IV Catheter Type (from Nrs): Peripheral IV Urinary Cath still in place: Yes Reason Cath still needed: urinary retention Assessment/Plan Assessment/Plan Dysphagia * PEG insertion 07/09/2016 * Pulseless electrical activity,s,p resuscitation * Acute respiratory failure Resolved * Cardiomyopathy EF 30 % * Encephalopathy * PLAN * monitor tube feeding * continue present management Subjective 24 Hr Interval Summary Free Text/Dictation * Course reviewed with RN * patient seen and examined * Tolerating tube feeding Exam/Review of Systems Vital Signs Vitals Vital Signs Date Time Temp Pulse Resp B/P Pulse Ox O2 Delivery O2 Flow Rate FiO2 07/14/16 16:22 53 31 98 100 07/14/16 15:00 137/66 BIPAP 07/14/16 12:00 100.3 07/12/16 03:34 15.0 Intake and Output 07/13/16 07/13/16 07/14/16 14:59 22:59 06:59 Intake Total 1240 ml 1120 ml 970 ml Output Total 605 ml 892 ml 664 ml Balance 635 ml 228 ml 306 ml Exam Respiratory: diminished breath sounds, other (Bipap) Cardiovascular: nl pulses, regular rate and rhythm Gastrointestinal: nl liver, spleen, non-tender, other (g tube in placed no leak ), soft Results Result Diagram: 07/14/16 0545 07/14/16 0550 Results 24 hrs Laboratory Tests Test 07/14/16 05:45 07/14/16 05:50 White Blood Count 3.4 L Red Blood Count 2.76 L Hemoglobin 8.3 L Hematocrit 26.4 L Mean Corpuscular Volume 95.7 Mean Corpuscular Hemoglobin 30.1 Mean Corpuscular Hemoglobin Concent 31.4 L Red Cell Distribution Width 15.1 H Platelet Count 55 L Mean Platelet Volume 12.3 H Neutrophils % 60.0 Band Neutrophils % 22.0 H Lymphocytes % 15.0 Monocytes % 3.0 Eosinophils % Neutrophils # 2.0 Lymphocytes # 0.5 L Monocytes # 0.1 L Eosinophils # Platelet Estimate PLT APPEAR DECREASED Sodium Level 139 Potassium Level 4.1 Chloride Level 102 Carbon Dioxide Level 29 Anion Gap 12 Blood Urea Nitrogen 63 H Creatinine 1.40 H Glucose Level 117 Calcium Level 9.1 Total Bilirubin 0.6 Direct Bilirubin 0.00 Indirect Bilirubin 0.6 Aspartate Amino Transf (AST/SGOT) 107 H Alanine Aminotransferase (ALT/SGPT) 187 H Alkaline Phosphatase 126 H Total Protein 5.1 L Albumin 2.3 L Globulin 2.80 Albumin/Globulin Ratio 0.82 Medications Medications Current Medications Ondansetron HCl (Zofran Inj) 4 mg Q6H PRN IV NAUSEA AND/OR VOMITING Last administered on 07/12/16 12:01; Admin Dose 4 MG; Start 06/24/16 at 00:00 Pantoprazole (Protonix Iv) 40 mg DAILY@06 IV Last administered on 07/14/16 05: 31; Admin Dose 40 MG; Start 06/24/16 at 06:00 Multivitamins (Thera-Plus) 5 ml DAILY NGT Last administered on 07/02/16 09:55; Admin Dose 5 ML; Start 06/29/16 at 09:00; Status Future Hold Hydralazine HCl (Apresoline) 10 mg Q8 NGT Last administered on 07/14/16 15:05 ; Admin Dose 10 MG; Start 06/29/16 at 14:00 Collagenase (Santyl) 1 applic DAILY TOP Last administered on 07/14/16 09:31; Admin Dose 1 APPLIC; Start 07/01/16 at 16:00 Hydralazine HCl 10 mg 10 mg Q6H PRN IV ELEVATED BLOOD PRESSURE; Start 07/02/16 at 17:00 Multivitamins/ Folic Acid/ Thiamine HCl/ Dextrose (Mvi Adult/Folic Acid/Vitamin B1/ D5W) 1,011.2 ml @ 75 mls/hr DAILY@09 IV Last administered on 07/14/16 12: 02; Admin Dose 75 MLS/HR; Start 07/04/16 at 11:00 Methylprednisolone Sodium Succinate (Solu-Medrol) 20 mg QAM IV Last administered on 07/14/16 12:02; Admin Dose 20 MG; Start 07/10/16 at 09:00 Metoclopramide HCl (Reglan) 5 mg Q6 IV Last administered on 07/14/16 12:02; Admin Dose 5 MG; Start 07/10/16 at 18:00 BRIA MARTINEZ MD Jul 14, 2016 16:29
--- NOTE | 2016-07-14 16:49 | PN ---
Date/Time of Note Date/Time of Note DATE: 07/14/16 TIME: 16:49 Assessment/Plan VTE Prophylaxis VTE Prophylaxis Intervention: SCD's Lines/Catheters IV Catheter Type (from Nrs): Peripheral IV Urinary Cath still in place: Yes Reason Cath still needed: urinary retention Assessment/Plan Assessment/Plan Cardiopulmonary arrest Severe cardiomyopathy with ejection fraction 30% Respiratory failure status post extubation Acute decompensated systolic congestive heart failure Encephalopathy Mildly elevated troponin Active tobacco use Coagulopathy Acute kidney injury Anemia - Intermittent IV diuretics as renal function and blood pressure permits. -Once able to tolerate p.o. meds, would start beta-erika and restart hydralazine secondary to congestive heart failure. -progressive anemia -renal insuff stable Subjective 24 Hr Interval Summary Free Text/Dictation the aptiet is stable Exam/Review of Systems Vital Signs Vitals Vital Signs Date Time Temp Pulse Resp B/P Pulse Ox O2 Delivery O2 Flow Rate FiO2 07/14/16 16:22 53 31 98 100 07/14/16 15:00 137/66 BIPAP 07/14/16 12:00 100.3 07/12/16 03:34 15.0 Intake and Output 07/13/16 07/13/16 07/14/16 15:00 23:00 07:00 Intake Total 1240 ml 1120 ml 1170 ml Output Total 605 ml 975 ml 581 ml Balance 635 ml 145 ml 589 ml Results Result Diagram: 07/14/16 0545 07/14/16 0550 Results 24 hrs Laboratory Tests Test 07/14/16 05:45 07/14/16 05:50 White Blood Count 3.4 L Red Blood Count 2.76 L Hemoglobin 8.3 L Hematocrit 26.4 L Mean Corpuscular Volume 95.7 Mean Corpuscular Hemoglobin 30.1 Mean Corpuscular Hemoglobin Concent 31.4 L Red Cell Distribution Width 15.1 H Platelet Count 55 L Mean Platelet Volume 12.3 H Neutrophils % 60.0 Band Neutrophils % 22.0 H Lymphocytes % 15.0 Monocytes % 3.0 Eosinophils % Neutrophils # 2.0 Lymphocytes # 0.5 L Monocytes # 0.1 L Eosinophils # Platelet Estimate PLT APPEAR DECREASED Sodium Level 139 Potassium Level 4.1 Chloride Level 102 Carbon Dioxide Level 29 Anion Gap 12 Blood Urea Nitrogen 63 H Creatinine 1.40 H Glucose Level 117 Calcium Level 9.1 Total Bilirubin 0.6 Direct Bilirubin 0.00 Indirect Bilirubin 0.6 Aspartate Amino Transf (AST/SGOT) 107 H Alanine Aminotransferase (ALT/SGPT) 187 H Alkaline Phosphatase 126 H Total Protein 5.1 L Albumin 2.3 L Globulin 2.80 Albumin/Globulin Ratio 0.82 Medications Medications Current Medications Ondansetron HCl (Zofran Inj) 4 mg Q6H PRN IV NAUSEA AND/OR VOMITING Last administered on 07/12/16 12:01; Admin Dose 4 MG; Start 06/24/16 at 00:00 Pantoprazole (Protonix Iv) 40 mg DAILY@06 IV Last administered on 07/14/16 05: 31; Admin Dose 40 MG; Start 06/24/16 at 06:00 Multivitamins (Thera-Plus) 5 ml DAILY NGT Last administered on 07/02/16 09:55; Admin Dose 5 ML; Start 06/29/16 at 09:00; Status Future Hold Hydralazine HCl (Apresoline) 10 mg Q8 NGT Last administered on 07/14/16 15:05 ; Admin Dose 10 MG; Start 06/29/16 at 14:00 Collagenase (Santyl) 1 applic DAILY TOP Last administered on 07/14/16 09:31; Admin Dose 1 APPLIC; Start 07/01/16 at 16:00 Hydralazine HCl 10 mg 10 mg Q6H PRN IV ELEVATED BLOOD PRESSURE; Start 07/02/16 at 17:00 Multivitamins/ Folic Acid/ Thiamine HCl/ Dextrose (Mvi Adult/Folic Acid/Vitamin B1/ D5W) 1,011.2 ml @ 75 mls/hr DAILY@09 IV Last administered on 07/14/16 12: 02; Admin Dose 75 MLS/HR; Start 07/04/16 at 11:00 Methylprednisolone Sodium Succinate (Solu-Medrol) 20 mg QAM IV Last administered on 07/14/16 12:02; Admin Dose 20 MG; Start 07/10/16 at 09:00 Metoclopramide HCl (Reglan) 5 mg Q6 IV Last administered on 07/14/16 12:02; Admin Dose 5 MG; Start 07/10/16 at 18:00 DEO ELLIOTT MD Jul 14, 2016 16:49
[2016-07-14] MEDS ORDERED: morphine (DRIP) 100 MG/100 ML 100 ML IV SCH (17:00)
--- NOTE | 2016-07-15 06:18 | EN ---
Date/Time of Note Date/Time of Note DATE: 07/15/16 TIME: 06:07 Event Note Medicine Medicine Event Note Late last night, I was called to ICU Room 119 for patient on Comfort Measures who went into asystole. I was called to evaluate him. Patient appears pale and lifeless. He does not rouse with brisk sternal rub and calling his name. No heart beat upon auscultation. No pulse with palpation of carotid artery. No visible or audible respirations. Pupils are fixed and dilated. Patient pronounced at 2233 on 07/14/16. summary to primary physician. SHAWN POSADA DO Jul 15, 2016 06:18
== END 2016-07-15 01:30 | disposition expired | DRG 207 ==
LOC: E/R 20:51 → EDBD 20:51 → ICU 22:42 → MERGE 22:42
PROVIDERS: ADMIT Internal Medicine; ATTEND Internal Medicine
PROC: 5A1955Z Respiratory Ventilation, Greater than 96 Consecutive Hours (ICD-10-PCS; principal; 2016-06-23)
PROC: 0DH63UZ Insertion of Feeding Device into Stomach, Percutaneous Approach (ICD-10-PCS; 2016-07-09)
DX: J44.0 Chronic obstructive pulmonary disease with (acute) lower respiratory infection (principal); I46.8 Cardiac arrest due to other underlying condition; J69.0 Pneumonitis due to inhalation of food and vomit; N17.0 Acute kidney failure with tubular necrosis; J18.9 Pneumonia, unspecified organism; G93.40 Encephalopathy, unspecified; I50.23 Acute on chronic systolic (congestive) heart failure; N18.4 Chronic kidney disease, stage 4 (severe); J96.00 Acute respiratory failure, unspecified whether with hypoxia or hypercapnia; D68.9 Coagulation defect, unspecified; F17.210 Nicotine dependence, cigarettes, uncomplicated; J44.1 Chronic obstructive pulmonary disease with (acute) exacerbation; N18.9 Chronic kidney disease, unspecified; I25.5 Ischemic cardiomyopathy; K74.60 Unspecified cirrhosis of liver; D69.6 Thrombocytopenia, unspecified; I46.9 Cardiac arrest, cause unspecified; Z66 Do not resuscitate
CPT/HCPCS: 36415; 36600; 70450; 70490; 71010; 72170; 76604; 76775; 80048; 80053; 80076; 80202; 81001; 81003; 82140; 82550; 82553; 82803; 83605; 83690; 83735; 83880; 84100; 84484; 85025; 85610; 85730; 86703; 86704; 86709; 86803; 86850; 86900; 86901; 87040; 87081; 87086; 87340; 92526; 92610; 93005; 93306; 94002; 94003; 94640; 94644; 94645; 94660; 94664; 94770; 96365; 96375; C9113; J0360; J0690; J0696; J1720; J1940; J2060; J2270; J2405; J2543; J2765; J2920; J3370; J3411; J3480; J7030; J7050; J7070